=== PATIENT | male | born 1965 | race Hispanic/Latino ===

== ENCOUNTER 2017-06-30 15:25 | Inpatient (IN) | payer OTHER ==
[2017-06-30 15:25] VITALS: BMI 28.7
[2017-06-30] MEDS ORDERED: Piperacillin/Tazobact 3.375 gm 100 ML IVPB ONE (16:43)
[2017-06-30] MEDS ORDERED: Vancomycin 1 GM 1 GM/250 ML BAG IVPB ONE (16:43)
[2017-06-30 17:03] LABS: BASO # 0.1 K/uL (0.0-0.2); BASO % 1.1 % (0.0-2.0); EOS # 0.4 K/uL (0.0-0.7); EOS % 3.8 % (0.0-4.0); LYMPH # 2.2 K/uL (1.0-4.3); LYMPH % 19.2 % (20.0-40.0); MEAN CELL VOLUME 82.3 fL (80.0-94.0); MEAN CORPUSCULAR HEMOGLOBIN 28.6 pg (27.0-31.0); MEAN CORPUSCULAR HGB CONC 34.7 g/dL (33.0-37.0); MEAN PLATELET VOLUME 7.2 fL (7.2-11.7); MONO # 0.7 K/uL (0.0-0.8); MONO % 6.6 % (0.0-10.0); RED CELL DISTRIBUTION WIDTH 14.5 % (11.5-14.5); WHITE BLOOD COUNT 11.2 K/uL (4.8-10.8)
[2017-06-30 17:12] LABS: CHLORIDE 101 mmol/L (98-107); POTASSIUM 4.2 mmol/L (3.6-5.2); SODIUM 136 mmol/L (132-148)
[2017-06-30 17:14] LABS: BILIRUBIN,TOTAL 0.5 mg/dL (0.2-1.3); GFR AFRICAN-AMERICAN > 60
[2017-06-30 17:15] LABS: ALB/GLOB RATIO 0.9 (1.0-2.1); ALKALINE PHOSPHATASE 87 U/L (38-126); ALT/SGPT 29 U/L (21-72); AST/SGOT 17 U/L (17-59); BLOOD UREA NITROGEN 9 mg/dL (9-20); CALCIUM 9.2 mg/dl (8.6-10.4); CARBON DIOXIDE 25 mmol/L (22-30); GLUCOSE,RANDOM 254 mg/dL (75-110); INR 1.2; TOTAL PROTEIN 7.6 g/dL (6.3-8.3)
--- NOTE | 2017-06-30 18:27 | C.PDOC ---
History Of Present Illness 51 y/o male sent to ED by Dr. Rollins for admission for IV antibiotics due to right heel and left great toe infection. Symptoms are questionable for Osteomyelitis. Patient has no other complaints at this time. Time Seen by Provider: 06/30/17 15:52 Chief Complaint (Nursing): Lower Extremity Problem/Injury History Per: Patient History/Exam Limitations: no limitations Onset/Duration Of Symptoms: Days Current Symptoms Are (Timing): Still Present Past Medical History Reviewed: Historical Data, Nursing Documentation, Vital Signs Vital Signs: Last Vital Signs Temp 97.8 F 06/30/17 21:32 Pulse 88 06/30/17 21:32 Resp 20 06/30/17 21:32 BP 142/99 H 06/30/17 21:32 Pulse Ox 95 06/30/17 21:32 Family History: States: No Known Family Hx - Social History Hx Alcohol Use: Yes Hx Substance Use: No Review Of Systems Except As Marked, All Systems Reviewed And Found Negative. Constitutional: Negative for: Fever, Chills Cardiovascular: Negative for: Chest Pain Respiratory: Negative for: Shortness of Breath Gastrointestinal: Negative for: Nausea, Vomiting, Diarrhea Musculoskeletal: Positive for: Leg Pain, Foot Pain Skin: Negative for: Rash Neurological: Negative for: Numbness Physical Exam - Physical Exam Appears: Non-toxic, No Acute Distress Skin: Normal Color, Warm, No Rash Head: Atraumatic, Normacephalic Eye(s): bilateral: Normal Inspection Oral Mucosa: Moist Neck: Supple Chest: Symmetrical Extremity: Normal ROM, No Tenderness, Capillary Refill (<2 seconds), No Deformity, Other (Right foot bandaged, Left great toe bandaged) Pulses: Left Dorsalis Pedis: Normal, Right Dorsalis Pedis: Normal Neurological/Psych: Oriented x3, Normal Speech, Normal Motor, Normal Sensation ED Course And Treatment - Laboratory Results Result Diagrams: 06/30/17 17:05 06/30/17 16:59 O2 Sat by Pulse Oximetry: 98 (RA) Pulse Ox Interpretation: Normal Medical Decision Making Medical Decision Making: Spoke with who is aware of case and ask to start on Vancomycin Disposition - Disposition Disposition: HOSPITALIZED Disposition Time: 17:15 Condition: STABLE - Clinical Impression Clinical Impression: Cellulitis, Osteomyelitis - Scribe Statement The provider has reviewed the documentation as recorded by the Ediliaibporter Fleming All medical record entries made by the Scribe were at my direction and personally dictated by me. I have reviewed the chart and agree that the record accurately reflects my personal performance of the history, physical exam, medical decision making, and the department course for this patient. I have also personally directed, reviewed, and agree with the discharge instructions and disposition.
[2017-06-30] MEDS: Piperacillin/Tazobact 3.375 GM in Sodium Chloride 100 ML IVPB SCH (19:00)
[2017-06-30] MEDS: (Novolog) Insulin Aspart, Recombinant 100 u/ml 10 ml vial SC SCH (21:34)
[2017-07-01] MEDS: Piperacillin/Tazobact 3.375 GM in Sodium Chloride 100 ML IVPB SCH ×4 (00:45→23:47)
[2017-07-01] MEDS: (Novolog) Insulin Aspart, Recombinant 100 u/ml 10 ml vial SC SCH ×4 (08:13→21:21)
--- NOTE | 2017-07-01 08:40 | CP.PCM.CON ---
<Arsen Rollins - Last Filed: 07/01/17 08:37> History of Present Illness - History of Present Illness History of Present Illness: 51 year old male diabetic non compliant patient admitted for nonhealing worsening wound with history of OM right heel /ankle and new wound left hallux with deep probe and swelling of hallux of 1 week duration. Past Patient History - Past Medical History & Family History Past Medical History?: Yes - Past Social History Smoking Status: Unknown If Ever Smoked - ENDOCRINE/METABOLIC Hx Endocrine Disorders: Yes Hx Diabetes Mellitus Type 1: Yes - MUSCULOSKELETAL/RHEUMATOLOGICAL Hx Falls: No - PSYCHIATRIC Hx Substance Use: No - SURGICAL HISTORY Hx Surgeries: Yes Other/Comment: RIGHT FOOT - ANESTHESIA Hx Anesthesia: Yes Hx Anesthesia Reactions: No Meds Allergies/Adverse Reactions: Allergies Allergy/AdvReac Type Severity Reaction Status Date / Time No Known Allergies Allergy Verified 06/30/17 15:33 - Medications Medications: Current Medications Enoxaparin Sodium (Lovenox) 40 mg SC DAILY [facility] Piperacillin Sod/Tazobactam (Sod 3.375 gm/ Sodium Chloride) 100 mls @ 200 mls/ hr IVPB Q8H [facility] Last Admin: 07/01/17 08:14 Dose: 200 mls/hr Insulin Aspart (Novolog) 0 unit SC ACHS [facility] PRN Reason: Protocol Last Admin: 07/01/17 08:13 Dose: 2 unit Pneumococcal Polyvalent Vaccine (Pneumovax 23 Vaccine) 0.5 ml SC .ONCE ONE Stop: 07/02/17 10:01 Results - Vital Signs Recent Vital Signs: Last Vital Signs Temp 97.6 F 07/01/17 00:00 Pulse 82 07/01/17 00:00 Resp 20 07/01/17 00:00 BP 139/75 07/01/17 00:00 Pulse Ox 98 07/01/17 00:45 - Labs Result Diagrams: 06/30/17 17:05 06/30/17 16:59 Labs: Laboratory Results - last 24 hr 06/30/17 07/01/17 21:14 07:16 POC Glucose (mg/dL) 236 H 210 H <Zaid Nino - Last Filed: 07/01/17 10:17> History of Present Illness - History of Present Illness History of Present Illness: Patient is a 51 year old male with PMH of Diabetes consulted for nonhealing ulceration to right ankle/heel and left hallux plantar ulceration. Patient is known to Dr. Rollins. Patient states he has had the right mark/heel for over 1 year. He has had two debridements in the past for the plantar wound ulceration. He states the left hallux ulceration occured over a week ago. He reports it does feel like it's getting worse. He states he did not note any trauma to the area that could have caused the ulceration. He denies any acute events overnight. Denies n/v/sob/cp/chills of fever. Allergies: NKDA Meds: see meds list FH: denies PMH: DM SH: denies smoking or elicited drug use, reports drinking PSH: right heel wound debridements in the past Meds - Medications Medications: Current Medications Enoxaparin Sodium (Lovenox) 40 mg SC DAILY [facility] Last Admin: 07/01/17 09:12 Dose: 40 mg Piperacillin Sod/Tazobactam (Sod 3.375 gm/ Sodium Chloride) 100 mls @ 200 mls/ hr IVPB Q8H [facility] Last Admin: 07/01/17 08:14 Dose: 200 mls/hr Insulin Aspart (Novolog) 0 unit SC ACHS [facility] PRN Reason: Protocol Last Admin: 07/01/17 08:13 Dose: 2 unit Mupirocin (Bactroban Ointment) 0 gm TOP BID [facility] Pneumococcal Polyvalent Vaccine (Pneumovax 23 Vaccine) 0.5 ml SC .ONCE ONE Stop: 07/02/17 10:01 Physical Exam - Constitutional Appears: Well, Non-toxic, No Acute Distress - Extremities Exam Additional comments: Vasc: DP and PT 1/4 bilaterally, HOLLOCK MAKER < 3 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 New ulceration at the Left plantar medial hallux measures approximately 3 x 3 .4 cm, wound base is 60% fibrous, 40% granular with hyperkeratotic rim noted to the ulceration, mild drainage noted, no tunneling noted, no odor noted, erythema surrounding periwound. Neuro:gross sensation slightly diminished bilaterally Ortho: MM is 5/5 in all four compartments, pain elicited with palpation of the ulcerations bilaterally - Neurological Exam Neurological exam: Alert, Oriented x3 - Psychiatric Exam Psychiatric exam: Normal Affect, Normal Mood Results - Vital Signs Recent Vital Signs: Last Vital Signs Temp 97 F L 07/01/17 09:26 Pulse 86 07/01/17 09:26 Resp 20 07/01/17 09:26 BP 131/85 07/01/17 09:26 Pulse Ox 94 L 07/01/17 09:26 - Labs Result Diagrams: 06/30/17 17:05 06/30/17 16:59 Labs: Laboratory Results - last 24 hr 06/30/17 07/01/17 21:14 07:16 POC Glucose (mg/dL) 236 H 210 H Assessment & Plan - Assessment and Plan (Free Text) Assessment: 51 year old male with PMH of Diabetes present with lower extremity ulcerations secondary most likely to DM Plan: Patient was seen and evaluated with attending Dr. Rollins Charts, labs, vitals reviewed (afebrile, WBC is 11.2 on 06/30/17) Ordered Left foot x-ray and R foot/ankle x-rays. F/U on X-rays Ordered HbA1c. F/U on HbA1c F/U MRI final results Ulcerations dressed with xeroform, DSD, ABD, and jose Ordered Bactroban. Continue Zosyn per medicine team Will continue to follow while in house
[2017-07-01] MEDS: Enoxaparin 40 mg Syringe SC SCH (09:12)
--- NOTE | 2017-07-01 14:05 | RAD ---
PROCEDURE: Right Ankle Radiographs. HISTORY: right ankle ulceration COMPARISON: Comparison is made to the previous MRI dated 06/30/2017 FINDINGS: BONES: No evidence of acute fracture or dislocation. No radiographic evidence of osteomyelitis. Calcaneal space is seen. JOINTS: Normal. No osteoarthritis. Ankle mortise maintained. Talar dome intact SOFT TISSUES: Soft tissue edema and ulcer seen adjacent to the lateral malleolus OTHER FINDINGS: None. IMPRESSION: No radiographic evidence of fracture dislocation or osteomyelitis. Soft tissue edema and ulcer seen adjacent to the lateral malleolus
--- NOTE | 2017-07-01 23:31 | CP.PCM.HP ---
History of Present Illness - History of Present Illness History of Present Illness: 51 Y/O WITH T2DM AND HAS R HEEL INFECTION AND L BIG TOE INFECTION, WITH FEVER, PAIN IN BOTH FEET, NO SOB, NO COUGH , NO CHEST PAIN Present on Admission - Present on Admission Any Indicators Present on Admission: Yes History of DVT/PE: No History of Uncontrolled Diabetes: Yes Urinary Catheter: No Decubitus Ulcer Present: No Review of Systems - Constitutional Constitutional: Chills - Gastrointestinal Gastrointestinal: Bloating - Musculoskeletal Musculoskeletal: Arthralgias - Integumentary Integumentary: Skin Ulcer, Wounds - Endocrine Endocrine: Fatigue Past Patient History - Past Medical History & Family History Past Medical History?: Yes - Past Social History Smoking Status: Unknown If Ever Smoked - ENDOCRINE/METABOLIC Hx Endocrine Disorders: Yes Hx Diabetes Mellitus Type 1: Yes - MUSCULOSKELETAL/RHEUMATOLOGICAL Hx Falls: No - PSYCHIATRIC Hx Substance Use: No - SURGICAL HISTORY Hx Surgeries: Yes Other/Comment: RIGHT FOOT - ANESTHESIA Hx Anesthesia: Yes Hx Anesthesia Reactions: No Meds Allergies/Adverse Reactions: Allergies Allergy/AdvReac Type Severity Reaction Status Date / Time No Known Allergies Allergy Verified 06/30/17 15:33 Physical Exam - Constitutional Appears: No Acute Distress - Head Exam Head Exam: ATRAUMATIC, NORMAL INSPECTION, NORMOCEPHALIC - Eye Exam Eye Exam: EOMI, Normal appearance, PERRL Pupil Exam: NORMAL ACCOMODATION - ENT Exam ENT Exam: Mucous Membranes Moist, Normal Exam, Normal Oropharynx, TM's Normal Bilaterally - Neck Exam Neck exam: Positive for: Normal Inspection - Respiratory Exam Respiratory Exam: Clear to Auscultation Bilateral, NORMAL BREATHING PATTERN - Cardiovascular Exam Cardiovascular Exam: REGULAR RHYTHM, +S1, +S2 - GI/Abdominal Exam GI & Abdominal Exam: Normal Bowel Sounds, Soft - Rectal Exam Rectal Exam: NORMAL INSPECTION - Back Exam Back exam: NORMAL INSPECTION - Neurological Exam Neurological exam: Alert, CN II-XII Intact, Normal Gait, Oriented x3, Reflexes Normal - Psychiatric Exam Psychiatric exam: Flat Affect - Skin Skin Exam: Dry, Intact Results - Vital Signs Recent Vital Signs: Last Vital Signs Temp 97.5 F L 07/01/17 15:00 Pulse 75 07/01/17 15:00 Resp 20 07/01/17 15:00 BP 125/79 07/01/17 15:00 Pulse Ox 94 L 07/01/17 15:00 - Labs Result Diagrams: 06/30/17 17:05 06/30/17 16:59 Labs: Laboratory Results - last 24 hr 07/01/17 07/01/17 07/01/17 07:16 11:27 16:44 POC Glucose (mg/dL) 210 H 226 H 209 H 07/01/17 21:09 POC Glucose (mg/dL) 212 H Assessment & Plan (1) Diabetes mellitus Assessment and Plan: UNCONTROLLED Status: Acute (2) Osteomyelitis Assessment and Plan: ON ANTIBIOTICS, S/P MRI Status: Acute (3) Obesity Status: Chronic Priority: Low
[2017-07-02] MEDS: (Novolog) Insulin Aspart, Recombinant 100 u/ml 10 ml vial SC SCH ×4 (08:18→22:18)
[2017-07-02] MEDS: Piperacillin/Tazobact 3.375 GM in Sodium Chloride 100 ML IVPB SCH ×2 (08:19→16:12)
[2017-07-02] MEDS ORDERED: Pneumococcal 23-Valent Vaccine SC ONE (10:00)
[2017-07-02] MEDS: Enoxaparin 40 mg Syringe SC SCH (11:01)
--- NOTE | 2017-07-02 15:46 | RAD ---
PROCEDURE: Bilateral Feet Radiographs. HISTORY: foot ulcerations COMPARISON: None. FINDINGS: BONES: Right Foot: Normal. No fracture. No radiographic evidence of osteomyelitis. Small calcaneal spur. Left Foot: Normal. No fracture. JOINTS: Right Foot: Normal. No osteoarthritis. Left Foot: Normal. No osteoarthritis. SOFT TISSUES: Right Foot: Skin and subcutaneous ulceration seen at the right heel. Left Foot: Normal. OTHER FINDINGS: None. IMPRESSION: Soft tissue and skin ulceration at the right heel. No radiographic evidence of osteomyelitis.
--- NOTE | 2017-07-02 15:50 | MRI ---
PROCEDURE: MRI Right Ankle HISTORY: Pain. Evaluate for osteo myelitis COMPARISON: None available. TECHNIQUE: Multiecho multiplanar sequences were performed through the right ankle without the use of intravenous contrast. FINDINGS: ANTERIOR EXTENSOR TENDONS: Normal. MEDIAL FLEXOR TENDONS: Normal. PERONEAL TENDONS: There is a small amount of fluid around the peroneal tendon suggestive of mild tendinous in nephritis/tendinopathy.. ANTERIOR INFERIOR TIBIOFIBULAR (SYNDESMOSIS): No evidence of acute pathology. POSTERIOR INFERIOR TIBIOFIBULAR (SYNDESMOSIS): No evidence of acute pathology.. ANTERIOR TALOFIBULAR LIGAMENT: No evidence of acute injury.. POSTERIOR TALOFIBULAR LIGAMENT: Normal. PLANTAR FASCIA: Mild increase signal without evidence of significant fasciitis.. SINUS TARSI: Normal. ACHILLES TENDON: Normal. DELTOID LIGAMENT COMPLEX - DEEP: Normal. CALCANEOFIBULAR LIGAMENT: Normal. SPRING (PLANTAR CALCANEO-NAVICULAR) LIGAMENT: Normal. BONES: No evidence of bone marrow edema or cortical destruction to suggest acute or chronic osteomyelitis.. CARTILAGE: Preserved. JOINT FLUID: Trace joint effusion seen.. MUSCLES: Mild increased signal in the muscles at the proximal right foot suggestive of mild myositis.. OTHER FINDINGS: Skin defect and subcutaneous inflammatory changes seen at the right heel suggestive of cellulitis and subcutaneous inflammatory changes.. IMPRESSION: Cellulitis and subcutaneous inflammatory changes at the right heel. No evidence of osteomyelitis. Small amount of fluid around the peroneal tendons suggestive of mild tendinopathy. Preliminary report was submitted by [facility].
--- NOTE | 2017-07-02 16:44 | MRI ---
PROCEDURE: MRI Left Foot HISTORY: Pain. Evaluate for osteomyelitis of the left great toe. COMPARISON: None available. TECHNIQUE: Multiecho multiplanar sequences were performed through the left foot without the use of intravenous contrast. FINDINGS: Suboptimal evaluation without IV contrast administration. This study is also degraded by patient's motion. BONES: Abnormal signal and cortical erosion seen at the distal phalanx of the PICC toe suspicious for osteomyelitis. In the no evidence of other acute pathology in the osseous structure. MUSCLES: Mild increased signal seen in the mid and distal left foot suggestive of mild myositis. SOFT TISSUES: Soft tissue inflammatory and edema seen at the big toe likely represent cellulitis. LISFRANC LIGAMENT: No evidence of acute pathology in the visualized portion of ligament. PLANTAR PLATE: No evidence of acute pathology. EXTENSOR TENDONS: Mild tendinopathy. FLEXOR TENDONS: No evidence of acute pathology. OTHER FINDINGS: None. IMPRESSION: Suboptimal study without IV contrast administration and due to patient's motion. Suspicious for bone marrow edema and cortical erosion at the distal phalanx of the left big toe. Findings suspicious for osteomyelitis. Inflammatory changes and soft tissue edema seen at the big toe likely represent cellulitis. Preliminary report was submitted by [facility].
--- NOTE | 2017-07-02 22:03 | CP.PCM.PN ---
Subjective - Date & Time of Evaluation Date of Evaluation: 07/02/17 Time of Evaluation: 09:00 - Subjective Subjective: Patient is a 51 year old male with PMH of Diabetes seen at bedside for nonhealing ulceration to right ankle/heel and left OM hallux plantar ulceration. Patient was seen resting comfortably in bed, AAOx3, and in NAD. Reports mild pain at the moment. He denies any acute events overnight. Denies n/ v/sob/cp/chills of fever. Objective - Vital Signs/Intake and Output Vital Signs (last 24 hours): Temp Pulse Resp BP Pulse Ox 98.4 F 78 20 128/79 94 L 07/02/17 16:00 07/02/17 16:00 07/02/17 16:00 07/02/17 16:00 07/02/17 16:00 Intake and Output: 07/02/17 07/03/17 18:59 06:59 Intake Total 550 Balance 550 - Medications Medications: Current Medications Enoxaparin Sodium (Lovenox) 40 mg SC DAILY [facility] Last Admin: 07/02/17 11:01 Dose: 40 mg Piperacillin Sod/Tazobactam (Sod 3.375 gm/ Sodium Chloride) 100 mls @ 200 mls/ hr IVPB Q8H [facility] Last Admin: 07/02/17 16:12 Dose: 200 mls/hr Insulin Aspart (Novolog) 0 unit SC ACHS [facility] PRN Reason: Protocol Last Admin: 07/02/17 17:15 Dose: 1 unit Mupirocin (Bactroban Ointment) 0 gm TOP BID [facility] Last Admin: 07/02/17 17:12 Dose: Not Given Sitagliptin Phosphate (Januvia) 50 mg PO DAILY [facility] Last Admin: 07/02/17 11:01 Dose: 50 mg - Labs Labs: PT 13.1 SECONDS (9.7-12.2) H 06/30/17 16:59 INR 1.2 06/30/17 16:59 APTT 35 SECONDS (21-34) H 06/30/17 16:59 - Constitutional Appears: Well, Non-toxic, No Acute Distress - Extremities Exam Additional comments: Vasc: DP and PT 1/4 bilaterally, LENS GENERATING MACHINE TENDER < 3 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 New ulceration at the Left plantar medial hallux measures approximately 1.2x1x.4 wound base is 60% fibrous, 40% granular with hyperkeratotic rim noted to the ulceration, mild drainage noted, no tunneling noted, no odor noted, erythema surrounding periwound. Neuro:gross sensation slightly diminished bilaterally Ortho: MM is 5/5 in all four compartments, pain elicited with palpation of the ulcerations bilaterally - Neurological Exam Neurological Exam: Alert, Awake, Oriented x3 - Psychiatric Exam Psychiatric exam: Normal Affect, Normal Mood Assessment and Plan - Assessment and Plan (Free Text) Assessment: 51 year old male with PMH of Diabetes present with lower extremity ulcerations secondary most likely to DM Plan: Patient was seen and evaluated with attending Dr. Rollins Charts, labs, vitals reviewed (afebrile, WBC is 11.2 on 06/30/17) Xrays- b/l no evidence of om on X-ray, R ankle no om F/U on HbA1c MRI R: cellulitis heel, no osteomyelitis MRI L halux: distal phalanx osteomyelitis w/bone marrow edema and cortical erosion, cellulits Ulcerations dressed with xeroform, DSD, ABD, and jose Ordered Bactroban. Continue Zosyn per medicine team Will continue to follow while in house
--- NOTE | 2017-07-02 22:30 | CP.PCM.PN ---
Subjective - Date & Time of Evaluation Date of Evaluation: 07/02/17 Time of Evaluation: 11:16 - Subjective Subjective: PAIN IN HEEL, NO FEVER, ON ANTIBIOTICS, NO SOB, NO CHEST PAIN, NO FEVER, Objective - Vital Signs/Intake and Output Vital Signs (last 24 hours): Temp Pulse Resp BP Pulse Ox 98.4 F 78 20 128/79 94 L 07/02/17 16:00 07/02/17 16:00 07/02/17 16:00 07/02/17 16:00 07/02/17 16:00 Intake and Output: 07/02/17 07/03/17 18:59 06:59 Intake Total 550 Balance 550 - Medications Medications: Current Medications Enoxaparin Sodium (Lovenox) 40 mg SC DAILY [facility] Last Admin: 07/02/17 11:01 Dose: 40 mg Piperacillin Sod/Tazobactam (Sod 3.375 gm/ Sodium Chloride) 100 mls @ 200 mls/ hr IVPB Q8H [facility] Last Admin: 07/02/17 16:12 Dose: 200 mls/hr Insulin Aspart (Novolog) 0 unit SC ACHS [facility] PRN Reason: Protocol Last Admin: 07/02/17 22:18 Dose: Not Given Mupirocin (Bactroban Ointment) 0 gm TOP BID [facility] Last Admin: 07/02/17 17:12 Dose: Not Given Sitagliptin Phosphate (Januvia) 50 mg PO DAILY [facility] Last Admin: 07/02/17 11:01 Dose: 50 mg - Labs Labs: PT 13.1 SECONDS (9.7-12.2) H 06/30/17 16:59 INR 1.2 06/30/17 16:59 APTT 35 SECONDS (21-34) H 06/30/17 16:59 - Constitutional Appears: Non-toxic, No Acute Distress - Head Exam Head Exam: ATRAUMATIC, NORMAL INSPECTION, NORMOCEPHALIC - Eye Exam Eye Exam: EOMI, Normal appearance, PERRL Pupil Exam: NORMAL ACCOMODATION - ENT Exam ENT Exam: Mucous Membranes Moist, Normal Exam, Normal Oropharynx, TM's Normal Bilaterally - Neck Exam Neck Exam: Normal Inspection - Respiratory Exam Respiratory Exam: Decreased Breath Sounds, NORMAL BREATHING PATTERN - Cardiovascular Exam Cardiovascular Exam: REGULAR RHYTHM, +S1, +S2 - GI/Abdominal Exam GI & Abdominal Exam: Normal Bowel Sounds - Extremities Exam Extremities Exam: Normal Capillary Refill, Pedal Edema (WOUNDS ON BOTH FEET) - Neurological Exam Neurological Exam: Alert, Awake, CN II-XII Intact, Normal Gait, Oriented x3 Neuro motor strength exam: Left Upper Extremity: 5, Right Upper Extremity: 5, Left Lower Extremity: 5, Right Lower Extremity: 5 - Skin Skin Exam: Dry Assessment and Plan (1) Diabetes mellitus Status: Chronic (2) Osteomyelitis Assessment & Plan: CELLULITIS, NO OSTEO Status: Acute (3) Obesity Status: Chronic
[2017-07-03] MEDS: Piperacillin/Tazobact 3.375 GM in Sodium Chloride 100 ML IVPB SCH ×3 (01:00→17:03)
[2017-07-03] MEDS: (Novolog) Insulin Aspart, Recombinant 100 u/ml 10 ml vial SC SCH ×4 (08:28→21:50)
[2017-07-03 09:08] VITALS: RESP 20
[2017-07-03] MEDS: Enoxaparin 40 mg Syringe SC SCH (09:48)
--- NOTE | 2017-07-03 13:55 | CP.PCM.CON ---
History of Present Illness - History of Present Illness History of Present Illness: INFECTIOUS DISEASE CONSULTATION; HPI;. Patient is a 51 year old male with PMH of Diabetes consulted for nonhealing ulceration to right ankle/heel and left hallux plantar ulceration. Patient is known to Dr. Rollins. Patient states he has had the right mark/heel ULCER for over 1 year. He has had two debridements in the past for the plantar wound ulceration. He states the left hallux ulceration occured over a week ago. He reports it does feel like it's getting worse. PATIENT DENIES any trauma to the area that could have caused the ulceration. MRI OF THE LEFT FOOT WITHOUT CONTRAST SHOWS BONE MARROW EDEMA/CORTICAL EROSIONS OF DISTAL PHALANX ? OSTEOMYELITIS AND SOFT TISSUE EDEMA AT LEFT BIG TOE CONSISTENT WITH CELLULITIS. MRI of the right foot without contrast also shows cellulitis and subcutaneous inflammatory changes right heel with some fluid around the peroneal tendons consistent with tendinopathy but no signs of osteomyelitis. Patient is being followed by label designer DR ROLLINS . Infectious disease consultation requested by PMD FOR OSTEOMYELITIS OF THE DISTAL HULLUX LEFT BIG TOE. PATIENT PRESENTLY ON iv zOSYN [phone] HOURLY. PATIENT ALSO HAS UNCONTROLLED DIABETES MELLITUS WITH HEMOGLOBIN a1C OF 9.8%. Allergies: NKDA Meds: see meds list FH: denies PMH: DM SH: denies smoking or elicited drug use, reports drinking PSH: right heel wound debridements in the past X2 Meds - Medications Medications: Current Medications Enoxaparin Sodium (Lovenox) 40 mg SC DAILY [facility] Last Admin: 07/01/17 09:12 Dose: 40 mg Piperacillin Sod/Tazobactam (Sod 3.375 gm/ Sodium Chloride) 100 mls @ 200 mls/ hr IVPB Q8H [facility] Last Admin: 07/01/17 08:14 Dose: 200 mls/hr Insulin Aspart (Novolog) 0 unit SC ACHS [facility] PRN Reason: Protocol Last Admin: 07/01/17 08:13 Dose: 2 unit Mupirocin (Bactroban Ointment) 0 gm TOP BID [facility] Pneumococcal Polyvalent Vaccine (Pneumovax 23 Vaccine) 0.5 ml SC .ONCE ONE Stop: 07/02/17 10:01 Review of Systems - Constitutional Constitutional: absent: Chills, Fever - EENT Nose/Mouth/Throat: absent: Sore Throat - Cardiovascular Cardiovascular: absent: Chest Pain, Dyspnea - Respiratory Respiratory: absent: Cough - Gastrointestinal Gastrointestinal: absent: Abdominal Pain, Diarrhea, Nausea, Vomiting - Genitourinary Genitourinary: absent: Dysuria, Urinary Hesitance - Integumentary Integumentary: Skin Ulcer (MULTIPLE ULCERS BILATERAL FOOT RIGHT ANKLE AND RIGHT HEEL, LEFT FOOT BIG TOE WITH ULCER.) - Neurological Neurological: absent: Numbness, Paresthesias - Hematologic/Lymphatic Hematologic: As Per HPI. absent: Easy Bruising, Lymphadenopathy Past Patient History - Past Medical History & Family History Past Medical History?: Yes - Past Social History Smoking Status: Unknown If Ever Smoked - ENDOCRINE/METABOLIC Hx Endocrine Disorders: Yes Hx Diabetes Mellitus Type 1: Yes - MUSCULOSKELETAL/RHEUMATOLOGICAL Hx Falls: No - PSYCHIATRIC Hx Substance Use: No - SURGICAL HISTORY Hx Surgeries: Yes Other/Comment: RIGHT FOOT - ANESTHESIA Hx Anesthesia: Yes Hx Anesthesia Reactions: No Meds Allergies/Adverse Reactions: Allergies Allergy/AdvReac Type Severity Reaction Status Date / Time No Known Allergies Allergy Verified 06/30/17 15:33 - Medications Medications: Current Medications Enoxaparin Sodium (Lovenox) 40 mg SC DAILY [facility] Last Admin: 07/03/17 09:48 Dose: 40 mg Piperacillin Sod/Tazobactam (Sod 3.375 gm/ Sodium Chloride) 100 mls @ 200 mls/ hr IVPB Q8H [facility] Last Admin: 07/03/17 08:28 Dose: 200 mls/hr Insulin Aspart (Novolog) 0 unit SC ACHS [facility] PRN Reason: Protocol Last Admin: 07/03/17 11:59 Dose: 2 unit Mupirocin (Bactroban Ointment) 0 gm TOP BID [facility] Last Admin: 07/03/17 09:49 Dose: 1 applic Sitagliptin Phosphate (Januvia) 50 mg PO DAILY [facility] Last Admin: 07/03/17 09:48 Dose: 50 mg Physical Exam - Constitutional Appears: No Acute Distress - Head Exam Head Exam: NORMAL INSPECTION - Eye Exam Eye Exam: EOMI, PERRL - ENT Exam ENT Exam: Normal Oropharynx - Neck Exam Neck exam: Positive for: Normal Inspection - Respiratory Exam Respiratory Exam: Clear to Auscultation Bilateral - Cardiovascular Exam Cardiovascular Exam: REGULAR RHYTHM, +S1, +S2 - GI/Abdominal Exam GI & Abdominal Exam: Normal Bowel Sounds, Soft. absent: Organomegaly - Extremities Exam Extremities exam: Positive for: pedal pulses present (DISTANT.). Negative for: calf tenderness, pedal edema Additional comments: MULTIPLE BILATERAL FOOT ULCERATIONS RIGHT ANKLE AND RIGHT HEEL WITH NO MALODOROUS DRAINAGE. lEFT FOOT BIG TOE ULCER WITH SEROUS SANGUINOUS DRAINAGE. pATIENT PRESENTLY WITH THE DRESSING IN PLACE. - Neurological Exam Neurological exam: Alert, Oriented x3 - Psychiatric Exam Psychiatric exam: Normal Mood - Skin Skin Exam: Normal Color, Warm Results - Vital Signs Recent Vital Signs: Last Vital Signs Temp 97.7 F 07/03/17 08:00 Pulse 73 07/03/17 08:00 Resp 20 07/03/17 08:00 BP 130/81 07/03/17 08:00 Pulse Ox 97 07/03/17 08:00 - Labs Result Diagrams: 07/03/17 16:57 07/03/17 17:00 Labs: Laboratory Results - last 24 hr 07/01/17 07/02/17 07/02/17 10:58 16:37 21:40 POC Glucose (mg/dL) 180 H 185 H Hemoglobin A1c 9.8 H 07/03/17 07/03/17 07:27 11:06 POC Glucose (mg/dL) 175 H 231 H Hemoglobin A1c - Imaging and Cardiology x-ray bilateral feet Status: Report reviewed by me Assessment & Plan (1) Cellulitis Status: Acute (2) Osteomyelitis Assessment and Plan: patient has osteomyelitis distal phalanx left foot hullux by MRI left foot. Patient also has right foot cellulitis with subcutaneous inflammatory changes right heel and fluid around the peroneal tendons consistent with tendinopathy but no evidence of osteomyelitis. Patient presently on IV Zosyn 3.375 every 8 hourly since 06/30/17. No appropriate cultures have been obtained to direct therapy Will get MRSA screen Wound cultures if not done left hullux. WILL discuss with podiatry IF ANY CULTURES OBTAINED PPRIOR TO THIS HOSPITALIZATION. For now continue present therapy. Patient will need 6 weeks of IV antibiotics. Local wound care. TO DISCUSSWITH PMD. Status: Acute (3) Diabetes mellitus Assessment and Plan: patient's hemoglobin A1c is 9.8%. Adequate control of sugars were adequate healing of the wound. will discussed with PMD Status: Chronic (4) Obesity Status: Chronic Priority: Low
--- NOTE | 2017-07-03 17:02 | CP.PCM.PN ---
Subjective - Date & Time of Evaluation Date of Evaluation: 07/03/17 Time of Evaluation: 13:59 - Subjective Subjective: Patient is a 51 year old male with PMH of DM seen at bedside for non-healing ulceration to right lateral ankle and plantar heel and left OM hallux plantar ulceration. Patient was seen resting comfortably in bed, AAOx3, and in NAD. Dressing noted to be dirty at this time. Patient reports decreased pain at all sites from yesterday. He denies any acute events overnight. Denies n/v/sob/cp/ chills of fever. Objective - Vital Signs/Intake and Output Vital Signs (last 24 hours): Temp Pulse Resp BP Pulse Ox 97.3 F L 77 20 125/80 97 07/03/17 15:00 07/03/17 15:00 07/03/17 15:00 07/03/17 15:00 07/03/17 15:00 Intake and Output: 07/03/17 07/03/17 06:59 18:59 Intake Total 300 550 Output Total 500 450 Balance -200 100 - Medications Medications: Current Medications Enoxaparin Sodium (Lovenox) 40 mg SC DAILY [facility] Last Admin: 07/03/17 09:48 Dose: 40 mg Piperacillin Sod/Tazobactam (Sod 3.375 gm/ Sodium Chloride) 100 mls @ 200 mls/ hr IVPB Q8H [facility] Last Admin: 07/03/17 08:28 Dose: 200 mls/hr Insulin Aspart (Novolog) 0 unit SC ACHS [facility] PRN Reason: Protocol Last Admin: 07/03/17 11:59 Dose: 2 unit Mupirocin (Bactroban Ointment) 0 gm TOP BID [facility] Last Admin: 07/03/17 09:49 Dose: 1 applic Sitagliptin Phosphate (Januvia) 50 mg PO DAILY [facility] Last Admin: 07/03/17 09:48 Dose: 50 mg - Labs Labs: PT 13.1 SECONDS (9.7-12.2) H 06/30/17 16:59 INR 1.2 06/30/17 16:59 APTT 35 SECONDS (21-34) H 06/30/17 16:59 - Constitutional Appears: Well, Non-toxic, No Acute Distress - Extremities Exam Additional comments: LE focused examination Vasc: DP and PT 1/4 bilaterally, CFT < 3 seconds, temperature is warm to warm, bilateral edema noted to feet and ankles Derm: chronic non healing ulceration noted to lateral right ankle measuring approximately 3.5 x 2.6 x 0.2 cm and to plantar heel measuring approximately 4.0 x 3.0 x 0.3 cm; both of which have a fibrogranular base. No malodor, drainage, purulence, periwound erythema or other clinical signs of infection noted at this time. No tunneling or undermining noted. Ulceration at the left plantar medial hallux measuring approximately 1.2 x1.0 x 0.4 cm. Wound base is 60% fibrous, 40% granular with hyperkeratotic rim noted to the ulceration, no drainage noted, no tunneling noted, no odor noted, erythema surrounding periwound. Neuro:gross sensation slightly diminished bilaterally Ortho: Muscle strength is 5/5 in all four compartments, pain elicited with palpation of the ulcerations bilaterally - Neurological Exam Neurological Exam: Alert, Awake, Oriented x3 - Psychiatric Exam Psychiatric exam: Normal Affect, Normal Mood Assessment and Plan - Assessment and Plan (Free Text) Assessment: 51 year old male with multiple b/l foot ulcerations and OM of left hallux secondary to DM Plan: Patient seen and evaluated at bedside with attending Dr. Rollins Labs, charts and vitals reviewed; afebrile, WBC 7.3 Patient made aware that he has OM of left hallux ID consult completed today; Continue abx per ID Patient wounds dressed with Mupirocin ointment, 4x4 gauze and kerlix No surgical intervention planned at this time Podiatry to continue to follow while in house
[2017-07-03 17:05] LABS: BASO # 0.1 K/uL (0.0-0.2); BASO % 1.2 % (0.0-2.0); EOS # 0.5 K/uL (0.0-0.7); EOS % 7.3 % (0.0-4.0); HEMATOCRIT 42.4 % (35.0-51.0); LYMPH # 1.3 K/uL (1.0-4.3); MEAN CELL VOLUME 82.6 fL (80.0-94.0); MEAN CORPUSCULAR HEMOGLOBIN 28.6 pg (27.0-31.0); MEAN CORPUSCULAR HGB CONC 34.7 g/dL (33.0-37.0); MEAN PLATELET VOLUME 7.4 fL (7.2-11.7); MONO # 0.9 K/uL (0.0-0.8); MONO % 13.1 % (0.0-10.0); NRBC % 0.1 % (0.0-2.0); RED CELL DISTRIBUTION WIDTH 14.5 % (11.5-14.5); WHITE BLOOD COUNT 7.3 K/uL (4.8-10.8)
[2017-07-03 17:13] LABS: CHLORIDE 94 mmol/L (98-107)
[2017-07-03 17:14] LABS: SODIUM 135 mmol/L (132-148)
[2017-07-03 17:16] LABS: ALB/GLOB RATIO 0.9 (1.0-2.1); AST/SGOT 26 U/L (17-59); BILIRUBIN,DIRECT 0.5 mg/dL (0.0-0.4); BILIRUBIN,TOTAL 0.5 mg/dL (0.2-1.3); BLOOD UREA NITROGEN 9 mg/dL (9-20); CARBON DIOXIDE 30 mmol/L (22-30); GFR AFRICAN-AMERICAN > 60; GLUCOSE,RANDOM 169 mg/dL (75-110); TOTAL PROTEIN 7.8 g/dL (6.3-8.3)
[2017-07-03 17:17] LABS: ALKALINE PHOSPHATASE 82 U/L (38-126); ALT/SGPT 34 U/L (21-72); CALCIUM 9.5 mg/dl (8.6-10.4)
--- NOTE | 2017-07-03 22:36 | CP.PCM.PN ---
Subjective - Date & Time of Evaluation Date of Evaluation: 07/03/17 Time of Evaluation: 11:22 - Subjective Subjective: HE HAS OSTEOMYELITIS, NO FEVER, SEEN BY ID AND SEEN BY PODIATRY, NO FEVER, NO SOB Objective - Vital Signs/Intake and Output Vital Signs (last 24 hours): Temp Pulse Resp BP Pulse Ox 97.3 F L 77 20 125/80 97 07/03/17 15:00 07/03/17 15:00 07/03/17 15:00 07/03/17 15:00 07/03/17 15:00 Intake and Output: 07/03/17 07/04/17 18:59 06:59 Intake Total 550 Output Total 450 Balance 100 - Medications Medications: Current Medications Enoxaparin Sodium (Lovenox) 40 mg SC DAILY [facility] Last Admin: 07/03/17 09:48 Dose: 40 mg Piperacillin Sod/Tazobactam (Sod 3.375 gm/ Sodium Chloride) 100 mls @ 200 mls/ hr IVPB Q8H [facility] Last Admin: 07/03/17 17:03 Dose: 200 mls/hr Insulin Aspart (Novolog) 0 unit SC ACHS [facility] PRN Reason: Protocol Last Admin: 07/03/17 21:50 Dose: Not Given Metformin HCl (Glucophage) 500 mg PO BID [facility] Mupirocin (Bactroban Ointment) 0 gm TOP BID [facility] Last Admin: 07/03/17 21:04 Dose: 1 applic Sitagliptin Phosphate (Januvia) 50 mg PO DAILY [facility] Last Admin: 07/03/17 09:48 Dose: 50 mg - Labs Labs: 07/03/17 16:57 07/03/17 17:00 PT 13.1 SECONDS (9.7-12.2) H 06/30/17 16:59 INR 1.2 06/30/17 16:59 APTT 35 SECONDS (21-34) H 06/30/17 16:59 - Head Exam Head Exam: ATRAUMATIC, NORMAL INSPECTION - Eye Exam Eye Exam: Normal appearance - Neck Exam Neck Exam: Normal Inspection - Respiratory Exam Respiratory Exam: NORMAL BREATHING PATTERN - Cardiovascular Exam Cardiovascular Exam: REGULAR RHYTHM - GI/Abdominal Exam GI & Abdominal Exam: Soft, Normal Bowel Sounds Assessment and Plan (1) Diabetes mellitus Status: Chronic (2) Osteomyelitis Assessment & Plan: ON ANTIBIOTICS, SEEN BY ID Status: Acute (3) Obesity Status: Chronic
[2017-07-04] MEDS: Piperacillin/Tazobact 3.375 GM in Sodium Chloride 100 ML IVPB SCH ×3 (00:40→17:00)
[2017-07-04] MEDS: (Novolog) Insulin Aspart, Recombinant 100 u/ml 10 ml vial SC SCH ×5 (07:54→22:00)
[2017-07-04] MEDS: Enoxaparin 40 mg Syringe SC SCH (09:37)
--- NOTE | 2017-07-04 12:05 | CP.PCM.PN ---
Subjective - Date & Time of Evaluation Date of Evaluation: 07/04/17 Time of Evaluation: 11:00 - Subjective Subjective: 51 year old male was seen at bedside for non-healing ulceration to right lateral ankle and plantar heel and left OM hallux plantar ulceration. Patient was seen resting comfortably in bed, AAOx3, and in NAD. Patient reports decreased pain at all sites from yesterday. He denies any acute events overnight. Denies any n/v/f/c/sob/cp. Objective - Vital Signs/Intake and Output Vital Signs (last 24 hours): Temp Pulse Resp BP Pulse Ox 97.4 F L 87 20 129/85 98 07/04/17 08:00 07/04/17 11:26 07/04/17 08:00 07/04/17 08:00 07/04/17 11:26 Intake and Output: 07/04/17 07/04/17 06:59 18:59 Intake Total 400 Balance 400 - Medications Medications: Current Medications Enoxaparin Sodium (Lovenox) 40 mg SC DAILY [facility] Last Admin: 07/04/17 09:37 Dose: 40 mg Piperacillin Sod/Tazobactam (Sod 3.375 gm/ Sodium Chloride) 100 mls @ 200 mls/ hr IVPB Q8H [facility] Last Admin: 07/04/17 08:44 Dose: 200 mls/hr Insulin Aspart (Novolog) 0 unit SC ACHS [facility] PRN Reason: Protocol Last Admin: 07/04/17 07:54 Dose: 2 unit Metformin HCl (Glucophage) 500 mg PO BID [facility] Last Admin: 07/04/17 09:36 Dose: 500 mg Mupirocin (Bactroban Ointment) 0 gm TOP BID [facility] Last Admin: 07/04/17 09:39 Dose: 1 applic Sitagliptin Phosphate (Januvia) 50 mg PO DAILY [facility] Last Admin: 07/04/17 09:37 Dose: 50 mg - Labs Labs: 07/03/17 16:57 07/03/17 17:00 PT 13.1 SECONDS (9.7-12.2) H 06/30/17 16:59 INR 1.2 06/30/17 16:59 APTT 35 SECONDS (21-34) H 06/30/17 16:59 - Constitutional Appears: Well, Non-toxic, No Acute Distress - Extremities Exam Additional comments: Lower extremity focused examination: Vasc: DP and PT 1/4 bilaterally, CFT < 3 seconds, temperature is warm to warm, bilateral edema noted to feet and ankles Derm: chronic non healing ulceration noted to lateral right ankle measuring approximately 3.5 x 2.6 x 0.2 cm and to plantar heel measuring approximately 4.0 x 3.0 x 0.3 cm; both of which have a fibrogranular base. No malodor, drainage, purulence, periwound erythema or other clinical signs of infection noted at this time. No tunneling or undermining noted. Ulceration at the left plantar medial hallux measuring approximately 1.2 x1.0 x 0.4 cm. Wound base is 60% fibrous, 40% granular with hyperkeratotic rim noted to the ulceration, no drainage noted, no tunneling noted, no odor noted, erythema surrounding periwound. Neuro: gross sensation diminished bilaterally Ortho: Muscle strength is 5/5 in all four compartments, pain elicited with palpation of the ulcerations bilaterally - Neurological Exam Neurological Exam: Alert, Awake, Oriented x3 - Psychiatric Exam Psychiatric exam: Normal Affect, Normal Mood Assessment and Plan - Assessment and Plan (Free Text) Assessment: 51 year old male with multiple b/l foot ulcerations and OM of left hallux secondary to DM Plan: Patient seen and evaluated at bedside Discussed with attending Dr. Rollins Labs, charts and vitals reviewed; afebrile Patient made aware that he has OM of left hallux Continue Iv abx per ID Patient wounds dressed with Mupirocin ointment,xeroform, 4x4 gauze and kerlix No surgical intervention planned at this time Patient stable for D/C from podiatry standpoint Podiatry to continue to follow while in house
[2017-07-04] MEDS ORDERED: Lidocaine 2% Inj (20ml) ONE (14:31)
--- NOTE | 2017-07-04 14:39 | PCM.SURG1 ---
Surgeon's Initial Post Op Note - Surgeon's Notes Surgeon: Tez Dyer MD Vice President Education: None Type of Anesthesia: Local Pre-Operative Diagnosis: Infection Operative Findings: Patent right basilic vein Post-Operative Diagnosis: Infection Operation Performed: Single lumen picc placement right basilic vein, 37 cm. Tip in SVC. Specimen/Specimens Removed: None Estimated Blood Loss: EBL {In ML}: 2 Blood Products Given: N/A Drains Used: No Drains Post-Op Condition: Fair Date of Surgery/Procedure: 07/04/17 Time of Surgery/Procedure: 14:35
--- NOTE | 2017-07-04 22:57 | CP.PCM.PN ---
Subjective - Date & Time of Evaluation Date of Evaluation: 07/04/17 Time of Evaluation: 11:30 - Subjective Subjective: feels foot, pain , no sob, on antibiotics. Objective - Vital Signs/Intake and Output Vital Signs (last 24 hours): Temp Pulse Resp BP Pulse Ox 97.8 F 83 20 123/80 96 07/04/17 15:00 07/04/17 15:00 07/04/17 15:00 07/04/17 15:00 07/04/17 15:00 - Medications Medications: Current Medications Enoxaparin Sodium (Lovenox) 40 mg SC DAILY [facility] Last Admin: 07/04/17 09:37 Dose: 40 mg Piperacillin Sod/Tazobactam (Sod 3.375 gm/ Sodium Chloride) 100 mls @ 200 mls/ hr IVPB Q8H [facility] Last Admin: 07/04/17 17:00 Dose: 200 mls/hr Insulin Aspart (Novolog) 0 unit SC ACHS [facility] PRN Reason: Protocol Last Admin: 07/04/17 17:12 Dose: 3 unit Metformin HCl (Glucophage) 500 mg PO BID [facility] Last Admin: 07/04/17 17:07 Dose: 500 mg Mupirocin (Bactroban Ointment) 0 gm TOP BID [facility] Last Admin: 07/04/17 09:39 Dose: 1 applic Sitagliptin Phosphate (Januvia) 50 mg PO DAILY [facility] Last Admin: 07/04/17 09:37 Dose: 50 mg - Labs Labs: 07/03/17 16:57 07/03/17 17:00 PT 13.1 SECONDS (9.7-12.2) H 06/30/17 16:59 INR 1.2 06/30/17 16:59 APTT 35 SECONDS (21-34) H 06/30/17 16:59 - Constitutional Appears: Non-toxic, No Acute Distress - Head Exam Head Exam: ATRAUMATIC, NORMAL INSPECTION, NORMOCEPHALIC - Eye Exam Eye Exam: EOMI, Normal appearance - ENT Exam ENT Exam: Mucous Membranes Moist, Normal Exam - Neck Exam Neck Exam: Normal Inspection - Respiratory Exam Respiratory Exam: Clear to Ausculation Bilateral, NORMAL BREATHING PATTERN - GI/Abdominal Exam GI & Abdominal Exam: Soft, Normal Bowel Sounds - Rectal Exam Rectal Exam: NORMAL INSPECTION - Neurological Exam Neurological Exam: Alert, Awake, CN II-XII Intact, Normal Gait, Oriented x3 Neuro motor strength exam: Left Upper Extremity: 5, Right Upper Extremity: 5, Left Lower Extremity: 5, Right Lower Extremity: 5 - Skin Skin Exam: Dry, Intact Assessment and Plan (1) Diabetes mellitus Status: Chronic (2) Osteomyelitis Status: Acute (3) Obesity Status: Chronic
[2017-07-05] MEDS: Piperacillin/Tazobact 3.375 GM in Sodium Chloride 100 ML IVPB SCH ×3 (00:25→16:52)
[2017-07-05] MEDS: (Novolog) Insulin Aspart, Recombinant 100 u/ml 10 ml vial SC SCH ×4 (08:18→21:29)
[2017-07-05] MEDS: Enoxaparin 40 mg Syringe SC SCH (09:18)
--- NOTE | 2017-07-05 09:25 | CP.PCM.PN ---
<RiversMae - Last Filed: 07/05/17 12:39> Subjective - Date & Time of Evaluation Date of Evaluation: 07/05/17 Time of Evaluation: 09:25 - Subjective Subjective: 51 year old male was seen at bedside for non-healing ulceration to right lateral ankle and plantar heel and left OM hallux plantar ulceration. Patient was seen resting comfortably in bed, AAOx3, and in NAD. He currently denies pain to his LE B/L. He denies any acute events overnight. Denies any n/v/f/c/sob /cp. Objective - Vital Signs/Intake and Output Vital Signs (last 24 hours): Temp Pulse Resp BP Pulse Ox 98.5 F 65 20 124/85 96 07/05/17 08:00 07/05/17 08:00 07/05/17 08:00 07/05/17 08:00 07/05/17 08:00 Intake and Output: 07/05/17 07/05/17 06:59 18:59 Intake Total 400 Balance 400 - Medications Medications: Current Medications Enoxaparin Sodium (Lovenox) 40 mg SC DAILY [facility] Last Admin: 07/05/17 09:18 Dose: 40 mg Piperacillin Sod/Tazobactam (Sod 3.375 gm/ Sodium Chloride) 100 mls @ 200 mls/ hr IVPB Q8H [facility] Last Admin: 07/05/17 08:18 Dose: 200 mls/hr Insulin Aspart (Novolog) 0 unit SC ACHS [facility] PRN Reason: Protocol Last Admin: 07/05/17 08:18 Dose: 1 unit Metformin HCl (Glucophage) 500 mg PO BID [facility] Last Admin: 07/05/17 09:18 Dose: 500 mg Mupirocin (Bactroban Ointment) 0 gm TOP BID [facility] Last Admin: 07/05/17 09:20 Dose: 1 applic Sitagliptin Phosphate (Januvia) 50 mg PO DAILY [facility] Last Admin: 07/05/17 09:18 Dose: 50 mg - Labs Labs: 07/03/17 16:57 07/03/17 17:00 PT 13.1 SECONDS (9.7-12.2) H 06/30/17 16:59 INR 1.2 06/30/17 16:59 APTT 35 SECONDS (21-34) H 06/30/17 16:59 - Constitutional Appears: Well, Non-toxic, No Acute Distress - Extremities Exam Additional comments: Lower extremity focused examination: Vasc: DP and PT 1/4 bilaterally, CFT < 3 seconds, temperature is warm to warm, bilateral edema noted to feet and ankles Derm: chronic non healing ulceration noted to lateral right ankle measuring approximately 3.5 x 2.6 x 0.2 cm and to plantar heel measuring approximately 4.0 x 3.0 x 0.3 cm; both of which have a fibrogranular base. No malodor, drainage, purulence, periwound erythema or other clinical signs of infection noted at this time. No tunneling or undermining noted. Ulceration at the left plantar medial hallux measuring approximately 1.2 x1.0 x 0.4 cm. Wound base is 60% fibrous, 40% granular with hyperkeratotic rim noted to the ulceration, no drainage noted, no tunneling noted, no odor noted, erythema surrounding periwound. Neuro: gross sensation diminished bilaterally Ortho: Tenderness elicited with palpation of the ulcerations bilaterally - Neurological Exam Neurological Exam: Alert, Awake, Oriented x3 - Psychiatric Exam Psychiatric exam: Normal Affect, Normal Mood Assessment and Plan - Assessment and Plan (Free Text) Assessment: 51 year old male with multiple b/l foot ulcerations and OM of left hallux secondary to DM Plan: Patient seen and evaluated at bedside Discussed with attending Dr. Rollins Labs, charts and vitals reviewed; afebrile Patient made aware that he has OM of left hallux Continue Iv abx per ID Patient wounds dressed with Mupirocin ointment,xeroform, 4x4 gauze and kerlix No surgical intervention planned at this time Patient stable for D/C from podiatry standpoint Podiatry to continue to follow while in house <Arsen Rollins - Last Filed: 07/05/17 19:13> Objective - Vital Signs/Intake and Output Vital Signs (last 24 hours): Temp Pulse Resp BP Pulse Ox 97.3 F L 90 20 129/81 95 07/05/17 15:00 07/05/17 15:00 07/05/17 15:00 07/05/17 15:00 07/05/17 15:00 Intake and Output: 07/05/17 07/06/17 18:59 06:59 Intake Total 700 Output Total 1000 Balance -300 - Medications Medications: Current Medications Enoxaparin Sodium (Lovenox) 40 mg SC DAILY [facility] Last Admin: 07/05/17 09:18 Dose: 40 mg Piperacillin Sod/Tazobactam (Sod 3.375 gm/ Sodium Chloride) 100 mls @ 200 mls/ hr IVPB Q8H [facility] Last Admin: 07/05/17 16:52 Dose: 200 mls/hr Insulin Aspart (Novolog) 0 unit SC ACHS [facility] PRN Reason: Protocol Last Admin: 07/05/17 16:53 Dose: 2 unit Metformin HCl (Glucophage) 500 mg PO BID [facility] Last Admin: 07/05/17 17:00 Dose: 500 mg Mupirocin (Bactroban Ointment) 0 gm TOP BID [facility] Last Admin: 07/05/17 17:01 Dose: 1 applic Sitagliptin Phosphate (Januvia) 50 mg PO DAILY [facility] Last Admin: 07/05/17 09:18 Dose: 50 mg - Labs Labs: 07/03/17 16:57 07/03/17 17:00 PT 13.1 SECONDS (9.7-12.2) H 06/30/17 16:59 INR 1.2 06/30/17 16:59 APTT 35 SECONDS (21-34) H 06/30/17 16:59 Assessment and Plan - Assessment and Plan (Free Text) Plan: pt seen at bedside .wounds examined and redressed .agree with above findings and pt will need shaft tender antibiotic therapy for OM left hallux .DR ROLLINS.
--- NOTE | 2017-07-05 19:16 | CP.PCM.PN ---
Subjective - Date & Time of Evaluation Date of Evaluation: 07/05/17 Time of Evaluation: 19:15 - Subjective Subjective: pt seen this PM for continued treatment of wounds b/l and OM left hallux. Objective - Vital Signs/Intake and Output Vital Signs (last 24 hours): Temp Pulse Resp BP Pulse Ox 97.3 F L 90 20 129/81 95 07/05/17 15:00 07/05/17 15:00 07/05/17 15:00 07/05/17 15:00 07/05/17 15:00 Intake and Output: 07/05/17 07/06/17 18:59 06:59 Intake Total 700 Output Total 1000 Balance -300 - Medications Medications: Current Medications Enoxaparin Sodium (Lovenox) 40 mg SC DAILY [facility] Last Admin: 07/05/17 09:18 Dose: 40 mg Piperacillin Sod/Tazobactam (Sod 3.375 gm/ Sodium Chloride) 100 mls @ 200 mls/ hr IVPB Q8H [facility] Last Admin: 07/05/17 16:52 Dose: 200 mls/hr Insulin Aspart (Novolog) 0 unit SC ACHS [facility] PRN Reason: Protocol Last Admin: 07/05/17 16:53 Dose: 2 unit Metformin HCl (Glucophage) 500 mg PO BID [facility] Last Admin: 07/05/17 17:00 Dose: 500 mg Mupirocin (Bactroban Ointment) 0 gm TOP BID [facility] Last Admin: 07/05/17 17:01 Dose: 1 applic Sitagliptin Phosphate (Januvia) 50 mg PO DAILY [facility] Last Admin: 07/05/17 09:18 Dose: 50 mg - Labs Labs: 07/03/17 16:57 07/03/17 17:00 PT 13.1 SECONDS (9.7-12.2) H 06/30/17 16:59 INR 1.2 06/30/17 16:59 APTT 35 SECONDS (21-34) H 06/30/17 16:59
--- NOTE | 2017-07-05 21:51 | CP.PCM.PN ---
Subjective - Date & Time of Evaluation Date of Evaluation: 07/05/17 Time of Evaluation: 10:21 - Subjective Subjective: admitted with diabetic foot infection, started on antibiotics, wound culture, seen by podiatry and he is on antibiotics Objective - Vital Signs/Intake and Output Vital Signs (last 24 hours): Temp Pulse Resp BP Pulse Ox 97.3 F L 90 20 129/81 95 07/05/17 15:00 07/05/17 15:00 07/05/17 15:00 07/05/17 15:00 07/05/17 15:00 Intake and Output: 07/05/17 07/06/17 18:59 06:59 Intake Total 700 Output Total 1000 Balance -300 - Medications Medications: Current Medications Enoxaparin Sodium (Lovenox) 40 mg SC DAILY [facility] Last Admin: 07/05/17 09:18 Dose: 40 mg Piperacillin Sod/Tazobactam (Sod 3.375 gm/ Sodium Chloride) 100 mls @ 200 mls/ hr IVPB Q8H [facility] Last Admin: 07/05/17 16:52 Dose: 200 mls/hr Insulin Aspart (Novolog) 0 unit SC ACHS [facility] PRN Reason: Protocol Last Admin: 07/05/17 21:29 Dose: Not Given Metformin HCl (Glucophage) 500 mg PO BID [facility] Last Admin: 07/05/17 17:00 Dose: 500 mg Mupirocin (Bactroban Ointment) 0 gm TOP BID [facility] Last Admin: 07/05/17 17:01 Dose: 1 applic Sitagliptin Phosphate (Januvia) 50 mg PO DAILY [facility] Last Admin: 07/05/17 09:18 Dose: 50 mg - Labs Labs: 07/03/17 16:57 07/03/17 17:00 PT 13.1 SECONDS (9.7-12.2) H 06/30/17 16:59 INR 1.2 06/30/17 16:59 APTT 35 SECONDS (21-34) H 06/30/17 16:59 - Constitutional Appears: Non-toxic, No Acute Distress, Chronically Ill - Head Exam Head Exam: ATRAUMATIC, NORMAL INSPECTION, NORMOCEPHALIC - Eye Exam Eye Exam: EOMI, Normal appearance, PERRL Pupil Exam: NORMAL ACCOMODATION - ENT Exam ENT Exam: Mucous Membranes Moist, Normal Exam, Normal Oropharynx, TM's Normal Bilaterally - Neck Exam Neck Exam: Normal Inspection - Respiratory Exam Respiratory Exam: Clear to Ausculation Bilateral, NORMAL BREATHING PATTERN - Cardiovascular Exam Cardiovascular Exam: REGULAR RHYTHM, +S1, +S2 - GI/Abdominal Exam GI & Abdominal Exam: Soft, Normal Bowel Sounds - Rectal Exam Rectal Exam: NORMAL INSPECTION - Extremities Exam Extremities Exam: Normal Capillary Refill (woungs both feet) - Neurological Exam Neurological Exam: Alert, Awake, CN II-XII Intact, Normal Gait, Oriented x3 Neuro motor strength exam: Left Upper Extremity: 5, Right Upper Extremity: 5, Left Lower Extremity: 5, Right Lower Extremity: 5 - Psychiatric Exam Psychiatric exam: Normal Mood - Skin Skin Exam: Intact Assessment and Plan (1) Diabetes mellitus Status: Chronic (2) Osteomyelitis Status: Acute (3) Obesity Status: Chronic
--- NOTE | 2017-07-05 22:40 | CP.PCM.PN ---
Subjective - Date & Time of Evaluation Date of Evaluation: 07/05/17 Time of Evaluation: 22:40 - Subjective Subjective: afebrile. offers no new complaints . B/L FEET IN DRESSINGS C/D/I. ON IV ABX.FOR LT.HULLUX OM/ AND B/L CH. RT. HEEL AND ANKLE ULCERS ESR 50. CRP >15 WOUND CULTURES -P Objective - Vital Signs/Intake and Output Vital Signs (last 24 hours): Temp Pulse Resp BP Pulse Ox 97.3 F L 90 20 129/81 95 07/05/17 15:00 07/05/17 15:00 07/05/17 15:00 07/05/17 15:00 07/05/17 15:00 Intake and Output: 07/05/17 07/06/17 18:59 06:59 Intake Total 700 600 Output Total 1000 Balance -300 600 - Medications Medications: Current Medications Enoxaparin Sodium (Lovenox) 40 mg SC DAILY [facility] Last Admin: 07/05/17 09:18 Dose: 40 mg Piperacillin Sod/Tazobactam (Sod 3.375 gm/ Sodium Chloride) 100 mls @ 200 mls/ hr IVPB Q8H [facility] Last Admin: 07/05/17 16:52 Dose: 200 mls/hr Insulin Aspart (Novolog) 0 unit SC ACHS [facility] PRN Reason: Protocol Last Admin: 07/05/17 21:29 Dose: Not Given Metformin HCl (Glucophage) 500 mg PO BID [facility] Last Admin: 07/05/17 17:00 Dose: 500 mg Mupirocin (Bactroban Ointment) 0 gm TOP BID [facility] Last Admin: 07/05/17 17:01 Dose: 1 applic Sitagliptin Phosphate (Januvia) 50 mg PO DAILY [facility] Last Admin: 07/05/17 09:18 Dose: 50 mg - Labs Labs: 07/03/17 16:57 07/03/17 17:00 PT 13.1 SECONDS (9.7-12.2) H 06/30/17 16:59 INR 1.2 06/30/17 16:59 APTT 35 SECONDS (21-34) H 06/30/17 16:59 - Constitutional Appears: No Acute Distress - Head Exam Head Exam: NORMAL INSPECTION - Eye Exam Eye Exam: EOMI, PERRL - ENT Exam ENT Exam: Mucous Membranes Moist, Normal Oropharynx - Respiratory Exam Respiratory Exam: Clear to Ausculation Bilateral, NORMAL BREATHING PATTERN - Cardiovascular Exam Cardiovascular Exam: REGULAR RHYTHM, +S1, +S2 - GI/Abdominal Exam GI & Abdominal Exam: Soft, Normal Bowel Sounds. absent: Tenderness - Extremities Exam Extremities Exam: Normal Capillary Refill, Pedal Edema. absent: Calf Tenderness - Neurological Exam Neurological Exam: Alert, Awake, CN II-XII Intact, Oriented x3, Reflexes Normal - Psychiatric Exam Psychiatric exam: Normal Mood - Skin Skin Exam: Normal Color, Warm Assessment and Plan (1) Cellulitis Status: Acute (2) Osteomyelitis Assessment & Plan: Ulceration at the left plantar medial hallux measuring approximately 1.2 x1.0 x 0.4 cm. Wound base no drainage noted, no tunneling noted, no odor noted, erythema surrounding periwound. chronic non healing ulceration noted to lateral right ankle measuring approximately 3.5 x 2.6 x 0.2 cm and to plantar heel measuring approximately 4.0 x 3.0 x 0.3 cm; no drainage. Neuro: gross sensation diminished bilaterally Ortho: Tenderness elicited with palpation of the ulcerations bilaterally PATIENT ON iv zOSYN 3.375 Q 8 HOURLY. FOLLOW-UP CULTURES AND ADJUST ANTIBIOTICS. pATIENT WILL NEED 6 WEEKS OF iv ANTIBIOTICS. lOCAL WOUND CARE PER dR. VERNON. pODIATRY. Status: Acute (3) Diabetes mellitus Status: Chronic (4) Obesity Status: Chronic
[2017-07-06] MEDS: Piperacillin/Tazobact 3.375 GM in Sodium Chloride 100 ML IVPB SCH ×3 (00:30→17:10)
[2017-07-06 07:04] LABS: BASO # 0.1 K/uL (0.0-0.2); BASO % 1.1 % (0.0-2.0); EOS # 0.4 K/uL (0.0-0.7); EOS % 4.9 % (0.0-4.0); HEMATOCRIT 43.2 % (35.0-51.0); LYMPH # 1.4 K/uL (1.0-4.3); LYMPH % 17.8 % (20.0-40.0); MEAN CELL VOLUME 82.4 fL (80.0-94.0); MEAN CORPUSCULAR HEMOGLOBIN 28.1 pg (27.0-31.0); MEAN CORPUSCULAR HGB CONC 34.1 g/dL (33.0-37.0); MEAN PLATELET VOLUME 7.6 fL (7.2-11.7); MONO # 0.9 K/uL (0.0-0.8); MONO % 10.7 % (0.0-10.0); NRBC % 0.2 % (0.0-2.0); RED CELL DISTRIBUTION WIDTH 14.5 % (11.5-14.5); WHITE BLOOD COUNT 7.9 K/uL (4.8-10.8)
[2017-07-06 07:15] LABS: CHLORIDE 98 mmol/L (98-107); POTASSIUM 4.1 mmol/L (3.6-5.2); SODIUM 135 mmol/L (132-148)
[2017-07-06 07:17] LABS: ALB/GLOB RATIO 0.9 (1.0-2.1); BILIRUBIN,DIRECT 0.4 mg/dL (0.0-0.4); BILIRUBIN,TOTAL 0.6 mg/dL (0.2-1.3); CARBON DIOXIDE 28 mmol/L (22-30); GFR AFRICAN-AMERICAN > 60; TOTAL PROTEIN 7.8 g/dL (6.3-8.3)
[2017-07-06 07:18] LABS: ALKALINE PHOSPHATASE 76 U/L (38-126); ALT/SGPT 37 U/L (21-72); AST/SGOT 26 U/L (17-59); BLOOD UREA NITROGEN 12 mg/dL (9-20); CALCIUM 9.5 mg/dl (8.6-10.4); GLUCOSE,RANDOM 191 mg/dL (75-110)
[2017-07-06] MEDS: (Novolog) Insulin Aspart, Recombinant 100 u/ml 10 ml vial SC SCH ×3 (08:28→17:03)
[2017-07-06] MEDS: Enoxaparin 40 mg Syringe SC SCH (09:54)
--- NOTE | 2017-07-06 10:47 | CP.PCM.PN ---
Subjective - Date & Time of Evaluation Date of Evaluation: 07/06/17 Time of Evaluation: 10:45 - Subjective Subjective: 51 year old male was seen at bedside for non-healing ulceration to right lateral ankle and plantar heel and left OM hallux ulceration. Patient was seen resting comfortably in bed, AAOx3, and in NAD. He currently denies pain to his LE B/L. Denies any n/v/f/c/sob/cp. Objective - Vital Signs/Intake and Output Vital Signs (last 24 hours): Temp Pulse Resp BP Pulse Ox 98.7 F 84 20 117/78 97 07/06/17 08:00 07/06/17 08:00 07/06/17 08:00 07/06/17 08:00 07/06/17 08:00 Intake and Output: 07/06/17 07/06/17 06:59 18:59 Intake Total 1100 Balance 1100 - Medications Medications: Current Medications Enoxaparin Sodium (Lovenox) 40 mg SC DAILY [facility] Last Admin: 07/06/17 09:54 Dose: 40 mg Piperacillin Sod/Tazobactam (Sod 3.375 gm/ Sodium Chloride) 100 mls @ 200 mls/ hr IVPB Q8H [facility] Last Admin: 07/06/17 08:28 Dose: 200 mls/hr Insulin Aspart (Novolog) 0 unit SC ACHS [facility] PRN Reason: Protocol Last Admin: 07/06/17 08:28 Dose: 1 unit Metformin HCl (Glucophage) 500 mg PO BID [facility] Last Admin: 07/06/17 09:54 Dose: 500 mg Mupirocin (Bactroban Ointment) 0 gm TOP BID [facility] Last Admin: 07/05/17 17:01 Dose: 1 applic Sitagliptin Phosphate (Januvia) 50 mg PO DAILY [facility] Last Admin: 07/06/17 09:54 Dose: 50 mg - Labs Labs: 07/06/17 06:52 07/06/17 06:52 PT 13.1 SECONDS (9.7-12.2) H 06/30/17 16:59 INR 1.2 06/30/17 16:59 APTT 35 SECONDS (21-34) H 06/30/17 16:59 - Constitutional Appears: Well, Non-toxic, No Acute Distress - Extremities Exam Additional comments: Lower extremity focused examination: Vasc: DP and PT 1/4 bilaterally, CFT < 3 seconds, temperature is warm to warm, bilateral edema noted to feet and ankles Derm: chronic non-healing ulceration noted to lateral right ankle measuring approximately 3.5 x 2.6 x 0.2 cm and to plantar heel measuring approximately 4.0 x 3.0 x 0.3 cm; both of which have a fibrogranular base. Right heel ulcer has a hyperkeratotic rim. No malodor, drainage, purulence, periwound erythema or other clinical signs of infection noted at this time. No tunneling or undermining noted. Ulceration at the left plantar medial hallux measuring approximately 1.2 x1.0 x 0.4 cm. Wound base is 60% fibrous, 40% granular with hyperkeratotic rim noted to the ulceration, no drainage noted, no tunneling noted, no odor noted, erythema surrounding periwound. Neuro: gross sensation diminished bilaterally Ortho: Tenderness elicited with palpation of the ulcerations bilaterally - Neurological Exam Neurological Exam: Alert, Awake, Oriented x3 - Psychiatric Exam Psychiatric exam: Normal Affect, Normal Mood Assessment and Plan - Assessment and Plan (Free Text) Assessment: 51 year old male with multiple b/l foot ulcerations and OM of left hallux secondary to DM Plan: Patient seen and evaluated at bedside Discussed with attending Dr. Rollins Labs, charts and vitals reviewed; afebrile Patient aware that he has OM of left hallux Continue Iv abx per ID Patient wounds dressed with Mupirocin ointment, xeroform, 4x4 gauze and kerlix No surgical intervention planned at this time Patient stable for D/C from podiatry standpoint Podiatry to continue to follow while in house
--- NOTE | 2017-07-06 12:15 | CP.PCM.PN ---
Subjective - Date & Time of Evaluation Date of Evaluation: 07/06/17 Time of Evaluation: 12:15 - Subjective Subjective: afebrile. offers no new complaints . B/L FEET IN DRESSINGS C/D/I. ALL CULTURES +VE CORYNEBACTERIUM SP. ? SKIN JOSE ON IV ABX.FOR LT.HULLUX OM/ AND B/L CH. RT. HEEL AND ANKLE ULCERS CASE DISCUSSED WITH INSTRUMENT DESIGNER MS MELENDEZ. PT FOR [place], CONTINUE IV ZOSYN 3.375MG IV Q 8HRLY X 4 WKS. F/U PO AUGMENTIN 875MG BID X 2WKS. F/U RENAL FUNCTIONS AND LFTS /CBC WKLY. WILL F/U PT WHILE IN HOUSE. Objective - Vital Signs/Intake and Output Vital Signs (last 24 hours): Temp Pulse Resp BP Pulse Ox 98.7 F 84 20 117/78 97 07/06/17 08:00 07/06/17 08:00 07/06/17 08:00 07/06/17 08:00 07/06/17 08:00 Intake and Output: 07/06/17 07/06/17 06:59 18:59 Intake Total 1100 Balance 1100 - Medications Medications: Current Medications Enoxaparin Sodium (Lovenox) 40 mg SC DAILY [facility] Last Admin: 07/06/17 09:54 Dose: 40 mg Piperacillin Sod/Tazobactam (Sod 3.375 gm/ Sodium Chloride) 100 mls @ 200 mls/ hr IVPB Q8H [facility] Last Admin: 07/06/17 08:28 Dose: 200 mls/hr Insulin Aspart (Novolog) 0 unit SC ACHS [facility] PRN Reason: Protocol Last Admin: 07/06/17 08:28 Dose: 1 unit Metformin HCl (Glucophage) 500 mg PO BID [facility] Last Admin: 07/06/17 09:54 Dose: 500 mg Mupirocin (Bactroban Ointment) 0 gm TOP BID [facility] Last Admin: 07/06/17 11:19 Dose: Not Given Sitagliptin Phosphate (Januvia) 50 mg PO DAILY [facility] Last Admin: 07/06/17 09:54 Dose: 50 mg - Labs Labs: 07/06/17 06:52 07/06/17 06:52 PT 13.1 SECONDS (9.7-12.2) H 08/11/17 16:59 INR 1.2 06/30/17 16:59 APTT 35 SECONDS (21-34) H 06/30/17 16:59 - Constitutional Appears: No Acute Distress - Head Exam Head Exam: NORMAL INSPECTION - Eye Exam Eye Exam: EOMI, PERRL - ENT Exam ENT Exam: Normal Oropharynx - Neck Exam Neck Exam: Normal Inspection - Respiratory Exam Respiratory Exam: Clear to Ausculation Bilateral, NORMAL BREATHING PATTERN - Cardiovascular Exam Cardiovascular Exam: REGULAR RHYTHM, +S1, +S2 - GI/Abdominal Exam GI & Abdominal Exam: Soft, Normal Bowel Sounds - Extremities Exam Extremities Exam: Pedal Edema (BILATERAL FEET IN DRESSINGS. DRESSING CLEAN DRY AND INTACT). absent: Calf Tenderness - Neurological Exam Neurological Exam: Awake, CN II-XII Intact, Normal Gait, Oriented x3 - Psychiatric Exam Psychiatric exam: Normal Mood - Skin Skin Exam: Normal Color, Warm Assessment and Plan (1) Cellulitis Status: Acute (2) Osteomyelitis Assessment & Plan: Assessment & Plan: Ulceration at the left plantar medial hallux measuring approximately 1.2 x1.0 x 0.4 cm. Wound base no drainage noted, no tunneling noted, no odor noted, erythema surrounding periwound. chronic non healing ulceration noted to lateral right ankle measuring approximately 3.5 x 2.6 x 0.2 cm and to plantar heel measuring approximately 4.0 x 3.0 x 0.3 cm; no drainage. Neuro: gross sensation diminished bilaterally Ortho: Tenderness elicited with palpation of the ulcerations bilaterally ON ABX DISCUSSED. Status: Acute (3) Diabetes mellitus Status: Chronic (4) Obesity Status: Chronic
--- NOTE | 2017-07-06 15:10 | CP.PCM.PN ---
Subjective - Date & Time of Evaluation Date of Evaluation: 07/06/17 Time of Evaluation: 11:00 - Subjective Subjective: Patient seen today states doing well denies any fever, chills, N/V/D a febrile Objective - Vital Signs/Intake and Output Vital Signs (last 24 hours): Temp Pulse Resp BP Pulse Ox 98.7 F 84 20 117/78 97 07/06/17 08:00 07/06/17 08:00 07/06/17 08:00 07/06/17 08:00 07/06/17 08:00 Intake and Output: 07/06/17 07/06/17 06:59 18:59 Intake Total 1100 Balance 1100 - Medications Medications: Current Medications Enoxaparin Sodium (Lovenox) 40 mg SC DAILY [facility] Last Admin: 07/06/17 09:54 Dose: 40 mg Piperacillin Sod/Tazobactam (Sod 3.375 gm/ Sodium Chloride) 100 mls @ 200 mls/ hr IVPB Q8H [facility] Last Admin: 07/06/17 08:28 Dose: 200 mls/hr Insulin Aspart (Novolog) 0 unit SC ACHS [facility] PRN Reason: Protocol Last Admin: 07/06/17 12:30 Dose: 1 unit Metformin HCl (Glucophage) 500 mg PO BID [facility] Last Admin: 07/06/17 09:54 Dose: 500 mg Mupirocin (Bactroban Ointment) 0 gm TOP BID [facility] Last Admin: 07/06/17 11:19 Dose: Not Given Sitagliptin Phosphate (Januvia) 50 mg PO DAILY [facility] Last Admin: 07/06/17 09:54 Dose: 50 mg - Labs Labs: 07/06/17 06:52 07/06/17 06:52 PT 13.1 SECONDS (9.7-12.2) H 06/30/17 16:59 INR 1.2 06/30/17 16:59 APTT 35 SECONDS (21-34) H 06/30/17 16:59 Assessment and Plan - Assessment and Plan (Free Text) Assessment: A/P 51 yr oOLD MALE ADMITTED FOR B/L FOOT ULCER BONE SCAN- POSITIVE FOR OM AND N.NATALIE ON BOARD STARTED ON ZOZYN , PT ACCPTED AT [facility] FOR IV ANTIBIOTICS D/W DR. ESTRADA, RECOMMENDS TO CONTINUE IV ZOSYN 3.375MG IV Q 8HRLY X 4 WKS. F/U PO AUGMENTIN 875MG BID X 2WKS. F/U RENAL FUNCTIONS AND LFTS /CBC WKLY.CLEARED FOR DISCHARGE FROM ID STAND POINT SEEN BY P PODIATRY , CONTINUE DRESSING CHANGE AND ANTIBIOTICS PER ID SEEN BY DR. GARCIA, CLEARED FOR DISCHARGE TO [facility] TODAY AND DR. GARCIA WILL FOLLOW THE PATIENT AT [facility]
[2017-07-06] MEDS ORDERED: Pneumococcal 23-Valent Vaccine IM ONE (16:22)
[2017-07-06 16:42] VITALS: BP 121/75; PULSE 80; TEMP 98.1; O2SAT 96
--- NOTE | 2017-07-06 21:09 | CP.PCM.PN ---
Subjective - Date & Time of Evaluation Date of Evaluation: 07/06/17 - Subjective Subjective: feels BETTER,ON IV ANTIBIOTICS, Objective - Vital Signs/Intake and Output Vital Signs (last 24 hours): Temp Pulse Resp BP Pulse Ox 98.1 F 80 20 121/75 96 07/06/17 15:00 07/06/17 15:00 07/06/17 15:00 07/06/17 15:00 07/06/17 15:00 Intake and Output: 07/06/17 07/07/17 18:59 06:59 Intake Total 800 Balance 800 - Labs Labs: 07/06/17 06:52 07/06/17 06:52 PT 13.1 SECONDS (9.7-12.2) H 06/30/17 16:59 INR 1.2 06/30/17 16:59 APTT 35 SECONDS (21-34) H 06/30/17 16:59 - Constitutional Appears: Non-toxic, No Acute Distress - Head Exam Head Exam: ATRAUMATIC, NORMAL INSPECTION, NORMOCEPHALIC - Eye Exam Eye Exam: EOMI, Normal appearance Pupil Exam: NORMAL ACCOMODATION - ENT Exam ENT Exam: Mucous Membranes Moist, Normal Exam - Neck Exam Neck Exam: Normal Inspection - Respiratory Exam Respiratory Exam: Clear to Ausculation Bilateral, NORMAL BREATHING PATTERN - Cardiovascular Exam Cardiovascular Exam: REGULAR RHYTHM, +S1, +S2 - GI/Abdominal Exam GI & Abdominal Exam: Soft, Normal Bowel Sounds - Rectal Exam Rectal Exam: NORMAL INSPECTION - Neurological Exam Neurological Exam: Alert, Awake, CN II-XII Intact, Normal Gait, Oriented x3 Neuro motor strength exam: Left Upper Extremity: 5, Right Upper Extremity: 5, Left Lower Extremity: 5, Right Lower Extremity: 5 - Psychiatric Exam Psychiatric exam: Normal Mood - Skin Skin Exam: Warm (FEET ULCER) Assessment and Plan (1) Diabetes mellitus Status: Chronic (2) Osteomyelitis Assessment & Plan: ON IV ANTIBIOTICS Status: Acute (3) Obesity Status: Chronic
--- NOTE | 2017-07-07 11:08 | CP.PCM.DIS ---
Provider - Provider Date of Admission: 06/30/17 17:17 Attending physician: Rafael Bowens MD Diagnosis - Discharge Diagnosis (1) Diabetes mellitus Status: Chronic (2) Osteomyelitis Status: Acute (3) Obesity Status: Chronic Priority: Low Hospital Course - Lab Results Lab Results: Micro Results 07/04/17 20:43 Toe Gram Stain - Final 07/04/17 20:43 Toe Wound Culture - Final Corynebacterium Species 07/04/17 20:50 Ankle - Right Gram Stain - Final 07/04/17 20:50 Ankle - Right Wound Culture - Final Corynebacterium Species 07/04/17 20:50 Other: Please Indicate Gram Stain - Final 07/04/17 20:50 Other: Please Indicate Wound Culture - Final Corynebacterium Species 07/05/17 01:11 Naris MRSA Culture (Admit) - Final MRSA NOT DETECTED Most Recent Lab Values WBC 7.9 K/uL (4.8-10.8) 07/06/17 06:52 RBC 5.24 Mil/uL (4.40-5.90) 07/06/17 06:52 Hgb 14.7 g/dL (12.0-18.0) 07/06/17 06:52 Hct 43.2 % (35.0-51.0) 07/06/17 06:52 MCV 82.4 fL (80.0-94.0) 07/06/17 06:52 MCH 28.1 pg (27.0-31.0) 07/06/17 06:52 MCHC 34.1 g/dL (33.0-37.0) 07/06/17 06:52 RDW 14.5 % (11.5-14.5) 07/06/17 06:52 Plt Count 250 K/uL (130-400) 07/06/17 06:52 MPV 7.6 fL (7.2-11.7) 07/06/17 06:52 Neut % (Auto) 65.5 % (50.0-75.0) 07/06/17 06:52 Lymph % (Auto) 17.8 % (20.0-40.0) L 07/06/17 06:52 [place] % (Auto) 10.7 % (0.0-10.0) H 07/06/17 06:52 Eos % (Auto) 4.9 % (0.0-4.0) H 07/06/17 06:52 Baso % (Auto) 1.1 % (0.0-2.0) 07/06/17 06:52 Neut # 5.2 K/uL (1.8-7.0) 07/06/17 06:52 Lymph # 1.4 K/uL (1.0-4.3) 07/06/17 06:52 [place] # 0.9 K/uL (0.0-0.8) H 07/06/17 06:52 Eos # 0.4 K/uL (0.0-0.7) 07/06/17 06:52 Baso # 0.1 K/uL (0.0-0.2) 07/06/17 06:52 ESR 50 mm/hr (0-15) H 07/03/17 16:57 PT 13.1 SECONDS (9.7-12.2) H 06/30/17 16:59 INR 1.2 06/30/17 16:59 APTT 35 SECONDS (21-34) H 06/30/17 16:59 Sodium 135 mmol/L (132-148) 07/06/17 06:52 Potassium 4.1 mmol/L (3.6-5.2) 07/06/17 06:52 Chloride 98 mmol/L (98-107) 07/06/17 06:52 Carbon Dioxide 28 mmol/L (22-30) 07/06/17 06:52 Anion Gap 12 (10-20) 07/06/17 06:52 BUN 12 mg/dL (9-20) 07/06/17 06:52 Creatinine 0.6 MG/DL (0.8-1.5) L 07/06/17 06:52 Est GFR ( Amer) > 60 07/06/17 06:52 Est GFR (Non-Af Amer) > 60 07/06/17 06:52 POC Glucose (mg/dL) 184 mg/dL (65-110) H 07/06/17 16:06 Random Glucose 191 mg/dL (75-110) H 07/06/17 06:52 Hemoglobin A1c 9.8 % (4.2-6.5) H 07/01/17 10:58 Calcium 9.5 mg/dl (8.6-10.4) 07/06/17 06:52 Total Bilirubin 0.6 mg/dL (0.2-1.3) 07/06/17 06:52 Direct Bilirubin 0.4 mg/dL (0.0-0.4) 07/06/17 06:52 AST 26 U/L (17-59) 07/06/17 06:52 ALT 37 U/L (21-72) 07/06/17 06:52 Alkaline Phosphatase 76 U/L (38-126) 07/06/17 06:52 C-React Prot High Sens > 15.00 mg/L (1.00-3.00) H 07/03/17 16:57 Total Protein 7.8 g/dL (6.3-8.3) 07/06/17 06:52 Albumin 3.7 g/dL (3.5-5.0) 07/06/17 06:52 Globulin 4.1 gm/dL (2.2-3.9) H 07/06/17 06:52 Albumin/Globulin Ratio 0.9 (1.0-2.1) L 07/06/17 06:52 Blood Type O POSITIVE 06/30/17 16:59 Antibody Screen Negative 06/30/17 16:59 - Hospital Course Hospital Course: see progress notes Discharge Exam - Head Exam Head Exam: ATRAUMATIC, NORMAL INSPECTION, NORMOCEPHALIC - Eye Exam Eye Exam: EOMI, Normal appearance Pupil Exam: NORMAL ACCOMODATION - ENT Exam ENT Exam: Mucous Membranes Moist, Normal Exam, Normal Oropharynx, TM's Normal Bilaterally - Respiratory Exam Respiratory Exam: Clear to PA & Lateral, NORMAL BREATHING PATTERN - Cardiovascular Exam Cardiovascular Exam: REGULAR RHYTHM, +S1, +S2 - GI/Abdominal Exam GI & Abdominal Exam: Normal Bowel Sounds - Extremities Exam Extremities exam: normal capillary refill, pedal pulses present - Psychiatric Exam Psychiatric exam: Normal Affect, Normal Mood - Skin Skin Exam: Dry, Intact Discharge Plan - Follow Up Plan Condition: STABLE Disposition: REHAB FACILITY/REHAB UNIT Instructions: Cellulitis (DC), How to Check Your Blood Sugar (DC), Diabetes Mellitus Type 1 in Adults (DC), Meal Planning with Diabetes Exchanges (GEN) Additional Instructions: Please admit patient under Dr. Bowens service - call Dr. Bowens upon patient arrival to the facility Continue zozyn 3.375 mg ivbp q 8hrs x 4 weeks followed by augmentin 875 mg po q12 hr x 2 weeks CBC, BMP, q weekly starting Monday until the completion of antibiotics Call Dr. Rollins, podiatry consult continue wound care Pt can be discharged to [facility] with PICC line
== END 2017-07-06 18:34 | DRG 294 ==
LOC: C.ER 15:25 → C.3T 17:17
PROVIDERS: ADMIT Internal Medicine; ATTEND Internal Medicine
PROC: 02HV33Z Insertion of Infusion Device into Superior Vena Cava, Percutaneous Approach (ICD-10-PCS; principal; 2017-06-30)
DX: E11.69 Type 2 diabetes mellitus with other specified complication (principal); M86.8X7 Other osteomyelitis, ankle and foot; E11.621 Type 2 diabetes mellitus with foot ulcer; L03.115 Cellulitis of right lower limb; L97.419 Non-pressure chronic ulcer of right heel and midfoot with unspecified severity; E11.628 Type 2 diabetes mellitus with other skin complications; Z79.4 Long term (current) use of insulin; L03.031 Cellulitis of right toe; E66.9 Obesity, unspecified; Z91.19 Patient's noncompliance with other medical treatment and regimen; Z68.30 Body mass index [BMI] 30.0-30.9, adult

== ENCOUNTER 2017-12-01 15:29 | Inpatient (IN) | payer OTHER ==
[2017-12-01 15:30] VITALS: BMI 30.9
--- NOTE | 2017-12-01 15:53 | C.PDOC ---
History Of Present Illness Patient is a 51 y/o male who presents to the ED by reference of Dr. Bowens for admission of osteomyelitis of the left hallux. Patient reports last dressing of bandages to bilateral feet was yesterday. Time Seen by Provider: 12/01/17 15:37 Chief Complaint (Nursing): Lower Extremity Problem/Injury Past Medical History Vital Signs: Last Vital Signs Temp 98.4 F 12/01/17 15:36 Pulse 114 H 12/01/17 15:36 Resp 19 12/01/17 15:36 BP 129/76 12/01/17 15:36 Pulse Ox 97 12/01/17 15:36 - [facility] Procedures INSERTION OF INFUSION DEV INTO SUP VENA CAVA, PERC APPROACH (06/30/17) - Social History Hx Alcohol Use: Yes Hx Substance Use: No ED Course And Treatment O2 Sat by Pulse Oximetry: 97 Disposition - Disposition
[2017-12-01] MEDS ORDERED: Piperacillin/Tazobact 3.375 gm 100 ML IV STA (15:54)
--- NOTE | 2017-12-01 15:54 | C.PDOC ---
History Of Present Illness Patient presents to the ED for admission, has Rx from Dr. Rollins two days ago with Dx osteomyelitis of the left toe for admission. Patient reports last dressing of bandages was yesterday. Denies any physical complaints at this time. Time Seen by Provider: 12/01/17 15:37 Chief Complaint (Nursing): Lower Extremity Problem/Injury History Per: Patient History/Exam Limitations: no limitations Current Symptoms Are (Timing): Still Present Recent travel outside of the [place]: No Past Medical History Reviewed: Historical Data, Nursing Documentation, Vital Signs Vital Signs: Last Vital Signs Temp 98.4 F 12/01/17 15:36 Pulse 114 H 12/01/17 15:36 Resp 19 12/01/17 15:36 BP 129/76 12/01/17 15:36 Pulse Ox 97 12/01/17 16:48 - Medical History PMH: Diabetes - [facility] Procedures INSERTION OF INFUSION DEV INTO SUP VENA CAVA, PERC APPROACH (06/30/17) Family History: States: Unknown Family Hx - Social History Hx Alcohol Use: Yes Hx Substance Use: No Review Of Systems Constitutional: Negative for: Fever Cardiovascular: Negative for: Palpitations Respiratory: Negative for: Cough, Shortness of Breath Gastrointestinal: Negative for: Vomiting, Abdominal Pain, Diarrhea Musculoskeletal: Positive for: Foot Pain (osteomyelitis to left toe) Skin: Positive for: Other (ulcer to right foot) Neurological: Negative for: Headache, Dizziness Physical Exam - Physical Exam Appears: Non-toxic, No Acute Distress Skin: Warm, Dry Head: Atraumatic, Normacephalic Eye(s): bilateral: Normal Inspection, EOMI Nose: Normal Oral Mucosa: Moist Neck: Normal ROM Chest: Deformity Cardiovascular: Rhythm Regular Respiratory: Normal Breath Sounds (clear bilaterally), No Wheezing, No Plerual Rub Gastrointestinal/Abdominal: Soft, No Tenderness, No Guarding, Other (Morbidly obese) Back: Normal Inspection, No CVA Tenderness Extremity: Bilateral: Atraumatic, Normal ROM, Other (see additional exam) Neurological/Psych: Oriented x3, Normal Speech Additional Physical Exam Comments: Skin of lower extremities Left great toe with 2x2cm deep wound and foul smell, no discharge. Lateral aspect of ankle with 2 partial thickness wounds and macerated tissue Right heel with 2x3cm deep wound, and foul smell, no discharge. macerated tissue ED Course And Treatment - Laboratory Results Result Diagrams: 12/01/17 16:03 12/01/17 16:03 Lab Interpretation: Abnormal O2 Sat by Pulse Oximetry: 97 Pulse Ox Interpretation: Normal Medical Decision Making Medical Decision Making: Impression: Sent for admission of osteomyelitis Plan: * blood work * IV fluids * UA * Wound cultures Progress [address] Rollins, he wants IV Zosyn and Vanco started and he will call his resident to see patient. Admit to medicine Dr Bowens service Labs reviewed, hyperglycemia and mild leukocytosis [address] Bowens who accepted admission, and bridge orders applied Disposition Counseled Patient/Family Regarding: Diagnosis, Need For Followup - Disposition Disposition: HOSPITALIZED Disposition Time: 16:32 Condition: FAIR - POA Present On Arrival: Poor Glycemic Control - Clinical Impression Clinical Impression: Osteomyelitis, Diabetes mellitus - Scribe Statement The provider has reviewed the documentation as recorded by the Scribe Mena Pardo All medical record entries made by the Scribe were at my direction and personally dictated by me. I have reviewed the chart and agree that the record accurately reflects my personal performance of the history, physical exam, medical decision making, and the department course for this patient. I have also personally directed, reviewed, and agree with the discharge instructions and disposition. Decision To Admit - Pt Status Changed To: Hospital Disposition Of: Inpatient - Admit Certification Admit to Inpatient:: After my assessment, the patient will require hospitalization for at least two midnights. This is because of the severity of symptoms shown, intensity of services needed, and/or the medical risk in this patient being treated as an outpatient. - InPatient: Physician Admission Certification: I certify that this patient requires 2 or more midnights of care for the following reason:: Patient with acute osteomyelitis, requires podiatry consult and IV antibiotics. - . Bed Request Type: Regular Admitting Physician: Rafael Bowens Patient Diagnosis: Osteomyelitis, Diabetes mellitus
[2017-12-01] MEDS ORDERED: Vancomycin 1 GM 1 GM/250 ML BAG IV SCH (16:00)
[2017-12-01 16:11] LABS: BASO # 0.1 K/uL (0.0-0.2); BASO % 1.1 % (0.0-2.0); EOS # 0.3 K/uL (0.0-0.7); EOS % 2.4 % (0.0-4.0); HEMOGLOBIN 14.1 g/dL (12.0-18.0); LYMPH # 1.9 K/uL (1.0-4.3); LYMPH % 15.7 % (20.0-40.0); MEAN CELL VOLUME 80.9 fL (80.0-94.0); MEAN CORPUSCULAR HEMOGLOBIN 28.1 pg (27.0-31.0); MEAN CORPUSCULAR HGB CONC 34.7 g/dL (33.0-37.0); MEAN PLATELET VOLUME 7.4 fL (7.2-11.7); MONO # 0.7 K/uL (0.0-0.8); MONO % 5.7 % (0.0-10.0); NEUT # 9.3 K/uL (1.8-7.0); NEUT % 75.1 % (50.0-75.0); NRBC % 0.2 % (0.0-2.0); RBC 5.04 Mil/uL (4.40-5.90); RED CELL DISTRIBUTION WIDTH 14.6 % (11.5-14.5); WHITE BLOOD COUNT 12.4 K/uL (4.8-10.8)
[2017-12-01 16:19] LABS: ALBUMIN 3.9 g/dL (3.5-5.0); ALT/SGPT 14 U/L (21-72); AST/SGOT 18 U/L (17-59); BLOOD UREA NITROGEN 10 mg/dL (9-20); CALCIUM 8.9 mg/dl (8.6-10.4); GFR AFRICAN-AMERICAN > 60; GFR NON-AFRICAN AMERICAN > 60
[2017-12-01 16:20] LABS: INR 1.2; PROTHROMBIN TIME 13.7 SECONDS (9.7-12.2)
[2017-12-01 16:27] LABS: ALB/GLOB RATIO 0.9 (1.0-2.1)
[2017-12-01] MEDS ORDERED: Sodium Chloride 0.9% 1,000 ML IV ONE (16:35)
[2017-12-01] MEDS ORDERED: Piperacill/Tazo 3.375gm in Dex 3.375 GM/50 ML BAG IVPB ONE (17:00)
[2017-12-01] MEDS ORDERED: Vancomycin 1 gm/NS 200 ml 1 GM/200 ML BAG IVPB ONE (17:00)
[2017-12-01 18:06] VITALS: RESP 20
--- NOTE | 2017-12-01 19:40 | CP.PCM.CON ---
History of Present Illness - History of Present Illness History of Present Illness: Patient presents to the ED for admission, has Rx from Dr. Rollins two days ago with Dx osteomyelitis of the left toe for admission. Patient reports last dressing of bandages was yesterday. Denies any physical complaints at this time. - Medical History PMH: Diabetes - [facility] Procedures INSERTION OF INFUSION DEV INTO SUP VENA CAVA, PERC APPROACH (06/30/17) Review of Systems - Constitutional Constitutional: As Per HPI - EENT Eyes: absent: As Per HPI, Blind Spots, Blurred Vision, Change in Vision, Decreased Night Vision, Diplopia, Discharge, Dry Eye, Exophthalmos, Floaters, Irritation, Itchy Eyes, Loss of Peripheral Vision, Pain, Photophobia, Requires Corrective Lenses, Sees Flashes, Spots in Vision, Tunnel Vision, Other Visual Disturbances, Loss of Vision, Other Ears: absent: As Per HPI, Decreased Hearing, Ear Discharge, Ear Pain, Tinnitus, Abnormal Hearing, Disequilibrium, Dizziness, Other Nose/Mouth/Throat: absent: As Per HPI, Epistaxis, Nasal Congestion, Nasal Discharge, Nasal Obstruction, Nasal Trauma, Nose Pain, Post Nasal Drip, Sinus Pain, Sinus Pressure, Bleeding Gums, Change in Voice, Dental Pain, Dry Mouth, Dysphagia, Halitosis, Hoarsness, Lip Swelling, Mouth Lesions, Mouth Pain, Odynophagia, Sore Throat, Throat Swelling, Tongue Swelling, Facial Pain, Neck Pain, Neck Mass, Other - Cardiovascular Cardiovascular: absent: As Per HPI, Acrocyanosis, Chest Pain, Chest Pain at Rest , Chest Pain with Activity, Claudication, Diaphoresis, Dyspnea, Dyspnea on Exertion, Edema, Irregular Heart Rhythm, Pain Radiating to Arm/Neck/Jaw, Leg Edema, Leg Ulcers, Lightheadedness, Orthopnea, Palpitations, Paroxysmal Nocturnal Dyspnea, Pedal Edema, Radiating Pain, Rapid Heart Rate, Slow Heart Rate, Syncope, Other - Respiratory Respiratory: absent: As Per HPI, Cough, Dyspnea, Hemoptysis, Dyspnea on Exertion , Wheezing, Snoring, Stridor, Pain on Inspiration, Chest Congestion, Excessive Mucous Production, Change in Mucous Color, Pain with Coughing, Other - Gastrointestinal Gastrointestinal: absent: As Per HPI, Abdominal Pain, Belching, Bloating, Change in Bowel Habits, Change in Stool Character, Coffee Ground Emesis, Constipation, Cramping, Diarrhea, Dyspepsia, Dysphagia, Early Satiety, Excessive Flatus, Fecal Incontinence, Heartburn, Hematemesis, Hematochezia, Loose Stools, Melena, Nausea, Odynophagia, Temesmus, Vomiting, Other - Genitourinary Genitourinary: absent: As Per HPI, Change in Urinary Stream, Difficulty Urinating, Dysuria, Flank Pain, Hematuria, Pyuria, Nocturia, Urinary Incontinence, Urinary Frequency, Urinary Hesitance, Urinary Urgency, Voiding Freq/Small Amts, Freq UTI, Hx Renal/Bladder Calculi, Hx /Renal Surgery, Bladder Distension, Other - Musculoskeletal Musculoskeletal: absent: As Per HPI, Abnormal Gait, Arthralgias, Atrophy, Back Pain, Deformity, Joint Swelling, Limited Range of Motion, Loss of Height, Muscle Cramps, Muscle Weakness, Myalgias, Neck Pain, Numbness, Radiating Pain into Limb, Stiffness, Tingling, Other - Integumentary Integumentary: absent: As Per HPI, Acne, Alopecia, Bleeding Lesions, Change in Hair, Change in Nails, Change in Pigmentation, Changing Lesions, Dry Skin, Erythema, Furuncle, Hirsutism, Lesions, New Lesions, Non-Healing Lesions, Photosensitivity, Pruritus, Rash, Skin Pain, Skin Ulcer, Sores, Striae, Swelling , Unusual Bruising, Wounds, Jaundice, Other - Neurological Neurological: As Per HPI - Psychiatric Psychiatric: absent: As Per HPI, Abnormal Sleep Pattern, Anhedonia, Anxiety, Auditory Hallucinations, Behavioral Changes, Change in Appetite, Change in Libido, Confusion, Depression, Difficulty Concentrating, Hallucinations, Homicidal Ideation, Hopelessness, Irritability, Memory Loss, Mood Swings, Panic Attacks, Paranoia, Suicidal Ideation, Visual Hallucinations, Tactile Hallucinations, Other - Endocrine Endocrine: absent: As Per HPI, Change in Body Appearance, Change in Libido, Cold Intolorance, Deepening of Voice, Excessive Sweating, Fatigue, Flushing, Heat Intolorance, Increase in Ring/Shoe/Hat Size, Palpitations, Polydipsia, Polyphagia, Polyuria, Other - Hematologic/Lymphatic Hematologic: absent: As Per HPI, Easy Bleeding, Easy Bruising, Lymphadenopathy, Other Past Patient History - Past Medical History & Family History Past Medical History?: Yes - Past Social History Smoking Status: Unknown If Ever Smoked - ENDOCRINE/METABOLIC Hx Endocrine Disorders: Yes Hx Diabetes Mellitus Type 1: Yes - MUSCULOSKELETAL/RHEUMATOLOGICAL Hx Falls: No - PSYCHIATRIC Hx Substance Use: No - SURGICAL HISTORY Hx Surgeries: Yes Other/Comment: RIGHT FOOT - ANESTHESIA Hx Anesthesia: Yes Hx Anesthesia Reactions: No Meds Allergies/Adverse Reactions: Allergies Allergy/AdvReac Type Severity Reaction Status Date / Time No Known Allergies Allergy Verified 12/01/17 15:35 - Medications Medications: Current Medications Enoxaparin Sodium (Lovenox) 40 mg SC DAILY [facility] Piperacillin Sod/Tazobactam Sod (Zosyn 3.375 Gm Iv Premix) 3.375 gm in 50 mls @ 100 mls/hr IVPB Q6H [facility] Vancomycin/Sodium Chloride (Vancomycin 1 Gm/Ns 200 Ml) 1 gm in 200 mls @ 133 mls/hr IVPB Q12H [facility] Stop: 12/07/17 05:01 Insulin Human Regular (Novolin R) 0 unit SC ACHS [facility] PRN Reason: Protocol Metformin HCl (Glucophage) 500 mg PO BID [facility] Rosuvastatin Calcium (Crestor) 5 mg PO HS [facility] Sitagliptin Phosphate (Januvia) 50 mg PO DAILY [facility] Physical Exam - Constitutional Appears: Non-toxic, Chronically Ill - Head Exam Head Exam: NORMOCEPHALIC - Eye Exam Eye Exam: PERRL. absent: Scleral icterus - ENT Exam ENT Exam: Mucous Membranes Dry - Neck Exam Neck exam: Negative for: Lymphadenopathy - Respiratory Exam Respiratory Exam: Decreased Breath Sounds - Cardiovascular Exam Cardiovascular Exam: REGULAR RHYTHM, +S1, +S2 - GI/Abdominal Exam GI & Abdominal Exam: Diminished Bowel Sounds, Soft. absent: Tenderness - Rectal Exam Rectal Exam: Deferred - Exam Exam: NORMAL INSPECTION - Extremities Exam Extremities exam: Positive for: pedal edema, tenderness. Negative for: calf tenderness, pedal pulses present Additional comments: necrotic ulcer left great toe pulses + but diminished - Back Exam Back exam: absent: CVA tenderness (L), CVA tenderness (R) - Neurological Exam Neurological exam: Alert, CN II-XII Intact, Oriented x3, Reflexes Normal - Psychiatric Exam Psychiatric exam: Normal Mood - Skin Skin Exam: Dry, Intact Results - Vital Signs Recent Vital Signs: Last Vital Signs Temp 98.3 F 12/01/17 17:45 Pulse 95 H 12/01/17 17:45 Resp 20 12/01/17 17:45 BP 123/76 12/01/17 17:45 Pulse Ox 97 12/01/17 17:45 - Labs Result Diagrams: 12/03/17 11:32 12/03/17 11:32 Labs: Laboratory Results - last 24 hr 12/01/17 12/01/17 12/01/17 16:03 16:03 16:03 WBC 12.4 H D RBC 5.04 Hgb 14.1 Hct 40.8 MCV 80.9 MCH 28.1 MCHC 34.7 RDW 14.6 H Plt Count 390 D MPV 7.4 Neut % (Auto) 75.1 H Lymph % (Auto) 15.7 L [place] % (Auto) 5.7 Eos % (Auto) 2.4 Baso % (Auto) 1.1 Neut # 9.3 H Lymph # 1.9 [place] # 0.7 Eos # 0.3 Baso # 0.1 PT 13.7 H INR 1.2 APTT 35 H Sodium 129 L Potassium 4.2 Chloride 96 L Carbon Dioxide 26 Anion Gap 11 BUN 10 Creatinine 0.5 L Est GFR ( Amer) > 60 Est GFR (Non-Af Amer) > 60 Random Glucose 254 H Hemoglobin A1c Calcium 8.9 Total Bilirubin 0.6 AST 18 ALT 14 L D Alkaline Phosphatase 88 Total Protein 8.3 Albumin 3.9 Globulin 4.4 H Albumin/Globulin Ratio 0.9 L 12/01/17 18:51 WBC RBC Hgb Hct MCV MCH MCHC RDW Plt Count MPV Neut % (Auto) Lymph % (Auto) [place] % (Auto) Eos % (Auto) Baso % (Auto) Neut # Lymph # [place] # Eos # Baso # PT INR APTT Sodium Potassium Chloride Carbon Dioxide Anion Gap BUN Creatinine Est GFR ( Amer) Est GFR (Non-Af Amer) Random Glucose Hemoglobin A1c 10.9 H Calcium Total Bilirubin AST ALT Alkaline Phosphatase Total Protein Albumin Globulin Albumin/Globulin Ratio Assessment & Plan (1) Osteomyelitis Status: Acute (2) Diabetes mellitus Status: Chronic (3) Cellulitis Status: Acute (4) Obesity Status: Chronic Priority: Low - Assessment and Plan (Free Text) Assessment: OM- may need amputation recc vascular and podiatry eval IV antibiotics wound care
[2017-12-01] MEDS: (Novolin R) Insulin Human Regular 100 units/ml vial SC SCH (22:21)
--- NOTE | 2017-12-01 23:23 | CP.PCM.HP ---
History of Present Illness - History of Present Illness History of Present Illness: CC: LE celulitis/ ulcer and extreme pain HPI: Patient is 51 year old white male with h/o type 2 diabetes, morbid obesity who is non complaint with diet, medication and follow up presents to the ED for admission, has Rx from Dr. Rollins two days ago with Dx osteomyelitis of the left toe for admission. He has non healing ulcer on lateral aspect of left lower Extremity, he has been followed up by podiatry Patient reports last dressing of bandages was yesterday. Denies any physical complaints at this time. Present on Admission - Present on Admission Any Indicators Present on Admission: Yes Review of Systems - Review of Systems Systems not reviewed;Unavailable: Acuity of Condition - Constitutional Constitutional: Lethargy, Malaise - EENT Nose/Mouth/Throat: absent: As Per HPI, Epistaxis, Nasal Congestion, Nasal Discharge, Nasal Obstruction, Nasal Trauma, Nose Pain, Post Nasal Drip, Sinus Pain, Sinus Pressure, Bleeding Gums, Change in Voice, Dental Pain, Dry Mouth, Dysphagia, Halitosis, Hoarsness, Lip Swelling, Mouth Lesions, Mouth Pain, Odynophagia, Sore Throat, Throat Swelling, Tongue Swelling, Facial Pain, Neck Pain, Neck Mass, Other - Cardiovascular Cardiovascular: absent: As Per HPI, Acrocyanosis, Chest Pain, Chest Pain at Rest , Chest Pain with Activity, Claudication, Diaphoresis, Dyspnea, Dyspnea on Exertion, Edema, Irregular Heart Rhythm, Pain Radiating to Arm/Neck/Jaw, Leg Edema, Leg Ulcers, Lightheadedness, Orthopnea, Palpitations, Paroxysmal Nocturnal Dyspnea, Pedal Edema, Radiating Pain, Rapid Heart Rate, Slow Heart Rate, Syncope, Other - Respiratory Respiratory: absent: As Per HPI, Cough, Dyspnea, Hemoptysis, Dyspnea on Exertion , Wheezing, Snoring, Stridor, Pain on Inspiration, Chest Congestion, Excessive Mucous Production, Change in Mucous Color, Pain with Coughing, Other - Gastrointestinal Gastrointestinal: absent: As Per HPI, Abdominal Pain, Belching, Bloating, Change in Bowel Habits, Change in Stool Character, Coffee Ground Emesis, Constipation, Cramping, Diarrhea, Dyspepsia, Dysphagia, Early Satiety, Excessive Flatus, Fecal Incontinence, Heartburn, Hematemesis, Hematochezia, Loose Stools, Melena, Nausea, Odynophagia, Temesmus, Vomiting, Other - Musculoskeletal Musculoskeletal: Joint Swelling, Numbness - Integumentary Integumentary: Change in Nails, Erythema, Non-Healing Lesions, Skin Ulcer, Swelling Past Patient History - Past Medical History & Family History Past Medical History?: Yes - Past Social History Smoking Status: Former Smoker - CARDIAC Hx Cardiac Disorders: No - PULMONARY Hx Respiratory Disorders: No - NEUROLOGICAL Hx Neurological Disorder: No - HEENT Hx HEENT Problems: No - RENAL Hx Chronic Kidney Disease: No - ENDOCRINE/METABOLIC Hx Endocrine Disorders: Yes Hx Diabetes Mellitus Type 1: Yes - HEMATOLOGICAL/ONCOLOGICAL Hx Blood Disorders: No - INTEGUMENTARY Hx Dermatological Problems: Yes Hx Cellulitis: Yes - MUSCULOSKELETAL/RHEUMATOLOGICAL Hx Musculoskeletal Disorders: Yes Hx Falls: No Hx Osteomyelitis: Yes - GASTROINTESTINAL Hx Gastrointestinal Disorders: No - GENITOURINARY/GYNECOLOGICAL Hx Genitourinary Disorders: No - PSYCHIATRIC Hx Psychophysiologic Disorder: No Hx Substance Use: No - SURGICAL HISTORY Hx Surgeries: Yes Other/Comment: RIGHT FOOT - ANESTHESIA Hx Anesthesia: Yes Hx Anesthesia Reactions: No Hx Malignant Hyperthermia: No Has any member of the family had a problem w/ anesthesia?: No Meds Allergies/Adverse Reactions: Allergies Allergy/AdvReac Type Severity Reaction Status Date / Time No Known Allergies Allergy Verified 12/01/17 15:35 Physical Exam - Constitutional Appears: No Acute Distress - Head Exam Head Exam: ATRAUMATIC, NORMAL INSPECTION, NORMOCEPHALIC - Eye Exam Eye Exam: EOMI, Normal appearance, PERRL Pupil Exam: NORMAL ACCOMODATION, PERRL - ENT Exam ENT Exam: Mucous Membranes Moist, Normal Exam - Respiratory Exam Respiratory Exam: Clear to Auscultation Bilateral, NORMAL BREATHING PATTERN - Cardiovascular Exam Cardiovascular Exam: REGULAR RHYTHM - GI/Abdominal Exam GI & Abdominal Exam: Normal Bowel Sounds, Soft. absent: Tenderness - Extremities Exam Extremities exam: Positive for: pedal pulses present Additional comments: non healing ulcer on lateral aspect of right foot around lateral malleolous with yellow purulent discharge - Neurological Exam Neurological exam: Alert, CN II-XII Intact, Motor Sensory Deficit, Normal Gait, Oriented x3, Reflexes Normal - Psychiatric Exam Psychiatric exam: Normal Affect, Normal Mood Results - Vital Signs Recent Vital Signs: Last Vital Signs Temp 98.3 F 12/01/17 17:45 Pulse 95 H 12/01/17 17:45 Resp 20 12/01/17 17:45 BP 123/76 12/01/17 17:45 Pulse Ox 97 12/01/17 17:45 - Labs Result Diagrams: 12/01/17 16:03 12/01/17 16:03 Labs: Laboratory Results - last 24 hr 12/01/17 12/01/17 12/01/17 16:03 16:03 16:03 WBC 12.4 H D RBC 5.04 Hgb 14.1 Hct 40.8 MCV 80.9 MCH 28.1 MCHC 34.7 RDW 14.6 H Plt Count 390 D MPV 7.4 Neut % (Auto) 75.1 H Lymph % (Auto) 15.7 L [place] % (Auto) 5.7 Eos % (Auto) 2.4 Baso % (Auto) 1.1 Neut # 9.3 H Lymph # 1.9 [place] # 0.7 Eos # 0.3 Baso # 0.1 ESR PT 13.7 H INR 1.2 APTT 35 H Sodium 129 L Potassium 4.2 Chloride 96 L Carbon Dioxide 26 Anion Gap 11 BUN 10 Creatinine 0.5 L Est GFR ( Amer) > 60 Est GFR (Non-Af Amer) > 60 POC Glucose (mg/dL) Random Glucose 254 H Hemoglobin A1c Calcium 8.9 Total Bilirubin 0.6 AST 18 ALT 14 L D Alkaline Phosphatase 88 Total Protein 8.3 Albumin 3.9 Globulin 4.4 H Albumin/Globulin Ratio 0.9 L 12/01/17 12/01/17 12/01/17 18:51 18:51 21:17 WBC RBC Hgb Hct MCV MCH MCHC RDW Plt Count MPV Neut % (Auto) Lymph % (Auto) [place] % (Auto) Eos % (Auto) Baso % (Auto) Neut # Lymph # [place] # Eos # Baso # ESR 58 H PT INR APTT Sodium Potassium Chloride Carbon Dioxide Anion Gap BUN Creatinine Est GFR ( Amer) Est GFR (Non-Af Amer) POC Glucose (mg/dL) 230 H Random Glucose Hemoglobin A1c 10.9 H Calcium Total Bilirubin AST ALT Alkaline Phosphatase Total Protein Albumin Globulin Albumin/Globulin Ratio Assessment & Plan (1) Osteomyelitis Assessment and Plan: rule out osteomyletis no fever, chills wound cultures podiatry consult Status: Acute (2) Diabetes mellitus Status: Chronic (3) Cellulitis Status: Acute (4) Obesity Status: Chronic Priority: Low
[2017-12-02] MEDS: Piperacill/Tazo 3.375gm in Dex 3.375 GM/50 ML BAG IVPB SCH ×4 (00:05→19:38)
[2017-12-02] MEDS: Vancomycin 1 gm/NS 200 ml 1 GM/200 ML BAG IVPB SCH ×2 (03:59→17:51)
[2017-12-02] MEDS: (Novolin R) Insulin Human Regular 100 units/ml vial SC SCH ×4 (08:14→21:37)
--- NOTE | 2017-12-02 09:57 | CP.PCM.CON ---
<Arsen Rollins - Last Filed: 12/02/17 09:56> History of Present Illness - History of Present Illness History of Present Illness: 51 yo male for om left hallux and infected ulcers b/l . Past Patient History - Past Medical History & Family History Past Medical History?: Yes - Past Social History Smoking Status: Former Smoker - CARDIAC Hx Cardiac Disorders: No - PULMONARY Hx Respiratory Disorders: No - NEUROLOGICAL Hx Neurological Disorder: No - HEENT Hx HEENT Problems: No - RENAL Hx Chronic Kidney Disease: No - ENDOCRINE/METABOLIC Hx Endocrine Disorders: Yes Hx Diabetes Mellitus Type 1: Yes - HEMATOLOGICAL/ONCOLOGICAL Hx Blood Disorders: No - INTEGUMENTARY Hx Dermatological Problems: Yes Hx Cellulitis: Yes - MUSCULOSKELETAL/RHEUMATOLOGICAL Hx Musculoskeletal Disorders: Yes Hx Falls: No Hx Osteomyelitis: Yes - GASTROINTESTINAL Hx Gastrointestinal Disorders: No - GENITOURINARY/GYNECOLOGICAL Hx Genitourinary Disorders: No - PSYCHIATRIC Hx Psychophysiologic Disorder: No Hx Substance Use: No - SURGICAL HISTORY Hx Surgeries: Yes Other/Comment: RIGHT FOOT - ANESTHESIA Hx Anesthesia: Yes Hx Anesthesia Reactions: No Hx Malignant Hyperthermia: No Has any member of the family had a problem w/ anesthesia?: No Meds Allergies/Adverse Reactions: Allergies Allergy/AdvReac Type Severity Reaction Status Date / Time No Known Allergies Allergy Verified 12/01/17 15:35 - Medications Medications: Current Medications Enoxaparin Sodium (Lovenox) 40 mg SC DAILY [facility] Piperacillin Sod/Tazobactam Sod (Zosyn 3.375 Gm Iv Premix) 3.375 gm in 50 mls @ 100 mls/hr IVPB Q6H [facility] Last Admin: 12/02/17 05:32 Dose: 100 mls/hr Vancomycin/Sodium Chloride (Vancomycin 1 Gm/Ns 200 Ml) 1 gm in 200 mls @ 133 mls/hr IVPB Q12H [facility] Stop: 12/07/17 05:01 Last Admin: 12/02/17 03:59 Dose: 133 mls/hr Insulin Human Regular (Novolin R) 0 unit SC ACHS [facility] PRN Reason: Protocol Last Admin: 12/02/17 08:14 Dose: 1 unit Metformin HCl (Glucophage) 500 mg PO BID [facility] Rosuvastatin Calcium (Crestor) 5 mg PO HS [facility] Last Admin: 12/01/17 22:07 Dose: 5 mg Sitagliptin Phosphate (Januvia) 50 mg PO DAILY [facility] Results - Vital Signs Recent Vital Signs: Last Vital Signs Temp 97.8 F 12/02/17 08:00 Pulse 79 12/02/17 08:00 Resp 20 12/02/17 08:00 BP 108/65 12/02/17 08:00 Pulse Ox 96 12/02/17 08:00 - Labs Result Diagrams: 12/01/17 16:03 12/01/17 16:03 Labs: Laboratory Results - last 24 hr 12/01/17 12/01/17 12/01/17 16:03 16:03 16:03 WBC 12.4 H D RBC 5.04 Hgb 14.1 Hct 40.8 MCV 80.9 MCH 28.1 MCHC 34.7 RDW 14.6 H Plt Count 390 D MPV 7.4 Neut % (Auto) 75.1 H Lymph % (Auto) 15.7 L [place] % (Auto) 5.7 Eos % (Auto) 2.4 Baso % (Auto) 1.1 Neut # 9.3 H Lymph # 1.9 [place] # 0.7 Eos # 0.3 Baso # 0.1 ESR PT 13.7 H INR 1.2 APTT 35 H Sodium 129 L Potassium 4.2 Chloride 96 L Carbon Dioxide 26 Anion Gap 11 BUN 10 Creatinine 0.5 L Est GFR ( Amer) > 60 Est GFR (Non-Af Amer) > 60 POC Glucose (mg/dL) Random Glucose 254 H Hemoglobin A1c Calcium 8.9 Total Bilirubin 0.6 AST 18 ALT 14 L D Alkaline Phosphatase 88 Total Protein 8.3 Albumin 3.9 Globulin 4.4 H Albumin/Globulin Ratio 0.9 L 12/01/17 12/01/17 12/01/17 18:51 18:51 21:17 WBC RBC Hgb Hct MCV MCH MCHC RDW Plt Count MPV Neut % (Auto) Lymph % (Auto) [place] % (Auto) Eos % (Auto) Baso % (Auto) Neut # Lymph # [place] # Eos # Baso # ESR 58 H PT INR APTT Sodium Potassium Chloride Carbon Dioxide Anion Gap BUN Creatinine Est GFR ( Amer) Est GFR (Non-Af Amer) POC Glucose (mg/dL) 230 H Random Glucose Hemoglobin A1c 10.9 H Calcium Total Bilirubin AST ALT Alkaline Phosphatase Total Protein Albumin Globulin Albumin/Globulin Ratio 12/02/17 07:12 WBC RBC Hgb Hct MCV MCH MCHC RDW Plt Count MPV Neut % (Auto) Lymph % (Auto) [place] % (Auto) Eos % (Auto) Baso % (Auto) Neut # Lymph # [place] # Eos # Baso # ESR PT INR APTT Sodium Potassium Chloride Carbon Dioxide Anion Gap BUN Creatinine Est GFR ( Amer) Est GFR (Non-Af Amer) POC Glucose (mg/dL) 188 H Random Glucose Hemoglobin A1c Calcium Total Bilirubin AST ALT Alkaline Phosphatase Total Protein Albumin Globulin Albumin/Globulin Ratio <Christiano Marinelli - Last Filed: 12/02/17 17:07> History of Present Illness - History of Present Illness History of Present Illness: 51 year old male patient PMHx DM2 seen and evaluated at bedside for left hallux ulceration + osteomyelitis and nonhealing ulcers to bilateral feet. Patient hemodynamically stable and NAD. Patient denies any pain to his lower extremities. Patient has extensive history of noncompliance with follow up and medications. Denies N/V/F/D/C/SOB/calf pain. Review of Systems - Review of Systems All systems: reviewed and no additional remarkable complaints except (as per HPI ) Meds - Medications Medications: Current Medications Enoxaparin Sodium (Lovenox) 40 mg SC DAILY [facility] Last Admin: 12/02/17 10:30 Dose: 40 mg Piperacillin Sod/Tazobactam Sod (Zosyn 3.375 Gm Iv Premix) 3.375 gm in 50 mls @ 100 mls/hr IVPB Q6H [facility] Last Admin: 12/02/17 12:26 Dose: 100 mls/hr Vancomycin/Sodium Chloride (Vancomycin 1 Gm/Ns 200 Ml) 1 gm in 200 mls @ 133 mls/hr IVPB Q12H [facility] Stop: 12/07/17 05:01 Last Admin: 12/02/17 03:59 Dose: 133 mls/hr Insulin Human Regular (Novolin R) 0 unit SC ACHS [facility] PRN Reason: Protocol Last Admin: 12/02/17 12:27 Dose: 3 unit Metformin HCl (Glucophage) 500 mg PO BID [facility] Last Admin: 12/02/17 10:30 Dose: 500 mg Rosuvastatin Calcium (Crestor) 5 mg PO HS [facility] Last Admin: 12/01/17 22:07 Dose: 5 mg Sitagliptin Phosphate (Januvia) 50 mg PO DAILY [facility] Last Admin: 12/02/17 10:30 Dose: 50 mg Physical Exam - Constitutional Appears: Well, Non-toxic, No Acute Distress, Unkempt - Extremities Exam Additional comments: Both feet noted to be full of dirt Vasc: DP and PT 1/4 bilaterally, CFT < 3 seconds, temperature is warm to warm, bilateral edema noted to feet and ankles Derm: Chronic non-healing ulceration #1 noted to plantar heel measuring approximately 4.0 x 3.0 x 0.3 cm; both of which have a mixed fibrogranular base and hyperkeratotic rim. Undermining noted circumfirentially. Ulceration #2 at the left plantar medial hallux measuring approximately 1.5 x1.5 x 0.4 cm, noted to have a mixed fibrogrnular base and hyperkeratotic rim. ( +)probe to bone. Ulceration #3 noted to left lateral ankle measuring approximately 3 x 1.5 x 0.2 cm noted to have a mixed fibrogranular base and erythematous rim. Ulceration #4 noted distal to ulceration #3 measuring approximately 1.5 x 1.5 x 0.1 cm noted to have a mixed fibrogranular base and erythematous rim. Neuro: Gross sensation absent bilaterally Ortho: No pain on palpation noted to ulcerations b/l. - Neurological Exam Neurological exam: Alert, Oriented x3 - Psychiatric Exam Psychiatric exam: Normal Affect, Normal Mood Results - Vital Signs Recent Vital Signs: Last Vital Signs Temp 98.1 F 12/02/17 15:00 Pulse 89 12/02/17 15:00 Resp 20 12/02/17 15:00 BP 132/82 12/02/17 15:00 Pulse Ox 93 L 12/02/17 15:00 - Labs Result Diagrams: 12/02/17 10:57 12/02/17 10:57 Labs: Laboratory Results - last 24 hr 12/01/17 12/01/17 12/01/17 18:51 18:51 21:17 WBC RBC Hgb Hct MCV MCH MCHC RDW Plt Count MPV ESR 58 H Sodium Potassium Chloride Carbon Dioxide Anion Gap BUN Creatinine Est GFR ( Amer) Est GFR (Non-Af Amer) POC Glucose (mg/dL) 230 H Random Glucose Hemoglobin A1c 10.9 H Calcium 12/02/17 12/02/17 12/02/17 07:12 10:57 10:57 WBC 7.0 RBC 4.89 Hgb 13.6 Hct 40.1 MCV 82.0 MCH 27.8 MCHC 34.0 RDW 14.4 Plt Count 298 MPV 7.5 ESR Sodium 130 L Potassium 4.1 Chloride 95 L Carbon Dioxide 29 Anion Gap 10 BUN 9 Creatinine 0.6 L Est GFR ( Amer) > 60 Est GFR (Non-Af Amer) > 60 POC Glucose (mg/dL) 188 H Random Glucose 287 H Hemoglobin A1c Calcium 8.6 12/02/17 12/02/17 11:09 16:28 WBC RBC Hgb Hct MCV MCH MCHC RDW Plt Count MPV ESR Sodium Potassium Chloride Carbon Dioxide Anion Gap BUN Creatinine Est GFR ( Amer) Est GFR (Non-Af Amer) POC Glucose (mg/dL) 254 H 162 H Random Glucose Hemoglobin A1c Calcium Assessment & Plan - Assessment and Plan (Free Text) Assessment: 51 year old male with multiple b/l foot ulcerations and OM of left hallux secondary to DM Plan: Patient seen and evaluated at bedside with attending Dr. Rollins Labs, charts and vitals reviewed; afebrile, WBC 7.0, ESR 58 Continue IV abx per ID Left foot would culture taken (prelim) - gram pos cocci in clusters Bilateral foot and ankle XR ordered, f/u report Ulcers painted with betadine and dressed with DSD Podiatry will continue to follow patient while in house
[2017-12-02] MEDS: Enoxaparin 40 mg Syringe SC SCH (10:30)
[2017-12-02 11:28] LABS: HEMOGLOBIN 13.6 g/dL (12.0-18.0); MEAN CORPUSCULAR HEMOGLOBIN 27.8 pg (27.0-31.0); MEAN PLATELET VOLUME 7.5 fL (7.2-11.7); RBC 4.89 Mil/uL (4.40-5.90); RED CELL DISTRIBUTION WIDTH 14.4 % (11.5-14.5)
[2017-12-02 11:29] LABS: BLOOD UREA NITROGEN 9 mg/dL (9-20); CALCIUM 8.6 mg/dl (8.6-10.4); GFR AFRICAN-AMERICAN > 60; GFR NON-AFRICAN AMERICAN > 60
--- NOTE | 2017-12-02 23:35 | CP.PCM.PN ---
Subjective - Date & Time of Evaluation Date of Evaluation: 12/02/17 Time of Evaluation: 19:00 - Subjective Subjective: pt seen and examined Objective - Vital Signs/Intake and Output Vital Signs (last 24 hours): Temp Pulse Resp BP Pulse Ox 98.1 F 89 20 132/82 96 12/02/17 15:00 12/02/17 15:00 12/02/17 15:00 12/02/17 15:00 12/02/17 18:00 Intake and Output: 12/02/17 12/03/17 18:59 06:59 Intake Total 750 Balance 750 - Medications Medications: Current Medications Enoxaparin Sodium (Lovenox) 40 mg SC DAILY [facility] Last Admin: 12/02/17 10:30 Dose: 40 mg Piperacillin Sod/Tazobactam Sod (Zosyn 3.375 Gm Iv Premix) 3.375 gm in 50 mls @ 100 mls/hr IVPB Q6H [facility] Last Admin: 12/02/17 19:38 Dose: 100 mls/hr Vancomycin/Sodium Chloride (Vancomycin 1 Gm/Ns 200 Ml) 1 gm in 200 mls @ 133 mls/hr IVPB Q12H [facility] Stop: 12/07/17 05:01 Last Admin: 12/02/17 17:51 Dose: 133 mls/hr Insulin Human Regular (Novolin R) 0 unit SC ACHS [facility] PRN Reason: Protocol Last Admin: 12/02/17 21:37 Dose: Not Given Metformin HCl (Glucophage) 500 mg PO BID [facility] Last Admin: 12/02/17 17:49 Dose: 500 mg Rosuvastatin Calcium (Crestor) 5 mg PO HS [facility] Last Admin: 12/02/17 21:43 Dose: 5 mg Sitagliptin Phosphate (Januvia) 50 mg PO DAILY [facility] Last Admin: 12/02/17 10:30 Dose: 50 mg - Labs Labs: 12/02/17 10:57 12/02/17 10:57 PT 13.7 SECONDS (9.7-12.2) H 12/01/17 16:03 INR 1.2 12/01/17 16:03 APTT 35 SECONDS (21-34) H 12/01/17 16:03 Assessment and Plan (1) Osteomyelitis Status: Acute (2) Diabetes mellitus Status: Chronic (3) Cellulitis Status: Acute (4) Obesity Status: Chronic
[2017-12-03] MEDS: Piperacill/Tazo 3.375gm in Dex 3.375 GM/50 ML BAG IVPB SCH ×4 (00:12→17:48)
[2017-12-03] MEDS: Vancomycin 1 gm/NS 200 ml 1 GM/200 ML BAG IVPB SCH ×2 (04:30→16:44)
[2017-12-03] MEDS: (Novolin R) Insulin Human Regular 100 units/ml vial SC SCH ×4 (07:48→21:32)
--- NOTE | 2017-12-03 08:47 | RAD ---
PROCEDURE: Bilateral Feet Radiographs. HISTORY: osteomyelitis left hallux, nonhealing ulcers COMPARISON: B 10/2017 FINDINGS: BONES: Right Foot: Evidence of healed fracture proximal phalanx right 3rd digit plantar calcaneal spur Left Foot: No radiographic findings to suggest acute osteomyelitis. Plantar calcaneal spurs. JOINTS: Right Foot: Normal. No osteoarthritis. Left Foot: Normal. No osteoarthritis. SOFT TISSUES: Right Foot: Ulcer at the level of the calcaneus. Soft tissue swelling noted. This is considerably improved compared to the prior study 07/01/2017 Left Foot: Soft tissue swelling 1st digit. OTHER FINDINGS: None. IMPRESSION: Interval improvement an soft tissue ulcer in soft tissue swelling plantar aspect right foot. Left foot: Soft tissue swelling without evidence of osteomyelitis 1st digit.
--- NOTE | 2017-12-03 08:48 | RAD ---
PROCEDURE: Bilateral ankles HISTORY: nonhealing ulcers b/l COMPARISON: 07/01/2017 TECHNIQUE: Standard protocol for this study/examination. FINDINGS: Substantial decrease in soft tissue swelling right ankle with residual plantar ulceration. Left ankle: Unremarkable IMPRESSION: Soft tissue swelling considerably improved compared to the prior study right foot plantar aspect adjacent to the calcaneus.
[2017-12-03] MEDS: Enoxaparin 40 mg Syringe SC SCH (09:31)
[2017-12-03] MEDS ORDERED: Influenza Vaccine 60 mcg/0.5 mL SYR (4YR UP) IM ONE (10:00)
[2017-12-03] MEDS ORDERED: Pneumococcal 23-Valent Vaccine IM ONE (10:00)
--- NOTE | 2017-12-03 11:12 | CP.PCM.PN ---
Subjective - Date & Time of Evaluation Date of Evaluation: 12/03/17 Time of Evaluation: 11:12 - Subjective Subjective: Podiatry Progress Note - Dr. Rollins 51 year old male patient PMHx DM2 seen and evaluated at bedside for left hallux ulceration + osteomyelitis and nonhealing ulcers to bilateral feet. Patient hemodynamically stable and NAD. No acute events overnight. No pedal complaints this visit. Denies N/V/F/D/C/SOB/calf pain. Objective - Vital Signs/Intake and Output Vital Signs (last 24 hours): Temp Pulse Resp BP Pulse Ox 97.7 F 83 20 147/72 98 12/03/17 08:53 12/03/17 08:53 12/03/17 08:53 12/03/17 08:53 12/03/17 08:53 Intake and Output: 12/03/17 12/03/17 06:59 18:59 Intake Total 750 660 Balance 750 660 - Medications Medications: Current Medications Enoxaparin Sodium (Lovenox) 40 mg SC DAILY [facility] Last Admin: 12/03/17 09:31 Dose: 40 mg Piperacillin Sod/Tazobactam Sod (Zosyn 3.375 Gm Iv Premix) 3.375 gm in 50 mls @ 100 mls/hr IVPB Q6H [facility] Last Admin: 12/03/17 06:00 Dose: 100 mls/hr Vancomycin/Sodium Chloride (Vancomycin 1 Gm/Ns 200 Ml) 1 gm in 200 mls @ 133 mls/hr IVPB Q12H [facility] Stop: 12/07/17 05:01 Last Admin: 12/03/17 04:30 Dose: 133 mls/hr Insulin Human Regular (Novolin R) 0 unit SC ACHS [facility] PRN Reason: Protocol Last Admin: 12/03/17 07:48 Dose: Not Given Metformin HCl (Glucophage) 500 mg PO BID [facility] Last Admin: 12/03/17 09:31 Dose: 500 mg Rosuvastatin Calcium (Crestor) 5 mg PO HS [facility] Last Admin: 12/02/17 21:43 Dose: 5 mg Sitagliptin Phosphate (Januvia) 50 mg PO DAILY [facility] Last Admin: 12/03/17 09:31 Dose: 50 mg - Labs Labs: 12/02/17 10:57 12/02/17 10:57 PT 13.7 SECONDS (9.7-12.2) H 01/12/18 16:03 INR 1.2 12/01/17 16:03 APTT 35 SECONDS (21-34) H 12/01/17 16:03 - Constitutional Appears: Well, Non-toxic, No Acute Distress - Extremities Exam Additional comments: Both feet noted to be full of dirt Vasc: DP and PT 1/4 bilaterally, CFT < 3 seconds, temperature is warm to warm, bilateral edema noted to feet and ankles Derm: Chronic non-healing ulceration #1 noted to right plantar heel measuring approximately 4.0 x 3.0 x 0.3 cm, noted to have mixed fibrogranular base and hyperkeratotic rim; undermining noted circumfirentially. Ulceration #2 at the left plantar medial hallux measuring approximately 1.5 x1.5 x 0.4 cm, noted to have a mixed fibrogranular base and hyperkeratotic rim. (+)probe to bone. Ulceration #3 noted to left lateral ankle measuring approximately 3 x 1.5 x 0.2 cm noted to have a mixed fibrogranular base and erythematous rim. Ulceration #4 noted distal to ulceration #3 measuring approximately 1.5 x 1.5 x 0.1 cm noted to have a mixed fibrogranular base and erythematous rim. All ulcerations noted to have malodor and mild serosanguinous drainage, absent purulence/fluctuance. Healed ulceration noted to anterior aspect of right ankle. Neuro: Gross sensation absent bilaterally Ortho: No pain on palpation noted to ulcerations b/l. - Neurological Exam Neurological Exam: Alert, Awake, Oriented x3 - Psychiatric Exam Psychiatric exam: Normal Affect, Normal Mood Assessment and Plan - Assessment and Plan (Free Text) Assessment: 51 year old male with multiple b/l foot ulcerations and OM of left hallux secondary to DM Plan: Patient seen and evaluated at bedside with attending Dr. Rollins Labs, charts and vitals reviewed; afebrile, WBC 7.7, ESR 58 Continue IV abx per ID - Vancomycin, Zosyn Left foot would culture taken reveals growth of staph aureus Bilateral foot and ankle XR ordered: - RLE negative findings that suggest OM - LLE ST swelling w/o evidence of OM 1st digit Bilateral foot MRI ordered r/o OM Ulcers painted with betadine and dressed with DSD Podiatry will continue to follow patient while in house
[2017-12-03 11:44] LABS: HEMOGLOBIN 13.5 g/dL (12.0-18.0); MEAN CELL VOLUME 81.6 fL (80.0-94.0); MEAN CORPUSCULAR HEMOGLOBIN 28.3 pg (27.0-31.0); MEAN CORPUSCULAR HGB CONC 34.7 g/dL (33.0-37.0); MEAN PLATELET VOLUME 7.6 fL (7.2-11.7); RBC 4.78 Mil/uL (4.40-5.90); RED CELL DISTRIBUTION WIDTH 14.3 % (11.5-14.5); WHITE BLOOD COUNT 7.7 K/uL (4.8-10.8)
[2017-12-03 12:17] LABS: BLOOD UREA NITROGEN 11 mg/dL (9-20); CALCIUM 8.7 mg/dl (8.6-10.4); GFR AFRICAN-AMERICAN > 60; GFR NON-AFRICAN AMERICAN > 60
--- NOTE | 2017-12-03 16:15 | CP.PCM.PN ---
Subjective - Date & Time of Evaluation Date of Evaluation: 12/03/17 Time of Evaluation: 08:00 - Subjective Subjective: c/o ulcer on feet no fever Objective - Vital Signs/Intake and Output Vital Signs (last 24 hours): Temp Pulse Resp BP Pulse Ox 97.7 F 83 20 147/72 98 12/03/17 08:53 12/03/17 08:53 12/03/17 08:53 12/03/17 08:53 12/03/17 08:53 Intake and Output: 12/03/17 12/03/17 06:59 18:59 Intake Total 750 1210 Balance 750 1210 - Medications Medications: Current Medications Enoxaparin Sodium (Lovenox) 40 mg SC DAILY [facility] Last Admin: 12/03/17 09:31 Dose: 40 mg Piperacillin Sod/Tazobactam Sod (Zosyn 3.375 Gm Iv Premix) 3.375 gm in 50 mls @ 100 mls/hr IVPB Q6H [facility] Last Admin: 12/03/17 12:22 Dose: 100 mls/hr Vancomycin/Sodium Chloride (Vancomycin 1 Gm/Ns 200 Ml) 1 gm in 200 mls @ 133 mls/hr IVPB Q12H [facility] Stop: 12/07/17 05:01 Last Admin: 12/03/17 04:30 Dose: 133 mls/hr Insulin Human Regular (Novolin R) 0 unit SC ACHS [facility] PRN Reason: Protocol Last Admin: 12/03/17 12:23 Dose: 1 unit Metformin HCl (Glucophage) 500 mg PO BID [facility] Last Admin: 12/03/17 09:31 Dose: 500 mg Rosuvastatin Calcium (Crestor) 5 mg PO HS [facility] Last Admin: 12/02/17 21:43 Dose: 5 mg Sitagliptin Phosphate (Januvia) 50 mg PO DAILY [facility] Last Admin: 12/03/17 09:31 Dose: 50 mg - Labs Labs: 12/03/17 11:32 12/03/17 11:32 PT 13.7 SECONDS (9.7-12.2) H 12/01/17 16:03 INR 1.2 12/01/17 16:03 APTT 35 SECONDS (21-34) H 12/01/17 16:03 - Constitutional Appears: Non-toxic, Chronically Ill - Head Exam Head Exam: NORMOCEPHALIC - Eye Exam Eye Exam: PERRL - ENT Exam ENT Exam: Mucous Membranes Dry - Neck Exam Neck Exam: absent: Lymphadenopathy - Respiratory Exam Respiratory Exam: Decreased Breath Sounds - Cardiovascular Exam Cardiovascular Exam: REGULAR RHYTHM - GI/Abdominal Exam GI & Abdominal Exam: Distended, Soft - Rectal Exam Rectal Exam: Deferred - Exam Exam: NORMAL INSPECTION External exam: NORMAL EXTERNAL EXAM - Extremities Exam Extremities Exam: absent: Pedal Edema - Back Exam Back Exam: absent: CVA tenderness (L), CVA tenderness (R) - Neurological Exam Neurological Exam: Alert, Awake, Oriented x3 - Psychiatric Exam Psychiatric exam: Depressed Assessment and Plan (1) Osteomyelitis Status: Acute (2) Diabetes mellitus Status: Chronic (3) Cellulitis Status: Acute (4) Obesity Status: Chronic - Assessment and Plan (Free Text) Assessment: MSSA from wound consider MRI/ Vascular eval may need amp cont iv rx
--- NOTE | 2017-12-03 21:44 | CP.PCM.PN ---
Subjective - Date & Time of Evaluation Date of Evaluation: 12/03/17 Time of Evaluation: 18:00 - Subjective Subjective: Pt seen and examined, dressing done on b/l feet, is on wound care osteomylitis o antibiotics Objective - Vital Signs/Intake and Output Vital Signs (last 24 hours): Temp Pulse Resp BP Pulse Ox 97.9 F 87 20 143/80 95 12/03/17 15:00 12/03/17 15:00 12/03/17 15:00 12/03/17 15:00 12/03/17 15:00 Intake and Output: 12/03/17 12/04/17 18:59 06:59 Intake Total 1210 Balance 1210 - Medications Medications: Current Medications Enoxaparin Sodium (Lovenox) 40 mg SC DAILY [facility] Last Admin: 12/03/17 09:31 Dose: 40 mg Piperacillin Sod/Tazobactam Sod (Zosyn 3.375 Gm Iv Premix) 3.375 gm in 50 mls @ 100 mls/hr IVPB Q6H [facility] Last Admin: 12/03/17 17:48 Dose: 100 mls/hr Vancomycin/Sodium Chloride (Vancomycin 1 Gm/Ns 200 Ml) 1 gm in 200 mls @ 133 mls/hr IVPB Q12H [facility] Stop: 12/07/17 05:01 Last Admin: 12/03/17 16:44 Dose: 133 mls/hr Insulin Human Regular (Novolin R) 0 unit SC ACHS [facility] PRN Reason: Protocol Last Admin: 12/03/17 21:32 Dose: Not Given Metformin HCl (Glucophage) 500 mg PO BID [facility] Last Admin: 12/03/17 17:47 Dose: 500 mg Rosuvastatin Calcium (Crestor) 5 mg PO [facility] Last Admin: 12/03/17 21:19 Dose: 5 mg Sitagliptin Phosphate (Januvia) 50 mg PO DAILY [facility] Last Admin: 12/03/17 09:31 Dose: 50 mg - Labs Labs: 12/03/17 11:32 12/03/17 11:32 PT 13.7 SECONDS (9.7-12.2) H 12/01/17 16:03 INR 1.2 12/01/17 16:03 APTT 35 SECONDS (21-34) H 12/01/17 16:03 - Constitutional Appears: No Acute Distress - Head Exam Head Exam: ATRAUMATIC, NORMAL INSPECTION, NORMOCEPHALIC - Eye Exam Eye Exam: EOMI, Normal appearance, PERRL Pupil Exam: NORMAL ACCOMODATION, PERRL - Respiratory Exam Respiratory Exam: Clear to Ausculation Bilateral, NORMAL BREATHING PATTERN - Cardiovascular Exam Cardiovascular Exam: REGULAR RHYTHM, +S1, +S2. absent: Murmur - GI/Abdominal Exam GI & Abdominal Exam: Soft, Normal Bowel Sounds. absent: Tenderness - Back Exam Back Exam: NORMAL INSPECTION - Neurological Exam Neurological Exam: Alert, Awake, CN II-XII Intact, Normal Gait, Oriented x3 - Skin Skin Exam: Erythema, Vesicles Assessment and Plan (1) Osteomyelitis Status: Acute (2) Diabetes mellitus Status: Chronic (3) Cellulitis Status: Acute (4) Obesity Status: Chronic
[2017-12-04] MEDS: Piperacill/Tazo 3.375gm in Dex 3.375 GM/50 ML BAG IVPB SCH ×5 (00:29→23:46)
[2017-12-04] MEDS: Vancomycin 1 gm/NS 200 ml 1 GM/200 ML BAG IVPB SCH ×3 (05:15→21:19)
[2017-12-04] MEDS: (Novolin R) Insulin Human Regular 100 units/ml vial SC SCH ×3 (08:17→17:52)
--- NOTE | 2017-12-04 09:50 | CP.PCM.PN ---
<Arsen Rollins - Last Filed: 12/04/17 09:50> Subjective - Date & Time of Evaluation Date of Evaluation: 12/04/17 Time of Evaluation: 09:50 Objective - Vital Signs/Intake and Output Vital Signs (last 24 hours): Temp Pulse Resp BP Pulse Ox 99.3 F 97 H 20 122/87 95 12/04/17 08:00 12/04/17 08:00 12/04/17 08:00 12/04/17 08:00 12/04/17 08:00 Intake and Output: 12/04/17 12/04/17 06:59 18:59 Intake Total 1640 Balance 1640 - Medications Medications: Current Medications Enoxaparin Sodium (Lovenox) 40 mg SC DAILY [facility] Last Admin: 12/03/17 09:31 Dose: 40 mg Piperacillin Sod/Tazobactam Sod (Zosyn 3.375 Gm Iv Premix) 3.375 gm in 50 mls @ 100 mls/hr IVPB Q6H [facility] Last Admin: 12/04/17 06:54 Dose: 100 mls/hr Vancomycin/Sodium Chloride (Vancomycin 1 Gm/Ns 200 Ml) 1 gm in 200 mls @ 133 mls/hr IVPB Q12H [facility] Stop: 12/07/17 05:01 Last Admin: 12/04/17 05:15 Dose: 133 mls/hr Insulin Human Regular (Novolin R) 0 unit SC ACHS [facility] PRN Reason: Protocol Last Admin: 12/04/17 08:17 Dose: 1 unit Metformin HCl (Glucophage) 500 mg PO BID [facility] Last Admin: 12/03/17 17:47 Dose: 500 mg Rosuvastatin Calcium (Crestor) 5 mg PO HS [facility] Last Admin: 12/03/17 21:19 Dose: 5 mg Sitagliptin Phosphate (Januvia) 50 mg PO DAILY [facility] Last Admin: 12/03/17 09:31 Dose: 50 mg - Labs Labs: 12/03/17 11:32 12/03/17 11:32 PT 13.7 SECONDS (9.7-12.2) H 12/01/17 16:03 INR 1.2 12/01/17 16:03 APTT 35 SECONDS (21-34) H 12/01/17 16:03 <Zaid Nino - Last Filed: 12/04/17 10:36> Subjective - Subjective Subjective: Podiatry Progress Note- Dr. Rollins 51 y.o male seen at bedside with attending for left hallux ulceration + osteomyelitis and nonhealing ulcers to bilateral feet. Patient hemodynamically stable and NAD. Patient is seen resting comfortably in bed and AAOx3. No acute events overnight. No pedal complaints this visit. Denies N/V/F/D/C/SOB/calf pain. Objective - Vital Signs/Intake and Output Vital Signs (last 24 hours): Temp Pulse Resp BP Pulse Ox 99.3 F 97 H 20 122/87 95 12/04/17 08:00 12/04/17 08:00 12/04/17 08:00 12/04/17 08:00 12/04/17 08:00 Intake and Output: 12/04/17 12/04/17 06:59 18:59 Intake Total 1640 Balance 1640 - Medications Medications: Current Medications Enoxaparin Sodium (Lovenox) 40 mg SC DAILY [facility] Last Admin: 12/04/17 10:11 Dose: 40 mg Piperacillin Sod/Tazobactam Sod (Zosyn 3.375 Gm Iv Premix) 3.375 gm in 50 mls @ 100 mls/hr IVPB Q6H [facility] Last Admin: 12/04/17 06:54 Dose: 100 mls/hr Vancomycin/Sodium Chloride (Vancomycin 1 Gm/Ns 200 Ml) 1 gm in 200 mls @ 133 mls/hr IVPB Q12H [facility] Stop: 12/07/17 05:01 Last Admin: 12/04/17 05:15 Dose: 133 mls/hr Insulin Human Regular (Novolin R) 0 unit SC ACHS [facility] PRN Reason: Protocol Last Admin: 12/04/17 08:17 Dose: 1 unit Metformin HCl (Glucophage) 500 mg PO BID [facility] Last Admin: 12/04/17 10:11 Dose: 500 mg Rosuvastatin Calcium (Crestor) 5 mg PO HS [facility] Last Admin: 12/03/17 21:19 Dose: 5 mg Sitagliptin Phosphate (Januvia) 50 mg PO DAILY [facility] Last Admin: 12/04/17 10:11 Dose: 50 mg - Labs Labs: 12/03/17 11:32 12/03/17 11:32 PT 13.7 SECONDS (9.7-12.2) H 12/01/17 16:03 INR 1.2 12/01/17 16:03 APTT 35 SECONDS (21-34) H 12/01/17 16:03 - Constitutional Appears: Well, Non-toxic, No Acute Distress - Extremities Exam Additional comments: Both feet noted to be full of dirt Vasc: DP and PT 1/4 bilaterally, CFT < 3 seconds, temperature is warm to warm, bilateral edema noted to feet and ankles Derm: Chronic non-healing ulceration #1 noted to right plantar heel measuring approximately 4.0 x 3.0 x 0.3 cm, noted to have mixed fibrogranular base and hyperkeratotic rim; undermining noted circumfirentially. Ulceration #2 at the left plantar medial hallux measuring approximately 1.5 x1.5 x 0.4 cm, noted to have a mixed fibrogranular base and hyperkeratotic rim. probe to bone. Ulceration #3 noted to left lateral ankle measuring approximately 3 x 1.5 x 0.2 cm noted to have a mixed fibrogranular base and erythematous rim. Ulceration #4 noted distal to ulceration #3 measuring approximately 1.5 x 1.5 x 0.1 cm noted to have a mixed fibrogranular base and erythematous rim. All ulcerations noted to have malodor and mild serosanguinous drainage, absent purulence/fluctuance. Healed ulceration noted to anterior aspect of right ankle. Neuro: Gross sensation absent bilaterally Ortho: No pain on palpation noted to ulcerations b/l. - Neurological Exam Neurological Exam: Alert, Awake - Psychiatric Exam Psychiatric exam: Normal Affect, Normal Mood Assessment and Plan - Assessment and Plan (Free Text) Assessment: 51 year old male with multiple b/l foot ulcerations and OM of left hallux secondary to DM Plan: Patient seen and evaluated at bedside with attending Dr. Rollins Labs, charts and vitals reviewed; afebrile, WBC 7.7 (12/03/17), ESR 58 Continue IV abx per ID - Vancomycin, Zosyn Left foot would culture taken reveals growth of staph aureus Bilateral foot and ankle XR ordered: - RLE negative findings that suggest OM - LLE ST swelling w/o evidence of OM 1st digit Bilateral foot MRI ordered r/o OM - pending results Ulcers painted with betadine and dressed with DSD Podiatry will continue to follow patient while in house
[2017-12-04] MEDS: Enoxaparin 40 mg Syringe SC SCH (10:11)
--- NOTE | 2017-12-04 11:39 | CP.PCM.PN ---
Subjective - Date & Time of Evaluation Date of Evaluation: 12/04/17 Time of Evaluation: 09:00 - Subjective Subjective: blood and wound cultures + consider echo cont iv rx and wound care dr tobar on board - ? OR Objective - Vital Signs/Intake and Output Vital Signs (last 24 hours): Temp Pulse Resp BP Pulse Ox 99.3 F 97 H 20 122/87 95 12/04/17 08:00 12/04/17 08:00 12/04/17 08:00 12/04/17 08:00 12/04/17 08:00 Intake and Output: 12/04/17 12/04/17 06:59 18:59 Intake Total 1640 Balance 1640 - Medications Medications: Current Medications Enoxaparin Sodium (Lovenox) 40 mg SC DAILY [facility] Last Admin: 12/04/17 10:11 Dose: 40 mg Piperacillin Sod/Tazobactam Sod (Zosyn 3.375 Gm Iv Premix) 3.375 gm in 50 mls @ 100 mls/hr IVPB Q6H [facility] Last Admin: 12/04/17 06:54 Dose: 100 mls/hr Vancomycin/Sodium Chloride (Vancomycin 1 Gm/Ns 200 Ml) 1 gm in 200 mls @ 133 mls/hr IVPB Q8 [facility] Stop: 12/09/17 14:01 Insulin Human Regular (Novolin R) 0 unit SC ACHS [facility] PRN Reason: Protocol Last Admin: 12/04/17 08:17 Dose: 1 unit Metformin HCl (Glucophage) 500 mg PO BID [facility] Last Admin: 12/04/17 10:11 Dose: 500 mg Rosuvastatin Calcium (Crestor) 5 mg PO HS [facility] Last Admin: 12/03/17 21:19 Dose: 5 mg Sitagliptin Phosphate (Januvia) 50 mg PO DAILY [facility] Last Admin: 12/04/17 10:11 Dose: 50 mg - Labs Labs: 12/03/17 11:32 12/03/17 11:32 PT 13.7 SECONDS (9.7-12.2) H 12/01/17 16:03 INR 1.2 12/01/17 16:03 APTT 35 SECONDS (21-34) H 12/01/17 16:03 - Constitutional Appears: Non-toxic, Chronically Ill - Head Exam Head Exam: NORMOCEPHALIC - Eye Exam Eye Exam: PERRL - ENT Exam ENT Exam: Mucous Membranes Dry - Neck Exam Neck Exam: absent: Lymphadenopathy - Respiratory Exam Respiratory Exam: Decreased Breath Sounds - Cardiovascular Exam Cardiovascular Exam: REGULAR RHYTHM - GI/Abdominal Exam GI & Abdominal Exam: Distended, Soft - Rectal Exam Rectal Exam: Deferred - Exam Exam: NORMAL INSPECTION - Extremities Exam Extremities Exam: absent: Pedal Edema - Back Exam Back Exam: absent: CVA tenderness (L), CVA tenderness (R) Assessment and Plan (1) Osteomyelitis Status: Acute (2) Diabetes mellitus Status: Chronic (3) Cellulitis Status: Acute (4) Obesity Status: Chronic
--- NOTE | 2017-12-04 15:37 | MRI ---
MRI left forefoot History: Non healing plantar ulcer. Evaluate for osteomyelitis. Comparison: X-ray dated 12/02/2017. Technique: Multi-echo and multiplanar sequences were performed through the left forefoot without the use of intravenous contrast. Findings: Soft tissue ulceration with reticulation and edema seen within the soft tissues at the level of the 1st distal phalanx. Patchy signal abnormality seen within the 1st distal phalanx with increased STIR signal and some minimal patchy decreased T1 signal which may represent a developing acute osteomyelitis. Clinical correlation. Mild hallux valgus deformity. Degenerative changes at the base of the 2nd metatarsal bone and corresponding cuneiform bone. Additional degenerative changes noted at the base of the 4th metatarsal bone. Degenerative changes with some signal change seen within the marrow of the lateral cuneiform bone. Degenerative changes at the dorsal aspect of the midfoot. Impression: Soft tissue ulceration with reticulation and edema seen within the soft tissues at the level of the 1st distal phalanx. Patchy signal abnormality seen within the 1st distal phalanx with increased STIR signal and some minimal patchy decreased T1 signal which may represent a developing acute osteomyelitis. Clinical correlation. Additional findings as above.
--- NOTE | 2017-12-04 15:51 | MRI ---
MRI right hindfoot History: Nonhealing plantar ulcer Comparison: X-ray dated 12/02/2017 Technique: Multi-echo multiplanar sequences were performed through the right hindfoot without the use of intravenous contrast. Findings: Prominent soft tissue ulceration measuring 2.2 x 1.9 x 1.2 centimeters extending to the inferior aspect of the plantar fascia near its insertion on the inferior calcaneus. Developing phlegmon collection cannot be excluded. Minimal reactive edema seen within the inferior calcaneus without evidence of gross signal abnormality. No evidence of gross acute osteomyelitis at this level. Marked thickening of the plantar fascia at that level measuring up to 1.2 centimeters with adjacent bony spurring measuring up to 8 millimeters suggestive for a severe plantar fasciitis with some partial tearing of the plantar fascia near the insertion of the inferior calcaneus. Achilles tendon is preserved. 9 millimeter intraosseous subchondral cyst and or ganglia seen within the mid calcaneus near the sinus tarsi. Small ankle joint effusion. Extensive signal abnormality seen throughout the midfoot and metatarsal bases including the navicular bone, medial middle and lateral cuneiform bones, partially involving the cuboid bone, as well as the bases of the 2nd 3rd and 4th metatarsal bones. This may represent underlying severe neuropathic degenerative changes; however, superimposed osteomyelitic changes cannot entirely be excluded on the basis of these images. Clinical correlation. Correlation with three-phase bone scan may be helpful if clinically indicated. Deltoid ligament is preserved. Reticulation and edema seen within the circumferential subcutaneous soft tissues. Anterior extensor tendons are preserved. Mild tenosynovitis of the posterior tibial tendon sheath. Remainder of the medial flexor tendons are preserved. Moderate tenosynovitis of the peroneal tendons. Anterior and posterior talofibular ligaments are preserved. Impression: 1. Prominent soft tissue ulceration measuring 2.2 x 1.9 x 1.2 centimeters extending to the inferior aspect of the plantar fascia near its insertion on the inferior calcaneus. Developing phlegmon collection cannot be excluded. Minimal reactive edema seen within the inferior calcaneus without evidence of gross signal abnormality. No evidence of gross acute osteomyelitis at this level of the calcaneus. 2. Marked thickening of the plantar fascia at that level measuring up to 1.2 centimeters with adjacent bony spurring measuring up to 8 millimeters suggestive for a severe plantar fasciitis with some partial tearing of the plantar fascia near the insertion of the inferior calcaneus. 3. 9 millimeter intraosseous subchondral cyst and or ganglia seen within the mid calcaneus near the sinus tarsi. 4. Small ankle joint effusion. 5. Extensive signal abnormality seen throughout the midfoot and metatarsal bases including the navicular bone, medial middle and lateral cuneiform bones, partially involving the cuboid bone, as well as the bases of the 2nd 3rd and 4th metatarsal bones. This may represent underlying severe neuropathic degenerative changes; however, superimposed osteomyelitic changes cannot entirely be excluded on the basis of these images. Clinical correlation. Correlation with three-phase bone scan may be helpful if clinically indicated. 6. Reticulation and edema seen within the circumferential subcutaneous soft tissues. 7. Mild tenosynovitis of the posterior tibial tendon sheath. 8. Moderate tenosynovitis of the peroneal tendons.
--- NOTE | 2017-12-04 22:43 | CP.PCM.PN ---
Subjective - Date & Time of Evaluation Date of Evaluation: 12/04/17 Time of Evaluation: 18:00 - Subjective Subjective: blood and wound cultures + consider echo cont iv rx and wound care dr tobar on board - ? OR Objective - Vital Signs/Intake and Output Vital Signs (last 24 hours): Temp Pulse Resp BP Pulse Ox 97.8 F 90 20 127/84 95 12/04/17 15:00 12/04/17 15:00 12/04/17 15:00 12/04/17 15:00 12/04/17 15:00 Intake and Output: 12/04/17 12/05/17 18:59 06:59 Intake Total 850 Balance 850 - Medications Medications: Current Medications Enoxaparin Sodium (Lovenox) 40 mg SC DAILY [facility] Last Admin: 12/04/17 10:11 Dose: 40 mg Piperacillin Sod/Tazobactam Sod (Zosyn 3.375 Gm Iv Premix) 3.375 gm in 50 mls @ 100 mls/hr IVPB Q6H [facility] Last Admin: 12/04/17 17:51 Dose: 100 mls/hr Vancomycin/Sodium Chloride (Vancomycin 1 Gm/Ns 200 Ml) 1 gm in 200 mls @ 133 mls/hr IVPB Q8 [facility] Stop: 12/09/17 14:01 Last Admin: 12/04/17 21:19 Dose: 133 mls/hr Insulin Human Regular (Novolin R) 0 unit SC ACHS [facility] PRN Reason: Protocol Last Admin: 12/04/17 17:52 Dose: 1 unit Metformin HCl (Glucophage) 500 mg PO BID [facility] Last Admin: 12/04/17 17:51 Dose: 500 mg Rosuvastatin Calcium (Crestor) 5 mg PO HS [facility] Last Admin: 12/04/17 21:18 Dose: 5 mg Sitagliptin Phosphate (Januvia) 50 mg PO DAILY [facility] Last Admin: 12/04/17 10:11 Dose: 50 mg - Labs Labs: 12/03/17 11:32 12/03/17 11:32 PT 13.7 SECONDS (9.7-12.2) H 12/01/17 16:03 INR 1.2 12/01/17 16:03 APTT 35 SECONDS (21-34) H 12/01/17 16:03 Assessment and Plan (1) Osteomyelitis Status: Acute (2) Diabetes mellitus Status: Chronic (3) Cellulitis Status: Acute (4) Obesity Status: Chronic
[2017-12-05] MEDS: Vancomycin 1 gm/NS 200 ml 1 GM/200 ML BAG IVPB SCH ×3 (05:24→21:43)
[2017-12-05] MEDS: Piperacill/Tazo 3.375gm in Dex 3.375 GM/50 ML BAG IVPB SCH ×4 (05:30→23:45)
[2017-12-05] MEDS: Enoxaparin 40 mg Syringe SC SCH (09:16)
[2017-12-05] MEDS: (Novolin R) Insulin Human Regular 100 units/ml vial SC SCH ×5 (09:17→22:32)
--- NOTE | 2017-12-05 11:30 | CP.PCM.PN ---
Subjective - Date & Time of Evaluation Date of Evaluation: 12/05/17 Time of Evaluation: 09:00 - Subjective Subjective: MRI equivocal cont rx as OM for now OK to d/c Vanco Objective - Vital Signs/Intake and Output Vital Signs (last 24 hours): Temp Pulse Resp BP Pulse Ox 97.6 F 79 20 134/88 98 12/05/17 07:27 12/05/17 07:27 12/05/17 07:27 12/05/17 07:27 12/05/17 07:27 Intake and Output: 12/05/17 12/05/17 06:59 18:59 Intake Total 500 Balance 500 - Medications Medications: Current Medications Enoxaparin Sodium (Lovenox) 40 mg SC DAILY [facility] Last Admin: 12/05/17 09:16 Dose: 40 mg Piperacillin Sod/Tazobactam Sod (Zosyn 3.375 Gm Iv Premix) 3.375 gm in 50 mls @ 100 mls/hr IVPB Q6H [facility] Last Admin: 12/05/17 05:30 Dose: 100 mls/hr Vancomycin/Sodium Chloride (Vancomycin 1 Gm/Ns 200 Ml) 1 gm in 200 mls @ 133 mls/hr IVPB Q8 [facility] Stop: 12/09/17 14:01 Last Admin: 12/05/17 05:24 Dose: 133 mls/hr Insulin Human Regular (Novolin R) 0 unit SC ACHS [facility] PRN Reason: Protocol Last Admin: 12/05/17 09:17 Dose: 1 unit Metformin HCl (Glucophage) 500 mg PO BID [facility] Last Admin: 12/05/17 09:14 Dose: 500 mg Rosuvastatin Calcium (Crestor) 5 mg PO [facility] Last Admin: 12/04/17 21:18 Dose: 5 mg Sitagliptin Phosphate (Januvia) 50 mg PO DAILY [facility] Last Admin: 12/05/17 09:14 Dose: 50 mg - Labs Labs: 12/03/17 11:32 12/03/17 11:32 PT 13.7 SECONDS (9.7-12.2) H 12/01/17 16:03 INR 1.2 12/01/17 16:03 APTT 35 SECONDS (21-34) H 12/01/17 16:03 - Constitutional Appears: Non-toxic, Chronically Ill - Head Exam Head Exam: NORMOCEPHALIC - Eye Exam Eye Exam: PERRL - ENT Exam ENT Exam: Mucous Membranes Dry - Neck Exam Neck Exam: absent: Lymphadenopathy - Respiratory Exam Respiratory Exam: Decreased Breath Sounds - Cardiovascular Exam Cardiovascular Exam: REGULAR RHYTHM - GI/Abdominal Exam GI & Abdominal Exam: Soft - Rectal Exam Rectal Exam: Deferred Assessment and Plan (1) Osteomyelitis Status: Acute (2) Diabetes mellitus Status: Chronic (3) Cellulitis Status: Acute (4) Obesity Status: Chronic
--- NOTE | 2017-12-05 14:42 | CP.PCM.PN ---
Subjective - Date & Time of Evaluation Date of Evaluation: 12/05/17 Time of Evaluation: 14:39 - Subjective Subjective: Podiatry Progress Note- Dr. Rollins 51 y.o male seen at bedside with attending for left hallux ulceration + osteomyelitis and nonhealing ulcers to bilateral feet. Patient hemodynamically stable and NAD. Patient is seen resting comfortably in bed and AAOx3. No acute events overnight. No pedal complaints this visit. Denies N/V/F/D/C/SOB/calf pain. Objective - Vital Signs/Intake and Output Vital Signs (last 24 hours): Temp Pulse Resp BP Pulse Ox 97.6 F 79 20 134/88 98 12/05/17 07:27 12/05/17 07:27 12/05/17 07:27 12/05/17 07:27 12/05/17 07:27 Intake and Output: 12/05/17 12/05/17 06:59 18:59 Intake Total 500 Balance 500 - Medications Medications: Current Medications Enoxaparin Sodium (Lovenox) 40 mg SC DAILY [facility] Last Admin: 12/05/17 09:16 Dose: 40 mg Piperacillin Sod/Tazobactam Sod (Zosyn 3.375 Gm Iv Premix) 3.375 gm in 50 mls @ 100 mls/hr IVPB Q6H [facility] Last Admin: 12/05/17 12:07 Dose: 100 mls/hr Vancomycin/Sodium Chloride (Vancomycin 1 Gm/Ns 200 Ml) 1 gm in 200 mls @ 133 mls/hr IVPB Q8 [facility] Stop: 12/09/17 14:01 Last Admin: 12/05/17 13:51 Dose: 133 mls/hr Insulin Human Regular (Novolin R) 0 unit SC ACHS [facility] PRN Reason: Protocol Last Admin: 12/05/17 12:06 Dose: 3 unit Metformin HCl (Glucophage) 500 mg PO BID [facility] Last Admin: 12/05/17 09:14 Dose: 500 mg Rosuvastatin Calcium (Crestor) 5 mg PO HS [facility] Last Admin: 12/04/17 21:18 Dose: 5 mg Sitagliptin Phosphate (Januvia) 50 mg PO DAILY [facility] Last Admin: 12/05/17 09:14 Dose: 50 mg - Labs Labs: 12/03/17 11:32 12/03/17 11:32 PT 13.7 SECONDS (9.7-12.2) H 12/01/17 16:03 INR 1.2 12/01/17 16:03 APTT 35 SECONDS (21-34) H 12/01/17 16:03 - Constitutional Appears: Well, Non-toxic, No Acute Distress - Extremities Exam Additional comments: Both feet noted to be full of dirt Vasc: DP and PT 1/4 bilaterally, CFT < 3 seconds, temperature is warm to warm, bilateral edema noted to feet and ankles Derm: Chronic non-healing ulceration #1 noted to right plantar heel measuring approximately 4.0 x 3.0 x 0.3 cm, noted to have mixed fibrogranular base and hyperkeratotic rim; undermining noted circumfirentially. Ulceration #2 at the left plantar medial hallux measuring approximately 1.5 x1.5 x 0.4 cm, noted to have a mixed fibrogranular base and hyperkeratotic rim. probe to bone. Ulceration #3 noted to left lateral ankle measuring approximately 3 x 1.5 x 0.2 cm noted to have a mixed fibrogranular base and erythematous rim. Ulceration #4 noted distal to ulceration #3 measuring approximately 1.5 x 1.5 x 0.1 cm noted to have a mixed fibrogranular base and erythematous rim. All ulcerations noted to have malodor and mild serosanguinous drainage, absent purulence/fluctuance. Healed ulceration noted to anterior aspect of right ankle. Neuro: Gross sensation absent bilaterally Ortho: No pain on palpation noted to ulcerations b/l. - Neurological Exam Neurological Exam: Alert, Awake, Oriented x3 - Psychiatric Exam Psychiatric exam: Normal Affect, Normal Mood Assessment and Plan - Assessment and Plan (Free Text) Assessment: 51 year old male with multiple b/l foot ulcerations and OM of left hallux secondary to DM Plan: Patient seen and evaluated at bedside with attending Dr. Rollins Labs, charts and vitals reviewed; afebrile, WBC 7.7 (12/03/17), ESR 58 Continue IV abx per ID - Vancomycin, Zosyn Left foot wcx: staph aureus Bilateral foot and ankle XR ordered: - RLE negative findings that suggest OM - LLE ST swelling w/o evidence of OM 1st digit bilateral MRI shows likely OM of distal phalanx of hallux, right midfoot changes consistent with neuropathic degenerative changes bilateral feet dressed with betadine, DSD Podiatry will continue to follow patient while in house
--- NOTE | 2017-12-05 23:55 | CP.PCM.PN ---
Subjective - Date & Time of Evaluation Date of Evaluation: 12/05/17 Time of Evaluation: 17:00 Objective - Vital Signs/Intake and Output Vital Signs (last 24 hours): Temp Pulse Resp BP Pulse Ox 97.9 F 86 20 125/81 96 12/05/17 23:26 12/05/17 23:26 12/05/17 23:26 12/05/17 23:26 12/05/17 23:26 Intake and Output: 12/05/17 12/06/17 18:59 06:59 Intake Total 800 Balance 800 - Medications Medications: Current Medications Enoxaparin Sodium (Lovenox) 40 mg SC DAILY [facility] Last Admin: 12/05/17 09:16 Dose: 40 mg Piperacillin Sod/Tazobactam Sod (Zosyn 3.375 Gm Iv Premix) 3.375 gm in 50 mls @ 100 mls/hr IVPB Q6H [facility] Last Admin: 12/05/17 23:45 Dose: 100 mls/hr Vancomycin/Sodium Chloride (Vancomycin 1 Gm/Ns 200 Ml) 1 gm in 200 mls @ 133 mls/hr IVPB Q8 [facility] Stop: 12/09/17 14:01 Last Admin: 12/05/17 21:43 Dose: 133 mls/hr Insulin Human Regular (Novolin R) 0 unit SC ACHS [facility] PRN Reason: Protocol Last Admin: 12/05/17 22:32 Dose: Not Given Metformin HCl (Glucophage) 500 mg PO BID [facility] Last Admin: 12/05/17 17:56 Dose: 500 mg Rosuvastatin Calcium (Crestor) 5 mg PO HS [facility] Last Admin: 12/05/17 21:43 Dose: 5 mg Sitagliptin Phosphate (Januvia) 50 mg PO DAILY [facility] Last Admin: 12/05/17 09:14 Dose: 50 mg - Labs Labs: 12/03/17 11:32 12/03/17 11:32 PT 13.7 SECONDS (9.7-12.2) H 12/01/17 16:03 INR 1.2 12/01/17 16:03 APTT 35 SECONDS (21-34) H 12/01/17 16:03 Assessment and Plan (1) Osteomyelitis Status: Acute (2) Diabetes mellitus Status: Chronic (3) Cellulitis Status: Acute (4) Obesity Status: Chronic
[2017-12-06] MEDS: Piperacill/Tazo 3.375gm in Dex 3.375 GM/50 ML BAG IVPB SCH ×3 (05:38→17:32)
[2017-12-06] MEDS: Vancomycin 1 gm/NS 200 ml 1 GM/200 ML BAG IVPB SCH ×3 (06:11→22:39)
[2017-12-06] MEDS: (Novolin R) Insulin Human Regular 100 units/ml vial SC SCH ×4 (08:20→21:31)
[2017-12-06] MEDS: Enoxaparin 40 mg Syringe SC SCH (10:32)
--- NOTE | 2017-12-06 14:22 | PCM.SURG1 ---
Surgeon's Initial Post Op Note - Surgeon's Notes Surgeon: Tez Dyer MD [employer] Manager: NONE Type of Anesthesia: Local Pre-Operative Diagnosis: Poor venous access Operative Findings: US showed a patent right basilic vein. Post-Operative Diagnosis: Poor venous access Operation Performed: Single lumen picc placement right basilic vein, 37 cm. Tip is in the SVC. Specimen/Specimens Removed: none Estimated Blood Loss: EBL {In ML}: 2 Blood Products Given: N/A Drains Used: No Drains Post-Op Condition: Fair Date of Surgery/Procedure: 12/06/17 Time of Surgery/Procedure: 14:20
--- NOTE | 2017-12-06 15:53 | CP.PCM.PN ---
Subjective - Date & Time of Evaluation Date of Evaluation: 12/06/17 Time of Evaluation: 07:00 - Subjective Subjective: s/p pICC cont iv rx and wound care min [address] Rollins Objective - Vital Signs/Intake and Output Vital Signs (last 24 hours): Temp Pulse Resp BP Pulse Ox 97.9 F 72 20 120/68 97 12/06/17 07:55 12/06/17 07:55 12/06/17 07:55 12/06/17 07:55 12/06/17 07:55 Intake and Output: 12/06/17 12/06/17 06:59 18:59 Intake Total 1600 Balance 1600 - Medications Medications: Current Medications Enoxaparin Sodium (Lovenox) 40 mg SC DAILY [facility] Last Admin: 12/06/17 10:32 Dose: 40 mg Piperacillin Sod/Tazobactam Sod (Zosyn 3.375 Gm Iv Premix) 3.375 gm in 50 mls @ 100 mls/hr IVPB Q6H [facility] Last Admin: 12/06/17 12:52 Dose: 100 mls/hr Vancomycin/Sodium Chloride (Vancomycin 1 Gm/Ns 200 Ml) 1 gm in 200 mls @ 133 mls/hr IVPB Q8 [facility] Stop: 12/09/17 14:01 Last Admin: 12/06/17 14:58 Dose: 133 mls/hr Insulin Human Regular (Novolin R) 0 unit SC ACHS [facility] PRN Reason: Protocol Last Admin: 12/06/17 12:17 Dose: Not Given Metformin HCl (Glucophage) 500 mg PO BID [facility] Last Admin: 12/06/17 10:31 Dose: 500 mg Rosuvastatin Calcium (Crestor) 5 mg PO HS [facility] Last Admin: 12/05/17 21:43 Dose: 5 mg Sitagliptin Phosphate (Januvia) 50 mg PO DAILY [facility] Last Admin: 12/06/17 10:31 Dose: 50 mg - Labs Labs: 12/03/17 11:32 12/03/17 11:32 PT 13.7 SECONDS (9.7-12.2) H 12/01/17 16:03 INR 1.2 12/01/17 16:03 APTT 35 SECONDS (21-34) H 12/01/17 16:03 - Constitutional Appears: Non-toxic, Chronically Ill - Head Exam Head Exam: NORMOCEPHALIC - Eye Exam Eye Exam: PERRL - ENT Exam ENT Exam: Mucous Membranes Dry - Neck Exam Neck Exam: absent: Lymphadenopathy - Respiratory Exam Respiratory Exam: Decreased Breath Sounds - Cardiovascular Exam Cardiovascular Exam: REGULAR RHYTHM - GI/Abdominal Exam GI & Abdominal Exam: Distended, Soft Assessment and Plan (1) Osteomyelitis Status: Acute (2) Diabetes mellitus Status: Chronic (3) Cellulitis Status: Acute (4) Obesity Status: Chronic
--- NOTE | 2017-12-06 17:18 | CP.PCM.PN ---
<Marlin Villarreal - Last Filed: 12/06/17 17:15> Subjective - Date & Time of Evaluation Date of Evaluation: 12/06/17 Time of Evaluation: 17:18 - Subjective Subjective: Podiatry Progress Note- Dr. Rollins 51 y.o male seen at bedside with attending for left hallux ulceration + osteomyelitis and nonhealing ulcers to bilateral feet. Patient hemodynamically stable and NAD. Patient is seen resting comfortably in bed and AAOx3. No acute events overnight. No pedal complaints this visit. Denies N/V/F/D/C/SOB/calf pain. Objective - Vital Signs/Intake and Output Vital Signs (last 24 hours): Temp Pulse Resp BP Pulse Ox 97.6 F 82 20 123/77 95 12/06/17 16:00 12/06/17 16:00 12/06/17 16:00 12/06/17 16:00 12/06/17 16:00 Intake and Output: 12/06/17 12/06/17 06:59 18:59 Intake Total 1600 Balance 1600 - Medications Medications: Current Medications Enoxaparin Sodium (Lovenox) 40 mg SC DAILY [facility] Last Admin: 12/06/17 10:32 Dose: 40 mg Piperacillin Sod/Tazobactam Sod (Zosyn 3.375 Gm Iv Premix) 3.375 gm in 50 mls @ 100 mls/hr IVPB Q6H [facility] Last Admin: 12/06/17 12:52 Dose: 100 mls/hr Vancomycin/Sodium Chloride (Vancomycin 1 Gm/Ns 200 Ml) 1 gm in 200 mls @ 133 mls/hr IVPB Q8 [facility] Stop: 12/09/17 14:01 Last Admin: 12/06/17 14:58 Dose: 133 mls/hr Insulin Human Regular (Novolin R) 0 unit SC ACHS [facility] PRN Reason: Protocol Last Admin: 12/06/17 12:17 Dose: Not Given Metformin HCl (Glucophage) 500 mg PO BID [facility] Last Admin: 12/06/17 10:31 Dose: 500 mg Rosuvastatin Calcium (Crestor) 5 mg PO HS [facility] Last Admin: 12/05/17 21:43 Dose: 5 mg Sitagliptin Phosphate (Januvia) 50 mg PO DAILY [facility] Last Admin: 12/06/17 10:31 Dose: 50 mg - Labs Labs: 12/03/17 11:32 12/03/17 11:32 PT 13.7 SECONDS (9.7-12.2) H 12/01/17 16:03 INR 1.2 12/01/17 16:03 APTT 35 SECONDS (21-34) H 12/01/17 16:03 - Constitutional Appears: Well, Non-toxic, No Acute Distress - Extremities Exam Additional comments: Vasc: DP and PT 1/4 bilaterally, CFT < 3 seconds, temperature is warm to warm, bilateral edema noted to feet and ankles Derm: Chronic non-healing ulceration #1 noted to right plantar heel measuring approximately 4.0 x 3.0 x 0.3 cm, noted to have mixed fibrogranular base and hyperkeratotic rim; undermining noted circumfirentially. Ulceration #2 at the left plantar medial hallux measuring approximately 1.5 x1.5 x 0.4 cm, noted to have a mixed fibrogranular base and hyperkeratotic rim. probe to bone. Ulceration #3 noted to left lateral ankle measuring approximately 3 x 1.5 x 0.2 cm noted to have a mixed fibrogranular base and erythematous rim. Ulceration #4 noted distal to ulceration #3 measuring approximately 1.5 x 1.5 x 0.1 cm noted to have a mixed fibrogranular base and erythematous rim. All ulcerations noted to have malodor and mild serosanguinous drainage, absent purulence/fluctuance. Healed ulceration noted to anterior aspect of right ankle. Neuro: Gross sensation absent bilaterally Ortho: No pain on palpation noted to ulcerations b/l. - Neurological Exam Neurological Exam: Alert, Awake, Oriented x3 - Psychiatric Exam Psychiatric exam: Normal Affect, Normal Mood Assessment and Plan - Assessment and Plan (Free Text) Assessment: 51 year old male with multiple b/l foot ulcerations and OM of left hallux secondary to DM Plan: patient seen and evaluated discussed in detail with attending Dr. Rollins Labs, charts and vitals reviewed; afebrile Continue IV abx per ID - Vancomycin, Zosyn Left foot wcx: staph aureus Bilateral foot and ankle XR ordered: - RLE negative findings that suggest OM - LLE ST swelling w/o evidence of OM 1st digit bilateral MRI shows likely OM of distal phalanx of hallux, right midfoot changes consistent with neuropathic degenerative changes bilateral feet dressed with betadine, DSD pt. to get picc line today for outpatient abx Podiatry will continue to follow patient while in house <Arsen Rollins - Last Filed: 12/06/17 18:31> Objective - Vital Signs/Intake and Output Vital Signs (last 24 hours): Temp Pulse Resp BP Pulse Ox 97.6 F 82 20 123/77 95 12/06/17 16:00 12/06/17 16:00 12/06/17 16:00 12/06/17 16:00 12/06/17 16:00 Intake and Output: 12/06/17 12/06/17 06:59 18:59 Intake Total 1600 Balance 1600 - Medications Medications: Current Medications Enoxaparin Sodium (Lovenox) 40 mg SC DAILY [facility] Last Admin: 12/06/17 10:32 Dose: 40 mg Piperacillin Sod/Tazobactam Sod (Zosyn 3.375 Gm Iv Premix) 3.375 gm in 50 mls @ 100 mls/hr IVPB Q6H [facility] Last Admin: 12/06/17 17:32 Dose: 100 mls/hr Vancomycin/Sodium Chloride (Vancomycin 1 Gm/Ns 200 Ml) 1 gm in 200 mls @ 133 mls/hr IVPB Q8 [facility] Stop: 12/09/17 14:01 Last Admin: 12/06/17 14:58 Dose: 133 mls/hr Insulin Human Regular (Novolin R) 0 unit SC ACHS [facility] PRN Reason: Protocol Last Admin: 12/06/17 17:20 Dose: Not Given Metformin HCl (Glucophage) 500 mg PO BID [facility] Last Admin: 12/06/17 17:32 Dose: 500 mg Rosuvastatin Calcium (Crestor) 5 mg PO HS [facility] Last Admin: 12/05/17 21:43 Dose: 5 mg Sitagliptin Phosphate (Januvia) 50 mg PO DAILY [facility] Last Admin: 12/06/17 10:31 Dose: 50 mg - Labs Labs: 12/03/17 11:32 12/03/17 11:32 PT 13.7 SECONDS (9.7-12.2) H 12/01/17 16:03 INR 1.2 12/01/17 16:03 APTT 35 SECONDS (21-34) H 12/01/17 16:03 Assessment and Plan - Assessment and Plan (Free Text) Plan: agree with above note and findings .Pt will receive6 wks of IV antibiotics as per Dr Knowles. DR ROLLINS
--- NOTE | 2017-12-06 18:28 | CP.PCM.PN ---
Subjective - Date & Time of Evaluation Date of Evaluation: 12/06/17 Time of Evaluation: 18:27 - Subjective Subjective: continued treatment of ulcers of feet and OM left hallux . Objective - Vital Signs/Intake and Output Vital Signs (last 24 hours): Temp Pulse Resp BP Pulse Ox 97.6 F 82 20 123/77 95 12/06/17 16:00 12/06/17 16:00 12/06/17 16:00 12/06/17 16:00 12/06/17 16:00 Intake and Output: 12/06/17 12/06/17 06:59 18:59 Intake Total 1600 Balance 1600 - Medications Medications: Current Medications Enoxaparin Sodium (Lovenox) 40 mg SC DAILY [facility] Last Admin: 12/06/17 10:32 Dose: 40 mg Piperacillin Sod/Tazobactam Sod (Zosyn 3.375 Gm Iv Premix) 3.375 gm in 50 mls @ 100 mls/hr IVPB Q6H [facility] Last Admin: 12/06/17 17:32 Dose: 100 mls/hr Vancomycin/Sodium Chloride (Vancomycin 1 Gm/Ns 200 Ml) 1 gm in 200 mls @ 133 mls/hr IVPB Q8 [facility] Stop: 12/09/17 14:01 Last Admin: 12/06/17 14:58 Dose: 133 mls/hr Insulin Human Regular (Novolin R) 0 unit SC ACHS [facility] PRN Reason: Protocol Last Admin: 12/06/17 17:20 Dose: Not Given Metformin HCl (Glucophage) 500 mg PO BID [facility] Last Admin: 12/06/17 17:32 Dose: 500 mg Rosuvastatin Calcium (Crestor) 5 mg PO HS [facility] Last Admin: 12/05/17 21:43 Dose: 5 mg Sitagliptin Phosphate (Januvia) 50 mg PO DAILY [facility] Last Admin: 12/06/17 10:31 Dose: 50 mg - Labs Labs: 12/03/17 11:32 12/03/17 11:32 PT 13.7 SECONDS (9.7-12.2) H 12/01/17 16:03 INR 1.2 12/01/17 16:03 APTT 35 SECONDS (21-34) H 12/01/17 16:03
--- NOTE | 2017-12-06 22:37 | CP.PCM.PN ---
Subjective - Date & Time of Evaluation Date of Evaluation: 12/06/17 Time of Evaluation: 18:00 Objective - Vital Signs/Intake and Output Vital Signs (last 24 hours): Temp Pulse Resp BP Pulse Ox 97.6 F 82 20 123/77 95 12/06/17 16:00 12/06/17 16:00 12/06/17 16:00 12/06/17 16:00 12/06/17 16:00 - Medications Medications: Current Medications Enoxaparin Sodium (Lovenox) 40 mg SC DAILY [facility] Last Admin: 12/06/17 10:32 Dose: 40 mg Piperacillin Sod/Tazobactam Sod (Zosyn 3.375 Gm Iv Premix) 3.375 gm in 50 mls @ 100 mls/hr IVPB Q6H [facility] Last Admin: 12/06/17 17:32 Dose: 100 mls/hr Vancomycin/Sodium Chloride (Vancomycin 1 Gm/Ns 200 Ml) 1 gm in 200 mls @ 133 mls/hr IVPB Q8 [facility] Stop: 12/09/17 14:01 Last Admin: 12/06/17 14:58 Dose: 133 mls/hr Insulin Human Regular (Novolin R) 0 unit SC ACHS [facility] PRN Reason: Protocol Last Admin: 12/06/17 21:31 Dose: Not Given Metformin HCl (Glucophage) 500 mg PO BID [facility] Last Admin: 12/06/17 17:32 Dose: 500 mg Rosuvastatin Calcium (Crestor) 5 mg PO HS [facility] Last Admin: 12/06/17 21:31 Dose: 5 mg Sitagliptin Phosphate (Januvia) 50 mg PO DAILY [facility] Last Admin: 12/06/17 10:31 Dose: 50 mg - Labs Labs: 12/03/17 11:32 12/03/17 11:32 PT 13.7 SECONDS (9.7-12.2) H 12/01/17 16:03 INR 1.2 12/01/17 16:03 APTT 35 SECONDS (21-34) H 12/01/17 16:03 Assessment and Plan (1) Osteomyelitis Status: Acute (2) Diabetes mellitus Status: Chronic (3) Cellulitis Status: Acute (4) Obesity Status: Chronic
[2017-12-07] MEDS: Piperacill/Tazo 3.375gm in Dex 3.375 GM/50 ML BAG IVPB SCH ×3 (00:17→11:40)
[2017-12-07] MEDS: Vancomycin 1 gm/NS 200 ml 1 GM/200 ML BAG IVPB SCH ×2 (06:12→14:14)
[2017-12-07] MEDS: (Novolin R) Insulin Human Regular 100 units/ml vial SC SCH ×2 (07:22→11:41)
[2017-12-07 07:34] VITALS: BP 125/84; PULSE 81; TEMP 98.1; O2SAT 96
[2017-12-07] MEDS: Enoxaparin 40 mg Syringe SC SCH (09:40)
--- NOTE | 2017-12-07 13:29 | CP.PCM.PN ---
Subjective - Date & Time of Evaluation Date of Evaluation: 12/07/17 Time of Evaluation: 13:23 - Subjective Subjective: Podiatry Progress Note- Dr. Rollins 51 y.o male seen at bedside with attending for left hallux ulceration with osteomyelitis, and nonhealing ulcers to bilateral feet. Patient hemodynamically stable and NAD. Patient is seen resting comfortably in bed and AAOx3. No acute events overnight. No pedal complaints this visit. Denies N/V/F/D/C/SOB/calf pain. Patient seen ambulating without dressing on and dirt all over feet. Patient states that he has not showered or cleaned his feet since he was admitted. Objective - Vital Signs/Intake and Output Vital Signs (last 24 hours): Temp Pulse Resp BP Pulse Ox 98.1 F 81 20 125/84 96 12/07/17 07:32 12/07/17 07:32 12/07/17 07:32 12/07/17 07:32 12/07/17 07:32 Intake and Output: 12/07/17 12/07/17 06:59 18:59 Intake Total 780 Balance 780 - Medications Medications: Current Medications Enoxaparin Sodium (Lovenox) 40 mg SC DAILY [facility] Last Admin: 12/07/17 09:40 Dose: 40 mg Piperacillin Sod/Tazobactam Sod (Zosyn 3.375 Gm Iv Premix) 3.375 gm in 50 mls @ 100 mls/hr IVPB Q6H [facility] Last Admin: 12/07/17 11:40 Dose: 100 mls/hr Vancomycin/Sodium Chloride (Vancomycin 1 Gm/Ns 200 Ml) 1 gm in 200 mls @ 133 mls/hr IVPB Q8 [facility] Stop: 12/09/17 14:01 Last Admin: 12/07/17 06:12 Dose: 133 mls/hr Insulin Human Regular (Novolin R) 0 unit SC ACHS [facility] PRN Reason: Protocol Last Admin: 12/07/17 11:41 Dose: 2 unit Metformin HCl (Glucophage) 850 mg PO BID [facility] Rosuvastatin Calcium (Crestor) 5 mg PO HS [facility] Last Admin: 12/06/17 21:31 Dose: 5 mg Sitagliptin Phosphate (Januvia) 50 mg PO DAILY [facility] Last Admin: 12/07/17 09:40 Dose: 50 mg - Labs Labs: 12/03/17 11:32 12/03/17 11:32 PT 13.7 SECONDS (9.7-12.2) H 12/01/17 16:03 INR 1.2 12/01/17 16:03 APTT 35 SECONDS (21-34) H 12/01/17 16:03 - Constitutional Appears: Well, Non-toxic, No Acute Distress - Extremities Exam Additional comments: dirt noted all over plantar aspect of foot bilateral Vasc: DP and PT 1/4 bilaterally, CFT < 3 seconds, temperature is warm to warm, bilateral edema noted to feet and ankles Derm: Chronic non-healing ulceration #1 noted to right plantar heel measuring approximately 4.0 x 3.0 x 0.3 cm, noted to have mixed fibrogranular base and hyperkeratotic rim; undermining noted circumfirentially. Ulceration #2 at the left plantar medial hallux measuring approximately 1.5 x1.5 x 0.4 cm, noted to have a mixed fibrogranular base and hyperkeratotic rim. probe to bone. Ulceration #3 noted to left lateral ankle measuring approximately 3 x 1.5 x 0.2 cm noted to have a mixed fibrogranular base and erythematous rim. Ulceration #4 noted distal to ulceration #3 measuring approximately 1.5 x 1.5 x 0.1 cm noted to have a mixed fibrogranular base and erythematous rim. All ulcerations noted to have malodor and mild serosanguinous drainage, absent purulence/fluctuance. Healed ulceration noted to anterior aspect of right ankle. Neuro: Gross sensation absent bilaterally Ortho: No pain on palpation noted to ulcerations b/l. - Neurological Exam Neurological Exam: Alert, Awake, Oriented x3 - Psychiatric Exam Psychiatric exam: Normal Affect, Normal Mood Assessment and Plan - Assessment and Plan (Free Text) Assessment: 51 year old male with multiple b/l foot ulcerations and OM of left hallux secondary to DM Plan: patient seen and evaluated discussed in detail with attending Dr. Rollins Labs, charts and vitals reviewed; afebrile Continue IV abx per ID - Vancomycin, Zosyn Left foot wcx: staph aureus Bilateral foot and ankle XR ordered: - RLE negative findings that suggest OM - LLE ST swelling w/o evidence of OM 1st digit bilateral MRI shows likely OM of distal phalanx of hallux, right midfoot changes consistent with neuropathic degenerative changes bilateral feet dressed with betadine, DSD picc line inserted yesterday for outpatient IV abx patient stable from podiatry standpoint Podiatry will continue to follow patient while in house
--- NOTE | 2017-12-07 14:57 | US ---
Date of procedure: 12/06/2017 Procedure: Ultrasound guidance for vascular access HISTORY: Infection requiring long-term IV antibiotics TECHNIQUE: Following informed consent and procedure time-out, the patient placed supine on the interventional table and the right arm prepped and draped in the usual sterile fashion. Ultrasound showed a patent and compressible basilic vein. After the skin was anesthetized with lidocaine, the basilic vein was accessed with micro micropuncture technique using ultrasound guidance. An image documenting ultrasound guidance for vascular access was permanently saved. IMPRESSION: Ultrasound guidance for vascular access for placement of PICC.
--- NOTE | 2017-12-07 14:59 | RAD ---
PROCEDURE: Date of procedure: 12/06/2017 Procedure: 1. Placement of a right arm PICC with ultrasound and fluoroscopic guidance, CPT 70122 2. PICC tip confirmation with spot radiograph and is in the superior vena cava Medications: 1 percent lidocaine Total Fluoro time: 6.94 seconds Radiation: 3 MGy EBL: 2 cc HISTORY: Infection requiring long-term IV antibiotics TECHNIQUE: Following informed consent and procedure time-out, the patient was placed supine on the interventional table and the right arm prepped and draped in the usual sterile fashion. Ultrasound showed a patent and compressible right basilic vein. After the skin was anesthetized with lidocaine, the basilic vein was accessed with micro micropuncture technique using ultrasound guidance. A guidewire was then advanced under fluoroscopic guidance into the superior vena cava. An image documenting ultrasound guidance for vascular access was permanently saved. The length of the single-lumen 4 Chinese PICC was trimmed to 37 centimeters and advanced through a peel-away sheath. The PICC was position with tip of PICC confirm a spot radiograph the superior vena cava. The PICC was secured to the patient's skin. The PICC was flushed. A biopatch and sterile dressing was applied. IMPRESSION: Placement of a single-lumen 4 Chinese PICC trimmed to 37 centimeters via right basilic vein. The tip of the PICC is confirmed with spot radiograph and is in the superior vena cava.
--- NOTE | 2017-12-07 21:10 | CP.PCM.DIS ---
Provider - Provider Date of Admission: 12/01/17 16:32 Attending physician: Rafael Bowens MD Diagnosis - Discharge Diagnosis (1) Osteomyelitis Status: Acute (2) Diabetes mellitus Status: Chronic (3) Cellulitis Status: Acute (4) Obesity Status: Chronic Priority: Low Hospital Course - Lab Results Lab Results: Micro Results 12/05/17 12:30 Blood-Venous Blood Culture - Preliminary NO GROWTH AFTER 48 HOURS 12/01/17 16:15 Blood Blood Culture - Final NO GROWTH AFTER 5 DAYS 12/01/17 16:15 Blood Gram Stain - Final TEST NOT PERFORMED 12/01/17 15:45 Blood S.aureus & Coag-Neg Staph PNA FISH - Final 12/01/17 15:45 Blood Blood Culture - Final Coagulase Neg Staphylococcus 12/01/17 15:45 Blood Gram Stain - Final 12/01/17 16:16 Foot - Left Gram Stain - Final 12/01/17 16:16 Foot - Left Wound Culture - Final Staphylococcus Aureus Most Recent Lab Values WBC 7.7 K/uL (4.8-10.8) 12/03/17 11:32 RBC 4.78 Mil/uL (4.40-5.90) 12/03/17 11:32 Hgb 13.5 g/dL (12.0-18.0) 12/03/17 11:32 Hct 39.0 % (35.0-51.0) 12/03/17 11:32 MCV 81.6 fL (80.0-94.0) 12/03/17 11:32 MCH 28.3 pg (27.0-31.0) 12/03/17 11:32 MCHC 34.7 g/dL (33.0-37.0) 12/03/17 11:32 RDW 14.3 % (11.5-14.5) 12/03/17 11:32 Plt Count 280 K/uL (130-400) 12/03/17 11:32 MPV 7.6 fL (7.2-11.7) 12/03/17 11:32 Neut % (Auto) 75.1 % (50.0-75.0) H 12/01/17 16:03 Lymph % (Auto) 15.7 % (20.0-40.0) L 12/01/17 16:03 Toombs % (Auto) 5.7 % (0.0-10.0) 12/01/17 16:03 Eos % (Auto) 2.4 % (0.0-4.0) 12/01/17 16:03 Baso % (Auto) 1.1 % (0.0-2.0) 12/01/17 16:03 Neut # 9.3 K/uL (1.8-7.0) H 12/01/17 16:03 Lymph # 1.9 K/uL (1.0-4.3) 12/01/17 16:03 Toombs # 0.7 K/uL (0.0-0.8) 12/01/17 16:03 Eos # 0.3 K/uL (0.0-0.7) 12/01/17 16:03 Baso # 0.1 K/uL (0.0-0.2) 12/01/17 16:03 ESR 58 mm/hr (0-15) H 12/01/17 18:51 PT 13.7 SECONDS (9.7-12.2) H 12/01/17 16:03 INR 1.2 12/01/17 16:03 APTT 35 SECONDS (21-34) H 12/01/17 16:03 Sodium 131 mmol/L (132-148) L 12/03/17 11:32 Potassium 3.8 mmol/L (3.6-5.2) 12/03/17 11:32 Chloride 95 mmol/L (98-107) L 12/03/17 11:32 Carbon Dioxide 30 mmol/L (22-30) 12/03/17 11:32 Anion Gap 10 (10-20) 12/03/17 11:32 BUN 11 mg/dL (9-20) 12/03/17 11:32 Creatinine 0.6 mg/dL (0.8-1.5) L 12/03/17 11:32 Est GFR ( Amer) > 60 12/03/17 11:32 Est GFR (Non-Af Amer) > 60 12/03/17 11:32 POC Glucose (mg/dL) 230 mg/dL (65-110) H 12/07/17 11:00 Random Glucose 235 mg/dL (75-110) H 12/03/17 11:32 Hemoglobin A1c 10.9 % (4.2-6.5) H 12/01/17 18:51 Calcium 8.7 mg/dl (8.6-10.4) 12/03/17 11:32 Total Bilirubin 0.6 mg/dL (0.2-1.3) 12/01/17 16:03 AST 18 U/L (17-59) 12/01/17 16:03 ALT 14 U/L (21-72) L D 12/01/17 16:03 Alkaline Phosphatase 88 U/L (38-126) 12/01/17 16:03 Total Protein 8.3 g/dL (6.3-8.3) 12/01/17 16:03 Albumin 3.9 g/dL (3.5-5.0) 12/01/17 16:03 Globulin 4.4 gm/dL (2.2-3.9) H 12/01/17 16:03 Albumin/Globulin Ratio 0.9 (1.0-2.1) L 12/01/17 16:03 Vancomycin Trough 8.6 ug/mL (5.0-10.0) 12/06/17 05:11 - Hospital Course Hospital Course: 51 year old male with multiple b/l foot ulcerations and OM of left hallux secondary to DM Plan: patient seen and evaluated Labs, charts and vitals reviewed; afebrile Continue IV abx per ID - Vancomycin, Zosyn Left foot wcx: staph aureus Bilateral foot and ankle XR ordered: - RLE negative findings that suggest OM - LLE ST swelling w/o evidence of OM 1st digit bilateral MRI shows likely OM of distal phalanx of hallux, right midfoot changes consistent with neuropathic degenerative changes bilateral feet dressed with betadine, DSD picc line inserted yesterday for outpatient IV abx patient stable from podiatry standpoint Discharge Exam - Head Exam Head Exam: NORMOCEPHALIC Discharge Plan - Discharge Medications Prescriptions: Piperacill/Tazo 3.375gm in Dex [Zosyn 3.375 Gm IV Premix] 3.375 gm IV Q8H 35 Days bag - Follow Up Plan Condition: FAIR Disposition: HOME/ ROUTINE Instructions: Piperacillin/Tazobactam (By injection), Osteomyelitis (DC), Diabetic Foot Care (DC), Basic Carbohydrate Counting (DC), Meal Planning with Diabetes Exchanges (DC), Diabetic Foot Ulcers (DC) Referrals: Rafael Bowens MD [Staff Provider] -
== END 2017-12-07 16:32 | DRG 566 ==
LOC: C.ER 15:29 → C.9E 16:32 → C.3T 17:38
PROVIDERS: ADMIT Internal Medicine; ATTEND Internal Medicine
PROC: 02HV33Z Insertion of Infusion Device into Superior Vena Cava, Percutaneous Approach (ICD-10-PCS; principal; 2017-12-06)
DX: E11.69 Type 2 diabetes mellitus with other specified complication (principal); M86.172 Other acute osteomyelitis, left ankle and foot; E11.621 Type 2 diabetes mellitus with foot ulcer; E66.01 Morbid (severe) obesity due to excess calories; L03.116 Cellulitis of left lower limb; L97.429 Non-pressure chronic ulcer of left heel and midfoot with unspecified severity; L97.419 Non-pressure chronic ulcer of right heel and midfoot with unspecified severity; Z79.4 Long term (current) use of insulin; Z68.34 Body mass index [BMI] 34.0-34.9, adult; Z87.891 Personal history of nicotine dependence

== ENCOUNTER 2018-05-17 16:08 | Inpatient (IN) | payer OTHER ==
[2018-05-17 16:09] VITALS: BMI 34.2
[2018-05-17 17:29] LABS: BASO # 0.1 K/uL (0.0-0.2); BASO % 1.1 % (0.0-2.0); EOS # 0.3 K/uL (0.0-0.7); EOS % 2.8 % (0.0-4.0); HEMOGLOBIN 14.9 g/dL (12.0-18.0); MEAN CELL VOLUME 82.2 fL (80.0-94.0); MEAN CORPUSCULAR HEMOGLOBIN 28.5 pg (27.0-31.0); MEAN CORPUSCULAR HGB CONC 34.7 g/dL (33.0-37.0); MEAN PLATELET VOLUME 7.7 fL (7.2-11.7); MONO # 0.9 K/uL (0.0-0.8); NEUT % 73.1 % (50.0-75.0); NRBC % 0.1 % (0.0-2.0); RBC 5.23 Mil/uL (4.40-5.90); RED CELL DISTRIBUTION WIDTH 15.8 % (11.5-14.5); WHITE BLOOD COUNT 12.3 K/uL (4.8-10.8)
[2018-05-17 17:44] LABS: INR 1.2; PROTHROMBIN TIME 12.9 SECONDS (9.7-12.2)
[2018-05-17 18:00] LABS: ALB/GLOB RATIO 1.2 (1.0-2.1); ALBUMIN 4.1 g/dL (3.5-5.0); ALT/SGPT 24 U/L (21-72); AST/SGOT 18 U/L (17-59); BLOOD UREA NITROGEN 9 mg/dL (9-20); CALCIUM 9.1 mg/dl (8.6-10.4); GFR AFRICAN-AMERICAN > 60; GFR NON-AFRICAN AMERICAN > 60
--- NOTE | 2018-05-17 18:12 | RAD ---
PROCEDURE: Radiographs of the right great toe. TECHNIQUE:: AP radiograph of the right foot, with oblique and lateral view of the right great toe. COMPARISON: 12/02/2017. FINDINGS: BONES: There is an acute mildly distracted fracture in the lateral base of the distal phalanx of the great toe. There is deformity and irregularity in the base of the proximal phalanx of the 3rd digit. There is redemonstration of apparent subarticular radiolucency in the medial aspect of the distal proximal phalanx of the great toe. JOINTS: Normal. SOFT TISSUES: There is diffuse soft tissue swelling in the great toe. OTHER FINDINGS: None. IMPRESSION: 1. Radiolucency in the subarticular distal aspect of the proximal phalanx of the great toe could represent osteomyelitis of Jason's abscess in the appropriate clinical setting. 2. Acute fracture in the lateral base of the distal phalanx of the great toe. 3. Diffuse soft tissue swelling in the proved to which could be related to cellulitis in the appropriate clinical setting.
[2018-05-17] MEDS ORDERED: (Novolin R) Insulin Human Regular 100 units/ml vial IV STA (18:14)
[2018-05-17] MEDS ORDERED: Piperacillin/Tazobact 3.375 GM in Sodium Chloride 100 ML IVPB STA (18:14)
[2018-05-17] MEDS ORDERED: (Novolin R) Insulin Human Regular 100 units/ml vial ONE (18:56)
[2018-05-17] MEDS ORDERED: TAZO IV SCH (19:30)
[2018-05-17] MEDS ORDERED: PIPERACILL IV SCH (19:30)
[2018-05-17] MEDS ORDERED: DEX IV SCH (19:30)
--- NOTE | 2018-05-17 21:34 | C.PDOC ---
History Of Present Illness 52 year old male presents to the ED for evaluation of cellulitis to his right first toe. 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 Rollins, for admission. Patient reports history of Diabetes and states his sugar level has been in the 200s. Patient notes his right 1st toe has increased in swelling and pain over the pat several days. Patient denies fever, chills, vomiting. Chief Complaint (Nursing): Lower Extremity Problem/Injury History Per: Patient History/Exam Limitations: no limitations Onset/Duration Of Symptoms: Days Current Symptoms Are (Timing): Still Present Additional History Per: Patient Past Medical History Reviewed: Historical Data, Nursing Documentation, Vital Signs Vital Signs: Last Vital Signs Temp 98.4 F 05/17/18 23:38 Pulse 90 05/17/18 23:38 Resp 20 05/17/18 23:38 BP 127/88 05/17/18 23:38 Pulse Ox 97 05/17/18 23:38 - Medical History PMH: Diabetes Denies: Chronic Kidney Disease Surgical History: No Surg Hx - [facility] Procedures INSERTION OF INFUSION DEV INTO SUP VENA CAVA, PERC APPROACH (12/01/17) Family History: States: Unknown Family Hx - Social History Hx Alcohol Use: Yes Hx Substance Use: No Review Of Systems Constitutional: Negative for: Fever, Chills Gastrointestinal: Negative for: Vomiting Skin: Positive for: Other (cellulitis to right first toe ) Physical Exam - Physical Exam Appears: Non-toxic, No Acute Distress Skin: Other (right 1st toe is cellulitic and warm to touch. chronic venous changes noted in bilateral lower extremities ) Head: Atraumatic, Normacephalic Eye(s): bilateral: Normal Inspection Oral Mucosa: Moist Neck: Supple Chest: Symmetrical, No Deformity, No Tenderness Cardiovascular: Rhythm Regular, No Murmur Respiratory: Normal Breath Sounds, No Rales, No Rhonchi, No Wheezing Extremity: Normal ROM, Capillary Refill (less than 2 seconds ) Pulses: Left Dorsalis Pedis: Normal, Right Dorsalis Pedis: Normal Neurological/Psych: Oriented x3, Normal Speech, Normal Cognition ED Course And Treatment - Laboratory Results Result Diagrams: 05/17/18 17:23 05/17/18 17:23 O2 Sat by Pulse Oximetry: 95 (on RA) Pulse Ox Interpretation: Normal - Other Rad right foot XR X-Ray: Interpreted by Me, Viewed By Me, Read By Radiologist Interpretation: PROCEDURE: Radiographs of the right great toe. TECHNIQUE:: AP radiograph of the right foot, with oblique and lateral view of the right great toe. COMPARISON: 12/02/2017. FINDINGS: BONES: There is an acute mildly distracted fracture in the lateral base of the distal phalanx of the great toe. There is deformity and irregularity in the base of the proximal phalanx of the 3rd digit. There is redemonstration of apparent subarticular radiolucency in the medial aspect of the distal proximal phalanx of the great toe. JOINTS: Normal. SOFT TISSUES: There is diffuse soft tissue swelling in the great toe. OTHER FINDINGS: None. IMPRESSION: 1. Radiolucency in the subarticular distal aspect of the proximal phalanx of the great toe could represent osteomyelitis of Jason's abscess in the appropriate clinical setting. 2. Acute fracture in the lateral base of the distal phalanx of the great toe. 3. Diffuse soft tissue swelling in the proved to which could be related to cellulitis in the appropriate clinical setting. Medical Decision Making Medical Decision Making: Impression: 52 year old male with cellulitis to right 1st toe Progress: Bloodwork, urinalysis, right foot XR ordered and reviewed. Insulin IVP, Zosyn IVP and IV Fluids given. Disposition - Disposition Disposition: HOSPITALIZED Disposition Time: 18:00 Condition: STABLE - Clinical Impression Clinical Impression: Cellulitis, Diabetes mellitus - Scribe Statement The provider has reviewed the documentation as recorded by the Scribe (Vesna Ivy) Provider Attestation: All medical record entries made by the Scribe were at my direction and personally dictated by me. I have reviewed the chart and agree that the record accurately reflects my personal performance of the history, physical exam, medical decision making, and the department course for this patient. I have also personally directed, reviewed, and agree with the discharge instructions and disposition.
[2018-05-18] MEDS ORDERED: TAZOBACTAM IVPB SCH (01:00)
[2018-05-18] MEDS ORDERED: SODIUM CHLORIDE IVPB SCH (01:00)
[2018-05-18] MEDS ORDERED: PIPERACILLIN IVPB SCH (01:00)
[2018-05-18] MEDS: Piperacillin/Tazobact 3.375 GM in Sodium Chloride 0.9% 100 ML IVPB SCH ×3 (03:04→19:12)
[2018-05-18] MEDS: (Novolog) Insulin Aspart, Recombinant 100 u/ml 10 ml vial SC SCH ×4 (08:31→22:22)
[2018-05-18] MEDS: Vancomycin 1 gm/NS 200 ml 1 GM/200 ML BAG IVPB SCH ×2 (08:32→20:15)
--- NOTE | 2018-05-18 09:42 | CP.PCM.HP ---
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 Patient notes his right 1st toe has increased in swelling and pain over the pat several days. Patient denies fever, chills, vomiting. Present on Admission - Present on Admission Any Indicators Present on Admission: Yes Review of Systems - Review of Systems Systems not reviewed;Unavailable: Acuity of Condition - Constitutional Constitutional: Fatigue, Lethargy, Malaise, Weakness - EENT Eyes: absent: As Per HPI, Blind Spots, Blurred Vision, Change in Vision, Decreased Night Vision, Diplopia, Discharge, Dry Eye, Exophthalmos, Floaters, Irritation, Itchy Eyes, Loss of Peripheral Vision, Pain, Photophobia, Requires Corrective Lenses, Sees Flashes, Spots in Vision, Tunnel Vision, Other Visual Disturbances, Loss of Vision, Other - Cardiovascular Cardiovascular: absent: As Per HPI, Acrocyanosis, Chest Pain, Chest Pain at Rest , Chest Pain with Activity, Claudication, Diaphoresis, Dyspnea, Dyspnea on Exertion, Edema, Irregular Heart Rhythm, Pain Radiating to Arm/Neck/Jaw, Leg Edema, Leg Ulcers, Lightheadedness, Orthopnea, Palpitations, Paroxysmal Nocturnal Dyspnea, Pedal Edema, Radiating Pain, Rapid Heart Rate, Slow Heart Rate, Syncope, Other - Respiratory Respiratory: absent: As Per HPI, Cough, Dyspnea, Hemoptysis, Dyspnea on Exertion , Wheezing, Snoring, Stridor, Pain on Inspiration, Chest Congestion, Excessive Mucous Production, Change in Mucous Color, Pain with Coughing, Other - Gastrointestinal Gastrointestinal: absent: As Per HPI, Abdominal Pain, Belching, Bloating, Change in Bowel Habits, Change in Stool Character, Coffee Ground Emesis, Constipation, Cramping, Diarrhea, Dyspepsia, Dysphagia, Early Satiety, Excessive Flatus, Fecal Incontinence, Heartburn, Hematemesis, Hematochezia, Loose Stools, Melena, Nausea, Odynophagia, Temesmus, Vomiting, Other - Genitourinary Genitourinary: absent: As Per HPI, Change in Urinary Stream, Difficulty Urinating, Dysuria, Flank Pain, Hematuria, Pyuria, Nocturia, Urinary Incontinence, Urinary Frequency, Urinary Hesitance, Urinary Urgency, Voiding Freq/Small Amts, Freq UTI, Hx Renal/Bladder Calculi, Hx /Renal Surgery, Bladder Distension, Other - Musculoskeletal Musculoskeletal: Limited Range of Motion, Muscle Weakness, Myalgias, Numbness, Stiffness, Tingling - Integumentary Integumentary: Dry Skin, Erythema, Lesions, Skin Pain, Wounds Past Patient History - Past Medical History & Family History Past Medical History?: Yes - Past Social History Smoking Status: Light Smoker < 10 Cigarettes Daily - CARDIAC Hx Cardiac Disorders: No - PULMONARY Hx Respiratory Disorders: No - NEUROLOGICAL Hx Neurological Disorder: No - HEENT Hx HEENT Problems: No - RENAL Hx Chronic Kidney Disease: No - ENDOCRINE/METABOLIC Hx Endocrine Disorders: Yes Hx Diabetes Mellitus Type 1: Yes - HEMATOLOGICAL/ONCOLOGICAL Hx Blood Disorders: No - INTEGUMENTARY Hx Dermatological Problems: Yes Hx Cellulitis: Yes - MUSCULOSKELETAL/RHEUMATOLOGICAL Hx Musculoskeletal Disorders: Yes Hx Falls: Yes - GASTROINTESTINAL Hx Gastrointestinal Disorders: No - GENITOURINARY/GYNECOLOGICAL Hx Genitourinary Disorders: No - PSYCHIATRIC Hx Psychophysiologic Disorder: No Hx Substance Use: No - SURGICAL HISTORY Hx Surgeries: Yes Other/Comment: RIGHT FOOT SX - ANESTHESIA Hx Anesthesia: Yes Hx Anesthesia Reactions: No Hx Malignant Hyperthermia: No Meds Allergies/Adverse Reactions: Allergies Allergy/AdvReac Type Severity Reaction Status Date / Time No Known Allergies Allergy Verified 05/17/18 16:36 Physical Exam - Constitutional Appears: No Acute Distress - Head Exam Head Exam: ATRAUMATIC, NORMAL INSPECTION, NORMOCEPHALIC - Eye Exam Eye Exam: EOMI, Normal appearance, PERRL Pupil Exam: NORMAL ACCOMODATION, PERRL - Respiratory Exam Respiratory Exam: Clear to Auscultation Bilateral, NORMAL BREATHING PATTERN - Cardiovascular Exam Cardiovascular Exam: REGULAR RHYTHM - GI/Abdominal Exam GI & Abdominal Exam: Normal Bowel Sounds, Soft. absent: Tenderness - Rectal Exam Rectal Exam: Deferred - Extremities Exam Additional comments: right leg wound with erythema and discharge Results - Vital Signs Recent Vital Signs: Last Vital Signs Temp 97.9 F 05/18/18 07:27 Pulse 84 05/18/18 07:27 Resp 20 05/18/18 07:27 BP 121/82 05/18/18 07:27 Pulse Ox 95 05/18/18 07:27 - Labs Result Diagrams: 05/17/18 17:23 05/17/18 17:23 Labs: Laboratory Results - last 24 hr 05/17/18 05/17/18 05/17/18 17:23 17:23 17:23 WBC 12.3 H D RBC 5.23 Hgb 14.9 Hct 43.0 MCV 82.2 MCH 28.5 MCHC 34.7 RDW 15.8 H Plt Count 269 MPV 7.7 Neut % (Auto) 73.1 Lymph % (Auto) 16.0 L Kimble % (Auto) 7.0 Eos % (Auto) 2.8 Baso % (Auto) 1.1 Neut # (Auto) 9.0 H Lymph # (Auto) 2.0 Kimble # (Auto) 0.9 H Eos # (Auto) 0.3 Baso # (Auto) 0.1 PT 12.9 H INR 1.2 APTT 35 H Sodium 135 Potassium 4.2 Chloride 100 Carbon Dioxide 25 Anion Gap 14 BUN 9 Creatinine 0.5 L Est GFR ( Amer) > 60 Est GFR (Non-Af Amer) > 60 POC Glucose (mg/dL) Random Glucose 313 H Hemoglobin A1c Calcium 9.1 Total Bilirubin 0.5 AST 18 ALT 24 Alkaline Phosphatase 95 Total Protein 7.5 Albumin 4.1 Globulin 3.4 Albumin/Globulin Ratio 1.2 05/17/18 05/17/18 05/18/18 17:23 18:57 07:12 WBC RBC Hgb Hct MCV MCH MCHC RDW Plt Count MPV Neut % (Auto) Lymph % (Auto) Kimble % (Auto) Eos % (Auto) Baso % (Auto) Neut # (Auto) Lymph # (Auto) Kimble # (Auto) Eos # (Auto) Baso # (Auto) PT INR APTT Sodium Potassium Chloride Carbon Dioxide Anion Gap BUN Creatinine Est GFR ( Amer) Est GFR (Non-Af Amer) POC Glucose (mg/dL) 267 H 217 H Random Glucose Hemoglobin A1c 10.7 H Calcium Total Bilirubin AST ALT Alkaline Phosphatase Total Protein Albumin Globulin Albumin/Globulin Ratio Assessment & Plan (1) Cellulitis Status: Acute (2) Diabetes mellitus Status: Chronic (3) Osteomyelitis Status: Acute (4) Obesity Status: Chronic Priority: Low
[2018-05-18] MEDS: Enoxaparin 40 mg Syringe SC SCH (10:20)
--- NOTE | 2018-05-18 10:49 | CP.PCM.CON ---
History of Present Illness - History of Present Illness History of Present Illness: Podiatry consult note for attending Ria Becker. DPM A 52 Y/O M patient with PMH of DM type 2 and hyperlipidemia. Podiatry consulted for an open wound at the hallux bilaterally and an ulcer at the L heel. Patient is AAO X 3 and is not in acute distress. Pt states that He is following up with Ria Becker. DPM for his chronic wounds in both feet. Patient states that his R big toe ulcer is bigger than his L one. Patient states that the L foot ulcers are almost closed. He also states that the ulcers are not painful. Patient denies any F/N/V/C or SOB recently. Pt denies any other pedal complains. Review of Systems - Constitutional Constitutional: As Per HPI - Gastrointestinal Gastrointestinal: As Per HPI Past Patient History - Past Medical History & Family History Past Medical History?: Yes - Past Social History Smoking Status: Light Smoker < 10 Cigarettes Daily - CARDIAC Hx Cardiac Disorders: No - PULMONARY Hx Respiratory Disorders: No - NEUROLOGICAL Hx Neurological Disorder: No - HEENT Hx HEENT Problems: No - RENAL Hx Chronic Kidney Disease: No - ENDOCRINE/METABOLIC Hx Endocrine Disorders: Yes Hx Diabetes Mellitus Type 1: Yes - HEMATOLOGICAL/ONCOLOGICAL Hx Blood Disorders: No - INTEGUMENTARY Hx Dermatological Problems: Yes Hx Cellulitis: Yes - MUSCULOSKELETAL/RHEUMATOLOGICAL Hx Musculoskeletal Disorders: Yes Hx Falls: Yes - GASTROINTESTINAL Hx Gastrointestinal Disorders: No - GENITOURINARY/GYNECOLOGICAL Hx Genitourinary Disorders: No - PSYCHIATRIC Hx Psychophysiologic Disorder: No Hx Substance Use: No - SURGICAL HISTORY Hx Surgeries: Yes Other/Comment: RIGHT FOOT SX - ANESTHESIA Hx Anesthesia: Yes Hx Anesthesia Reactions: No Hx Malignant Hyperthermia: No Meds Allergies/Adverse Reactions: Allergies Allergy/AdvReac Type Severity Reaction Status Date / Time No Known Allergies Allergy Verified 05/17/18 16:36 - Medications Medications: Current Medications Enoxaparin Sodium (Lovenox) 40 mg SC DAILY [facility] Last Admin: 05/18/18 10:20 Dose: 40 mg Vancomycin/Sodium Chloride (Vancomycin 1 Gm/Ns 200 Ml) 1 gm in 200 mls @ 133.333 mls/hr IVPB Q12H [facility] PRN Reason: Protocol Stop: 05/23/18 08:01 Last Admin: 05/18/18 08:32 Dose: 133.333 mls/hr Piperacillin Sod/Tazobactam (Sod 3.375 gm/ Sodium Chloride) 100 mls @ 100 mls/ hr IVPB Q8H [facility] Last Admin: 05/18/18 10:21 Dose: 100 mls/hr Insulin Aspart (Novolog) 0 unit SC ACHS [facility] PRN Reason: Protocol Last Admin: 05/18/18 08:31 Dose: 3 units Metformin HCl (Glucophage) 500 mg PO BID [facility] Last Admin: 05/18/18 10:20 Dose: 500 mg Rosuvastatin Calcium (Crestor) 5 mg PO HS [facility] Sitagliptin Phosphate (Januvia) 50 mg PO DAILY [facility] Last Admin: 05/18/18 10:20 Dose: 50 mg Physical Exam - Constitutional Appears: Non-toxic, No Acute Distress - Head Exam Head Exam: ATRAUMATIC, NORMOCEPHALIC - Extremities Exam Additional comments: Lower extremity focused exam: Vasc: R DP/PT 2/4, L DP/PT non palpable, Cap refill < 3 sec in all digits, Temp dradient warm to cool b/l. Non pitting edema noted at the R hallux. Neuro: Protective sensation grossly diminished. Derm: Open ulcer noted at the plantar aspect of the R hallux. Oval in shape, Edges are sharp, measuring 7X5X0.1, Base is 100% granular, No malodor, Minimal serous drainage, No undermining, No tracking, No probing to bone. Minimal eryrthema surrounding the ulcer. edema noted at the R hallux. A smaller rounded ulcer 1 cm in diameter noted at the L hallux plantar aspect. the ulcer is covered by a dry scap, almost 0.5 cm in diameter. another ulcer noted at the plantar aspect of the L heel covered by a black scap. multiple scares from previous wounds noted allover the dorsum of both feet. MSK: No pain on palpating the R hallux ulcer. - Psychiatric Exam Psychiatric exam: Normal Affect, Normal Mood - Skin Skin Exam: Dry Results - Vital Signs Recent Vital Signs: Last Vital Signs Temp 97.9 F 05/18/18 07:27 Pulse 84 05/18/18 07:27 Resp 20 05/18/18 07:27 BP 121/82 05/18/18 07:27 Pulse Ox 95 05/18/18 07:27 - Labs Result Diagrams: 05/17/18 17:23 06/28/18 17:23 Labs: Laboratory Results - last 24 hr 05/17/18 05/17/18 05/17/18 17:23 17:23 17:23 WBC 12.3 H D RBC 5.23 Hgb 14.9 Hct 43.0 MCV 82.2 MCH 28.5 MCHC 34.7 RDW 15.8 H Plt Count 269 MPV 7.7 Neut % (Auto) 73.1 Lymph % (Auto) 16.0 L Morton % (Auto) 7.0 Eos % (Auto) 2.8 Baso % (Auto) 1.1 Neut # (Auto) 9.0 H Lymph # (Auto) 2.0 Morton # (Auto) 0.9 H Eos # (Auto) 0.3 Baso # (Auto) 0.1 PT 12.9 H INR 1.2 APTT 35 H Sodium 135 Potassium 4.2 Chloride 100 Carbon Dioxide 25 Anion Gap 14 BUN 9 Creatinine 0.5 L Est GFR ( Amer) > 60 Est GFR (Non-Af Amer) > 60 POC Glucose (mg/dL) Random Glucose 313 H Hemoglobin A1c Calcium 9.1 Total Bilirubin 0.5 AST 18 ALT 24 Alkaline Phosphatase 95 Total Protein 7.5 Albumin 4.1 Globulin 3.4 Albumin/Globulin Ratio 1.2 05/17/18 05/17/18 05/18/18 17:23 18:57 07:12 WBC RBC Hgb Hct MCV MCH MCHC RDW Plt Count MPV Neut % (Auto) Lymph % (Auto) Morton % (Auto) Eos % (Auto) Baso % (Auto) Neut # (Auto) Lymph # (Auto) Morton # (Auto) Eos # (Auto) Baso # (Auto) PT INR APTT Sodium Potassium Chloride Carbon Dioxide Anion Gap BUN Creatinine Est GFR ( Amer) Est GFR (Non-Af Amer) POC Glucose (mg/dL) 267 H 217 H Random Glucose Hemoglobin A1c 10.7 H Calcium Total Bilirubin AST ALT Alkaline Phosphatase Total Protein Albumin Globulin Albumin/Globulin Ratio Assessment & Plan - Assessment and Plan (Free Text) Assessment: 52 Y/O M patient seen and evaluated at the bedside for multiple ulcers in both feet. Plan: Patient was seen and evaluated at the bedside. Plan discussed with the attending Ria Becker, MEY. Patient labs and vitals reviewed: afebrile and WBCs 12.3 (05/17) R hallux ulcer debrided using sterile 15" blade. Dressing was done for the R hallux ulcer using Betadine, DSD, and jose. All of patients questions and concerns answered Patient expressed verbal understanding. Thank you for consulting podiatry service. Podiatry will follow patient while in house - Date & Time Date: 05/18/18 Time: 11:01
[2018-05-19] MEDS: Piperacillin/Tazobact 3.375 GM in Sodium Chloride 0.9% 100 ML IVPB SCH ×3 (02:35→18:40)
[2018-05-19] MEDS: (Novolog) Insulin Aspart, Recombinant 100 u/ml 10 ml vial SC SCH ×5 (07:40→21:21)
[2018-05-19] MEDS: Vancomycin 1 gm/NS 200 ml 1 GM/200 ML BAG IVPB SCH ×2 (07:40→20:38)
[2018-05-19 09:11] LABS: ALB/GLOB RATIO 1.2 (1.0-2.1); ALBUMIN 3.6 g/dL (3.5-5.0); ALT/SGPT 26 U/L (21-72); AST/SGOT 19 U/L (17-59); BLOOD UREA NITROGEN 10 mg/dL (9-20); CALCIUM 8.9 mg/dl (8.6-10.4); GFR AFRICAN-AMERICAN > 60; GFR NON-AFRICAN AMERICAN > 60
[2018-05-19] MEDS: Enoxaparin 40 mg Syringe SC SCH (09:32)
[2018-05-19] MEDS ORDERED: Gadodiamide 287 mg/ml 20 ml IV ONE (11:40)
--- NOTE | 2018-05-19 23:53 | CP.PCM.PN ---
Subjective - Date & Time of Evaluation Date of Evaluation: 05/19/18 Time of Evaluation: 18:00 - Subjective Subjective: Pt seen and examined at bedside, pt has an open wound at the hallux bilaterally and an ulcer at the L heel. Patient is AAO X 3 and is not in acute distress. Pt states that He is following up with Ria Becker. DPM for his chronic wounds in both feet. Patient states that his R big toe ulcer is bigger than his L one. Patient states that the L foot ulcers are almost closed. He also states that the ulcers are not painful. Patient denies any F/N/V/C or SOB recently. Pt denies any other pedal complains. Objective - Vital Signs/Intake and Output Vital Signs (last 24 hours): Temp Pulse Resp BP Pulse Ox 97.5 F L 84 20 131/82 96 05/19/18 16:00 05/19/18 16:00 05/19/18 16:00 05/19/18 16:00 05/19/18 16:00 Intake and Output: 05/19/18 05/20/18 18:59 06:59 Intake Total 980 780 Balance 980 780 - Medications Medications: Current Medications Enoxaparin Sodium (Lovenox) 40 mg SC DAILY [facility] Last Admin: 05/19/18 09:32 Dose: 40 mg Vancomycin/Sodium Chloride (Vancomycin 1 Gm/Ns 200 Ml) 1 gm in 200 mls @ 133.333 mls/hr IVPB Q12H [facility] PRN Reason: Protocol Stop: 05/23/18 08:01 Last Admin: 05/19/18 20:38 Dose: 133.333 mls/hr Piperacillin Sod/Tazobactam (Sod 3.375 gm/ Sodium Chloride) 100 mls @ 100 mls/ hr IVPB Q8H [facility] Last Admin: 05/19/18 18:40 Dose: 100 mls/hr Insulin Aspart (Novolog) 0 unit SC ACHS [facility] PRN Reason: Protocol Last Admin: 05/19/18 21:21 Dose: Not Given Metformin HCl (Glucophage) 500 mg PO BID [facility] Last Admin: 05/19/18 17:10 Dose: 500 mg Mupirocin (Bactroban Ointment) 0 gm EXT DAILY [facility] Last Admin: 05/19/18 09:32 Dose: Not Given Rosuvastatin Calcium (Crestor) 5 mg PO HS [facility] Last Admin: 05/19/18 21:21 Dose: 5 mg Sitagliptin Phosphate (Januvia) 50 mg PO DAILY [facility] Last Admin: 05/19/18 09:32 Dose: 50 mg - Labs Labs: 05/17/18 17:23 05/19/18 08:43 PT 12.9 SECONDS (9.7-12.2) H 05/17/18 17:23 INR 1.2 05/17/18 17:23 APTT 35 SECONDS (21-34) H 05/17/18 17:23 Assessment and Plan (1) Cellulitis Status: Acute (2) Diabetes mellitus Status: Chronic (3) Osteomyelitis Status: Acute (4) Obesity Status: Chronic
[2018-05-20] MEDS: Piperacillin/Tazobact 3.375 GM in Sodium Chloride 0.9% 100 ML IVPB SCH ×3 (03:01→19:01)
[2018-05-20] MEDS: Vancomycin 1 gm/NS 200 ml 1 GM/200 ML BAG IVPB SCH ×2 (07:44→20:04)
[2018-05-20] MEDS: (Novolog) Insulin Aspart, Recombinant 100 u/ml 10 ml vial SC SCH ×4 (07:44→21:47)
--- NOTE | 2018-05-20 08:30 | CP.PCM.PN ---
Subjective - Date & Time of Evaluation Date of Evaluation: 05/20/18 Time of Evaluation: 08:28 - Subjective Subjective: 52 y/o male seen at bedside with Dr. Rollins this morning for right plantar hallux ulceration and right plantar heel ulcer. He states that his bandage came off overnight. Denies any pain to the right foot. Denies any new pedal complaints. Denies F/C/N/V/CP/SOB Objective - Vital Signs/Intake and Output Vital Signs (last 24 hours): Temp Pulse Resp BP Pulse Ox 97.9 F 83 18 114/67 98 05/20/18 00:38 05/20/18 00:38 05/20/18 00:38 05/20/18 00:38 05/20/18 00:38 Intake and Output: 05/20/18 05/20/18 06:59 18:59 Intake Total 1240 Balance 1240 - Medications Medications: Current Medications Enoxaparin Sodium (Lovenox) 40 mg SC DAILY [facility] Last Admin: 05/19/18 09:32 Dose: 40 mg Vancomycin/Sodium Chloride (Vancomycin 1 Gm/Ns 200 Ml) 1 gm in 200 mls @ 133.333 mls/hr IVPB Q12H [facility] PRN Reason: Protocol Stop: 05/23/18 08:01 Last Admin: 05/20/18 07:44 Dose: 133.333 mls/hr Piperacillin Sod/Tazobactam (Sod 3.375 gm/ Sodium Chloride) 100 mls @ 100 mls/ hr IVPB Q8H [facility] Last Admin: 05/20/18 03:01 Dose: 100 mls/hr Insulin Aspart (Novolog) 0 unit SC ACHS [facility] PRN Reason: Protocol Last Admin: 05/20/18 07:44 Dose: 4 units Metformin HCl (Glucophage) 500 mg PO BID [facility] Last Admin: 05/19/18 17:10 Dose: 500 mg Mupirocin (Bactroban Ointment) 0 gm EXT DAILY [facility] Last Admin: 05/19/18 09:32 Dose: Not Given Rosuvastatin Calcium (Crestor) 5 mg PO HS [facility] Last Admin: 05/19/18 21:21 Dose: 5 mg Sitagliptin Phosphate (Januvia) 50 mg PO DAILY [facility] Last Admin: 05/19/18 09:32 Dose: 50 mg - Labs Labs: 05/17/18 17:23 05/19/18 08:43 PT 12.9 SECONDS (9.7-12.2) H 05/17/18 17:23 INR 1.2 05/17/18 17:23 APTT 35 SECONDS (21-34) H 05/17/18 17:23 - Constitutional Appears: Well, Non-toxic, No Acute Distress - Extremities Exam Additional comments: Lower extremity focused exam: Vasc: Right DP/PT 2/4, left DP/PT non palpable. CFT < 3 sec in all digits. Temp gradient warm to cool B/L. Non pitting edema noted at the R hallux. Neuro: Protective sensation grossly diminished. Derm: Open ulcer noted at the plantar aspect of the R hallux measuring 7cm X 5cm X 0.1cm. Base is 100% granular with stable wound borders. Minimal serous drainage, no undermining, no tracking,no malodor no probing to bone. Minimal erythema surrounding the ulcer. A smaller rounded ulcer 1 cm in diameter noted at the L hallux plantar aspect. the ulcer is covered by a dry scab, almost 0.5 cm in diameter. Additional ulcer noted at the plantar aspect of the L heel covered covered by a black necrotic cap. Fibrotic tissue is noted to the wound bed. No malodor, no tunneling or undermining, no probe to bone Ortho: No tenderness to palpation of right foot ulceration sites - Neurological Exam Neurological Exam: Alert, Awake, Oriented x3 - Psychiatric Exam Psychiatric exam: Normal Affect, Normal Mood Assessment and Plan - Assessment and Plan (Free Text) Assessment: 52 y/o M patient seen and evaluated at the bedside for multiple ulcers in both feet and right hallux nondisplaced distal phalanx fracture Plan: Patient was seen and evaluated at bedside with the attending Dr. Rollins Ulcers cleaned with saline and dressed with Bactroban and DSD MRI taken of R foot, await final read Podiatry to continue with local wound care Continue IV abx Pt advised to use surgical shoe at all times weight bearing as he has a digital fracture in the right foot Will continue to follow while in house
[2018-05-20 08:38] VITALS: RESP 20
[2018-05-20] MEDS: Enoxaparin 40 mg Syringe SC SCH (09:39)
--- NOTE | 2018-05-20 20:51 | MRI ---
MRI right forefoot History: Infection. Evaluate for osteomyelitis. Comparison: None available. Technique: Multi-echo multiplanar sequences were performed through the right forefoot without and with the use of intravenous contrast. Subsequently, sagittal and coronal reformatted images were obtained. Findings: Prominent signal abnormality noted at the level of the 1st distal phalanx as well as the corresponding head of the 1st proximal phalanx with decreased T1 signal and increased STIR signal. Associated fluid noted at the 1st interphalangeal joint space. These findings may represent sequelae of an acute infectious process such as acute osteomyelitis. Additional considerations may include posttraumatic changes versus acute inflammatory changes versus additional etiology. Signal abnormality with cortical irregularity noted at the base of the 3rd proximal phalanx suggestive for a chronic fracture deformity. Superimposed acute inflammatory changes cannot entirely be excluded. Clinical correlation. Prominent scattered signal abnormality noted within the 2nd, 3rd, 4th, and 5th metatarsal shafts as well as the medial middle and lateral cuneiform bones, navicular bone, and to a lesser extent cuboid bone demonstrating decreased T1 signal with increased STIR signal. This may be the sequelae of underlying neuropathic change such as Charcot arthropathy versus the sequelae of acute inflammatory and or infectious changes versus additional etiology. Clinical correlation. Reticulation and edema within the circumferential subcutaneous soft tissues. Impression: 1. Prominent signal abnormality noted at the level of the 1st distal phalanx as well as the corresponding head of the 1st proximal phalanx with decreased T1 signal and increased STIR signal. Associated fluid noted at the 1st interphalangeal joint space. These findings may represent sequelae of an acute infectious process such as acute osteomyelitis. Additional considerations may include posttraumatic changes versus acute inflammatory changes versus additional etiology. 2. Signal abnormality with cortical irregularity noted at the base of the 3rd proximal phalanx suggestive for a chronic fracture deformity. Superimposed acute inflammatory changes cannot entirely be excluded. Clinical correlation. 3. Prominent scattered signal abnormality noted within the 2nd, 3rd, 4th, and 5th metatarsal shafts as well as the medial middle and lateral cuneiform bones, navicular bone, and to a lesser extent cuboid bone demonstrating decreased T1 signal with increased STIR signal. This may be the sequelae of underlying neuropathic change such as Charcot arthropathy versus the sequelae of acute inflammatory and or infectious changes versus additional etiology. Clinical correlation. 4. Reticulation and edema within the circumferential subcutaneous soft tissues.
--- NOTE | 2018-05-21 03:12 | CP.PCM.PN ---
Subjective - Date & Time of Evaluation Date of Evaluation: 05/20/18 Time of Evaluation: 19:40 - Subjective Subjective: Pt seen and examined, denies any N/V abdominal pain,chest pain. Objective - Vital Signs/Intake and Output Vital Signs (last 24 hours): Temp Pulse Resp BP Pulse Ox 97.5 F L 86 20 141/95 H 96 05/21/18 00:00 05/21/18 00:00 05/21/18 00:00 05/21/18 00:00 05/21/18 00:00 Intake and Output: 05/20/18 05/21/18 18:59 06:59 Intake Total 900 500 Balance 900 500 - Medications Medications: Current Medications Enoxaparin Sodium (Lovenox) 40 mg SC DAILY [facility] Last Admin: 05/20/18 09:39 Dose: 40 mg Vancomycin/Sodium Chloride (Vancomycin 1 Gm/Ns 200 Ml) 1 gm in 200 mls @ 133.333 mls/hr IVPB Q12H [facility] PRN Reason: Protocol Stop: 05/23/18 08:01 Last Admin: 05/20/18 20:04 Dose: 133.333 mls/hr Piperacillin Sod/Tazobactam (Sod 3.375 gm/ Sodium Chloride) 100 mls @ 100 mls/ hr IVPB Q8H [facility] Last Admin: 05/20/18 19:01 Dose: 100 mls/hr Insulin Aspart (Novolog) 0 unit SC ACHS [facility] PRN Reason: Protocol Last Admin: 05/20/18 21:47 Dose: Not Given Metformin HCl (Glucophage) 500 mg PO BID [facility] Last Admin: 05/20/18 17:12 Dose: 500 mg Mupirocin (Bactroban Ointment) 0 gm EXT DAILY [facility] Last Admin: 05/20/18 10:51 Dose: Not Given Rosuvastatin Calcium (Crestor) 5 mg PO HS [facility] Last Admin: 05/20/18 21:48 Dose: 5 mg Sitagliptin Phosphate (Januvia) 50 mg PO DAILY [facility] Last Admin: 05/20/18 09:39 Dose: 50 mg - Labs Labs: 05/17/18 17:23 05/19/18 08:43 PT 12.9 SECONDS (9.7-12.2) H 05/17/18 17:23 INR 1.2 05/17/18 17:23 APTT 35 SECONDS (21-34) H 05/17/18 17:23 Assessment and Plan (1) Cellulitis Status: Acute (2) Diabetes mellitus Status: Chronic (3) Osteomyelitis Status: Acute (4) Obesity Status: Chronic
[2018-05-21] MEDS: Piperacillin/Tazobact 3.375 GM in Sodium Chloride 0.9% 100 ML IVPB SCH ×3 (03:19→19:00)
[2018-05-21] MEDS: Vancomycin 1 gm/NS 200 ml 1 GM/200 ML BAG IVPB SCH ×2 (08:15→20:10)
[2018-05-21] MEDS: (Novolog) Insulin Aspart, Recombinant 100 u/ml 10 ml vial SC SCH ×4 (08:15→21:40)
[2018-05-21] MEDS: Enoxaparin 40 mg Syringe SC SCH (09:19)
--- NOTE | 2018-05-21 11:42 | CP.PCM.CON ---
History of Present Illness - History of Present Illness History of Present Illness: A 52 Y/O M patient admitted with consulted id consulted for antibiotic management an open wound at the hallux bilaterally and an ulcer at the L heel. Patient is AAO X 3 and is not in acute distress. Pt states that He is following up with Ria Becker. DPM for his chronic wounds in both feet. Patient states that his R big toe ulcer is bigger than his L one. Patient states that the L foot ulcers are almost closed. He also states that the ulcers are not painful. Patient denies any F/N/V/C or SOB recently. Pt denies any other pedal complains. + MRI for osteo hallux cultures and vascular studies pending Review of Systems - Review of Systems All systems: reviewed and no additional remarkable complaints except - Constitutional Constitutional: As Per HPI Past Patient History - Past Medical History & Family History Past Medical History?: Yes - Past Social History Smoking Status: Light Smoker < 10 Cigarettes Daily - CARDIAC Hx Cardiac Disorders: No - PULMONARY Hx Respiratory Disorders: No - NEUROLOGICAL Hx Neurological Disorder: No - HEENT Hx HEENT Problems: No - RENAL Hx Chronic Kidney Disease: No - ENDOCRINE/METABOLIC Hx Endocrine Disorders: Yes Hx Diabetes Mellitus Type 1: Yes - HEMATOLOGICAL/ONCOLOGICAL Hx Blood Disorders: No - INTEGUMENTARY Hx Dermatological Problems: Yes Hx Cellulitis: Yes - MUSCULOSKELETAL/RHEUMATOLOGICAL Hx Musculoskeletal Disorders: Yes Hx Falls: Yes - GASTROINTESTINAL Hx Gastrointestinal Disorders: No - GENITOURINARY/GYNECOLOGICAL Hx Genitourinary Disorders: No - PSYCHIATRIC Hx Psychophysiologic Disorder: No Hx Substance Use: No - SURGICAL HISTORY Hx Surgeries: Yes Other/Comment: RIGHT FOOT SX - ANESTHESIA Hx Anesthesia: Yes Hx Anesthesia Reactions: No Hx Malignant Hyperthermia: No Meds Allergies/Adverse Reactions: Allergies Allergy/AdvReac Type Severity Reaction Status Date / Time No Known Allergies Allergy Verified 05/17/18 16:36 - Medications Medications: Current Medications Enoxaparin Sodium (Lovenox) 40 mg SC DAILY [facility] Last Admin: 05/21/18 09:19 Dose: 40 mg Vancomycin/Sodium Chloride (Vancomycin 1 Gm/Ns 200 Ml) 1 gm in 200 mls @ 133.333 mls/hr IVPB Q12H [facility] PRN Reason: Protocol Stop: 05/23/18 08:01 Last Admin: 05/21/18 08:15 Dose: 133.333 mls/hr Piperacillin Sod/Tazobactam (Sod 3.375 gm/ Sodium Chloride) 100 mls @ 100 mls/ hr IVPB Q8H [facility] Last Admin: 05/21/18 10:26 Dose: 100 mls/hr Insulin Aspart (Novolog) 0 unit SC ACHS [facility] PRN Reason: Protocol Last Admin: 05/21/18 08:15 Dose: 3 units Metformin HCl (Glucophage) 500 mg PO BID [facility] Last Admin: 05/21/18 09:20 Dose: 500 mg Mupirocin (Bactroban Ointment) 0 gm EXT DAILY [facility] Last Admin: 05/21/18 09:20 Dose: Not Given Rosuvastatin Calcium (Crestor) 5 mg PO HS [facility] Last Admin: 05/20/18 21:48 Dose: 5 mg Sitagliptin Phosphate (Januvia) 50 mg PO DAILY [facility] Last Admin: 05/21/18 09:20 Dose: 50 mg Physical Exam - Constitutional Appears: Chronically Ill - Head Exam Head Exam: ATRAUMATIC - Eye Exam Eye Exam: absent: Scleral icterus - ENT Exam ENT Exam: Mucous Membranes Dry - Neck Exam Neck exam: Negative for: Lymphadenopathy - Respiratory Exam Respiratory Exam: Decreased Breath Sounds - Cardiovascular Exam Cardiovascular Exam: REGULAR RHYTHM - GI/Abdominal Exam GI & Abdominal Exam: Diminished Bowel Sounds, Soft. absent: Tenderness - Rectal Exam Rectal Exam: Deferred - Exam Exam: NORMAL INSPECTION - Extremities Exam Extremities exam: Positive for: pedal edema Additional comments: Vasc: Right DP/PT 2/4, left DP/PT non palpable. CFT < 3 sec in all digits. Temp gradient warm to cool B/L. Non pitting edema noted at the R hallux. Neuro: Protective sensation grossly diminished. Derm: Open ulcer noted at the plantar aspect of the R hallux measuring 7cm X 5cm X 0.1cm. Base is 100% granular with stable wound borders. Minimal serous drainage, no undermining, no tracking,no malodor no probing to bone. Minimal erythema surrounding the ulcer. A smaller rounded ulcer 1 cm in diameter noted at the L hallux plantar aspect. the ulcer is covered by a dry scab, almost 0.5 cm in diameter. Additional ulcer noted at the plantar aspect of the L heel covered covered by a black necrotic cap. Fibrotic tissue is noted to the wound bed. No malodor, no tunneling or undermining, no probe to bone Ortho: No tenderness to palpation of right foot ulceration sites - Back Exam Back exam: absent: CVA tenderness (L), CVA tenderness (R) - Neurological Exam Neurological exam: Alert, CN II-XII Intact, Oriented x3, Reflexes Normal - Psychiatric Exam Psychiatric exam: Normal Mood - Skin Skin Exam: Dry Results - Vital Signs Recent Vital Signs: Last Vital Signs Temp 97.5 F L 05/21/18 07:45 Pulse 77 05/21/18 07:45 Resp 20 05/21/18 07:45 BP 120/71 05/21/18 07:45 Pulse Ox 96 05/21/18 07:45 - Labs Result Diagrams: 05/17/18 17:23 05/19/18 08:43 Labs: Laboratory Results - last 24 hr 05/20/18 05/20/18 05/20/18 11:43 16:13 19:18 POC Glucose (mg/dL) 280 H 256 H Vancomycin Peak Vancomycin Trough < 5.0 L 05/20/18 05/20/18 05/21/18 21:05 21:22 07:17 POC Glucose (mg/dL) 201 H 218 H Vancomycin Peak 18.4 L Vancomycin Trough 05/21/18 11:12 POC Glucose (mg/dL) 235 H Vancomycin Peak Vancomycin Trough Assessment & Plan (1) Cellulitis Status: Acute (2) Diabetes mellitus Status: Chronic (3) Osteomyelitis Status: Acute (4) Obesity Status: Chronic Priority: Low - Assessment and Plan (Free Text) Assessment: recc ceretec scan, vascular studies cont iv antibiotics and wound care foot hygiene and diabetic teaching
--- NOTE | 2018-05-21 11:47 | CP.PCM.PN ---
Subjective - Date & Time of Evaluation Date of Evaluation: 05/21/18 Time of Evaluation: 11:44 (`) - Subjective Subjective: Podiatry Progress note: Dr. Rollins 52 y/o male seen at bedside with Dr. Rollins this morning for right plantar hallux ulceration and right plantar heel ulcer. Denies any pain to the right foot. Denies any new pedal complaints. Denies F/C/N/V/CP/SOB Objective - Vital Signs/Intake and Output Vital Signs (last 24 hours): Temp Pulse Resp BP Pulse Ox 97.5 F L 77 20 120/71 96 05/21/18 07:45 05/21/18 07:45 05/21/18 07:45 05/21/18 07:45 05/21/18 07:45 Intake and Output: 05/21/18 05/21/18 06:59 18:59 Intake Total 840 Balance 840 - Medications Medications: Current Medications Enoxaparin Sodium (Lovenox) 40 mg SC DAILY [facility] Last Admin: 05/21/18 09:19 Dose: 40 mg Vancomycin/Sodium Chloride (Vancomycin 1 Gm/Ns 200 Ml) 1 gm in 200 mls @ 133.333 mls/hr IVPB Q12H [facility]N Reason: Protocol Stop: 05/23/18 08:01 Last Admin: 05/21/18 08:15 Dose: 133.333 mls/hr Piperacillin Sod/Tazobactam (Sod 3.375 gm/ Sodium Chloride) 100 mls @ 100 mls/ hr IVPB Q8H [facility] Last Admin: 05/21/18 10:26 Dose: 100 mls/hr Insulin Aspart (Novolog) 0 unit SC ACHS [facility] Reason: Protocol Last Admin: 05/21/18 08:15 Dose: 3 units Metformin HCl (Glucophage) 500 mg PO BID [facility] Last Admin: 05/21/18 09:20 Dose: 500 mg Mupirocin (Bactroban Ointment) 0 gm EXT DAILY [facility] Last Admin: 05/21/18 09:20 Dose: Not Given Rosuvastatin Calcium (Crestor) 5 mg PO HS [facility] Last Admin: 05/20/18 21:48 Dose: 5 mg Sitagliptin Phosphate (Januvia) 50 mg PO DAILY [facility] Last Admin: 05/21/18 09:20 Dose: 50 mg - Labs Labs: 05/17/18 17:23 05/19/18 08:43 PT 12.9 SECONDS (9.7-12.2) H 05/17/18 17:23 INR 1.2 05/17/18 17:23 APTT 35 SECONDS (21-34) H 05/17/18 17:23 - Constitutional Appears: Well, Non-toxic, No Acute Distress - Extremities Exam Additional comments: Lower extremity focused exam: Vasc: Right DP/PT 2/4, left DP/PT non palpable. CFT < 3 sec in all digits. Temp gradient warm to cool B/L. Non pitting edema noted at the R hallux. Neuro: Protective sensation grossly diminished. Derm: Open ulcer noted at the plantar aspect of the R hallux measuring 7cm X 5cm X 0.1cm. Base is 100% granular with stable wound borders. Minimal serous drainage, no undermining, no tracking,no malodor no probing to bone. Minimal erythema surrounding the ulcer. A smaller rounded ulcer 1 cm in diameter noted at the L hallux plantar aspect. the ulcer is covered by a dry scab, almost 0.5 cm in diameter. Additional ulcer noted at the plantar aspect of the L heel covered covered by a black necrotic cap. Fibrotic tissue is noted to the wound bed. No malodor, no tunneling or undermining, no probe to bone Ortho: No tenderness to palpation of right foot ulceration sites - Neurological Exam Neurological Exam: Alert, Awake, Oriented x3 - Psychiatric Exam Psychiatric exam: Normal Affect, Normal Mood Assessment and Plan - Assessment and Plan (Free Text) Assessment: 52 y/o M patient seen and evaluated at the bedside for multiple ulcers in both feet and right hallux nondisplaced distal phalanx fracture Plan: Patient was seen and evaluated at bedside with the attending Dr. Rollins Ulcers cleaned with saline and dressed with Bactroban and DSD MRI R foot noted Podiatry to continue with local wound care Continue IV abx Pt advised to use surgical shoe at all times weight bearing as he has a digital fracture in the right foot Will continue to follow while in house
--- NOTE | 2018-05-21 15:29 | CP.PCM.CON ---
Past Patient History - Past Medical History & Family History Past Medical History?: Yes - Past Social History Smoking Status: Light Smoker < 10 Cigarettes Daily - CARDIAC Hx Cardiac Disorders: No - PULMONARY Hx Respiratory Disorders: No - NEUROLOGICAL Hx Neurological Disorder: No - HEENT Hx HEENT Problems: No - RENAL Hx Chronic Kidney Disease: No - ENDOCRINE/METABOLIC Hx Endocrine Disorders: Yes Hx Diabetes Mellitus Type 1: Yes - HEMATOLOGICAL/ONCOLOGICAL Hx Blood Disorders: No - INTEGUMENTARY Hx Dermatological Problems: Yes Hx Cellulitis: Yes - MUSCULOSKELETAL/RHEUMATOLOGICAL Hx Musculoskeletal Disorders: Yes Hx Falls: Yes - GASTROINTESTINAL Hx Gastrointestinal Disorders: No - GENITOURINARY/GYNECOLOGICAL Hx Genitourinary Disorders: No - PSYCHIATRIC Hx Psychophysiologic Disorder: No Hx Substance Use: No - SURGICAL HISTORY Hx Surgeries: Yes Other/Comment: RIGHT FOOT SX - ANESTHESIA Hx Anesthesia: Yes Hx Anesthesia Reactions: No Hx Malignant Hyperthermia: No Meds Home Medications: Home Medication List Medication Instructions Recorded Confirmed Type Piperacillin/Tazobact [Zosyn] 3.375 gm IVPB Q8H vial 05/21/18 Rx Allergies/Adverse Reactions: Allergies Allergy/AdvReac Type Severity Reaction Status Date / Time No Known Allergies Allergy Verified 05/17/18 16:36 - Medications Medications: Current Medications Enoxaparin Sodium (Lovenox) 40 mg SC DAILY [facility] Last Admin: 05/21/18 09:19 Dose: 40 mg Vancomycin/Sodium Chloride (Vancomycin 1 Gm/Ns 200 Ml) 1 gm in 200 mls @ 133.333 mls/hr IVPB Q12H [facility] PRN Reason: Protocol Stop: 05/23/18 08:01 Last Admin: 05/21/18 08:15 Dose: 133.333 mls/hr Piperacillin Sod/Tazobactam (Sod 3.375 gm/ Sodium Chloride) 100 mls @ 100 mls/ hr IVPB Q8H [facility] Last Admin: 05/21/18 10:26 Dose: 100 mls/hr Insulin Aspart (Novolog) 0 unit SC ACHS [facility]N Reason: Protocol Last Admin: 05/21/18 12:06 Dose: 3 units Metformin HCl (Glucophage) 500 mg PO BID [facility] Last Admin: 05/21/18 09:20 Dose: 500 mg Mupirocin (Bactroban Ointment) 0 gm EXT DAILY [facility] Last Admin: 05/21/18 09:20 Dose: Not Given Rosuvastatin Calcium (Crestor) 5 mg PO HS [facility] Last Admin: 05/20/18 21:48 Dose: 5 mg Sitagliptin Phosphate (Januvia) 50 mg PO DAILY [facility] Last Admin: 05/21/18 09:20 Dose: 50 mg Results - Vital Signs Recent Vital Signs: Last Vital Signs Temp 97.5 F L 05/21/18 07:45 Pulse 77 05/21/18 07:45 Resp 20 05/21/18 07:45 BP 120/71 05/21/18 07:45 Pulse Ox 96 05/21/18 07:45 - Labs Result Diagrams: 05/17/18 17:23 05/19/18 08:43 Labs: Laboratory Results - last 24 hr 05/20/18 05/20/18 05/20/18 16:13 19:18 21:05 POC Glucose (mg/dL) 256 H Vancomycin Peak 18.4 L Vancomycin Trough < 5.0 L 05/20/18 05/21/18 05/21/18 21:22 07:17 11:12 POC Glucose (mg/dL) 201 H 218 H 235 H Vancomycin Peak Vancomycin Trough
--- NOTE | 2018-05-21 15:39 | CP.PCM.PN ---
Objective - Vital Signs/Intake and Output Vital Signs (last 24 hours): Temp Pulse Resp BP Pulse Ox 97.5 F L 77 20 120/71 96 05/21/18 07:45 05/21/18 07:45 05/21/18 07:45 05/21/18 07:45 05/21/18 07:45 Intake and Output: 05/21/18 05/21/18 06:59 18:59 Intake Total 840 Balance 840 - Medications Medications: Current Medications Enoxaparin Sodium (Lovenox) 40 mg SC DAILY [facility] Last Admin: 05/21/18 09:19 Dose: 40 mg Vancomycin/Sodium Chloride (Vancomycin 1 Gm/Ns 200 Ml) 1 gm in 200 mls @ 133.333 mls/hr IVPB Q12H [facility] PRN Reason: Protocol Stop: 05/23/18 08:01 Last Admin: 05/21/18 08:15 Dose: 133.333 mls/hr Piperacillin Sod/Tazobactam (Sod 3.375 gm/ Sodium Chloride) 100 mls @ 100 mls/ hr IVPB Q8H [facility] Last Admin: 05/21/18 10:26 Dose: 100 mls/hr Insulin Aspart (Novolog) 0 unit SC ACHS [facility] PRN Reason: Protocol Last Admin: 05/21/18 12:06 Dose: 3 units Metformin HCl (Glucophage) 500 mg PO BID [facility] Last Admin: 05/21/18 09:20 Dose: 500 mg Mupirocin (Bactroban Ointment) 0 gm EXT DAILY [facility] Last Admin: 05/21/18 09:20 Dose: Not Given Rosuvastatin Calcium (Crestor) 5 mg PO [facility] Last Admin: 05/20/18 21:48 Dose: 5 mg Sitagliptin Phosphate (Januvia) 50 mg PO DAILY [facility] Last Admin: 05/21/18 09:20 Dose: 50 mg - Labs Labs: 05/17/18 17:23 05/19/18 08:43 PT 12.9 SECONDS (9.7-12.2) H 05/17/18 17:23 INR 1.2 05/17/18 17:23 APTT 35 SECONDS (21-34) H 05/17/18 17:23 Assessment and Plan - Assessment and Plan (Free Text) Assessment: 50 Year old male with chronic wound on right foot, MRI showed osteomyelitis. Alert and oriented x3, denies acute pain. plan to continue with zosyn IV x [address] Bowens, plan to discharge to rehab when bed available. To follow up with DR Rollnis for the right foot ulcer.
--- NOTE | 2018-05-21 17:18 | RAD ---
HISTORY: PICC Insertion COMPARISON: No prior. FINDINGS: LUNGS: No active pulmonary disease. PLEURA: No significant pleural effusion identified, no pneumothorax apparent. CARDIOVASCULAR: Mild cardiomegaly suspected in this frontal radiograph however there is an element of magnification obscuring evaluation. Borderline pulmonary vascular congestion OSSEOUS STRUCTURES: No significant abnormalities. VISUALIZED UPPER ABDOMEN: Normal. OTHER FINDINGS: None. IMPRESSION: Mild CHF is questioned. No acute infiltrate, pleural effusion or pneumothorax appreciable bilaterally.
--- NOTE | 2018-05-21 23:40 | CP.PCM.PN ---
Subjective - Date & Time of Evaluation Date of Evaluation: 05/21/18 Time of Evaluation: 19:00 - Subjective Subjective: pt seen and examined at bedside Objective - Vital Signs/Intake and Output Vital Signs (last 24 hours): Temp Pulse Resp BP Pulse Ox 98.2 F 75 20 109/69 95 05/21/18 23:25 05/21/18 23:25 05/21/18 23:25 05/21/18 23:25 05/21/18 23:25 Intake and Output: 05/21/18 05/22/18 18:59 06:59 Intake Total 800 640 Balance 800 640 - Medications Medications: Current Medications Enoxaparin Sodium (Lovenox) 40 mg SC DAILY [facility] Last Admin: 05/21/18 09:19 Dose: 40 mg Vancomycin/Sodium Chloride (Vancomycin 1 Gm/Ns 200 Ml) 1 gm in 200 mls @ 133.333 mls/hr IVPB Q12H [facility]N Reason: Protocol Stop: 05/23/18 08:01 Last Admin: 05/21/18 20:10 Dose: 133.333 mls/hr Piperacillin Sod/Tazobactam (Sod 3.375 gm/ Sodium Chloride) 100 mls @ 100 mls/ hr IVPB Q8H [facility] Last Admin: 05/21/18 19:00 Dose: 100 mls/hr Insulin Aspart (Novolog) 0 unit SC ACHS [facility] PRN Reason: Protocol Last Admin: 05/21/18 21:40 Dose: Not Given Metformin HCl (Glucophage) 500 mg PO BID [facility] Last Admin: 05/21/18 17:55 Dose: 500 mg Mupirocin (Bactroban Ointment) 0 gm EXT DAILY [facility] Last Admin: 05/21/18 09:20 Dose: Not Given Rosuvastatin Calcium (Crestor) 5 mg PO HS [facility] Last Admin: 05/21/18 21:39 Dose: 5 mg Sitagliptin Phosphate (Januvia) 50 mg PO DAILY [facility] Last Admin: 05/21/18 09:20 Dose: 50 mg - Labs Labs: 05/17/18 17:23 05/19/18 08:43 PT 12.9 SECONDS (9.7-12.2) H 05/17/18 17:23 INR 1.2 05/17/18 17:23 APTT 35 SECONDS (21-34) H 05/17/18 17:23 Assessment and Plan (1) Cellulitis Status: Acute (2) Diabetes mellitus Status: Chronic (3) Osteomyelitis Status: Acute (4) Obesity Status: Chronic
[2018-05-22] MEDS: Piperacillin/Tazobact 3.375 GM in Sodium Chloride 0.9% 100 ML IVPB SCH ×3 (03:22→19:31)
--- NOTE | 2018-05-22 03:44 | PN ---
DATE: 05/20/2018 I saw Mr. Jo; is covering for Dr. Rafael Bowens. SUBJECTIVE: The patient did report right foot pain. He denies any chest pain or shortness of breath. PHYSICAL EXAMINATION: VITAL SIGNS: Blood pressure 153/84, heart rate 91, temperature 98.4, respirations 20. HEENT: Normocephalic. CHEST: Clear. HEART: S1, S2 regular. EXTREMITIES: Dressings applied to the right foot. LABORATORY DATA: Blood sugars were 256 and 201. Vancomycin peak was 18.4, below normal, and trough with less than 5. Lower extremity MRI revealed, 1. Prominent signal abnormality noted at the level of the first distal phalanx as well as the corresponding head of the first proximal phalanx with decreased T1 signal and increased STIR signal, associated fluid noted at the first interphalangeal joint space. These findings may represent sequelae of acute infectious process such as acute osteomyelitis. 2. Signal abnormality with cortical irregularity noted at the base of the third proximal phalanx, suggestive of chronic fracture deformity. Superimposed acute inflammatory changes cannot be entirely excluded. Prominent scattered signal abnormality noted within the second, third, fourth, and fifth metatarsal shafts as well as medial, middle, and lateral cuneiform bones, navicular bone, and the lesser extent cuboid bone. This may be sequelae from underlying neuropathic changes such as Charcot arthropathy. ASSESSMENT: 1. Right foot cellulitis. 2. Uncontrolled diabetes mellitus. 3. Osteomyelitis of the first distal phalanx as well as corresponding at first proximal phalanx on the right foot of the right big toe. RECOMMENDATIONS: Continue current Glucophage 500 mg twice a day, Januvia 50 mg once daily, Protonix 40 mg subcutaneously once a day, Zosyn 3.375 gm intravenously every 8 hours, and vancomycin at 1 gm intravenously every 12 hours. Syd Ibrahim MD
[2018-05-22] MEDS: Vancomycin 1 gm/NS 200 ml 1 GM/200 ML BAG IVPB SCH ×2 (08:07→19:32)
[2018-05-22] MEDS: (Novolog) Insulin Aspart, Recombinant 100 u/ml 10 ml vial SC SCH ×3 (08:07→16:30)
[2018-05-22] MEDS: Enoxaparin 40 mg Syringe SC SCH (09:44)
--- NOTE | 2018-05-22 11:42 | CP.PCM.PN ---
Subjective - Date & Time of Evaluation Date of Evaluation: 05/22/18 Time of Evaluation: 11:39 - Subjective Subjective: Podiatry Progress note: Dr. Rollins 52 year old male seen at bedside this morning for right plantar hallux ulceration and right plantar heel ulcer. Denies any pain to the right foot. Reports that he has a PICC line in place and most likely will be leaving the hospital today. Denies any new pedal complaints. Denies F/C/N/V/CP/SOB Objective - Vital Signs/Intake and Output Vital Signs (last 24 hours): Temp Pulse Resp BP Pulse Ox 98.1 F 86 20 146/89 95 05/22/18 07:00 05/22/18 07:00 05/22/18 07:00 05/22/18 07:00 05/22/18 07:00 Intake and Output: 05/22/18 05/22/18 06:59 18:59 Intake Total 640 340 Balance 640 340 - Medications Medications: Current Medications Enoxaparin Sodium (Lovenox) 40 mg SC DAILY [facility] Last Admin: 05/22/18 09:44 Dose: 40 mg Vancomycin/Sodium Chloride (Vancomycin 1 Gm/Ns 200 Ml) 1 gm in 200 mls @ 133.333 mls/hr IVPB Q12H [facility] PRN Reason: Protocol Stop: 05/23/18 08:01 Last Admin: 05/22/18 08:07 Dose: 133.333 mls/hr Piperacillin Sod/Tazobactam (Sod 3.375 gm/ Sodium Chloride) 100 mls @ 100 mls/ hr IVPB Q8H [facility] Last Admin: 05/22/18 03:22 Dose: 100 mls/hr Insulin Aspart (Novolog) 0 unit SC ACHS [facility] PRN Reason: Protocol Last Admin: 05/22/18 08:07 Dose: 3 units Metformin HCl (Glucophage) 500 mg PO BID [facility] Last Admin: 05/22/18 09:45 Dose: 500 mg Mupirocin (Bactroban Ointment) 0 gm EXT DAILY [facility] Last Admin: 05/22/18 11:14 Dose: Not Given Rosuvastatin Calcium (Crestor) 5 mg PO HS [facility] Last Admin: 05/21/18 21:39 Dose: 5 mg Sitagliptin Phosphate (Januvia) 50 mg PO DAILY [facility] Last Admin: 05/22/18 09:45 Dose: 50 mg - Labs Labs: 05/17/18 17:23 05/19/18 08:43 PT 12.9 SECONDS (9.7-12.2) H 05/17/18 17:23 INR 1.2 05/17/18 17:23 APTT 35 SECONDS (21-34) H 05/17/18 17:23 - Constitutional Appears: Well, Non-toxic, No Acute Distress - Extremities Exam Additional comments: Lower extremity focused exam: Vasc: Right DP/PT 2/4, left DP/PT non palpable. CFT < 3 sec in all digits. Temp gradient warm to cool B/L. Non pitting edema noted at the R hallux. Neuro: Protective sensation grossly diminished. Derm: Open ulcer noted at the plantar aspect of the R hallux measuring 7cm X 5cm X 0.1cm. Base is 100% granular with stable wound borders. Minimal serous drainage, no undermining, no tracking,no malodor no probing to bone. Minimal erythema surrounding the ulcer. A smaller rounded ulcer 1 cm in diameter noted at the L hallux plantar aspect. the ulcer is covered by a dry scab, almost 0.5 cm in diameter. Additional ulcer noted at the plantar aspect of the L heel covered covered by a black necrotic cap. Fibrotic tissue is noted to the wound bed. No malodor, no tunneling or undermining, no probe to bone Ortho: No tenderness to palpation of right foot ulceration sites - Neurological Exam Neurological Exam: Alert, Awake, Oriented x3 - Psychiatric Exam Psychiatric exam: Normal Affect, Normal Mood Assessment and Plan - Assessment and Plan (Free Text) Assessment: 52 year old male patient seen and evaluated at the bedside for multiple ulcers in both feet and right hallux nondisplaced distal phalanx fracture Plan: Patient was seen and evaluated Discussed plan with attending Dr. Rollins Ulcers cleaned with saline and dressed with Bactroban and DSD MRI R foot reviewed Continue IV abx PICC line in place Podiatry does not plan surgical intervention at this time Podiatry to continue with local wound care Pt advised to use surgical shoe at all times weight bearing as he has a digital fracture in the right foot Upon discharge, follow up with Dr. Rollins as an outpatient for further wound care Will continue to follow while in house
--- NOTE | 2018-05-22 13:02 | CP.PCM.PN ---
Subjective - Date & Time of Evaluation Date of Evaluation: 05/22/18 Time of Evaluation: 07:00 - Subjective Subjective: seen on rounds appears comfortable denies fever wounds same for d/c to [facility] Objective - Vital Signs/Intake and Output Vital Signs (last 24 hours): Temp Pulse Resp BP Pulse Ox 98.1 F 86 20 146/89 95 05/22/18 07:00 05/22/18 07:00 05/22/18 07:00 05/22/18 07:00 05/22/18 07:00 Intake and Output: 05/22/18 05/22/18 06:59 18:59 Intake Total 640 340 Balance 640 340 - Medications Medications: Current Medications Enoxaparin Sodium (Lovenox) 40 mg SC DAILY [facility] Last Admin: 05/22/18 09:44 Dose: 40 mg Vancomycin/Sodium Chloride (Vancomycin 1 Gm/Ns 200 Ml) 1 gm in 200 mls @ 133.333 mls/hr IVPB Q12H [facility] PRN Reason: Protocol Stop: 05/23/18 08:01 Last Admin: 05/22/18 08:07 Dose: 133.333 mls/hr Piperacillin Sod/Tazobactam (Sod 3.375 gm/ Sodium Chloride) 100 mls @ 100 mls/ hr IVPB Q8H [facility] Last Admin: 05/22/18 12:08 Dose: 100 mls/hr Insulin Aspart (Novolog) 0 unit SC ACHS [facility] PRN Reason: Protocol Last Admin: 05/22/18 12:09 Dose: 4 units Metformin HCl (Glucophage) 500 mg PO BID [facility] Last Admin: 05/22/18 09:45 Dose: 500 mg Mupirocin (Bactroban Ointment) 0 gm EXT DAILY [facility] Last Admin: 05/22/18 11:14 Dose: Not Given Rosuvastatin Calcium (Crestor) 5 mg PO HS [facility] Last Admin: 05/21/18 21:39 Dose: 5 mg Sitagliptin Phosphate (Januvia) 50 mg PO DAILY [facility] Last Admin: 05/22/18 09:45 Dose: 50 mg - Labs Labs: 05/17/18 17:23 05/19/18 08:43 PT 12.9 SECONDS (9.7-12.2) H 05/17/18 17:23 INR 1.2 05/17/18 17:23 APTT 35 SECONDS (21-34) H 05/17/18 17:23 - Constitutional Appears: Well - Head Exam Head Exam: ATRAUMATIC, NORMAL INSPECTION, NORMOCEPHALIC - Eye Exam Eye Exam: EOMI, Normal appearance, PERRL Pupil Exam: NORMAL ACCOMODATION, PERRL - ENT Exam ENT Exam: Mucous Membranes Moist, Normal Exam - Neck Exam Neck Exam: Full ROM, Normal Inspection. absent: Lymphadenopathy - Respiratory Exam Respiratory Exam: Clear to Ausculation Bilateral, NORMAL BREATHING PATTERN - Cardiovascular Exam Cardiovascular Exam: REGULAR RHYTHM, +S1, +S2. absent: Murmur - GI/Abdominal Exam GI & Abdominal Exam: Soft, Normal Bowel Sounds. absent: Tenderness - Rectal Exam Rectal Exam: NORMAL INSPECTION - Exam Exam: Circumcision, NORMAL INSPECTION - Extremities Exam Extremities Exam: Full ROM, Normal Capillary Refill, Normal Inspection. absent : Joint Swelling, Pedal Edema - Back Exam Back Exam: NORMAL INSPECTION - Neurological Exam Neurological Exam: Alert, Awake, CN II-XII Intact, Normal Gait, Oriented x3 - Psychiatric Exam Psychiatric exam: Normal Affect, Normal Mood - Skin Skin Exam: Dry, Intact, Normal Color, Warm Assessment and Plan (1) Cellulitis Status: Acute (2) Diabetes mellitus Status: Chronic (3) Osteomyelitis Status: Acute (4) Obesity Status: Chronic
--- NOTE | 2018-05-22 13:51 | CP.PCM.PN ---
Subjective - Date & Time of Evaluation Date of Evaluation: 05/22/18 Time of Evaluation: 13:46 - Subjective Subjective: BOTTOM STAINER FOLLOWING UP WITH D/C PLAN. PT HAS BEEN ACCEPTED AT [facility] BUT IS CURRENTLY PENDING AUTH FROM [employer] FOR [facility]. PT ALREADY HAS PICC LINE IN PLACE AND WILL BE D/C WITH PICC. WILL CONTINUE ZOSYN 3.375 GM IV Q8 HOURS FOR A TOTAL OF 6 WEEKS---WAS STARTED ON 05/18/18 AND LAST DAY FOR DOSE TO BE GIVEN IS 06/29/18. WILL F/ WITH CM AND SW REGARDING AUTH. NO FURTHER ORDERS. Objective - Vital Signs/Intake and Output Vital Signs (last 24 hours): Temp Pulse Resp BP Pulse Ox 98.1 F 86 20 146/89 95 05/22/18 07:00 05/22/18 07:00 05/22/18 07:00 05/22/18 07:00 05/22/18 07:00 Intake and Output: 05/22/18 05/22/18 06:59 18:59 Intake Total 640 340 Balance 640 340 - Medications Medications: Current Medications Enoxaparin Sodium (Lovenox) 40 mg SC DAILY [facility] Last Admin: 05/22/18 09:44 Dose: 40 mg Vancomycin/Sodium Chloride (Vancomycin 1 Gm/Ns 200 Ml) 1 gm in 200 mls @ 133.333 mls/hr IVPB Q12H [facility] PRN Reason: Protocol Stop: 05/23/18 08:01 Last Admin: 05/22/18 08:07 Dose: 133.333 mls/hr Piperacillin Sod/Tazobactam (Sod 3.375 gm/ Sodium Chloride) 100 mls @ 100 mls/ hr IVPB Q8H [facility] Last Admin: 05/22/18 12:08 Dose: 100 mls/hr Insulin Aspart (Novolog) 0 unit SC ACHS [facility] PRN Reason: Protocol Last Admin: 05/22/18 12:09 Dose: 4 units Metformin HCl (Glucophage) 500 mg PO BID [facility] Last Admin: 05/22/18 09:45 Dose: 500 mg Mupirocin (Bactroban Ointment) 0 gm EXT DAILY [facility] Last Admin: 05/22/18 11:14 Dose: Not Given Rosuvastatin Calcium (Crestor) 5 mg PO HS [facility] Last Admin: 05/21/18 21:39 Dose: 5 mg Sitagliptin Phosphate (Januvia) 50 mg PO DAILY [facility] Last Admin: 05/22/18 09:45 Dose: 50 mg - Labs Labs: 05/17/18 17:23 05/19/18 08:43 PT 12.9 SECONDS (9.7-12.2) H 05/17/18 17:23 INR 1.2 05/17/18 17:23 APTT 35 SECONDS (21-34) H 05/17/18 17:23
[2018-05-22 16:43] VITALS: BP 126/88; PULSE 84; TEMP 97.8; O2SAT 93
--- NOTE | 2018-05-22 23:02 | PN ---
DATE: 05/22/[address] Rafael Bowens. SUBJECTIVE: The patient's right foot pain has improved. Denies any chest pain or shortness of breath. PHYSICAL EXAMINATION: VITAL SIGNS: Blood pressure 126/88, heart rate 84, temperature 97.8, respirations 20. HEENT: Normocephalic. CHEST: Clear. HEART: S1, S2 are regular. ABDOMEN: Soft. EXTREMITIES: Trace right leg edema. LABORATORY DATA: Today's blood sugars are 220, 257, and 193 respectively. ASSESSMENT: 1. Right foot cellulitis as well as osteomyelitis of the right big toe. 2. Uncontrolled diabetes mellitus. 3. Hyperlipidemia. PLAN: The patient will be maintained on IV Zosyn and IV vancomycin. The patient will also be maintained on metformin 500 mg twice a day, Crestor 5 mg once a day, and will be transferred to subacute rehabilitation in [facility] for completion of his intravenous antibiotic course as per Infectious Disease media consultant, recommendation. Syd Ibrahim MD
== END 2018-05-22 21:12 | DRG 563 ==
LOC: C.ER 16:08 → C.9E 18:43 → C.3T 23:02
PROVIDERS: ADMIT Internal Medicine; ATTEND Internal Medicine
PROC: 02HV33Z Insertion of Infusion Device into Superior Vena Cava, Percutaneous Approach (ICD-10-PCS; principal; 2018-05-21)
DX: L03.115 Cellulitis of right lower limb (principal); E10.65 Type 1 diabetes mellitus with hyperglycemia; L97.519 Non-pressure chronic ulcer of other part of right foot with unspecified severity; L97.529 Non-pressure chronic ulcer of other part of left foot with unspecified severity; E10.69 Type 1 diabetes mellitus with other specified complication; E78.5 Hyperlipidemia, unspecified; E66.9 Obesity, unspecified; Z79.4 Long term (current) use of insulin; F17.210 Nicotine dependence, cigarettes, uncomplicated; M86.9 Osteomyelitis, unspecified; Z68.31 Body mass index [BMI] 31.0-31.9, adult

== ENCOUNTER 2018-08-28 14:28 | Inpatient (IN) | payer OTHER ==
[2018-08-28 14:28] VITALS: BMI 34.2
[2018-08-28 16:40] LABS: BASO # 0.1 K/uL (0.0-0.2); BASO % 0.9 % (0.0-2.0); EOS # 0.4 K/uL (0.0-0.7); EOS % 3.2 % (0.0-4.0); HEMOGLOBIN 13.2 g/dL (12.0-18.0); LYMPH # 1.9 K/uL (1.0-4.3); LYMPH % 16.6 % (20.0-40.0); MEAN CORPUSCULAR HEMOGLOBIN 28.7 pg (27.0-31.0); MEAN CORPUSCULAR HGB CONC 34.2 g/dL (33.0-37.0); MONO # 0.7 K/uL (0.0-0.8); MONO % 5.7 % (0.0-10.0); NEUT # 8.4 K/uL (1.8-7.0); NEUT % 73.6 % (50.0-75.0); RBC 4.58 Mil/uL (4.40-5.90); RED CELL DISTRIBUTION WIDTH 14.3 % (11.5-14.5); WHITE BLOOD COUNT 11.4 K/uL (4.8-10.8)
[2018-08-28 16:59] LABS: ALBUMIN 3.9 g/dL (3.5-5.0); ALT/SGPT 18 U/L (21-72); AST/SGOT 20 U/L (17-59); BLOOD UREA NITROGEN 11 mg/dL (9-20); CALCIUM 8.9 mg/dl (8.6-10.4); GFR NON-AFRICAN AMERICAN > 60
[2018-08-28] MEDS ORDERED: Piperacillin/Tazobact 3.375 gm 100 ML IV STA (17:35)
[2018-08-28] MEDS ORDERED: Piperacillin/Tazobact 3.375 gm 100 ML IVPB ONE (17:41)
[2018-08-28] MEDS ORDERED: Vancomycin 1 GM 1 GM/250 ML BAG IVPB STA (17:43)
[2018-08-28] MEDS ORDERED: Vancomycin 1 GM 1 GM/250 ML BAG IV SCH (17:45)
[2018-08-28] MEDS ORDERED: Vancomycin 1 GM 1 GM/250 ML BAG IVPB ONE (17:56)
--- NOTE | 2018-08-28 18:38 | C.PDOC ---
History Of Present Illness 52 y/o male presents to the ED with complaints of worsening chronic wounds. Patient has hx of chronic wound infections to bilateral toes, for which he is treated by Dr. Rollins outpatient. Patient reports even with treatment the wounds are still worse. MRI outpatient this week found osteomyelitis. Otherwise he denies any fever, chills, chest pain, SOB, numbness, tingling, or focal weakness. <Radha To - Last Filed: 08/28/18 18:57> History Per: Patient History/Exam Limitations: no limitations Onset/Duration Of Symptoms: Days Current Symptoms Are (Timing): Worse <Radha To - Last Filed: 08/28/18 18:57> <Bhakti Rodriguez - Last Filed: 08/28/18 19:25> Time Seen by Provider: 08/28/18 16:16 Chief Complaint (Nursing): Lower Extremity Problem/Injury Past Medical History Reviewed: Historical Data, Nursing Documentation, Vital Signs Vital Signs: Last Vital Signs Temp 98.2 F 08/28/18 17:32 Pulse 91 H 08/28/18 17:32 Resp 20 08/28/18 17:32 BP 125/78 08/28/18 17:32 Pulse Ox 96 08/28/18 17:32 - Medical History PMH: Diabetes Denies: Chronic Kidney Disease - [facility] Procedures INSERTION OF INFUSION DEV INTO SUP VENA CAVA, PERC APPROACH (05/17/18) Family History: States: Unknown Family Hx - Social History Hx Alcohol Use: No Hx Substance Use: No - Immunization History Hx Tetanus Toxoid Vaccination: No Hx Influenza Vaccination: No Hx Pneumococcal Vaccination: No <Radha To - Last Filed: 08/28/18 18:57> Vital Signs: Last Vital Signs Temp 98.2 F 08/28/18 17:32 Pulse 91 H 08/28/18 17:32 Resp 20 08/28/18 17:32 BP 125/78 08/28/18 17:32 Pulse Ox 96 08/28/18 18:58 - [facility] Procedures INSERTION OF INFUSION DEV INTO SUP VENA CAVA, PERC APPROACH (05/17/18) <Bhakti Rodriguez - Last Filed: 08/28/18 19:25> Review Of Systems Except As Marked, All Systems Reviewed And Found Negative. Constitutional: Negative for: Fever, Chills Cardiovascular: Negative for: Chest Pain, Palpitations Respiratory: Negative for: Shortness of Breath Musculoskeletal: Positive for: Foot Pain Skin: Positive for: Other (chronic wounds to bilateral toes) Neurological: Negative for: Weakness, Numbness, Incoordination, Dizziness <Radha To - Last Filed: 08/28/18 18:57> Physical Exam - Physical Exam Appears: Non-toxic, No Acute Distress Skin: Normal Color, Warm, Dry Head: Atraumatic, Normacephalic Eye(s): bilateral: Normal Inspection, PERRL, EOMI Neck: Normal ROM Chest: Symmetrical Cardiovascular: Rhythm Regular, No Murmur Respiratory: Normal Breath Sounds, No Accessory Muscle Use, No Wheezing Gastrointestinal/Abdominal: Soft, No Tenderness, No Distention Extremity: Bilateral: Normal ROM, Other (Chronic wounds to bilateral feet and toes, + erythema and tenderness) Pulses: Left Dorsalis Pedis: Normal, Right Dorsalis Pedis: Normal Neurological/Psych: Oriented x3, Normal Speech <Radha To - Last Filed: 08/28/18 18:57> ED Course And Treatment - Laboratory Results Result Diagrams: 08/28/18 16:33 08/28/18 16:33 O2 Sat by Pulse Oximetry: 96 (RA) Pulse Ox Interpretation: Normal <Radha To - Last Filed: 08/28/18 18:57> - Laboratory Results Result Diagrams: 08/28/18 16:33 08/28/18 16:33 <Bhakti Rodriguez - Last Filed: 08/28/18 19:25> Medical Decision Making Medical Decision Making: Old records reviewed, the patient has had several visits for cellulitis of the feet. Impression: Chronic wounds, Osteomyelitis, Failed outpatient therapy Initial Plan: --Routine blood work --Started on IV vanco and zosyn Blood cultures sent. Case discussed with Dr. Bowens, patient accepted for admission for osteo. <Radha To - Last Filed: 08/28/18 18:57> Disposition - Disposition Disposition Time: 17:00 - POA Present On Arrival: None <Radha To - Last Filed: 08/28/18 18:57> <Bhakti Rodriguez - Last Filed: 08/28/18 19:25> - Disposition Disposition: HOSPITALIZED Condition: STABLE - Clinical Impression Clinical Impression: Cellulitis, Osteomyelitis - PA / MAINTAINER OPERATOR / Resident Statement / has reviewed & agrees with the documentation as recorded. - Scribe Statement The provider has reviewed the documentation as recorded by the Scribe (Aliya Kelly) All medical record entries made by the Scribe were at my direction and personally dictated by me. I have reviewed the chart and agree that the record accurately reflects my personal performance of the history, physical exam, medical decision making, and the department course for this patient. I have also personally directed, reviewed, and agree with the discharge instructions and disposition. <Radha To - Last Filed: 08/28/18 18:57> - PA / MAINTAINER OPERATOR / Resident Statement / has reviewed & agrees with the documentation as recorded. <Bhakti Rodriguez - Last Filed: 08/28/18 19:25>
[2018-08-28 21:50] LABS: HDL CHOLESTEROL 24 mg/dL (30-70)
[2018-08-28 22:01] LABS: LDL CHOLESTEROL 137 mg/dL (0-129)
[2018-08-28] MEDS: (Novolin R) Insulin Human Regular 100 units/ml vial SC SCH (22:49)
[2018-08-29] MEDS: Piperacillin/Tazobact 3.375 GM in Sodium Chloride 100 ML IVPB SCH ×4 (01:00→17:15)
[2018-08-29] MEDS: (Novolin R) Insulin Human Regular 100 units/ml vial SC SCH ×4 (08:30→21:19)
[2018-08-29] MEDS: Enoxaparin 40 mg Syringe SC SCH (09:47)
--- NOTE | 2018-08-29 13:16 | CP.PCM.CON ---
History of Present Illness - History of Present Illness History of Present Illness: Podiatry - Dr. Rollins 52 year old male patient PMHx DM type 2, hyperlipidemia seen and evaluated for infected lower extremity ulcerations b/l. Patient resting comfortably, NAD. Well known to podiatry service. Patient states he was seen by Dr. Rollins in the wound care center last 08/24/18 and was told to present to ED for admission as swelling around his wounds have worsened along with associated foul odor. Unknown to patient how long he has had wounds or when the wounds started to worsen. Of note, patient has history of noncompliance with medications. At present, patient reports pain in lower extremity wounds. Admits to occasional numbness/burning/tingling. Denies n/v/f/d/c/sob/elliott/cp/dizziness. Offers no other complaints. Review of Systems - Review of Systems All systems: reviewed and no additional remarkable complaints except (as per HPI) Past Patient History - Infectious Disease Hx of Infectious Diseases: None - Past Medical History & Family History Past Medical History?: Yes - Past Social History Smoking Status: Light Smoker < 10 Cigarettes Daily - CARDIAC Hx Cardiac Disorders: No - PULMONARY Hx Respiratory Disorders: No - NEUROLOGICAL Hx Neurological Disorder: No - HEENT Hx HEENT Problems: No - RENAL Hx Chronic Kidney Disease: No - ENDOCRINE/METABOLIC Hx Endocrine Disorders: Yes Hx Diabetes Mellitus Type 1: Yes - HEMATOLOGICAL/ONCOLOGICAL Hx Blood Disorders: No - INTEGUMENTARY Hx Dermatological Problems: Yes Hx Cellulitis: Yes - MUSCULOSKELETAL/RHEUMATOLOGICAL Hx Musculoskeletal Disorders: Yes Hx Falls: Yes - GASTROINTESTINAL Hx Gastrointestinal Disorders: No - GENITOURINARY/GYNECOLOGICAL Hx Genitourinary Disorders: No - PSYCHIATRIC Hx Psychophysiologic Disorder: No Hx Substance Use: No - SURGICAL HISTORY Hx Surgeries: Yes Other/Comment: RIGHT FOOT SX - ANESTHESIA Hx Anesthesia: Yes Hx Anesthesia Reactions: No Hx Malignant Hyperthermia: No Has any member of the family had a problem w/ anesthesia?: No Meds Allergies/Adverse Reactions: Allergies Allergy/AdvReac Type Severity Reaction Status Date / Time No Known Allergies Allergy Verified 05/17/18 16:36 - Medications Medications: Current Medications Acetaminophen (Tylenol 325mg Tab) 650 mg PO Q6 PRN PRN Reason: Pain, Mild (1-3) Aspirin (Ecotrin) 81 mg PO DAILY [facility] Last Admin: 08/29/18 09:47 Dose: 81 mg Enoxaparin Sodium (Lovenox) 40 mg SC DAILY [facility] Last Admin: 08/29/18 09:47 Dose: 40 mg Vancomycin HCl 1,000 mg/ (Sodium Chloride) 250 mls @ 166.6 mls/hr IVPB Q12H [facility]; Protocol Last Admin: 08/29/18 06:03 Dose: 166.6 mls/hr Piperacillin Sod/Tazobactam (Sod 3.375 gm/ Sodium Chloride) 100 mls @ 200 mls/hr IVPB Q6H [facility]; Protocol Last Admin: 08/29/18 12:41 Dose: 200 mls/hr Insulin Human Regular (Novolin R) 0 unit SC ACHS [facility]; Protocol Last Admin: 08/29/18 12:30 Dose: 3 u Metformin HCl (Glucophage) 750 mg PO BID [facility] Last Admin: 08/29/18 09:47 Dose: 750 mg Rosuvastatin Calcium (Crestor) 10 mg PO HS [facility] Last Admin: 08/28/18 21:46 Dose: 10 mg Sitagliptin Phosphate (Januvia) 50 mg PO DAILY [facility] Last Admin: 08/29/18 09:47 Dose: 50 mg Physical Exam - Constitutional Appears: Non-toxic, No Acute Distress - Extremities Exam Additional comments: Lower extremity focused exam: Vasc: DP pulses palpable 2/4 b/l. PT pulses nonpalpable secondary to edema b/l. CFT < 3 sec in all digits. Temp gradient warm to warm B/L with increase in warmth noted to hallux b/l. +1 pitting edema noted to bilateral LE. Neuro: Protective sensation absent. Derm: RLE=Full thickness ulceration noted to plantar aspect of R hallux measuring 5cm X 5cm X 0.3cm. Base is 90% granular 10% necrotic with macerated rim and malodor present; erythema noted periwound; no drainage noted; no purulence; undermining present; no tracking; no probe to bone. Full thickness ulceration noted to plantar aspect of right heel - ulcer noted to have 90% granular and 10% necrotic base with macerated rim and malodor present; no erythema noted; no drainage; no purulence; no probe to bone. LLE=Full thickness ulceration noted to plantar aspect of left hallux measuring 4 x 4 x 0.3 cm - ulcer noted to have a 100% granular base with macerated rim and malodor present; erythema noted periwound; no drianage noted; no purulence; no fluctuance; no undermining; no tracking; no probe to bone. Ortho: Mild tenderness to palpation to wounds. Muscle strength 5/5 for all dorsiflexors, plantarflexors, inverters, and everters b/l. - Neurological Exam Neurological exam: Alert, Oriented x3 - Psychiatric Exam Psychiatric exam: Normal Affect, Normal Mood Results - Vital Signs Recent Vital Signs: Last Vital Signs Temp 97.9 F 08/29/18 08:00 Pulse 87 08/29/18 08:00 Resp 20 08/29/18 08:00 BP 143/85 08/29/18 08:00 Pulse Ox 97 08/29/18 08:00 - Labs Result Diagrams: 08/28/18 16:33 08/28/18 16:33 Labs: Laboratory Results - last 24 hr 08/28/18 08/28/18 08/28/18 16:33 16:33 21:41 WBC 11.4 H RBC 4.58 Hgb 13.2 Hct 38.5 MCV 84.0 MCH 28.7 MCHC 34.2 RDW 14.3 Plt Count 303 MPV 8.0 Neut % (Auto) 73.6 Lymph % (Auto) 16.6 L Clark % (Auto) 5.7 Eos % (Auto) 3.2 Baso % (Auto) 0.9 Neut # (Auto) 8.4 H Lymph # (Auto) 1.9 Clark # (Auto) 0.7 Eos # (Auto) 0.4 Baso # (Auto) 0.1 Sodium 137 Potassium 4.0 Chloride 101 Carbon Dioxide 27 Anion Gap 14 BUN 11 Creatinine 0.6 L Est GFR ( Amer) > 60 Est GFR (Non-Af Amer) > 60 POC Glucose (mg/dL) Random Glucose 243 H Hemoglobin A1c 9.5 H Calcium 8.9 Total Bilirubin 0.3 AST 20 ALT 18 L D Alkaline Phosphatase 86 Total Protein 7.9 Albumin 3.9 Globulin 4.0 H Albumin/Globulin Ratio 1.0 Triglycerides 201 H Cholesterol 189 LDL Cholesterol Direct 137 H HDL Cholesterol 24 L 08/28/18 08/29/18 08/29/18 22:05 07:30 11:16 WBC RBC Hgb Hct MCV MCH MCHC RDW Plt Count MPV Neut % (Auto) Lymph % (Auto) Clark % (Auto) Eos % (Auto) Baso % (Auto) Neut # (Auto) Lymph # (Auto) Clark # (Auto) Eos # (Auto) Baso # (Auto) Sodium Potassium Chloride Carbon Dioxide Anion Gap BUN Creatinine Est GFR ( Amer) Est GFR (Non-Af Amer) POC Glucose (mg/dL) 227 H 171 H 224 H Random Glucose Hemoglobin A1c Calcium Total Bilirubin AST ALT Alkaline Phosphatase Total Protein Albumin Globulin Albumin/Globulin Ratio Triglycerides Cholesterol LDL Cholesterol Direct HDL Cholesterol Assessment & Plan - Assessment and Plan (Free Text) Assessment: 52M with nonhealing wounds to bilateral feet, infected Plan: Patient seen and evaluated Discussed with attending, Dr. Rollins Afebrile, WBC 11.4, f/u ESR Wound cultures taken b/l Bilateral foot XR ordered Betadine, DSD applied to bilateral LE Surgical shoes ordered, WBAT bilateral LE ID consulted, f/u recs - empiric abx started Podiatry will continue to follow
--- NOTE | 2018-08-29 14:21 | RAD ---
Date of service: 08/29/2018 PROCEDURE: Bilateral Feet Radiographs. HISTORY: infected wound plantar hallux r/o OM COMPARISON: Right foot radiographs 05/17/2018 and bilateral feet radiographs 12/02/2017. FINDINGS: BONES: Right Foot: No definite acute fracture or dislocation identified. Stable deformity of the proximal phalanx right 3rd digit is reiterated as well as deformity of the distal phalanx great toe. Cystic changes are stable at the 1st digit proximal phalanx. Extensive soft tissue edema is seen related to the great toe once again. No obvious osteomyelitis pattern. MRI can be utilized for greater characterization of the right foot. Multiple small cysts are seen related to the navicular bone in the interval, which suspicious given lack of this appearance in right foot radiographs 12/02/2017. Left Foot: No fracture or dislocation identified throughout the left foot. No destructive bony lesion appreciable. Soft tissue edema is seen related to the great toe. JOINTS: Right Foot: Normal. No osteoarthritis. Left Foot: Normal. No osteoarthritis. SOFT TISSUES: Dorsal greater than plantar soft tissue edema is appreciated primarily at the forefoot and midfoot soft tissues of the right foot. Borderline at the left. OTHER FINDINGS: None. IMPRESSION: No obvious osteomyelitis pattern appreciated acutely affecting the bilateral 3 eat with bony deformities of the right great toe and 3rd digits stable in the interval. Cystic changes are identified in the interval at the right navicular bone. This appears to be distant from the site of soft tissue ulcers. MRI can be utilized for greater characterization. No suspicious bony findings left foot. Soft tissue edema seen greater at the right greater than left anterior and mid foot soft tissues without emphysematous soft tissue changes related.
--- NOTE | 2018-08-29 19:11 | CP.PCM.CON ---
History of Present Illness - History of Present Illness History of Present Illness: 52 year old male patient PMHx DM type 2, hyperlipidemia seen and evaluated for infected lower extremity ulcerations b/l. Patient resting comfortably, NAD. Well known to podiatry service. Patient states he was seen by Dr. Rollins in the wound care center last 08/24/18 and was told to present to ED for admission as swelling around his wounds have worsened along with associated foul odor. Unknown to patient how long he has had wounds or when the wounds started to worsen. Of note, patient has history of noncompliance with medications. At present, patient reports pain in lower extremity wounds. Admits to occasional numbness/burning/tingling. Denies n/v/f/d/c/sob/elliott/cp/dizziness. Offers no other complaints. Past Patient History - Infectious Disease Hx of Infectious Diseases: None - Past Medical History & Family History Past Medical History?: Yes - Past Social History Smoking Status: Light Smoker < 10 Cigarettes Daily - CARDIAC Hx Cardiac Disorders: No - PULMONARY Hx Respiratory Disorders: No - NEUROLOGICAL Hx Neurological Disorder: No - HEENT Hx HEENT Problems: No - RENAL Hx Chronic Kidney Disease: No - ENDOCRINE/METABOLIC Hx Diabetes Mellitus Type 1: Yes - HEMATOLOGICAL/ONCOLOGICAL Hx Blood Disorders: No - INTEGUMENTARY Hx Dermatological Problems: Yes Hx Cellulitis: Yes - MUSCULOSKELETAL/RHEUMATOLOGICAL Hx Musculoskeletal Disorders: Yes Hx Falls: Yes - GASTROINTESTINAL Hx Gastrointestinal Disorders: No - GENITOURINARY/GYNECOLOGICAL Hx Genitourinary Disorders: No - PSYCHIATRIC Hx Psychophysiologic Disorder: No Hx Substance Use: No - SURGICAL HISTORY Hx Surgeries: Yes Other/Comment: RIGHT FOOT SX - ANESTHESIA Hx Anesthesia: Yes Hx Anesthesia Reactions: No Hx Malignant Hyperthermia: No Has any member of the family had a problem w/ anesthesia?: No Meds Allergies/Adverse Reactions: Allergies Allergy/AdvReac Type Severity Reaction Status Date / Time No Known Allergies Allergy Verified 05/17/18 16:36 - Medications Medications: Current Medications Acetaminophen (Tylenol 325mg Tab) 650 mg PO Q6 PRN PRN Reason: Pain, Mild (1-3) Aspirin (Ecotrin) 81 mg PO DAILY [facility] Last Admin: 08/29/18 09:47 Dose: 81 mg Enoxaparin Sodium (Lovenox) 40 mg SC DAILY [facility] Last Admin: 08/29/18 09:47 Dose: 40 mg Vancomycin HCl 1,000 mg/ (Sodium Chloride) 250 mls @ 166.6 mls/hr IVPB Q12H [facility]; Protocol Last Admin: 08/29/18 17:53 Dose: 166.6 mls/hr Piperacillin Sod/Tazobactam (Sod 3.375 gm/ Sodium Chloride) 100 mls @ 200 mls/hr IVPB Q6H [facility]; Protocol Last Admin: 08/29/18 17:15 Dose: 200 mls/hr Insulin Human Regular (Novolin R) 0 unit SC ACHS [facility]; Protocol Last Admin: 08/29/18 17:37 Dose: 2 u Metformin HCl (Glucophage) 750 mg PO BID [facility] Last Admin: 08/29/18 17:17 Dose: 750 mg Rosuvastatin Calcium (Crestor) 10 mg PO HS [facility] Last Admin: 08/28/18 21:46 Dose: 10 mg Sitagliptin Phosphate (Januvia) 50 mg PO DAILY [facility] Last Admin: 08/29/18 09:47 Dose: 50 mg Results - Vital Signs Recent Vital Signs: Last Vital Signs Temp 97.9 F 08/29/18 16:00 Pulse 92 H 08/29/18 16:00 Resp 20 08/29/18 16:00 BP 120/73 08/29/18 16:00 Pulse Ox 95 08/29/18 16:00 - Labs Result Diagrams: 08/28/18 16:33 08/28/18 16:33 Labs: Laboratory Results - last 24 hr 08/28/18 08/28/18 08/28/18 16:33 21:41 22:05 ESR Sodium 137 Potassium 4.0 Chloride 101 Carbon Dioxide 27 Anion Gap 14 BUN 11 Creatinine 0.6 L Est GFR ( Amer) > 60 Est GFR (Non-Af Amer) > 60 POC Glucose (mg/dL) 227 H Random Glucose 243 H Hemoglobin A1c 9.5 H Calcium 8.9 Total Bilirubin 0.3 AST 20 ALT 18 L D Alkaline Phosphatase 86 Total Protein 7.9 Albumin 3.9 Globulin 4.0 H Albumin/Globulin Ratio 1.0 Triglycerides 201 H Cholesterol 189 LDL Cholesterol Direct 137 H HDL Cholesterol 24 L 08/29/18 08/29/18 08/29/18 07:30 11:16 16:31 ESR Sodium Potassium Chloride Carbon Dioxide Anion Gap BUN Creatinine Est GFR ( Amer) Est GFR (Non-Af Amer) POC Glucose (mg/dL) 171 H 224 H 187 H Random Glucose Hemoglobin A1c Calcium Total Bilirubin AST ALT Alkaline Phosphatase Total Protein Albumin Globulin Albumin/Globulin Ratio Triglycerides Cholesterol LDL Cholesterol Direct HDL Cholesterol 08/29/18 16:59 ESR 38 H Sodium Potassium Chloride Carbon Dioxide Anion Gap BUN Creatinine Est GFR ( Amer) Est GFR (Non-Af Amer) POC Glucose (mg/dL) Random Glucose Hemoglobin A1c Calcium Total Bilirubin AST ALT Alkaline Phosphatase Total Protein Albumin Globulin Albumin/Globulin Ratio Triglycerides Cholesterol LDL Cholesterol Direct HDL Cholesterol
--- NOTE | 2018-08-29 23:57 | CP.PCM.HP ---
Present on Admission - Present on Admission Any Indicators Present on Admission: No Past Patient History - Infectious Disease Hx of Infectious Diseases: None - Past Medical History & Family History Past Medical History?: Yes - Past Social History Smoking Status: Light Smoker < 10 Cigarettes Daily - CARDIAC Hx Cardiac Disorders: No - PULMONARY Hx Respiratory Disorders: No - NEUROLOGICAL Hx Neurological Disorder: No - HEENT Hx HEENT Problems: No - RENAL Hx Chronic Kidney Disease: No - ENDOCRINE/METABOLIC Hx Diabetes Mellitus Type 1: Yes - HEMATOLOGICAL/ONCOLOGICAL Hx Blood Disorders: No - INTEGUMENTARY Hx Dermatological Problems: Yes Hx Cellulitis: Yes - MUSCULOSKELETAL/RHEUMATOLOGICAL Hx Musculoskeletal Disorders: Yes Hx Falls: Yes - GASTROINTESTINAL Hx Gastrointestinal Disorders: No - GENITOURINARY/GYNECOLOGICAL Hx Genitourinary Disorders: No - PSYCHIATRIC Hx Psychophysiologic Disorder: No Hx Substance Use: No - SURGICAL HISTORY Hx Surgeries: Yes Other/Comment: RIGHT FOOT SX - ANESTHESIA Hx Anesthesia: Yes Hx Anesthesia Reactions: No Hx Malignant Hyperthermia: No Has any member of the family had a problem w/ anesthesia?: No Meds Home Medications: Home Medication List Medication Instructions Recorded Confirmed Type RX: Acetaminophen [Tylenol 325mg 650 mg PO Q6 PRN tab 09/05/18 Rx tab] RX: Aspirin [Ecotrin] 81 mg PO DAILY [facility] 09/05/18 Rx RX: Insulin Human Regular [Novolin 0 unit SC ACHS unit 09/05/18 Rx R] RX: Piperacillin/Tazobact [Zosyn] 3.375 gm IVPB Q8 #42 vial 09/05/18 Rx RX: Rosuvastatin Calcium [Crestor] 10 mg PO HS tab 09/05/18 Rx RX: SITagliptin [Januvia] 50 mg PO DAILY tab 09/05/18 Rx RX: metFORMIN [glucOPHAGE] 1,000 mg PO BID tab 09/05/18 Rx Vancomycin/0.9 % Sod Chloride 1 gm IV Q12 #70 [id number] 09/05/18 Rx [Vancomycin 1 G/200Ml-0.9% NaCl] Allergies/Adverse Reactions: Allergies Allergy/AdvReac Type Severity Reaction Status Date / Time No Known Allergies Allergy Verified 05/17/18 16:36 Results - Vital Signs Recent Vital Signs: Last Vital Signs Temp 97.9 F 08/29/18 16:00 Pulse 92 H 08/29/18 16:00 Resp 20 08/29/18 16:00 BP 120/73 08/29/18 16:00 Pulse Ox 95 08/29/18 16:00 - Labs Result Diagrams: 09/04/18 02:07 09/04/18 02:07 Labs: Laboratory Results - last 24 hr 08/28/18 08/29/18 08/29/18 21:41 07:30 11:16 ESR POC Glucose (mg/dL) 171 H 224 H Hemoglobin A1c 9.5 H 08/29/18 08/29/18 16:31 16:59 ESR 38 H POC Glucose (mg/dL) 187 H Hemoglobin A1c
[2018-08-30] MEDS: Piperacillin/Tazobact 3.375 GM in Sodium Chloride 100 ML IVPB SCH ×5 (00:34→23:55)
--- NOTE | 2018-08-30 06:44 | HP ---
CHIEF COMPLAINT: Bilateral foot pain. REFERRED BY: Podiatry. HISTORY OF PRESENT ILLNESS: This is a 52-year-old white male with history of type 2 diabetes, hypertension, hyperlipidemia, chronic nonhealing bilateral feet ulcer and bilateral toes, and he has obesity. He is noncompliant with diet. He is compliant with his medication and followup. He will be seen by Dr. Rollins and by me. The patient has bilateral nonhealing foot wounds, and for the last few days, his pain and discharge have been getting increasingly worse. The patient has been feeling more and more pain. He denies any nausea or vomiting. He denies any history of polyuria, polydipsia, or polyphagia. He denies any history of hematuria or pyuria. He denies any sneezing, itchy eyes, or itchy nose. He has bilateral foot pain. He has tingling, numbness, and paresthesias of the foot. He denies any history of claudication upon walking. PAST MEDICAL HISTORY: Nonhealing foot wounds, diabetes type 2, hypertension, and diabetes. SOCIAL HISTORY: He is an ex-smoker, non-EtOH user. CURRENT MEDICATIONS: At home are: He is on Januvia and metformin. PHYSICAL EXAMINATION: GENERAL: A middle-aged male, in no acute distress. VITAL SIGNS: Blood pressure 120/72, pulse 92, respiratory rate 20, and temperature 97.9. SKIN: The patient has bilateral toe nonhealing wounds in different degrees with different amount of discharge. HEENT: Atraumatic and normocephalic. Negative pallor. Negative jaundice. Extraocular movements are intact. NECK: Supple. No JVD. No lymph node. No thyromegaly. No carotid bruit. CHEST WALL: Bilateral symmetrical expansion. LUNGS: Bilaterally clear. No rales. No rhonchi. CVS: S1, S2 regular. No heave. No thrill. ABDOMEN: Soft. Nontender. Bowel sounds are positive. GENITAL: Normal. RECTAL: Normal. EXTREMITIES: No clubbing, cyanosis, or edema. Peripheral pulses bilaterally intact. [employer]: Awake, alert, oriented x3. ASSESSMENT: Nonhealing diabetic foot ulcer with underlying osteomyelitis, type 2 diabetes, morbid obesity, and hypertension. PLAN: Medical management. Monitor the patient. Rafael Bowens MD
[2018-08-30] MEDS: (Novolin R) Insulin Human Regular 100 units/ml vial SC SCH ×4 (08:23→21:33)
[2018-08-30] MEDS: Enoxaparin 40 mg Syringe SC SCH (10:41)
--- NOTE | 2018-08-30 14:34 | CP.PCM.PN ---
Subjective - Date & Time of Evaluation Date of Evaluation: 08/30/18 Time of Evaluation: 11:00 - Subjective Subjective: Podiatry - Dr. Rollins 52M seen and evaluated this AM for bilateral LE ulcerations. Patient OOB ambulating w/o issues. No acute events overnight. Patient denies any pain to lower extremity wounds; offers no new complaints. Denies n/v/f/d/c/sob/elliott/cp. Objective - Vital Signs/Intake and Output Vital Signs (last 24 hours): Temp Pulse Resp BP Pulse Ox 98.8 F 83 20 146/92 H 98 08/30/18 08:00 08/30/18 08:00 08/30/18 08:00 08/30/18 08:00 08/30/18 08:00 Intake and Output: 08/30/18 08/30/18 06:59 18:59 Intake Total 650 300 Balance 650 300 - Medications Medications: Current Medications Acetaminophen (Tylenol 325mg Tab) 650 mg PO Q6 PRN PRN Reason: Pain, Mild (1-3) Aspirin (Ecotrin) 81 mg PO DAILY [facility] Last Admin: 08/30/18 10:41 Dose: 81 mg Enoxaparin Sodium (Lovenox) 40 mg SC DAILY [facility] Last Admin: 08/30/18 10:41 Dose: 40 mg Vancomycin HCl 1,000 mg/ (Sodium Chloride) 250 mls @ 166.6 mls/hr IVPB Q12H [facility]; Protocol Last Admin: 08/30/18 06:35 Dose: 166.6 mls/hr Piperacillin Sod/Tazobactam (Sod 3.375 gm/ Sodium Chloride) 100 mls @ 200 mls/hr IVPB Q6H [facility]; Protocol Last Admin: 08/30/18 12:00 Dose: 200 mls/hr Insulin Human Regular (Novolin R) 0 unit SC ACHS [facility]; Protocol Last Admin: 08/30/18 11:44 Dose: 4 u Metformin HCl (Glucophage) 1,000 mg PO BID [facility] Last Admin: 08/30/18 10:40 Dose: 1,000 mg Rosuvastatin Calcium (Crestor) 10 mg PO HS [facility] Last Admin: 08/29/18 21:18 Dose: 10 mg Sitagliptin Phosphate (Januvia) 50 mg PO DAILY [facility] Last Admin: 08/30/18 10:40 Dose: 50 mg - Labs Labs: 10/09/18 16:33 08/28/18 16:33 - Constitutional Appears: Well, Non-toxic, No Acute Distress - Extremities Exam Additional comments: Lower extremity focused exam: Vasc: DP pulses palpable 2/4 b/l. PT pulses nonpalpable secondary to edema b/l. CFT < 3 sec in all digits. Temp gradient warm to warm B/L with increase in warmth noted to hallux b/l. +1 pitting edema noted to bilateral LE. Neuro: Protective sensation absent. Derm: RLE=Full thickness ulceration noted to plantar aspect of R hallux measuring 5cm X 5cm X 0.3cm. Base is 90% granular 10% necrotic with macerated rim and malodor present; erythema noted periwound; no drainage noted; no purulence; undermining present; no tracking; no probe to bone. Full thickness ulceration noted to plantar aspect of right heel - ulcer noted to have 90% granular and 10% necrotic base with macerated rim and malodor present; no erythema noted; no drainage; no purulence; no probe to bone. LLE=Full thickness ulceration noted to plantar aspect of left hallux measuring 4 x 4 x 0.3 cm - ulcer noted to have a 100% granular base with macerated rim and malodor present; erythema noted periwound; no drianage noted; no purulence; no fluctuance; no undermining; no tracking; no probe to bone. Ortho: No tenderness to palpation to wounds. Muscle strength 5/5 for all dorsiflexors, plantarflexors, inverters, and everters b/l. - Neurological Exam Neurological Exam: Alert, Awake, Oriented x3 - Psychiatric Exam Psychiatric exam: Normal Affect, Normal Mood Assessment and Plan - Assessment and Plan (Free Text) Assessment: 52M with nonhealing wounds to bilateral feet, infected Plan: Patient seen and evaluated with attending, Dr. Rollins Afebrile, ESR 38 R foot WCx: staph aureus, prelim L foot WCx: pending Bilateral foot XR: No obvious OM appreciated Bilateral LE MRI: pending Betadine, DSD applied to bilateral LE Activity: WBAT bilateral LE in surgical shoe ID consulted, f/u recs - empiric abx started Podiatry will continue to follow
[2018-08-30] MEDS ORDERED: Gadodiamide 287 mg/ml 20 ml IV ONE (14:40)
--- NOTE | 2018-08-30 18:06 | MRI ---
MRI right forefoot History: Nonhealing ulcer. Comparison: X-ray dated 08/29/2018 Technique: Multi-echo multiplanar sequences were performed through the right forefoot without the use of intravenous contrast. Findings: Soft tissue ulceration noted at the level of the 1st distal phalanx. Confluent fluid and edema at that level suggestive for underlying phlegmonous collection. Prominent signal abnormality seen within the 1st distal phalanx with decreased T1 signal and increased STIR signal consistent with an acute osteomyelitis. In addition, in correlation with the plain x-ray, there appears to be a fracture deformity seen at the lateral base of the 1st distal phalanx. Patchy signal abnormality seen at the head of the 1st proximal phalanx with some patchy decreased T1 signal and increased STIR signal which may represent some early acute and or developing acute osteomyelitic changes. Continued interval follow-up may be helpful. Moderate hallux valgus deformity. Fraying and irregularity noted at the level of the Lisfranc ligament concerning for prominent partial tearing. Clinical correlation. Extensive signal abnormality seen within the bases of the 2nd, 3rd, 4th and 5th metatarsal bones as well as the medial, middle, lateral, and cuboid bones demonstrating scattered areas of decreased T1 signal and increased STIR signal concerning for underlying neuropathic changes and/or Charcot arthropathy versus sequelae of acute infectious and or inflammatory changes versus additional etiology. Clinical correlation. Prominent reticulation and edema seen within dorsal subcutaneous soft tissues suggestive for an underlying cellulitis. Deformity of the 3rd proximal phalanx with decreased T1 signal and increased STIR signal which may be the sequelae of posttraumatic change versus sequelae of acute infectious and or inflammatory changes versus additional etiology. Clinical correlation. Impression: 1. Soft tissue ulceration noted at the level of the 1st distal phalanx. Confluent fluid and edema at that level suggestive for underlying phlegmonous collection. Prominent signal abnormality seen within the 1st distal phalanx with decreased T1 signal and increased STIR signal consistent with an acute osteomyelitis. In addition, in correlation with the plain x-ray, there appears to be a fracture deformity seen at the lateral base of the 1st distal phalanx. 2. Patchy signal abnormality seen at the head of the 1st proximal phalanx with some patchy decreased T1 signal and increased STIR signal which may represent some early acute and or developing acute osteomyelitic changes. Continued interval follow-up may be helpful. 3. Moderate hallux valgus deformity. 4. Fraying and irregularity noted at the level of the Lisfranc ligament concerning for prominent partial tearing. Clinical correlation. 5. Extensive signal abnormality seen within the bases of the 2nd, 3rd, 4th and 5th metatarsal bones as well as the medial, middle, lateral, and cuboid bones demonstrating scattered areas of decreased T1 signal and increased STIR signal concerning for underlying neuropathic changes and/or Charcot arthropathy versus sequelae of acute infectious and or inflammatory changes versus additional etiology. Clinical correlation. 6. Prominent reticulation and edema seen within dorsal subcutaneous soft tissues suggestive for an underlying cellulitis. 7. Deformity of the 3rd proximal phalanx with decreased T1 signal and increased STIR signal which may be the sequelae of posttraumatic change versus sequelae of acute infectious and or inflammatory changes versus additional etiology. Clinical correlation.
--- NOTE | 2018-08-30 19:34 | CP.PCM.PN ---
Subjective - Date & Time of Evaluation Date of Evaluation: 08/30/18 Time of Evaluation: 07:00 - Subjective Subjective: wound culture + staph await ID Vanco level low may increase Objective - Vital Signs/Intake and Output Vital Signs (last 24 hours): Temp Pulse Resp BP Pulse Ox 97.7 F 84 20 129/81 96 08/30/18 15:19 08/30/18 15:19 08/30/18 15:19 08/30/18 15:19 08/30/18 15:19 Intake and Output: 08/30/18 08/31/18 18:59 06:59 Intake Total 300 Balance 300 - Medications Medications: Current Medications Acetaminophen (Tylenol 325mg Tab) 650 mg PO Q6 PRN PRN Reason: Pain, Mild (1-3) Aspirin (Ecotrin) 81 mg PO DAILY [facility] Last Admin: 08/30/18 10:41 Dose: 81 mg Enoxaparin Sodium (Lovenox) 40 mg SC DAILY [facility] Last Admin: 08/30/18 10:41 Dose: 40 mg Vancomycin HCl 1,000 mg/ (Sodium Chloride) 250 mls @ 166.6 mls/hr IVPB Q12H [facility]; Protocol Last Admin: 08/30/18 17:34 Dose: 166.6 mls/hr Piperacillin Sod/Tazobactam (Sod 3.375 gm/ Sodium Chloride) 100 mls @ 200 mls/hr IVPB Q6H [facility]; Protocol Last Admin: 08/30/18 17:00 Dose: 200 mls/hr Insulin Human Regular (Novolin R) 0 unit SC ACHS [facility]; Protocol Last Admin: 08/30/18 17:00 Dose: 2 u Metformin HCl (Glucophage) 1,000 mg PO BID [facility] Last Admin: 08/30/18 17:35 Dose: 1,000 mg Rosuvastatin Calcium (Crestor) 10 mg PO HS [facility] Last Admin: 08/29/18 21:18 Dose: 10 mg Sitagliptin Phosphate (Januvia) 50 mg PO DAILY [facility] Last Admin: 08/30/18 10:40 Dose: 50 mg - Labs Labs: 08/28/18 16:33 08/28/18 16:33 - Constitutional Appears: Non-toxic, Chronically Ill - Head Exam Head Exam: NORMOCEPHALIC - Eye Exam Eye Exam: PERRL - ENT Exam ENT Exam: Mucous Membranes Dry - Neck Exam Neck Exam: absent: Lymphadenopathy - Respiratory Exam Respiratory Exam: Decreased Breath Sounds - Cardiovascular Exam Cardiovascular Exam: REGULAR RHYTHM - GI/Abdominal Exam GI & Abdominal Exam: Distended - Skin Additional comments: Lower extremity exam: Vasc: DP pulses palpable 2/4 b/l. PT pulses nonpalpable secondary to edema b/l. CFT < 3 sec in all digits. Temp gradient warm to warm B/L with increase in warmth noted to hallux b/l. +1 pitting edema noted to bilateral LE. Neuro: Protective sensation absent. Derm: RLE=Full thickness ulceration noted to plantar aspect of R hallux measuring 5cm X 5cm X 0.3cm. Base is 90% granular 10% necrotic with macerated rim and malodor present; erythema noted periwound; no drainage noted; no purulence; undermining present; no tracking; no probe to bone. Full thickness ulceration noted to plantar aspect of right heel - ulcer noted to have 90% granular and 10% necrotic base with macerated rim and malodor present; no erythema noted; no drainage; no purulence; no probe to bone. LLE=Full thickness ulceration noted to plantar aspect of left hallux measuring 4 x 4 x 0.3 cm - ulcer noted to have a 100% granular base with macerated rim and malodor present; erythema noted periwound; no drianage noted; no purulence; no fluctuance; no undermining; no tracking; no probe to bone. Ortho: No tenderness to palpation to wounds. Muscle strength 5/5 for all dorsiflexors, plantarflexors, inverters, and everters b/l. Assessment and Plan (1) Cellulitis Status: Acute (2) Osteomyelitis Status: Acute (3) Diabetes mellitus Status: Chronic (4) Obesity Status: Chronic - Assessment and Plan (Free Text) Assessment: cont iv rx
--- NOTE | 2018-08-30 22:56 | CP.PCM.PN ---
Subjective - Date & Time of Evaluation Date of Evaluation: 08/30/18 Time of Evaluation: 08:33 - Subjective Subjective: dictated Objective - Vital Signs/Intake and Output Vital Signs (last 24 hours): Temp Pulse Resp BP Pulse Ox 97.7 F 84 20 129/81 96 08/30/18 15:19 08/30/18 15:19 08/30/18 15:19 08/30/18 15:19 08/30/18 15:19 Intake and Output: 08/30/18 08/31/18 18:59 06:59 Intake Total 300 600 Balance 300 600 - Medications Medications: Current Medications Acetaminophen (Tylenol 325mg Tab) 650 mg PO Q6 PRN PRN Reason: Pain, Mild (1-3) Aspirin (Ecotrin) 81 mg PO DAILY [facility] Last Admin: 08/30/18 10:41 Dose: 81 mg Enoxaparin Sodium (Lovenox) 40 mg SC DAILY [facility] Last Admin: 08/30/18 10:41 Dose: 40 mg Vancomycin HCl 1,000 mg/ (Sodium Chloride) 250 mls @ 166.6 mls/hr IVPB Q12H [facility]; Protocol Last Admin: 08/30/18 17:34 Dose: 166.6 mls/hr Piperacillin Sod/Tazobactam (Sod 3.375 gm/ Sodium Chloride) 100 mls @ 200 mls/hr IVPB Q6H [facility]; Protocol Last Admin: 08/30/18 17:00 Dose: 200 mls/hr Insulin Human Regular (Novolin R) 0 unit SC ACHS [facility]; Protocol Last Admin: 08/30/18 21:33 Dose: Not Given Metformin HCl (Glucophage) 1,000 mg PO BID [facility] Last Admin: 08/30/18 17:35 Dose: 1,000 mg Rosuvastatin Calcium (Crestor) 10 mg PO HS [facility] Last Admin: 08/30/18 21:50 Dose: 10 mg Sitagliptin Phosphate (Januvia) 50 mg PO DAILY [facility] Last Admin: 08/30/18 10:40 Dose: 50 mg - Labs Labs: 08/28/18 16:33 08/28/18 16:33
[2018-08-31] MEDS: Piperacillin/Tazobact 3.375 GM in Sodium Chloride 100 ML IVPB SCH ×4 (05:10→23:45)
[2018-08-31 07:01] LABS: BLOOD UREA NITROGEN 12 mg/dL (9-20); CALCIUM 9.7 mg/dl (8.6-10.4); GFR NON-AFRICAN AMERICAN > 60
[2018-08-31] MEDS: (Novolin R) Insulin Human Regular 100 units/ml vial SC SCH ×4 (08:22→21:26)
--- NOTE | 2018-08-31 09:09 | PN ---
DATE: 08/30/2018 SUBJECTIVE: Gee Jo was seen by Infectious Disease. The patient is afebrile. The patient is on antibiotics. Blood sugar is poorly controlled. No nausea or vomiting. No chest pain. PHYSICAL EXAMINATION: VITAL SIGNS: Blood pressure 129/81, pulse 84, respiratory rate 20, temperature 97.7. LUNGS: Clear. No rales, no rhonchi. CVS: S1, S2 regular. ABDOMEN: Soft. EXTREMITIES: Bilateral foot ulcers. ASSESSMENT: 1. Osteomyelitis of bilateral feet. 2. Type 2 diabetes, poorly controlled. 3. Hyperlipidemia. PLAN: Antibiotics. Infectious Disease followup. Podiatry evaluation. Monitor the patient. Rafael Bowens MD
[2018-08-31] MEDS: Enoxaparin 40 mg Syringe SC SCH (09:59)
--- NOTE | 2018-08-31 11:53 | CP.PCM.PN ---
Subjective - Date & Time of Evaluation Date of Evaluation: 08/31/18 Time of Evaluation: 11:53 - Subjective Subjective: Podiatry - Dr. Rollins 52M seen and evaluated this AM for bilateral LE ulcerations. Patient resting comfortably, hemodynamically stable and NAD. No acute events overnight. No new pedal complaints today, ambulating in surgical shoe w/o issues. Dressing to bilateral LE clean/dry/intact. RLE MRI obtained yesterday, for LLE MRI today. Denies n/v/f/d/c/sob/elliott/cp. Objective - Vital Signs/Intake and Output Vital Signs (last 24 hours): Temp Pulse Resp BP Pulse Ox 97.7 F 85 20 132/90 95 08/31/18 00:00 08/31/18 00:00 08/31/18 00:00 08/31/18 00:00 08/31/18 00:00 Intake and Output: 08/31/18 08/31/18 06:59 18:59 Intake Total 600 Balance 600 - Medications Medications: Current Medications Acetaminophen (Tylenol 325mg Tab) 650 mg PO Q6 PRN PRN Reason: Pain, Mild (1-3) Aspirin (Ecotrin) 81 mg PO DAILY [facility] Last Admin: 08/31/18 09:59 Dose: 81 mg Enoxaparin Sodium (Lovenox) 40 mg SC DAILY [facility] Last Admin: 08/31/18 09:59 Dose: 40 mg Vancomycin HCl 1,000 mg/ (Sodium Chloride) 250 mls @ 166.6 mls/hr IVPB Q12H [facility]; Protocol Last Admin: 08/31/18 05:50 Dose: 166.6 mls/hr Piperacillin Sod/Tazobactam (Sod 3.375 gm/ Sodium Chloride) 100 mls @ 200 mls/hr IVPB Q6H [facility]; Protocol Last Admin: 08/31/18 11:25 Dose: 200 mls/hr Insulin Human Regular (Novolin R) 0 unit SC ACHS [facility]; Protocol Last Admin: 08/31/18 08:22 Dose: 2 u Metformin HCl (Glucophage) 1,000 mg PO BID [facility] Last Admin: 08/31/18 09:59 Dose: 1,000 mg Rosuvastatin Calcium (Crestor) 10 mg PO HS [facility] Last Admin: 08/30/18 21:50 Dose: 10 mg Sitagliptin Phosphate (Januvia) 50 mg PO DAILY [facility] Last Admin: 08/31/18 09:59 Dose: 50 mg - Labs Labs: 08/28/18 16:33 08/31/18 06:41 - Constitutional Appears: Well, Non-toxic, No Acute Distress - Extremities Exam Additional comments: Lower extremity focused exam: Vasc: DP pulses palpable 2/4 b/l. PT pulses nonpalpable secondary to edema b/l. CFT < 3 sec in all digits. Temp gradient warm to warm B/L with increase in warmth noted to hallux b/l. +1 pitting edema noted to bilateral LE. Neuro: Protective sensation absent. Derm: RLE=Full thickness ulceration noted to plantar aspect of R hallux measuring 5cm X 5cm X 0.3cm. Base is 90% granular 10% necrotic with macerated rim and malodor present; erythema noted periwound; no drainage noted; no purulence; undermining present; no tracking; no probe to bone. Full thickness ulceration noted to plantar aspect of right heel - ulcer noted to have 90% granular and 10% necrotic base with macerated rim and malodor present; no erythema noted; no drainage; no purulence; no probe to bone. LLE=Full thickness ulceration noted to plantar aspect of left hallux measuring 4 x 4 x 0.3 cm - ulcer noted to have a 100% granular base with macerated rim and malodor present; erythema noted periwound; no drianage noted; no purulence; no fluctuance; no undermining; no tracking; no probe to bone. Ortho: No tenderness to palpation to wounds. Muscle strength 5/5 for all dorsiflexors, plantarflexors, inverters, and everters b/l. - Neurological Exam Neurological Exam: Alert, Awake, Oriented x3 - Psychiatric Exam Psychiatric exam: Normal Affect, Normal Mood Assessment and Plan - Assessment and Plan (Free Text) Assessment: 52M with nonhealing wounds to bilateral feet, infected Plan: Patient seen and evaluated Discussed with attending, Dr. Rollins Afebrile, ESR 38 R foot WCx: MRSA, corynebacterium species L foot WCx: MRSA, corynebacterium species Bilateral foot XR: No obvious OM appreciated RLE MRI: ST ulcer 1st distal phalanx, acute OM 1st distal phalanx LLE MRI report pending Continue local wound care: Betadine, DSD bilateral LE Activity: WBAT bilateral LE in surgical shoe Continue abx per ID - Vancomycin, Zosyn Podiatry will continue to follow
[2018-08-31] MEDS ORDERED: Gadodiamide 287 mg/ml 20 ml IV ONE (16:48)
--- NOTE | 2018-08-31 18:12 | MRI ---
Date of service: 08/31/2018 PROCEDURE: MRI of the left foot with and without contrast HISTORY: nonhealing wound hallux r/o OM COMPARISON: Comparison is made to the previous study dated 12/04/2017 TECHNIQUE: Axial coronal and sagittal MRI images of the left foot were obtained before and after IV contrast administration. Coronal T1 and STIR sagittal T1 with and without fat saturation axial PD with fat saturation, coronal T1 with fat saturation sagittal STIR, axial T2, axial T1 with fat saturation, coronal sagittal and axial T1 fat saturation post contrast images were obtained. FINDINGS: Again noted is mild the patchy signal abnormality within distal phalanx of the 1st digit with increased STIR signal and some minimal patchy decreased T1 signal. However there is no evidence of cortical erosion or significant enhancement in the osseous structure to suggest active osteomyelitis. These findings have not significantly changed since the previous exam. There is adjacent soft tissue edema and subcutaneous increased enhancement noted at plantar aspect of 1st distal phalanx without evidence of abscess formation. There is mild subcutaneous edema also noted at the volar aspect of the mid to distal left foot. The rest of the visualized osseous structure demonstrate normal bone marrow signal. Again noted are mild to moderate degenerative changes more prominent at the 2nd metatarsal base and corresponding cuneiform bone Hallux valgus deformity is again noted. IMPRESSION: Stable mild bone marrow edema in the distal phalanx of the 1st toe. No evidence of acute osteomyelitis. Soft tissue inflammatory changes and edema noted in the 1st toe adjacent to the distal phalanx without evidence of drainable or discrete abscess formation.
--- NOTE | 2018-08-31 18:27 | CP.PCM.PN ---
Subjective - Date & Time of Evaluation Date of Evaluation: 08/31/18 Time of Evaluation: 08:00 - Subjective Subjective: MRI noted iv rx renewed has OM podiatry on board may need OR debridement cont IV rx and wound care for 6-8 weeks Objective - Vital Signs/Intake and Output Vital Signs (last 24 hours): Temp Pulse Resp BP Pulse Ox 97.8 F 90 20 143/83 97 08/31/18 16:47 08/31/18 16:47 08/31/18 16:47 08/31/18 16:47 08/31/18 16:47 Intake and Output: 08/31/18 08/31/18 06:59 18:59 Intake Total 600 700 Balance 600 700 - Medications Medications: Current Medications Acetaminophen (Tylenol 325mg Tab) 650 mg PO Q6 PRN PRN Reason: Pain, Mild (1-3) Aspirin (Ecotrin) 81 mg PO DAILY [facility] Last Admin: 08/31/18 09:59 Dose: 81 mg Enoxaparin Sodium (Lovenox) 40 mg SC DAILY [facility] Last Admin: 08/31/18 09:59 Dose: 40 mg Piperacillin Sod/Tazobactam (Sod 3.375 gm/ Sodium Chloride) 100 mls @ 200 mls/hr IVPB Q6H [facility]; Protocol Last Admin: 08/31/18 17:17 Dose: 200 mls/hr Vancomycin HCl 1.25 gm/ Sodium (Chloride) 250 mls @ 166.7 mls/hr IVPB Q24H [facility]; Protocol Last Admin: 08/31/18 18:23 Dose: 166.7 mls/hr Insulin Human Regular (Novolin R) 0 unit SC ACHS [facility]; Protocol Last Admin: 08/31/18 17:17 Dose: 2 u Metformin HCl (Glucophage) 1,000 mg PO BID [facility] Last Admin: 08/31/18 17:17 Dose: 1,000 mg Rosuvastatin Calcium (Crestor) 10 mg PO HS [facility] Last Admin: 08/30/18 21:50 Dose: 10 mg Sitagliptin Phosphate (Januvia) 50 mg PO DAILY [facility] Last Admin: 08/31/18 09:59 Dose: 50 mg - Labs Labs: 08/28/18 16:33 08/31/18 06:41 - Constitutional Appears: Non-toxic, Chronically Ill - Head Exam Head Exam: NORMOCEPHALIC - Eye Exam Eye Exam: absent: Scleral icterus - ENT Exam ENT Exam: Mucous Membranes Dry - Neck Exam Neck Exam: absent: Lymphadenopathy - Respiratory Exam Respiratory Exam: Decreased Breath Sounds - Cardiovascular Exam Cardiovascular Exam: REGULAR RHYTHM - GI/Abdominal Exam GI & Abdominal Exam: Distended - Rectal Exam Rectal Exam: Deferred - Extremities Exam Extremities Exam: Pedal Edema, Tenderness. absent: Normal Capillary Refill - Back Exam Back Exam: absent: CVA tenderness (L), CVA tenderness (R) - Neurological Exam Neurological Exam: Alert, Awake, Oriented x3 - Psychiatric Exam Psychiatric exam: Depressed Assessment and Plan (1) Cellulitis Status: Acute (2) Osteomyelitis Status: Acute (3) Diabetes mellitus Status: Chronic (4) Obesity Status: Chronic - Assessment and Plan (Free Text) Assessment: MRI noted consider Vascular eval iv rx renewed has OM podiatry on board may need OR debridement cont IV rx and wound care for 6-8 weeks
[2018-08-31] MEDS ORDERED: Vancomycin 1 gm/NS 200 ml 1 GM/200 ML BAG IVPB SCH (18:30)
--- NOTE | 2018-08-31 23:23 | CP.PCM.PN ---
Subjective - Date & Time of Evaluation Date of Evaluation: 08/31/18 Time of Evaluation: 08:38 - Subjective Subjective: dictate Objective - Vital Signs/Intake and Output Vital Signs (last 24 hours): Temp Pulse Resp BP Pulse Ox 97.8 F 90 20 143/83 97 08/31/18 16:47 08/31/18 16:47 08/31/18 16:47 08/31/18 16:47 08/31/18 16:47 Intake and Output: 08/31/18 09/01/18 18:59 06:59 Intake Total 700 Balance 700 - Medications Medications: Current Medications Acetaminophen (Tylenol 325mg Tab) 650 mg PO Q6 PRN PRN Reason: Pain, Mild (1-3) Aspirin (Ecotrin) 81 mg PO DAILY [facility] Last Admin: 08/31/18 09:59 Dose: 81 mg Enoxaparin Sodium (Lovenox) 40 mg SC DAILY [facility] Last Admin: 08/31/18 09:59 Dose: 40 mg Piperacillin Sod/Tazobactam (Sod 3.375 gm/ Sodium Chloride) 100 mls @ 200 ml s/hr IVPB Q6H [facility]; Protocol Last Admin: 08/31/18 17:17 Dose: 200 mls/hr Vancomycin/Sodium Chloride (Vancomycin 1 Gm/Ns 200 Ml) 1 gm in 200 mls @ 133.333 mls/hr IVPB Q12H [facility]; Protocol Stop: 09/06/18 06:31 Insulin Human Regular (Novolin R) 0 unit SC ACHS [facility]; Protocol Last Admin: 08/31/18 21:26 Dose: Not Given Metformin HCl (Glucophage) 1,000 mg PO BID [facility] Last Admin: 08/31/18 17:17 Dose: 1,000 mg Rosuvastatin Calcium (Crestor) 10 mg PO HS [facility] Last Admin: 08/31/18 21:26 Dose: 10 mg Sitagliptin Phosphate (Januvia) 50 mg PO DAILY [facility] Last Admin: 08/31/18 09:59 Dose: 50 mg - Labs Labs: 08/28/18 16:33 08/31/18 06:41
[2018-09-01] MEDS: Piperacillin/Tazobact 3.375 GM in Sodium Chloride 100 ML IVPB SCH ×3 (05:25→17:09)
[2018-09-01] MEDS: Vancomycin 1 gm/NS 200 ml 1 GM/200 ML BAG IVPB SCH ×2 (06:27→18:09)
[2018-09-01] MEDS: (Novolin R) Insulin Human Regular 100 units/ml vial SC SCH ×4 (08:30→21:42)
[2018-09-01] MEDS: Enoxaparin 40 mg Syringe SC SCH (10:20)
--- NOTE | 2018-09-01 10:35 | CP.PCM.PN ---
<Arsen Rollins - Last Filed: 09/01/18 10:31> Subjective - Date & Time of Evaluation Date of Evaluation: 09/01/18 Time of Evaluation: 10:32 - Subjective Subjective: patient seen at bedside for non healing diabetic wounds with underlying osteomyelitis of hallux right . Patient has long history of foot wound complications with continued disregard of wound care and diabetic care protocols with warnings of dangers of loss of part of foot or legs . Objective - Vital Signs/Intake and Output Vital Signs (last 24 hours): Temp Pulse Resp BP Pulse Ox 97.7 F 75 20 128/83 96 09/01/18 07:51 09/01/18 07:51 09/01/18 07:51 09/01/18 07:51 09/01/18 07:51 Intake and Output: 09/01/18 09/01/18 06:59 18:59 Intake Total 600 Balance 600 - Medications Medications: Current Medications Acetaminophen (Tylenol 325mg Tab) 650 mg PO Q6 PRN PRN Reason: Pain, Mild (1-3) Aspirin (Ecotrin) 81 mg PO DAILY [facility] Last Admin: 09/01/18 10:20 Dose: 81 mg Enoxaparin Sodium (Lovenox) 40 mg SC DAILY [facility] Last Admin: 09/01/18 10:20 Dose: 40 mg Piperacillin Sod/Tazobactam (Sod 3.375 gm/ Sodium Chloride) 100 mls @ 200 mls/hr IVPB Q6H [facility]; Protocol Last Admin: 09/01/18 05:25 Dose: 200 mls/hr Vancomycin/Sodium Chloride (Vancomycin 1 Gm/Ns 200 Ml) 1 gm in 200 mls @ 133.33 3 mls/hr IVPB Q12H [facility]; Protocol Stop: 09/06/18 06:31 Last Admin: 09/01/18 06:27 Dose: 133.333 mls/hr Insulin Human Regular (Novolin R) 0 unit SC ACHS [facility]; Protocol Last Admin: 09/01/18 08:30 Dose: 2 u Metformin HCl (Glucophage) 1,000 mg PO BID [facility] Last Admin: 09/01/18 10:20 Dose: 1,000 mg Rosuvastatin Calcium (Crestor) 10 mg PO HS [facility] Last Admin: 08/31/18 21:26 Dose: 10 mg Sitagliptin Phosphate (Januvia) 50 mg PO DAILY [facility] Last Admin: 09/01/18 10:20 Dose: 50 mg - Labs Labs: 08/28/18 16:33 08/31/18 06:41 Assessment and Plan - Assessment and Plan (Free Text) Plan: Given options of partial /total amputation of hallux right which is most definitive or attempt partial ostectomy with additional Iv antibiotics x 6 wks . Instructed patient amputation (total ) is most definitve as he has been to sub acute 3 times for extended antibiotics for various foot complications . Pt declines amputation does consent to partial ostectomy with antibiotic therapy ..Also discussed hallux limitus correction left with associated ulcer left hallux with multiple infections at this site . Will correct Hallux limitus left also . <Wilbur Jean - Last Filed: 09/01/18 14:58> Subjective - Subjective Subjective: Podiatry progress note for Dr. Rollins: 52M seen and evaluated at bedside with Dr. Rollins for bilateral LE ulcerations. Patient resting comfortably, hemodynamically stable and NAD. No acute events overnight. Dressing to bilateral LE clean/dry/intact. Denies n/v/f/d/c/sob/elliott/cp. Objective - Vital Signs/Intake and Output Vital Signs (last 24 hours): Temp Pulse Resp BP Pulse Ox 97.7 F 75 20 128/83 96 09/01/18 07:51 09/01/18 07:51 09/01/18 07:51 09/01/18 07:51 09/01/18 07:51 Intake and Output: 09/01/18 09/01/18 06:59 18:59 Intake Total 1300 Balance 1300 - Medications Medications: Current Medications Acetaminophen (Tylenol 325mg Tab) 650 mg PO Q6 PRN PRN Reason: Pain, Mild (1-3) Aspirin (Ecotrin) 81 mg PO DAILY [facility] Last Admin: 09/01/18 10:20 Dose: 81 mg Enoxaparin Sodium (Lovenox) 40 mg SC DAILY [facility] Last Admin: 09/01/18 10:20 Dose: 40 mg Piperacillin Sod/Tazobactam (Sod 3.375 gm/ Sodium Chloride) 100 mls @ 200 mls/hr IVPB Q6H [facility]; Protocol Last Admin: 09/01/18 12:41 Dose: 200 mls/hr Vancomycin/Sodium Chloride (Vancomycin 1 Gm/Ns 200 Ml) 1 gm in 200 mls @ 133.333 mls/hr IVPB Q12H [facility]; Protocol Stop: 09/06/18 06:31 Last Admin: 09/01/18 06:27 Dose: 133.333 mls/hr Insulin Human Regular (Novolin R) 0 unit SC ACHS [facility]; Protocol Last Admin: 09/01/18 12:30 Dose: 6 u Metformin HCl (Glucophage) 1,000 mg PO BID [facility] Last Admin: 09/01/18 10:20 Dose: 1,000 mg Rosuvastatin Calcium (Crestor) 10 mg PO HS [facility] Last Admin: 08/31/18 21:26 Dose: 10 mg Sitagliptin Phosphate (Januvia) 50 mg PO DAILY [facility] Last Admin: 09/01/18 10:20 Dose: 50 mg - Labs Labs: 08/28/18 16:33 08/31/18 06:41 - Constitutional Appears: Well, Non-toxic, No Acute Distress - Head Exam Head Exam: ATRAUMATIC, NORMOCEPHALIC - Extremities Exam Additional comments: Lower extremity focused exam: Vasc: DP pulses palpable 2/4 b/l. PT pulses nonpalpable secondary to edema b/l. CFT < 3 sec in all digits. Temp gradient warm to warm B/L with increase in warmth noted to hallux b/l. +1 pitting edema noted to bilateral LE. Neuro: Protective sensation absent. Derm: RLE=Full thickness ulceration noted to plantar aspect of R hallux measuring 5cm X 5cm X 0.3cm. Base is 90% granular 10% necrotic with macerated rim and malodor present; erythema noted periwound; no drainage noted; no purulence; undermining present; no tracking; no probe to bone. Full thickness ulceration noted to plantar aspect of right heel - ulcer noted to have 90% granular and 10% necrotic base with macerated rim and malodor present; no erythema noted; no drainage; no purulence; no probe to bone. LLE=Full thickness ulceration noted to plantar aspect of left hallux measuring 4 x 4 x 0.3 cm - ulcer noted to have a 100% granular base with macerated rim and malodor present; erythema noted periwound; no drianage noted; no purulence; no fluctuance; no undermining; no tracking; no probe to bone. Ortho: No tenderness to palpation to wounds. Muscle strength 5/5 for all dorsiflexors, plantarflexors, inverters, and everters b/l. - Neurological Exam Neurological Exam: Alert, Awake, Oriented x3 - Psychiatric Exam Psychiatric exam: Normal Affect, Normal Mood Assessment and Plan - Assessment and Plan (Free Text) Assessment: 52M with nonhealing wounds to bilateral feet, infected Plan: Patient seen and evaluated with attending Dr. Rollins Afebrile, ESR 38 R foot WCx: MRSA, corynebacterium species L foot WCx: MRSA, corynebacterium species Bilateral foot XR: No obvious OM appreciated RLE MRI: ST ulcer 1st distal phalanx, acute OM 1st distal phalanx LLE MRI: ST inflammatory changes 1st toe adjacent to distal phalanx, w/o evidence of abscess formation, no evidence of acute OM Continue local wound care: Betadine, DSD bilateral LE Activity: WBAT bilateral LE in surgical shoe Continue abx per ID - Vancomycin, Zosyn Podiatry will continue to follow
--- NOTE | 2018-09-01 20:08 | CP.PCM.PN ---
Subjective - Date & Time of Evaluation Date of Evaluation: 09/01/18 Time of Evaluation: 08:39 - Subjective Subjective: dictated Objective - Vital Signs/Intake and Output Vital Signs (last 24 hours): Temp Pulse Resp BP Pulse Ox 97.5 F L 84 20 127/80 96 09/01/18 15:00 09/01/18 15:00 09/01/18 15:00 09/01/18 15:00 09/01/18 15:00 Intake and Output: 09/01/18 09/02/18 18:59 06:59 Intake Total 1300 Balance 1300 - Medications Medications: Current Medications Acetaminophen (Tylenol 325mg Tab) 650 mg PO Q6 PRN PRN Reason: Pain, Mild (1-3) Aspirin (Ecotrin) 81 mg PO DAILY [facility] Last Admin: 09/01/18 10:20 Dose: 81 mg Enoxaparin Sodium (Lovenox) 40 mg SC DAILY [facility] Last Admin: 09/01/18 10:20 Dose: 40 mg Piperacillin Sod/Tazobactam (Sod 3.375 gm/ Sodium Chloride) 100 mls @ 200 mls/hr IVPB Q6H [facility]; Protocol Last Admin: 09/01/18 17:09 Dose: 200 mls/hr Vancomycin/Sodium Chloride (Vancomycin 1 Gm/Ns 200 Ml) 1 gm in 200 mls @ 133.333 mls/hr IVPB Q12H [facility]; Protocol Stop: 09/06/18 06:31 Last Admin: 09/01/18 18:09 Dose: 133.333 mls/hr Insulin Human Regular (Novolin R) 0 unit SC ACHS [facility]; Protocol Last Admin: 09/01/18 17:09 Dose: 3 u Metformin HCl (Glucophage) 1,000 mg PO BID [facility] Last Admin: 09/01/18 17:09 Dose: 1,000 mg Rosuvastatin Calcium (Crestor) 10 mg PO HS [facility] Last Admin: 08/31/18 21:26 Dose: 10 mg Sitagliptin Phosphate (Januvia) 50 mg PO DAILY [facility] Last Admin: 09/01/18 10:20 Dose: 50 mg - Labs Labs: 08/28/18 16:33 08/31/18 06:41
[2018-09-02] MEDS: Piperacillin/Tazobact 3.375 GM in Sodium Chloride 100 ML IVPB SCH ×4 (00:41→17:30)
[2018-09-02] MEDS: Vancomycin 1 gm/NS 200 ml 1 GM/200 ML BAG IVPB SCH ×2 (07:08→18:04)
[2018-09-02 07:47] LABS: BLOOD UREA NITROGEN 11 mg/dL (9-20); GFR NON-AFRICAN AMERICAN > 60
[2018-09-02] MEDS: (Novolin R) Insulin Human Regular 100 units/ml vial SC SCH ×4 (08:30→21:30)
[2018-09-02] MEDS: Enoxaparin 40 mg Syringe SC SCH (10:42)
--- NOTE | 2018-09-02 15:34 | CP.PCM.PN ---
Subjective - Date & Time of Evaluation Date of Evaluation: 09/02/18 Time of Evaluation: 08:00 - Subjective Subjective: iv rx in progress Objective - Vital Signs/Intake and Output Vital Signs (last 24 hours): Temp Pulse Resp BP Pulse Ox 97.5 F L 76 20 131/74 95 09/02/18 08:00 09/02/18 08:00 09/02/18 08:00 09/02/18 08:00 09/02/18 08:00 Intake and Output: 09/02/18 09/02/18 06:59 18:59 Intake Total 850 620 Balance 850 620 - Medications Medications: Current Medications Acetaminophen (Tylenol 325mg Tab) 650 mg PO Q6 PRN PRN Reason: Pain, Mild (1-3) Aspirin (Ecotrin) 81 mg PO DAILY [facility] Last Admin: 09/02/18 10:42 Dose: 81 mg Enoxaparin Sodium (Lovenox) 40 mg SC DAILY [facility] Last Admin: 09/02/18 10:42 Dose: 40 mg Piperacillin Sod/Tazobactam (Sod 3.375 gm/ Sodium Chloride) 100 mls @ 200 mls/hr IVPB Q6H [facility]; Protocol Last Admin: 09/02/18 12:52 Dose: 200 mls/hr Vancomycin/Sodium Chloride (Vancomycin 1 Gm/Ns 200 Ml) 1 gm in 200 mls @ 133.333 mls/hr IVPB Q12H [facility]; Protocol Stop: 09/06/18 06:31 Last Admin: 09/02/18 07:08 Dose: 133.333 mls/hr Insulin Human Regular (Novolin R) 0 unit SC ACHS [facility]; Protocol Last Admin: 09/02/18 12:30 Dose: 6 u Metformin HCl (Glucophage) 1,000 mg PO BID [facility] Last Admin: 09/02/18 10:42 Dose: 1,000 mg Rosuvastatin Calcium (Crestor) 10 mg PO HS [facility] Last Admin: 09/01/18 21:42 Dose: 10 mg Sitagliptin Phosphate (Januvia) 50 mg PO DAILY [facility] Last Admin: 09/02/18 10:42 Dose: 50 mg - Labs Labs: 08/28/18 16:33 09/02/18 07:21 - Constitutional Appears: Non-toxic, Chronically Ill - Head Exam Head Exam: NORMOCEPHALIC - Eye Exam Eye Exam: PERRL - ENT Exam ENT Exam: Mucous Membranes Dry - Neck Exam Neck Exam: absent: Lymphadenopathy - Respiratory Exam Respiratory Exam: Decreased Breath Sounds - Cardiovascular Exam Cardiovascular Exam: REGULAR RHYTHM - GI/Abdominal Exam GI & Abdominal Exam: Distended - Rectal Exam Rectal Exam: Deferred Assessment and Plan (1) Cellulitis Status: Acute (2) Osteomyelitis Status: Acute (3) Diabetes mellitus Status: Chronic (4) Obesity Status: Chronic
[2018-09-02] MEDS ORDERED: Vancomycin 1 gm/NS 200 ml 1 GM/200 ML BAG IVPB SCH (15:45)
--- NOTE | 2018-09-02 15:51 | CP.PCM.PN ---
<Wilbur Jean - Last Filed: 09/02/18 15:49> Subjective - Date & Time of Evaluation Date of Evaluation: 09/02/18 Time of Evaluation: 15:49 - Subjective Subjective: Progress note for Dr. Rollins: patient seen at bedside for non healing diabetic wounds with underlying osteomyelitis of hallux right . Patient has long history of foot wound complications with continued disregard of wound care and diabetic care protocols with warnings of dangers of loss of part of foot or legs. No acute complaints or events overnight. Objective - Vital Signs/Intake and Output Vital Signs (last 24 hours): Temp Pulse Resp BP Pulse Ox 97.5 F L 76 20 131/74 95 09/02/18 08:00 09/02/18 08:00 09/02/18 08:00 09/02/18 08:00 09/02/18 08:00 Intake and Output: 09/02/18 09/02/18 06:59 18:59 Intake Total 850 620 Balance 850 620 - Medications Medications: Current Medications Acetaminophen (Tylenol 325mg Tab) 650 mg PO Q6 PRN PRN Reason: Pain, Mild (1-3) Aspirin (Ecotrin) 81 mg PO DAILY [facility] Last Admin: 09/02/18 10:42 Dose: 81 mg Enoxaparin Sodium (Lovenox) 40 mg SC DAILY [facility] Last Admin: 09/02/18 10:42 Dose: 40 mg Piperacillin Sod/Tazobactam (Sod 3.375 gm/ Sodium Chloride) 100 mls @ 200 mls/hr IVPB Q6H [facility]; Protocol Last Admin: 09/02/18 12:52 Dose: 200 mls/hr Vancomycin/Sodium Chloride (Vancomycin 1 Gm/Ns 200 Ml) 1 gm in 200 mls @ 133.333 mls/hr IVPB Q8H [facility]; Protocol Stop: 09/07/18 15:46 Insulin Human Regular (Novolin R) 0 unit SC ACHS [facility]; Protocol Last Admin: 09/02/18 12:30 Dose: 6 u Metformin HCl (Glucophage) 1,000 mg PO BID [facility] Last Admin: 09/02/18 10:42 Dose: 1,000 mg Rosuvastatin Calcium (Crestor) 10 mg PO HS [facility] Last Admin: 09/01/18 21:42 Dose: 10 mg Sitagliptin Phosphate (Januvia) 50 mg PO DAILY [facility] Last Admin: 09/02/18 10:42 Dose: 50 mg - Labs Labs: 08/28/18 16:33 09/02/18 07:21 - Constitutional Appears: Well, Non-toxic, No Acute Distress - Head Exam Head Exam: ATRAUMATIC, NORMOCEPHALIC - Extremities Exam Additional comments: Lower extremity focused exam: Vasc: DP pulses palpable 2/4 b/l. PT pulses nonpalpable secondary to edema b/l. CFT < 3 sec in all digits. Temp gradient warm to warm B/L with increase in warmth noted to hallux b/l. +1 pitting edema noted to bilateral LE. Neuro: Protective sensation absent. Derm: RLE=Full thickness ulceration noted to plantar aspect of R hallux measuring 5cm X 5cm X 0.3cm. Base is 90% granular 10% necrotic with macerated rim and malodor present; erythema noted periwound; no drainage noted; no purulence; undermining present; no tracking; no probe to bone. Full thickness ulceration noted to plantar aspect of right heel - ulcer noted to have 90% granular and 10% necrotic base with macerated rim and malodor present; no erythema noted; no drainage; no purulence; no probe to bone. LLE=Full thickness ulceration noted to plantar aspect of left hallux measuring 4 x 4 x 0.3 cm - ulcer noted to have a 100% granular base with macerated rim and malodor present; erythema noted periwound; no drianage noted; no purulence; no fluctuance; no undermining; no tracking; no probe to bone. Ortho: No tenderness to palpation to wounds. Muscle strength 5/5 for all dorsiflexors, plantarflexors, inverters, and everters b/l. - Neurological Exam Neurological Exam: Alert, Awake, Oriented x3 - Psychiatric Exam Psychiatric exam: Normal Affect, Normal Mood Assessment and Plan - Assessment and Plan (Free Text) Assessment: 52M with nonhealing wounds to bilateral feet, infected Plan: Patient seen and evaluated Discussed in detail with attending Dr. Rollins Afebrile, ESR 38 R foot WCx: MRSA, corynebacterium species L foot WCx: MRSA, corynebacterium species Bilateral foot XR: No obvious OM appreciated RLE MRI: ST ulcer 1st distal phalanx, acute OM 1st distal phalanx LLE MRI: ST inflammatory changes 1st toe adjacent to distal phalanx, w/o evidence of abscess formation, no evidence of acute OM Continue local wound care: Betadine, DSD bilateral LE Activity: WBAT bilateral LE in surgical shoe Continue abx per ID - Vancomycin, Zosyn Podiatry will continue to follow <Arsen Rollins - Last Filed: 09/02/18 17:35> Objective - Vital Signs/Intake and Output Vital Signs (last 24 hours): Temp Pulse Resp BP Pulse Ox 97.7 F 86 20 114/75 94 L 09/02/18 16:56 09/02/18 16:56 09/02/18 16:56 09/02/18 16:56 09/02/18 16:56 Intake and Output: 09/02/18 09/02/18 06:59 18:59 Intake Total 850 1320 Balance 850 1320 - Medications Medications: Current Medications Acetaminophen (Tylenol 325mg Tab) 650 mg PO Q6 PRN PRN Reason: Pain, Mild (1-3) Aspirin (Ecotrin) 81 mg PO DAILY [facility] Last Admin: 09/02/18 10:42 Dose: 81 mg Enoxaparin Sodium (Lovenox) 40 mg SC DAILY [facility] Last Admin: 09/02/18 10:42 Dose: 40 mg Piperacillin Sod/Tazobactam (Sod 3.375 gm/ Sodium Chloride) 100 mls @ 200 mls/hr IVPB Q6H [facility]; Protocol Last Admin: 09/02/18 12:52 Dose: 200 mls/hr Vancomycin/Sodium Chloride (Vancomycin 1 Gm/Ns 200 Ml) 1 gm in 200 mls @ 133.333 mls/hr IVPB Q8H [facility]; Protocol Insulin Human Regular (Novolin R) 0 unit SC ACHS [facility]; Protocol Last Admin: 09/02/18 12:30 Dose: 6 u Metformin HCl (Glucophage) 1,000 mg PO BID [facility] Last Admin: 09/02/18 10:42 Dose: 1,000 mg Rosuvastatin Calcium (Crestor) 10 mg PO HS [facility] Last Admin: 09/01/18 21:42 Dose: 10 mg Sitagliptin Phosphate (Januvia) 50 mg PO DAILY [facility] Last Admin: 09/02/18 10:42 Dose: 50 mg - Labs Labs: 08/28/18 16:33 09/02/18 07:21 Assessment and Plan - Assessment and Plan (Free Text) Plan: Will schedule patient for OR for Monday for ostectomy right hallux and Arthroplasty b/l /DR Heavenly Rollins 09/02/18
--- NOTE | 2018-09-02 18:03 | CP.PCM.PN ---
Subjective - Date & Time of Evaluation Date of Evaluation: 09/02/18 Time of Evaluation: 08:41 - Subjective Subjective: dictated Objective - Vital Signs/Intake and Output Vital Signs (last 24 hours): Temp Pulse Resp BP Pulse Ox 97.7 F 86 20 114/75 94 L 09/02/18 16:56 09/02/18 16:56 09/02/18 16:56 09/02/18 16:56 09/02/18 16:56 Intake and Output: 09/02/18 09/02/18 06:59 18:59 Intake Total 850 1320 Balance 850 1320 - Medications Medications: Current Medications Acetaminophen (Tylenol 325mg Tab) 650 mg PO Q6 PRN PRN Reason: Pain, Mild (1-3) Aspirin (Ecotrin) 81 mg PO DAILY [facility] Last Admin: 09/02/18 10:42 Dose: 81 mg Enoxaparin Sodium (Lovenox) 40 mg SC DAILY [facility] Last Admin: 09/02/18 10:42 Dose: 40 mg Piperacillin Sod/Tazobactam (Sod 3.375 gm/ Sodium Chloride) 100 mls @ 200 mls/hr IVPB Q6H [facility]; Protocol Last Admin: 09/02/18 12:52 Dose: 200 mls/hr Vancomycin/Sodium Chloride (Vancomycin 1 Gm/Ns 200 Ml) 1 gm in 200 mls @ 133.333 mls/hr IVPB Q8H [facility]; Protocol Insulin Human Regular (Novolin R) 0 unit SC ACHS [facility]; Protocol Last Admin: 09/02/18 17:39 Dose: 2 u Metformin HCl (Glucophage) 1,000 mg PO BID [facility] Last Admin: 09/02/18 17:29 Dose: 1,000 mg Rosuvastatin Calcium (Crestor) 10 mg PO HS [facility] Last Admin: 09/01/18 21:42 Dose: 10 mg Sitagliptin Phosphate (Januvia) 50 mg PO DAILY [facility] Last Admin: 09/02/18 10:42 Dose: 50 mg - Labs Labs: 08/28/18 16:33 09/02/18 07:21
[2018-09-03] MEDS: Piperacillin/Tazobact 3.375 GM in Sodium Chloride 100 ML IVPB SCH ×2 (00:24→05:28)
[2018-09-03] MEDS: Vancomycin 1 gm/NS 200 ml 1 GM/200 ML BAG IVPB SCH ×3 (01:12→17:47)
--- NOTE | 2018-09-03 06:34 | PN ---
DATE: 09/01/2018 SUBJECTIVE: The patient, Gee Jo, is afebrile. No shortness of breath. No chest pain. PHYSICAL EXAMINATION: VITAL SIGNS: Blood pressure 127/80, pulse 84, respiratory rate 20, temperature 97.5. LUNGS: Clear. CVS: S1 and S2, regular. ABDOMEN: Soft. ASSESSMENT: 1. Bilateral foot infection. MRI is negative for osteomyelitis. 2. Type 2 diabetes. 3. Hypertension. PLAN: Accu-Check, sliding scale. Wound culture positive for MRSA and corynebacterium. Monitor the patient. Rafael Bowens MD
--- NOTE | 2018-09-03 06:34 | PN ---
DATE: 09/02/2018 SUBJECTIVE: His wound cultures are positive for MRSA. Afebrile, on antibiotics. MRI report is negative. PHYSICAL EXAMINATION VITAL SIGNS: BP is /75, pulse 86, respiratory rate 20, temperature 97.7. LUNGS: Clear. CVS: S1 and S2, regular. ABDOMEN: Soft. ASSESSMENT: 1. Diabetic foot. 2. Type 2 diabetes. 3. Hypertension. PLAN: Medical management. Monitor the patient. Rafael Bowens MD
--- NOTE | 2018-09-03 06:34 | PN ---
DATE: 08/31/2018 SUBJECTIVE: The patient, Deysi, is on antibiotics. He has been seen by Podiatry and Infectious Disease. He has osteomyelitis. No fever. No chills. No nausea or vomiting. PHYSICAL EXAMINATION: VITAL SIGNS: Blood pressure 143/83, pulse 90, respiratory rate 20, temperature 98.8. No fever. LUNGS: Clear. CARDIOVASCULAR SYSTEM: S1 and S2, regular. ABDOMEN: Soft. ASSESSMENT: 1. Osteomyelitis of feet. 2. Type 2 diabetes. 3. Hypertension. PLAN: Continue to monitor sugar. Monitor the patient. Rafael Bowens MD
[2018-09-03] MEDS: (Novolin R) Insulin Human Regular 100 units/ml vial SC SCH ×4 (08:29→21:32)
--- NOTE | 2018-09-03 09:20 | CP.PCM.PN ---
<Arsen Rollins - Last Filed: 09/03/18 09:20> Subjective - Date & Time of Evaluation Date of Evaluation: 09/03/18 Time of Evaluation: 09:20 Objective - Vital Signs/Intake and Output Vital Signs (last 24 hours): Temp Pulse Resp BP Pulse Ox 97.3 F L 94 H 20 131/88 95 09/03/18 08:00 09/03/18 08:00 09/03/18 08:00 09/03/18 08:00 09/03/18 08:00 Intake and Output: 09/03/18 09/03/18 06:59 18:59 Intake Total 540 Balance 540 - Medications Medications: Current Medications Acetaminophen (Tylenol 325mg Tab) 650 mg PO Q6 PRN PRN Reason: Pain, Mild (1-3) Aspirin (Ecotrin) 81 mg PO DAILY [facility] Last Admin: 09/02/18 10:42 Dose: 81 mg Enoxaparin Sodium (Lovenox) 40 mg SC DAILY [facility] Last Admin: 09/02/18 10:42 Dose: 40 mg Piperacillin Sod/Tazobactam (Sod 3.375 gm/ Sodium Chloride) 100 mls @ 200 mls/ hr IVPB Q6H [facility]; Protocol Last Admin: 09/03/18 05:28 Dose: 200 mls/hr Vancomycin/Sodium Chloride (Vancomycin 1 Gm/Ns 200 Ml) 1 gm in 200 mls @ 133.333 mls/hr IVPB Q8H [facility]; Protocol Last Admin: 09/03/18 01:12 Dose: 133.333 mls/hr Insulin Human Regular (Novolin R) 0 unit SC ACHS [facility]; Protocol Last Admin: 09/03/18 08:29 Dose: 2 u Metformin HCl (Glucophage) 1,000 mg PO BID [facility] Last Admin: 09/02/18 17:29 Dose: 1,000 mg Rosuvastatin Calcium (Crestor) 10 mg PO HS [facility] Last Admin: 09/02/18 21:30 Dose: 10 mg Sitagliptin Phosphate (Januvia) 50 mg PO DAILY [facility] Last Admin: 09/02/18 10:42 Dose: 50 mg - Labs Labs: 08/28/18 16:33 09/02/18 07:21 <Sheri Barriga - Last Filed: 09/03/18 10:34> Subjective - Subjective Subjective: Podiatry Progress Note - Dr. Rollins: 52 y/o male seen this morning at bedside with attending Dr. Rollins for bilateral plantar hallux wounds and right plantar calcaneus wound. Patient is understanding and agreeable to surgery tomorrow to correct the pressure areas of his big toes and realign the joints. States he has been walking today with PT without limitations. Denies F/C/N/V/CP/SOB. Denies pain in the feet. Denies smoking as of recent but then follows this by stating he smokes 2 cigars weekly Objective - Vital Signs/Intake and Output Vital Signs (last 24 hours): Temp Pulse Resp BP Pulse Ox 97.3 F L 94 H 20 131/88 95 09/03/18 08:00 09/03/18 08:00 09/03/18 08:00 09/03/18 08:00 09/03/18 08:00 Intake and Output: 09/03/18 09/03/18 06:59 18:59 Intake Total 540 Balance 540 - Medications Medications: Current Medications Acetaminophen (Tylenol 325mg Tab) 650 mg PO Q6 PRN PRN Reason: Pain, Mild (1-3) Aspirin (Ecotrin) 81 mg PO DAILY [facility] Last Admin: 09/02/18 10:42 Dose: 81 mg Enoxaparin Sodium (Lovenox) 40 mg SC DAILY [facility] Last Admin: 09/02/18 10:42 Dose: 40 mg Piperacillin Sod/Tazobactam (Sod 3.375 gm/ Sodium Chloride) 100 mls @ 200 mls/hr IVPB Q6H [facility]; Protocol Last Admin: 09/03/18 05:28 Dose: 200 mls/hr Vancomycin/Sodium Chloride (Vancomycin 1 Gm/Ns 200 Ml) 1 gm in 200 mls @ 133.333 mls/hr IVPB Q8H [facility]; Protocol Last Admin: 09/03/18 01:12 Dose: 133.333 mls/hr Insulin Human Regular (Novolin R) 0 unit SC ACHS [facility]; Protocol Last Admin: 09/03/18 08:29 Dose: 2 u Metformin HCl (Glucophage) 1,000 mg PO BID [facility] Last Admin: 09/02/18 17:29 Dose: 1,000 mg Rosuvastatin Calcium (Crestor) 10 mg PO HS [facility] Last Admin: 09/02/18 21:30 Dose: 10 mg Sitagliptin Phosphate (Januvia) 50 mg PO DAILY [facility] Last Admin: 09/02/18 10:42 Dose: 50 mg - Labs Labs: 08/28/18 16:33 09/02/18 07:21 - Constitutional Appears: Well, Non-toxic, No Acute Distress - Extremities Exam Additional comments: Lower extremity focused exam: Vasc: DP pulses palpable 2/4 B/L. PT pulses nonpalpable secondary to edema B/L. CFT < 3 sec in all digits. Temp gradient warm to warm B/L with increase in wa rmth noted to hallux B/L. +1 pitting edema noted to bilateral LE. Neuro: Protective sensation absen Derm: Right:Full thickness ulceration noted to plantar aspect of R hallux measuring 3cm X 3cm X 0.3cm. Base is 90% granular and 10% necrotic with thickened hyperkeratotic rim and malodor present. Mild rythema noted periwound; no drainage noted, no purulence, undermining present, no tracking, no probe to bone. Full thickness ulceration noted to plantar aspect of right heel - ulcer noted to have 90% granular and 10% necrotic base with mildly macerated wound borders and mild malodor present. No erythema noted, no drainage, no purulence, no probe to bone. Left: Full thickness ulceration noted to plantar aspect of left hallux measuring 3.5cm x 3.5cm x 0.3 cm - ulcer noted to have a 100% granular base with hyperkeratotic tissue rim noted. Mild erythema noted to periwound; no drainage noted, no purulence, no fluctuance, no undermining, no tracking, no probe to bone. Ortho: No tenderness to palpation to wounds. Muscle strength 5/5 for all dorsiflexors, plantarflexors, inverters, and everters B/L - Neurological Exam Neurological Exam: Alert, Awake - Psychiatric Exam Psychiatric exam: Normal Affect, Normal Mood Assessment and Plan - Assessment and Plan (Free Text) Assessment: 52 y/o male with nonhealing infected wounds to bilateral feet with osteomyelitis of R hallux Plan: Patient seen and evaluated with attending Dr. Rollins Afebrile, ESR 38 R foot WCx: MRSA, corynebacterium species L foot WCx: MRSA, corynebacterium species Continue IV Vancomycin, Zosyn Bilateral foot XR: No obvious OM appreciated RLE MRI: ST ulcer 1st distal phalanx, acute OM 1st distal phalanx LLE MRI: ST inflammatory changes 1st toe adjacent to distal phalanx, w/o evidence of abscess formation, no evidence of acute OM Continue local wound care: Betadine, DSD to bilateral LE Pt may be WBAT bilateral LE in surgical shoe Pt scheduled to go to OR tomorrow at 8am for bilateral Cronin arthroplasty with R great toe bone biopsy NPO after midnight Anticoagulants to be held today prior to surgery tomorrow Podiatry will continue to follow while patient is in house
[2018-09-03] MEDS: Enoxaparin 40 mg Syringe SC SCH (10:42)
--- NOTE | 2018-09-03 13:37 | CP.PCM.PN ---
Subjective - Date & Time of Evaluation Date of Evaluation: 09/03/18 Time of Evaluation: 09:00 - Subjective Subjective: events noted cont rx as per Dr Rollins Objective - Vital Signs/Intake and Output Vital Signs (last 24 hours): Temp Pulse Resp BP Pulse Ox 97.3 F L 94 H 20 131/88 95 09/03/18 08:00 09/03/18 08:00 09/03/18 08:00 09/03/18 08:00 09/03/18 08:00 Intake and Output: 09/03/18 09/03/18 06:59 18:59 Intake Total 540 Balance 540 - Medications Medications: Current Medications Acetaminophen (Tylenol 325mg Tab) 650 mg PO Q6 PRN PRN Reason: Pain, Mild (1-3) Aspirin (Ecotrin) 81 mg PO DAILY [facility] Last Admin: 09/03/18 10:42 Dose: 81 mg Enoxaparin Sodium (Lovenox) 40 mg SC DAILY [facility] Last Admin: 09/03/18 10:42 Dose: Not Given Vancomycin/Sodium Chloride (Vancomycin 1 Gm/Ns 200 Ml) 1 gm in 200 mls @ 133.333 mls/hr IVPB Q8H [facility]; Protocol Last Admin: 09/03/18 10:44 Dose: 133.333 mls/hr Piperacillin Sod/Tazobactam Sod (Zosyn 3.375 Gm Iv Premix) 3.375 gm in 50 mls @ 100 mls/hr IVPB Q6H [facility]; Protocol Insulin Human Regular (Novolin R) 0 unit SC ACHS [facility]; Protocol Last Admin: 09/03/18 12:30 Dose: 3 u Metformin HCl (Glucophage) 1,000 mg PO BID [facility] Last Admin: 09/03/18 10:41 Dose: 1,000 mg Rosuvastatin Calcium (Crestor) 10 mg PO HS [facility] Last Admin: 09/02/18 21:30 Dose: 10 mg Sitagliptin Phosphate (Januvia) 50 mg PO DAILY [facility] Last Admin: 09/03/18 10:42 Dose: 50 mg - Labs Labs: 08/28/18 16:33 09/02/18 07:21 - Constitutional Appears: Non-toxic, Chronically Ill - Head Exam Head Exam: NORMOCEPHALIC - Eye Exam Eye Exam: PERRL - ENT Exam ENT Exam: Mucous Membranes Dry - Neck Exam Neck Exam: absent: Lymphadenopathy - Respiratory Exam Respiratory Exam: Decreased Breath Sounds Assessment and Plan (1) Cellulitis Status: Acute (2) Osteomyelitis Status: Acute (3) Diabetes mellitus Status: Chronic (4) Obesity Status: Chronic
--- NOTE | 2018-09-03 13:50 | RAD ---
Date of service: 09/03/2018 HISTORY: verify right PICC COMPARISON: 05/21/2018. FINDINGS: The right PICC line terminates in the SVC. LUNGS: The lungs are well inflated and clear. PLEURA: No significant pleural effusion identified, no pneumothorax apparent. CARDIOVASCULAR: Persistent mild cardiomegaly. No atherosclerotic aortic calcifications. OSSEOUS STRUCTURES: No significant abnormalities. VISUALIZED UPPER ABDOMEN: Normal. OTHER FINDINGS: None. IMPRESSION: Right PICC line terminates in the SVC No acute findings.
[2018-09-03] MEDS: Piperacill/Tazo 3.375gm in Dex 3.375 GM/50 ML BAG IVPB SCH ×2 (14:22→19:39)
--- NOTE | 2018-09-03 23:33 | CP.PCM.PN ---
Subjective - Date & Time of Evaluation Date of Evaluation: 09/03/18 Time of Evaluation: 08:43 - Subjective Subjective: dictated Objective - Vital Signs/Intake and Output Vital Signs (last 24 hours): Temp Pulse Resp BP Pulse Ox 98.4 F 88 20 160/82 H 94 L 09/03/18 16:00 09/03/18 16:00 09/03/18 16:00 09/03/18 16:00 09/03/18 16:00 Intake and Output: 09/03/18 09/04/18 18:59 06:59 Intake Total 730 Balance 730 - Medications Medications: Current Medications Acetaminophen (Tylenol 325mg Tab) 650 mg PO Q6 PRN PRN Reason: Pain, Mild (1-3) Aspirin (Ecotrin) 81 mg PO DAILY [facility] Last Admin: 09/03/18 10:42 Dose: 81 mg Enoxaparin Sodium (Lovenox) 40 mg SC DAILY [facility] Last Admin: 09/03/18 10:42 Dose: Not Given Vancomycin/Sodium Chloride (Vancomycin 1 Gm/Ns 200 Ml) 1 gm in 200 mls @ 133.333 mls/hr IVPB Q8H [facility]; Protocol Last Admin: 09/03/18 17:47 Dose: 133.333 mls/hr Piperacillin Sod/Tazobactam Sod (Zosyn 3.375 Gm Iv Premix) 3.375 gm in 50 mls @ 100 mls/hr IVPB Q6H [facility]; Protocol Last Admin: 09/03/18 19:39 Dose: 100 mls/hr Insulin Human Regular (Novolin R) 0 unit SC ACHS [facility]; Protocol Last Admin: 09/03/18 21:32 Dose: Not Given Metformin HCl (Glucophage) 1,000 mg PO BID [facility] Last Admin: 09/03/18 17:45 Dose: 1,000 mg Rosuvastatin Calcium (Crestor) 10 mg PO HS [facility] Last Admin: 09/03/18 21:31 Dose: 10 mg Sitagliptin Phosphate (Januvia) 50 mg PO DAILY [facility] Last Admin: 09/03/18 10:42 Dose: 50 mg - Labs Labs: 08/28/18 16:33 09/02/18 07:21
[2018-09-04] MEDS: Piperacill/Tazo 3.375gm in Dex 3.375 GM/50 ML BAG IVPB SCH ×4 (01:02→19:05)
[2018-09-04 02:10] LABS: BASO # 0.1 K/uL (0.0-0.2); BASO % 1.1 % (0.0-2.0); EOS # 0.4 K/uL (0.0-0.7); EOS % 5.7 % (0.0-4.0); HEMOGLOBIN 10.1 g/dL (12.0-18.0); LYMPH # 1.1 K/uL (1.0-4.3); LYMPH % 15.2 % (20.0-40.0); MEAN CELL VOLUME 84.6 fL (80.0-94.0); MEAN CORPUSCULAR HEMOGLOBIN 29.2 pg (27.0-31.0); MEAN CORPUSCULAR HGB CONC 34.5 g/dL (33.0-37.0); MEAN PLATELET VOLUME 7.3 fL (7.2-11.7); MONO # 0.8 K/uL (0.0-0.8); MONO % 11.6 % (0.0-10.0); NEUT # 4.7 K/uL (1.8-7.0); NEUT % 66.4 % (50.0-75.0); RBC 3.46 Mil/uL (4.40-5.90); RED CELL DISTRIBUTION WIDTH 14.5 % (11.5-14.5); WHITE BLOOD COUNT 7.1 K/uL (4.8-10.8)
[2018-09-04 02:33] LABS: BLOOD UREA NITROGEN 14 mg/dL (9-20); CALCIUM 9.3 mg/dl (8.6-10.4); GFR NON-AFRICAN AMERICAN > 60
[2018-09-04] MEDS: Vancomycin 1 gm/NS 200 ml 1 GM/200 ML BAG IVPB SCH ×4 (02:45→17:00)
[2018-09-04] MEDS: (Novolin R) Insulin Human Regular 100 units/ml vial SC SCH ×4 (07:42→21:35)
[2018-09-04] MEDS ORDERED: LIDOCAINE 2% PF (2ML) ONE ×2 (07:48→07:59)
[2018-09-04] MEDS ORDERED: Bupivacaine HCl 0.25% PF (10 ml) Inj ONE ×2 (07:48→07:59)
--- NOTE | 2018-09-04 07:51 | PN ---
DATE: 09/03/2018 SUBJECTIVE: Mr. oJ is for OR tomorrow. The patient is afebrile. No nausea, vomiting. He is on antibiotics. He is ambulating. He has been seen by Podiatry and has a dressing. PHYSICAL EXAMINATION: VITAL SIGNS: Blood pressure 160/82, pulse 88, respiratory rate 20, temperature 98.4. LUNGS: Clear. CARDIOVASCULAR SYSTEM: S1 and S2, regular. ABDOMEN: Soft. ASSESSMENT: 1. Bilateral lower extremely cellulitis. 2. Type 2 diabetes. 3. Hypertension. 4. Hyperlipidemia. PLAN: Medical management. Monitor the patient. Rafael Bowens MD
[2018-09-04] MEDS ORDERED: Propofol 10 mg/ml Inj (20 ML) ONE ×2 (08:14→09:27)
[2018-09-04] MEDS ORDERED: Midazolam 2 MG/2 ML VIAL ONE ×2 (08:14→09:03)
--- NOTE | 2018-09-04 10:14 | PCM.SURG1 ---
Surgeon's Initial Post Op Note - Surgeon's Notes Surgeon: Dr. Arsen Rollins Director Meetings: Mae Rivers PGY-3, Sheri Harris PGY-2 Type of Anesthesia: IV Sedation, Local Anesthesia Administered By: Luci TRUJILLO/[place] MICHEL Pre-Operative Diagnosis: bilateral plantar hallux ulceration, right great toe osteomyelitis Operative Findings: see dictation. I: 30cc 1:1 mix of 2% Lidocaine plain and 0.25% Marcaine plain. M: 3-0 Vicryl, 4-0 Vicryl, 3-0 Nylon Post-Operative Diagnosis: same Operation Performed: bilateral Cronin arthroplasty of 1st MPJ; right hallux distal phalanx exostectomy Specimen/Specimens Removed: right hallux distal phalanx bone, bilateral proximal phalanx hallux bone Estimated Blood Loss: EBL {In ML}: 2 Blood Products Given: N/A Drains Used: No Drains Post-Op Condition: Good Date of Surgery/Procedure: 09/04/18 Time of Surgery/Procedure: 10:14
[2018-09-04] MEDS ORDERED: HYDROmorphone 0.5 mg/0.5 ml ISec IVP PRN (10:23)
[2018-09-04] MEDS ORDERED: Lactated Ringer's 1,000 ML IV SCH (10:30)
[2018-09-04] MEDS ORDERED: Lactated Ringer's 1,000 ML IV ONE (10:41)
--- NOTE | 2018-09-04 14:50 | RAD ---
Date of service: 09/04/2018 PROCEDURE: Bilateral Feet Radiographs. HISTORY: s/p surgery COMPARISON: 08/29/2018 FINDINGS: BONES: Right Foot: Interval partial amputation 1st distal phalanx the subarticular cystic changes bordering the 1st interphalangeal joint are as before. Interval partial resection of the 1st proximal phalanx sub articular bone. The 1st metatarsal distal cortex appears intact. Inferior calcaneal spur-similar Left Foot: No interval fracture. Interval partial resection of 1st proximal phalanx. Distal meta tarsal head intact. No interval periosteal reaction or gross cortical nonsurgical interruption noted. Minimal inferior calcaneal spurring-similar JOINTS: Right Foot: Hypertrophic and sub articular/subcortical arthro pathic cystic changes midfoot-similar Left Foot: Trace midfoot arthropathic changes-similar SOFT TISSUES: Right Foot: Soft tissue swelling bandaging over great toe. Heel soft tissue changes compatible with ulcer-correlate clinically. Mottled subcutaneous edema and lucencies no gas-forming cellulitis seen. Subcutaneous soft tissue changes similar. Interval bandaging noted.. Left Foot: Plantar great toe level also like changes. Small lucencies plantar soft tissues metatarsal-phalangeal joint level lateral view possibly postsurgical. Nonspecific subcutaneous reticulated edema less in left foot than that the right foot OTHER FINDINGS: None. IMPRESSION: Bilateral postsurgical changes. No interval periosteal or cortical destruction seen to suggest osteomyelitis. Soft tissue changes consistent with both ulcer and/or cellulitis and/or postsurgical changes. Correlate clinically Other findings as above.
[2018-09-04 16:07] VITALS: RESP 20
--- NOTE | 2018-09-04 22:31 | CP.PCM.PN ---
Subjective - Date & Time of Evaluation Date of Evaluation: 09/04/18 Time of Evaluation: 08:47 - Subjective Subjective: dictated Objective - Vital Signs/Intake and Output Vital Signs (last 24 hours): Temp Pulse Resp BP Pulse Ox 98.2 F 90 20 132/80 98 09/04/18 16:06 09/04/18 16:06 09/04/18 16:06 09/04/18 16:06 09/04/18 16:06 Intake and Output: 09/04/18 09/05/18 18:59 06:59 Intake Total 2420 Balance 2420 - Medications Medications: Current Medications Acetaminophen (Tylenol 325mg Tab) 650 mg PO Q6 PRN PRN Reason: Pain, Mild (1-3) Aspirin (Ecotrin) 81 mg PO DAILY [facility] Last Admin: 09/04/18 10:45 Dose: Not Given Enoxaparin Sodium (Lovenox) 40 mg SC DAILY [facility] Last Admin: 09/03/18 10:42 Dose: Not Given Vancomycin/Sodium Chloride (Vancomycin 1 Gm/Ns 200 Ml) 1 gm in 200 mls @ 133.333 mls/hr IVPB Q8H [facility]; Protocol Last Admin: 09/04/18 17:00 Dose: 133.333 mls/hr Piperacillin Sod/Tazobactam Sod (Zosyn 3.375 Gm Iv Premix) 3.375 gm in 50 mls @ 100 mls/hr IVPB Q6H [facility]; Protocol Last Admin: 09/04/18 19:05 Dose: 100 mls/hr Insulin Human Regular (Novolin R) 0 unit SC ACHS [facility]; Protocol Last Admin: 09/04/18 17:00 Dose: 4 u Metformin HCl (Glucophage) 1,000 mg PO BID [facility] Last Admin: 09/04/18 17:41 Dose: 1,000 mg Rosuvastatin Calcium (Crestor) 10 mg PO HS [facility] Last Admin: 09/04/18 21:55 Dose: 10 mg Sitagliptin Phosphate (Januvia) 50 mg PO DAILY [facility] Last Admin: 09/04/18 12:19 Dose: 50 mg - Labs Labs: 09/04/18 02:07 09/04/18 02:07
[2018-09-05] MEDS: Piperacill/Tazo 3.375gm in Dex 3.375 GM/50 ML BAG IVPB SCH ×3 (01:18→13:56)
[2018-09-05] MEDS: Vancomycin 1 gm/NS 200 ml 1 GM/200 ML BAG IVPB SCH ×3 (02:13→17:12)
--- NOTE | 2018-09-05 08:21 | PN ---
DATE: 09/04/2018 SUBJECTIVE: The patient is on antibiotics. He is afebrile. No shortness of breath. Blood sugars are better controlled. PHYSICAL EXAMINATION: VITAL SIGNS: Blood pressure 132/80, pulse 90, respiratory rate 20, temperature 98.2. LUNGS: Clear. CARDIOVASCULAR SYSTEM: S1 and S2, regular. ABDOMEN: Soft. ASSESSMENT: 1. Diabetic foot infection. 2. Diabetes. 3. Hyperlipidemia. PLAN: Continue current medication. Monitor the patient. Rafael Bowens MD
[2018-09-05] MEDS: (Novolin R) Insulin Human Regular 100 units/ml vial SC SCH ×3 (08:22→17:12)
--- NOTE | 2018-09-05 10:34 | CP.PCM.PN ---
<Arsen Rollins - Last Filed: 09/05/18 10:34> Subjective - Date & Time of Evaluation Date of Evaluation: 09/05/18 Time of Evaluation: 10:34 Objective - Vital Signs/Intake and Output Vital Signs (last 24 hours): Temp Pulse Resp BP Pulse Ox 97.7 F 86 20 133/77 96 09/05/18 07:42 09/05/18 07:42 09/05/18 07:42 09/05/18 07:42 09/05/18 07:42 Intake and Output: 09/05/18 09/05/18 06:59 18:59 Intake Total 650 Balance 650 - Medications Medications: Current Medications Acetaminophen (Tylenol 325mg Tab) 650 mg PO Q6 PRN PRN Reason: Pain, Mild (1-3) Aspirin (Ecotrin) 81 mg PO DAILY [facility] Last Admin: 09/04/18 10:45 Dose: Not Given Enoxaparin Sodium (Lovenox) 40 mg SC DAILY [facility] Last Admin: 09/03/18 10:42 Dose: Not Given Vancomycin/Sodium Chloride (Vancomycin 1 Gm/Ns 200 Ml) 1 gm in 200 mls @ 133.333 mls/hr IVPB Q8H [facility]; Protocol Last Admin: 09/05/18 02:13 Dose: 133.333 mls/hr Piperacillin Sod/Tazobactam Sod (Zosyn 3.375 Gm Iv Premix) 3.375 gm in 50 mls @ 100 mls/hr IVPB Q6H [facility]; Protocol Last Admin: 09/05/18 08:52 Dose: 100 mls/hr Insulin Human Regular (Novolin R) 0 unit SC ACHS [facility]; Protocol Last Admin: 09/05/18 08:22 Dose: Not Given Metformin HCl (Glucophage) 1,000 mg PO BID [facility] Last Admin: 09/04/18 17:41 Dose: 1,000 mg Rosuvastatin Calcium (Crestor) 10 mg PO HS [facility] Last Admin: 09/04/18 21:55 Dose: 10 mg Sitagliptin Phosphate (Januvia) 50 mg PO DAILY [facility] Last Admin: 09/04/18 12:19 Dose: 50 mg - Labs Labs: 09/04/18 02:07 09/04/18 02:07 <Sheri Barriga - Last Filed: 09/05/18 11:02> Subjective - Subjective Subjective: 52 y/o male seen at bedside this morning with attending Dr. Rollins, 1 day s/p bilateral foot Cronin arthroplasty of 1st MPJ with right great toe distal phalangectomy and bone biopsy. Pt resting comfortably in bed. States he had mild intermittent pain to both feet overnight, controlled by medications. States the post surgical dressings have remained intact. Denies any overnight events. Denies F/C/N/V/CP/SOB Objective - Vital Signs/Intake and Output Vital Signs (last 24 hours): Temp Pulse Resp BP Pulse Ox 97.7 F 86 20 133/77 96 09/05/18 07:42 09/05/18 07:42 09/05/18 07:42 09/05/18 07:42 09/05/18 07:42 Intake and Output: 09/05/18 09/05/18 06:59 18:59 Intake Total 650 Balance 650 - Medications Medications: Current Medications Acetaminophen (Tylenol 325mg Tab) 650 mg PO Q6 PRN PRN Reason: Pain, Mild (1-3) Aspirin (Ecotrin) 81 mg PO DAILY [facility] Last Admin: 09/05/18 10:57 Dose: 81 mg Enoxaparin Sodium (Lovenox) 40 mg SC DAILY [facility] Last Admin: 09/03/18 10:42 Dose: Not Given Vancomycin/Sodium Chloride (Vancomycin 1 Gm/Ns 200 Ml) 1 gm in 200 mls @ 133. 333 mls/hr IVPB Q8H [facility]; Protocol Last Admin: 09/05/18 02:13 Dose: 133.333 mls/hr Piperacillin Sod/Tazobactam Sod (Zosyn 3.375 Gm Iv Premix) 3.375 gm in 50 mls @ 100 mls/hr IVPB Q6H [facility]; Protocol Last Admin: 09/05/18 08:52 Dose: 100 mls/hr Insulin Human Regular (Novolin R) 0 unit SC ACHS [facility]; Protocol Last Admin: 09/05/18 08:22 Dose: Not Given Metformin HCl (Glucophage) 1,000 mg PO BID [facility] Last Admin: 09/05/18 10:57 Dose: 1,000 mg Rosuvastatin Calcium (Crestor) 10 mg PO HS [facility] Last Admin: 09/04/18 21:55 Dose: 10 mg Sitagliptin Phosphate (Januvia) 50 mg PO DAILY [facility] Last Admin: 09/04/18 12:19 Dose: 50 mg - Labs Labs: 09/04/18 02:07 09/04/18 02:07 - Constitutional Appears: Well, Non-toxic, No Acute Distress - Extremities Exam Additional comments: Lower extremity focused exam: Vasc: DP pulses palpable 2/4 B/L. PT pulses nonpalpable secondary to edema B/L. CFT < 3 sec in all digits. Temp gradient warm to warm B/L with increase in warmth noted to hallux B/L. +1 pitting edema noted to bilateral LE. Neuro: Protective sensation absen Derm: Right: Linear surgical incision site approx 6cm in length along dorsum of 1st MPJ with skin edges well coapted and sutures intact, no signs of dehiscence. Additional surgical incision site noted 3cm in length along distal tip of hallux with skin edges well coapted and sutures intact, with no signs of dehiscence. Full thickness ulceration noted to plantar aspect of R hallux measuring 3cm X 3cm X 0.3cm. Base is 90% granular and 10% necrotic with thickened hyperkeratotic rim and malodor present. Mild rythema noted periwound; no drainage noted, no purulence, undermining present, no tracking, no probe to bone. Full thickness ulceration noted to plantar aspect of right heel - ulcer noted to have 90% granular and 10% necrotic base with mildly macerated wound borders and mild malodor present. No erythema noted, no drainage, no purulence, no probe to bone. Left: Linear surgical incision site approx 6cm in length along dorsum of 1st MPJ with skin edges well coapted and sutures intact, no signs of dehiscence. Full thickness ulceration noted to plantar aspect of left hallux measuring 3.5cm x 3.5cm x 0.3 cm - ulcer noted to have a 100% granular base with hyperkeratotic tissue rim noted. Mild erythema noted to periwound; no drainage noted, no purulence, no fluctuance, no undermining, no tracking, no probe to bone. Ortho: No tenderness to palpation to wounds. Muscle strength 5/5 for all dorsiflexors, plantarflexors, inverters, and everters B/L - Neurological Exam Neurological Exam: Alert, Awake, Oriented x3 - Psychiatric Exam Psychiatric exam: Normal Affect, Normal Mood Assessment and Plan - Assessment and Plan (Free Text) Assessment: 52 y/o male with nonhealing infected wounds to bilateral feet with osteomyelitis of R hallux, who is 1 day s/p bilateral Cronin arthroplasty with right great toe distal phalanx exostectomy with bone biopsy Plan: Patient seen and evaluated with attending Dr. Rollins Afebrile, ESR 38 R foot WCx: MRSA, corynebacterium species L foot WCx: MRSA, corynebacterium species Continue IV Vancomycin, Zosyn Bilateral foot XR: No obvious OM appreciated RLE MRI: ST ulcer 1st distal phalanx, acute OM 1st distal phalanx LLE MRI: ST inflammatory changes 1st toe adjacent to distal phalanx, w/o evidence of abscess formation, no evidence of acute OM Continue local wound care to surgical sites and foot wounds - cleanse with saline and application of Betadine, DSD to bilateral LE Await results of bone biopsy from R hallux distal phalanx for tailored abx therapy Pt may be WBAT bilateral LE in surgical shoe Podiatry will continue to follow while patient is in house
[2018-09-05 16:57] VITALS: BP 122/79; PULSE 102; TEMP 98.1; O2SAT 97
--- NOTE | 2018-09-05 17:10 | CP.PCM.PN ---
Subjective - Date & Time of Evaluation Date of Evaluation: 09/05/18 Time of Evaluation: 11:35 - Subjective Subjective: Patient seen today, denies any complaints , oob ambulating with surgical shoe , dressing clean and intact s/p bilateral Cronin arthroplasty of 1st MPJ; right hallux distal phalanx exostectomy 09/04/16 a febrile Objective - Vital Signs/Intake and Output Vital Signs (last 24 hours): Temp Pulse Resp BP Pulse Ox 98.1 F 102 H 20 122/79 97 09/05/18 16:00 09/05/18 16:00 09/05/18 16:00 09/05/18 16:00 09/05/18 16:00 Intake and Output: 09/05/18 09/05/18 06:59 18:59 Intake Total 650 730 Balance 650 730 - Medications Medications: Current Medications Acetaminophen (Tylenol 325mg Tab) 650 mg PO Q6 PRN PRN Reason: Pain, Mild (1-3) Aspirin (Ecotrin) 81 mg PO DAILY [facility] Last Admin: 09/05/18 10:57 Dose: 81 mg Enoxaparin Sodium (Lovenox) 40 mg SC DAILY [facility] Last Admin: 09/03/18 10:42 Dose: Not Given Vancomycin/Sodium Chloride (Vancomycin 1 Gm/Ns 200 Ml) 1 gm in 200 mls @ 133.333 mls/hr IVPB Q8H [facility]; Protocol Last Admin: 09/05/18 10:59 Dose: 133.333 mls/hr Piperacillin Sod/Tazobactam Sod (Zosyn 3.375 Gm Iv Premix) 3.375 gm in 50 mls @ 100 mls/hr IVPB Q6H [facility]; Protocol Last Admin: 09/05/18 13:56 Dose: 100 mls/hr Insulin Human Regular (Novolin R) 0 unit SC ACHS [facility]; Protocol Last Admin: 09/05/18 12:29 Dose: 3 u Metformin HCl (Glucophage) 1,000 mg PO BID [facility] Last Admin: 09/05/18 10:57 Dose: 1,000 mg Rosuvastatin Calcium (Crestor) 10 mg PO HS [facility] Last Admin: 09/04/18 21:55 Dose: 10 mg Sitagliptin Phosphate (Januvia) 50 mg PO DAILY [facility] Last Admin: 09/05/18 11:12 Dose: 50 mg - Labs Labs: 09/04/18 02:07 09/04/18 02:07 Assessment and Plan - Assessment and Plan (Free Text) Assessment: A/P 52 year old male patient PMHx DM type 2, hyperlipidemia and chronic wound LE admitted with cellulitis and suspected OM MRI Stable mild bone marrow edema in the distal phalanx of the 1st toe. No evidence of acute osteomyelitis. Soft tissue inflammatory changes and edema noted in the 1st toe adjacent to the distal phalanx without evidence of drainable or discrete abscess formation. MRSA - wound culture and started on antibiotics s/p bilateral Cronin arthroplasty of 1st MPJ; right hallux distal phalanx exostectomy 09/04/16 D./w Podiatry cleared for discharge to [facility] for antibiotics and continue wound care D/w Dr. cardoso continue vancomycin and zozyn for total of 6 weeks D/w Dr. Bowens, cleared for discharge to [facility] today and Dr. Bowens will follow the patient at [facility] Dr. Rollins will follow the patietn at [facility] for f/u woun d care All instructions sent to [facility] including labs and vanco level and wound care discharge plan discussed with patient who understands and agrees with plan
--- NOTE | 2018-09-05 18:36 | CP.PCM.PN ---
Subjective - Date & Time of Evaluation Date of Evaluation: 09/05/18 Time of Evaluation: 10:00 - Subjective Subjective: + OM on MRI cont rx x 6 weeks Objective - Vital Signs/Intake and Output Vital Signs (last 24 hours): Temp Pulse Resp BP Pulse Ox 98.1 F 102 H 20 122/79 97 09/05/18 16:00 09/05/18 16:00 09/05/18 16:00 09/05/18 16:00 09/05/18 16:00 Intake and Output: 09/05/18 09/05/18 06:59 18:59 Intake Total 650 730 Balance 650 730 - Medications Medications: Current Medications Acetaminophen (Tylenol 325mg Tab) 650 mg PO Q6 PRN PRN Reason: Pain, Mild (1-3) Aspirin (Ecotrin) 81 mg PO DAILY [facility] Last Admin: 09/05/18 10:57 Dose: 81 mg Enoxaparin Sodium (Lovenox) 40 mg SC DAILY [facility] Last Admin: 09/03/18 10:42 Dose: Not Given Vancomycin/Sodium Chloride (Vancomycin 1 Gm/Ns 200 Ml) 1 gm in 200 mls @ 133.333 mls/hr IVPB Q8H [facility]; Protocol Last Admin: 09/05/18 17:12 Dose: 133.333 mls/hr Piperacillin Sod/Tazobactam Sod (Zosyn 3.375 Gm Iv Premix) 3.375 gm in 50 mls @ 100 mls/hr IVPB Q6H [facility]; Protocol Last Admin: 09/05/18 13:56 Dose: 100 mls/hr Insulin Human Regular (Novolin R) 0 unit SC ACHS [facility]; Protocol Last Admin: 09/05/18 17:12 Dose: 4 u Metformin HCl (Glucophage) 1,000 mg PO BID [facility] Last Admin: 09/05/18 17:12 Dose: 1,000 mg Rosuvastatin Calcium (Crestor) 10 mg PO HS [facility] Last Admin: 09/04/18 21:55 Dose: 10 mg Sitagliptin Phosphate (Januvia) 50 mg PO DAILY [facility] Last Admin: 09/05/18 11:12 Dose: 50 mg - Labs Labs: 09/04/18 02:07 09/04/18 02:07 - Constitutional Appears: Non-toxic, Chronically Ill - Head Exam Head Exam: NORMOCEPHALIC - Eye Exam Eye Exam: PERRL - ENT Exam ENT Exam: Mucous Membranes Dry - Neck Exam Neck Exam: absent: Lymphadenopathy - Respiratory Exam Respiratory Exam: Decreased Breath Sounds - Cardiovascular Exam Cardiovascular Exam: REGULAR RHYTHM - GI/Abdominal Exam GI & Abdominal Exam: Distended Assessment and Plan (1) Cellulitis Status: Acute (2) Osteomyelitis Status: Acute (3) Diabetes mellitus Status: Chronic (4) Obesity Status: Chronic
--- NOTE | 2018-09-05 19:08 | CP.PCM.DIS ---
Provider - Provider Date of Admission: 08/28/18 17:36 Attending physician: Rafael Bowens MD Time Spent in preparation of Discharge (in minutes): 25 Hospital Course - Lab Results Lab Results: Micro Results 09/04/18 09:15 Bone Gram Stain - Final 09/04/18 09:15 Bone Tissue Culture - Preliminary NO GROWTH AFTER 24 HOURS 08/28/18 17:55 Blood Blood Culture - Final NO GROWTH AFTER 5 DAYS 08/28/18 17:55 Blood Gram Stain - Final TEST NOT PERFORMED 08/28/18 17:55 Blood Blood Culture - Final NO GROWTH AFTER 5 DAYS 08/28/18 17:55 Blood Gram Stain - Final TEST NOT PERFORMED 08/29/18 13:05 Foot - Left Gram Stain - Final 08/29/18 13:05 Foot - Left Wound Culture - Final Methicillin Resistant S Aureus Corynebacterium Species 08/29/18 13:05 Foot - Right Gram Stain - Final 08/29/18 13:05 Foot - Right Wound Culture - Final Methicillin Resistant S Aureus Corynebacterium Species Most Recent Lab Values WBC 7.1 K/uL (4.8-10.8) 09/04/18 02:07 RBC 3.46 Mil/uL (4.40-5.90) L 09/04/18 02:07 Hgb 10.1 g/dL (12.0-18.0) L D 09/04/18 02:07 Hct 29.3 % (35.0-51.0) L 09/04/18 02:07 MCV 84.6 fL (80.0-94.0) 09/04/18 02:07 MCH 29.2 pg (27.0-31.0) 09/04/18 02:07 MCHC 34.5 g/dL (33.0-37.0) 09/04/18 02:07 RDW 14.5 % (11.5-14.5) 09/04/18 02:07 Plt Count 173 K/uL (130-400) D 09/04/18 02:07 MPV 7.3 fL (7.2-11.7) 09/04/18 02:07 Neut % (Auto) 66.4 % (50.0-75.0) 09/04/18 02:07 Lymph % (Auto) 15.2 % (20.0-40.0) L 09/04/18 02:07 [place] % (Auto) 11.6 % (0.0-10.0) H 09/04/18 02:07 Eos % (Auto) 5.7 % (0.0-4.0) H 09/04/18 02:07 Baso % (Auto) 1.1 % (0.0-2.0) 09/04/18 02:07 Neut # (Auto) 4.7 K/uL (1.8-7.0) 09/04/18 02:07 Lymph # (Auto) 1.1 K/uL (1.0-4.3) 09/04/18 02:07 [place] # (Auto) 0.8 K/uL (0.0-0.8) 09/04/18 02:07 Eos # (Auto) 0.4 K/uL (0.0-0.7) 09/04/18 02:07 Baso # (Auto) 0.1 K/uL (0.0-0.2) 09/04/18 02:07 ESR 38 mm/hr (0-15) H 08/29/18 16:59 Sodium 138 mmol/L (132-148) 09/04/18 02:07 Potassium 3.9 mmol/L (3.6-5.2) 09/04/18 02:07 Chloride 95 mmol/L (98-107) L 09/04/18 02:07 Carbon Dioxide 28 mmol/L (22-30) 09/04/18 02:07 Anion Gap 19 (10-20) 09/04/18 02:07 BUN 14 mg/dL (9-20) 09/04/18 02:07 Creatinine 0.7 mg/dL (0.8-1.5) L 09/04/18 02:07 Est GFR ( Amer) > 60 09/04/18 02:07 Est GFR (Non-Af Amer) > 60 09/04/18 02:07 POC Glucose (mg/dL) 253 mg/dL (65-110) H 09/05/18 16:04 Random Glucose 226 mg/dL (75-110) H 09/04/18 02:07 Hemoglobin A1c 9.4 % (4.2-6.5) H 09/01/18 13:53 Calcium 9.3 mg/dl (8.6-10.4) 09/04/18 02:07 Total Bilirubin 0.3 mg/dL (0.2-1.3) 08/28/18 16:33 AST 20 U/L (17-59) 08/28/18 16:33 ALT 18 U/L (21-72) L D 08/28/18 16:33 Alkaline Phosphatase 86 U/L (38-126) 08/28/18 16:33 Total Protein 7.9 g/dL (6.3-8.3) 08/28/18 16:33 Albumin 3.9 g/dL (3.5-5.0) 08/28/18 16:33 Globulin 4.0 gm/dL (2.2-3.9) H 08/28/18 16:33 Albumin/Globulin Ratio 1.0 (1.0-2.1) 08/28/18 16:33 Triglycerides 201 mg/dL (0-149) H 08/28/18 16:33 Cholesterol 189 mg/dL (0-199) 08/28/18 16:33 LDL Cholesterol Direct 137 mg/dL (0-129) H 08/28/18 16:33 HDL Cholesterol 24 mg/dL (30-70) L 08/28/18 16:33 Vancomycin Trough 6.5 ug/mL (5.0-10.0) 09/04/18 02:07 Discharge Exam - Head Exam Head Exam: NORMOCEPHALIC Discharge Plan - Discharge Medications Prescriptions: Vancomycin/0.9 % Sod Chloride [Vancomycin 1 G/200Ml-0.9% NaCl] 1 gm IV Q12 #70 [id number] - Follow Up Plan Condition: STABLE Disposition: TRANSF TO SNF Instructions: Osteomyelitis (DC), Cellulitis (DC) Additional Instructions: Please admit patient under Dr. Bowens service - call Dr. Bowens upon patient arrival to the facility Please call Dr. Rollins for podiatry consult ( needs f/u care for foot ulcer) Continue medication as per med. rec. Please continue vancomycin for total of 6 weeks ( started on 08/28/18) Please do vancomycin level q weekly starting monday and keep level between 10- 20 . If greator than 20 call MD to adjust jaylene dose Please do bmp, cbc, q weekly starting Marcos Continue local wound care to surgical sites and foot wounds - cleanse with saline and application of Betadine, DSD to bilateral L Pt may be WBAT bilateral LE in surgical shoe Referrals: Rafael Bowens MD [Staff Provider] -
--- NOTE | 2018-09-06 03:09 | DS ---
ADMISSION DIAGNOSIS: Osteomyelitis of foot. DISCHARGE DIAGNOSES: Osteomyelitis of foot, type 2 diabetes, hypertension, and hyperlipidemia. HISTORY OF PRESENT ILLNESS: This is a 52-year-old white male with history of type 2 diabetes with nonhealing foot ulcer, admitted. The patient was found to have osteomyelitis of the foot. The patient is on long-term antibiotics, and he has been placed in subacute rehab. PHYSICAL EXAMINATION: VITAL SIGNS: The patient's blood pressure 122/79, pulse 102, respiratory rate 20, and temperature 98.1. LUNGS: Clear. CARDIOVASCULAR SYSTEM: S1 and S2, regular. ABDOMEN: Soft. PLAN: Discharge the patient. Monitor the patient. Rafael Bowens MD
--- NOTE | 2018-09-06 11:51 | PCM.OP ---
Operative Report - Operative Report Date of Surgery/Procedure: 09/04/18 Time of Surgery/Procedure: 08:00 Surgeon: Dr. Arsen Rollins [employer]et Hooker: Dr. Mae Rivers PGY-3, Dr. Sheri Harris PGY-2 Anesthesia/Sedation: IV sedation with local Pre-Operative Diagnosis: bilateral plantar hallux non-healing ulceration, right hallux distal phalanx osteomyelitis Post-Operative Diagnosis: same Indication for Surgery: The patient is a 52 year-old male with the above diagnoses. The patient has exhausted conservative treatment at this time and now requires surgical intervention. The patient signed the consent after careful explanation of risks, benefits, complications and alternatives for surgical procedure. No guarantees were given nor implied. NPO status was confirmed prior to taking the patient to the operating room. Operative Findings: Preparation: The patient was brought to the operating room and placed on the operating room table in the supine position. A well-padded pneumatic ankle tourniquet was applied to bilateral lower extremities in the supramalleolar position. After induction of IV sedation the patient received a total of 30 cc of a 1:1 mixture of 2% Lidocaine plain and 0.25% Marcaine plain in a Urr[place]ia block fashion to the feet (15 cc right foot, 15cc left foot). Once local anesthesia was achieved, the left and right foot were then prepped and draped in usual sterile manner. An esmarch was utilized to exsanguinate the right foot and the pneumatic ankle tourniquet was inflated to 250mm Hg, at which time the procedure began. Procedure/Operation Description: Procedure #1: Right foot distal phalanx exostectomy. At this time, attention was directed to the distal tip of the right hallux. Using a sterile 15 blade, a 3cm linear incision was made at the distal tip of the hallux, extending down to the level of bone. All soft tissue was freed from the tip of the distal phalanx. Care was taken to identify and retract all vital tendinous, ligamentous and neurovascular structures. Using an oscillating saw, the distal tip of the distal phalanx was resected and passed off the field and sent for pathology. The site was then irrigated with normal sterile saline. The skin was reapproximated with 3-0 Nylon sutures in a simple suture fashion. Procedure #2: Right foot Cronin arthroplasty of 1st metatarsophalangeal joint. Attention was then directed to the dorsomedial aspect of the patients right foot first metatarsal phalangeal joint where an approximately 6 cm linear longitudinal incision was made medial and parallel to the tendon of the extensor hallucis longus and involved the contour of the deformity. The incision was deepened through the subcutaneous tissues with care being taken to identifyand retract all vital neurovascular structures, all bleeders were cauterized and ligated as necessary. At this time a linear periosteal and capsular incision was made overlying the first metatarsal phalangeal joint. The periosteal and capsular structures were then carefully dissected. free of their osseous attachments and reflected medially and laterally thus exposing the head of the first metatarsal as well as the base of the proximal phalanx to the operative field. Next utilizing a sagittal bone saw the dorsal and medial prominences were resected and passed from. the operative field. Attention was then directed to the base of the proximal phalanx of the hallux. At this time, the proximal 1/3 of the proximal phalanx was resected utilizing the sagittal bone saw. The wound was then flushed with copious amounts of sterile normal saline. The periosteal and capsular structures were approximated and coapted utilizing #3-0 Vicryl, subcuticular tissues reappro ximated and coapted utilizing #4-0 Vicryl, the skin was reapproximated and eoapted utilizing #3-0 Nylon. Procedure #3: Left foot Cronin arthroplasty of 1st metatarsophalangeal joint. Upon completion of the right foot 1st metatarsophalangeal joint arthroplasty procedure and closure of the surgical site, the tourniquet to the right lower extremity was deflated. At this time, an esmarch was used to exsanguinate the left lower extremity, and the pneumatic ankle tourniquet was inflated to 250mmHg on the left side. Attention was then directed to the dorsomedial aspect of the patients left foot first metatarsal phalangeal joint where an approximately 6 cm linear longitudinal incision was made medial and parallel to the tendon of the extensor hallucis longus and involved the contour of the deformity. The incision was deepened through the subcutaneous tissues with care being taken to identifyand retract all vital neurovascular structures, all bleeders were cauterized and ligated as necessary. At this time a linear periosteal and capsular incision was made overlying the first metatarsal phalangeal joint. The periosteal and capsular structures were then carefully dissected. free of their osseous attachments and reflected medially and laterally thus exposing the head of the first metatarsal as well as the base of the proximal phalanx to the operative field. Next utilizing a sagittal bone saw the dorsal and medial prominences were resected and passed from. the operative field. Attention was then directed to the base of the proximal phalanx of the hallux. At this time, the proximal 1/3 of the proximal phalanx was resected utilizing the sagittal bone saw. The wound was then flushed with copious amounts of sterile normal saline. The periosteal and capsular structures were approximated and coapted utilizing #3-0 Vicryl, subcuticular tissues reapproximated and coapted utilizing #4-0 Vicryl, the skin was reapproximated and eoapted utilizing #3-0 Nylon. Postoperative dressings in cluded betadine soaked Adaptic, 4x4 gauze, Kerlix and an overlying Coban bandage. Estimated Blood Loss: 2cc Drains: none Complications: none Specimen: right foot great toe distal phalanx bone Discharge & Condition: The patient tolerated the anesthesia and procedure well and was escorted to the recovery room with vital signs stable and neurovascular status intact to the right and left foot. Patient will return to the [facility] floors and podiatry will continue to monitor patient while in house. Upon discharge, patient will be seen and followed by Dr. Rollins on a weekly basis.
--- NOTE | 2018-09-06 11:53 | VASCLAB ---
Date of service: 09/05/2018 STUDY DESCRIPTION: Lower Extremity Arterial Exam (PVR). HISTORY: PVD PRIORS: None. TECHNIQUE: Pulse volume recording waveforms and segmental pressures of bilateral lower extremities at multiple levels were obtained. Ankle Brachial Indices (ABIs) were calculated. Report prepared by SORAIDA Chen, RVT RIGHT LOWER EXTREMITY: * Brachial artery: Pressure - mmHg. * High thigh: Pressure - mmHg: Ratio - : PVR waveform - Pulsatile * Low thigh: Pressure - 124 mmHg: Ratio - 1.04 PVR waveform: Pulsatile * Calf: Pressure - 125 mmHg: Ratio - 1.02 PVR waveform: Pulsatile * Posterior tibial Artery: Pressure - 131 mmHg: Ratio - 1.07 PVR waveform: Pulsatile * Dorsalis pedis Artery: Pressure - 112 mmHg: Ratio - 0.91 PVR waveform: Pulsatile * Great toe: Pressure - mmHg: Ratio - PVR waveform: Ankle brachial index (BIB): 1.07 LEFT LOWER EXTREMITY: * Brachial artery: Pressure - 123 mmHg. * High thigh: Pressure - mmHg: Ratio - : PVR waveform - Pulsatile * Low thigh: Pressure - 128 mmHg: Ratio - 1.04 PVR waveform: Pulsatile * Calf: Pressure - 112 mmHg: Ratio - 091 PVR waveform: Pulsatile * Posterior tibial Artery: Pressure - 120 mmHg: Ratio - 0.98 PVR waveform: Pulsatile * Dorsalis pedis Artery: Pressure - 109 mmHg: Ratio - 0.89 PVR waveform: Pulsatile * Great toe: Pressure - mmHg: Ratio - PVR waveform: Ankle brachial index (BIB): 0.98 OTHER FINDINGS: Right: Left: IMPRESSION: Right: There was no evidence of hemodynamically significant arterial insufficiency in the right lower extremity. Left: There was no evidence of hemodynamically significant arterial insufficiency in the left lower extremity.
== END 2018-09-05 18:55 | DRG 565 ==
LOC: C.ER 14:28 → C.9E 17:36 → C.3T 18:32
PROVIDERS: ADMIT Internal Medicine; ATTEND Internal Medicine
PROC: 0SQN0ZZ Repair Left Metatarsal-Phalangeal Joint, Open Approach (ICD-10-PCS; 2018-09-04)
PROC: 0SQM0ZZ Repair Right Metatarsal-Phalangeal Joint, Open Approach (ICD-10-PCS; 2018-09-04)
PROC: 0QBQ0ZZ Excision of Right Toe Phalanx, Open Approach (ICD-10-PCS; principal; 2018-09-04 08:00)
DX: E11.621 Type 2 diabetes mellitus with foot ulcer (principal); M86.171 Other acute osteomyelitis, right ankle and foot; E11.65 Type 2 diabetes mellitus with hyperglycemia; L97.529 Non-pressure chronic ulcer of other part of left foot with unspecified severity; L97.519 Non-pressure chronic ulcer of other part of right foot with unspecified severity; E11.69 Type 2 diabetes mellitus with other specified complication; E11.628 Type 2 diabetes mellitus with other skin complications; L03.031 Cellulitis of right toe; L03.032 Cellulitis of left toe; B95.62 Methicillin resistant Staphylococcus aureus infection as the cause of diseases classified elsewhere; B96.89 Other specified bacterial agents as the cause of diseases classified elsewhere; I10 Essential (primary) hypertension; E66.01 Morbid (severe) obesity due to excess calories; E78.5 Hyperlipidemia, unspecified; F17.210 Nicotine dependence, cigarettes, uncomplicated; Z79.84 Long term (current) use of oral hypoglycemic drugs; Z91.14 Patient's other noncompliance with medication regimen; Z91.11 Patient's noncompliance with dietary regimen